=== PATIENT | male | born 1950 | race Caucasian/White ===

== ENCOUNTER 2016-04-08 22:24 | Inpatient (IN) | payer OTHER ==
[~2016-04-08] VITALS: Ht 180.3 cm; Wt 94.9 kg
[2016-04-08] MEDS ORDERED: THIAMINE HCL 100 MG/ML 2 ML VIAL IM STA (23:08)
[2016-04-08] MEDS ORDERED: MULTCHW PO (23:08)
[2016-04-08] MEDS ORDERED: ASPI-391 PO (23:09)
[2016-04-08] MEDS ORDERED: MULTI-VITAMIN INFUSION INJ 10 ML, THIAMINE HCL INJ 100 MG, FoLIC ACID INJ 1 MG in SODIU... IV ONE (23:15)
[2016-04-08 23:22] LABS: BASO % 0.3 %; BASO ABS # 0.03 K/uL (0-0.2); EOS % 2.1 %; HEMATOCRIT 24.1 % (42-52); IG% 0.4 %; LYMPH % 22.2 %; LYMPH ABS # 2.09 K/uL (1.2-3.4); MEAN CELL VOLUME 96.8 fL (80-100); MEAN CORPUSCULAR HEMOGLOBIN 32.9 pg (25-34); MEAN PLATELET VOLUME 9.1 fL (7.4-10.4); MONO % 12.4 %; NEUT % 62.6 %; PLATELET COUNT 198 K/uL (130-400); RED BLOOD COUNT 2.49 M/uL (4.7-6.1); WHITE BLOOD COUNT 9.41 K/uL (4.8-10.8)
[2016-04-08 23:30] LABS: ALT/SGPT 40 U/L (12-78); AST/SGOT 45 U/L (15-37); BLOOD UREA NITROGEN 26 mg/dl (7-18); BUN/CREATININE RATIO 23.7 (10-20); CALCIUM 8.1 mg/dl (8.5-10.1); CARBON DIOXIDE 23 mmol/L (21-32); CHLORIDE 91 mmol/L (98-107); GLUCOSE 138 mg/dl (70-99); MAGNESIUM 2.4 mg/dl (1.8-2.4); POTASSIUM 3.5 mmol/L (3.5-5.1); SODIUM 129 mmol/L (136-145)
[2016-04-08 23:33] LABS: ALKALINE PHOSPHATASE 190 U/L (45-117); CKMB/CK RATIO 2.2 (0-3.0); PHOSPHORUS 2.9 mg/dl (2.5-4.9)
[2016-04-08 23:38] LABS: COMPLETE YES; POLYCHROMASIA 1+
[2016-04-08 23:41] LABS: INR 1.6 (0.9-1.1); PARTIAL THROMBOPLASTIN RATIO 1.1; PROTHROMBIN TIME (PATIENT) 17.6 SECONDS (9.0-12.0)
[2016-04-09] VITALS (20 sets, daily range): BP systolic 81–104; BP diastolic 40–69; PULSE 96–105; TEMP 36.5–37.2; O2SAT 95–100; Ht 180.3 cm; Wt 94.9 kg
[2016-04-09 01:24] LABS: TOTAL IRON BINDING CAPACITY 183 mcg/dl (250-450)
[2016-04-09] MEDS ORDERED: LORAZEPAM 2 MG TAB PO PRN (01:30)
--- NOTE | 2016-04-09 01:52 | History and Physical ---
History & Physical Date & Time of Service: Apr 09, 2016 at 01:22 Chief Complaint: Weakness, Illness Primary Care Physician: No Doctor, Assigned History of Present Illness Source: patient 65 y/o M who denies any significant PMH presents for progressive weakness and difficulty ambulating. He states that he can walk a maximum of 25 feet unassisted before tiring out. He has noted an increase in abdominal girth and a yellow tinting of his sclera. The pt states that he is a recovering alcoholic and has not had a drink since late February. He denies severe withdrawal symptoms a history of DTs or previous seizures but does describe tremors, twitching and anxiety. The pt states that he admitted himself to a detox facility 10/19 and then relapsed when discharged. He then quit of his own accord this February. He denies a previous diagnosis of cirrhosis however clinical exam, labs and imaging suggest advanced cirrhosis with ascites. Past Medical/Surgical History Medical Problems: (1) Alcohol intoxication - Alcohol dependence Status: Resolved (2) Multiple abrasions Status: Resolved (3) Scalp laceration Status: Resolved Family History No pertinent family history Mother owing to ovarian CA at age 90 - father with heart disease Social History No smoking history - describes excessive drinking dating back to the 1970s - would often drink more than a bottle of bourbon daily. He lives alone and admits to a poor diet. He is a retired sports management intern having lived in [place] and covered [employer] for 17 years. 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 He has a brother in [place] who is a recovered alcoholic and runs a chapter of [employer]. Smoking Status: Never Smoker Alcohol Use: heavy (Quit approximately 6 weeks prior) Drug Use: none Marital Status: single Housing status: lives alone Occupational Status: retired Allergies Coded Allergies: No Known Allergies (Unverified , 04/08/16) Home Medications Scheduled Multiple Vitamins W/ Minerals (Centrum Silver), 1 DOSE PO DAILY Scheduled PRN Doytbre-Cbiplybctxltx-Cuipojjt (Excedrin Extra Strength), 1 TAB PO DIRECTED PRN for Pain or Fever Review of Systems Constitutional: No chills, No fever, No sweats Eyes: + problem reported (Icterus), No worsening of vision ENT: No hearing loss, No nasal symptoms, No unusual epistaxis Respiratory: No cough, No sputum, No wheezing Cardiovascular: No PND, No chest pain, No orthopnea Abdomen: + problem reported (Distention) Musculoskeletal: No joint pain Genitourinary - Male: No dysuria, No hematuria, No urinary frequency Neurologic: + balance problems, + weakness, No memory loss, No paralysis Psychiatric: + depression symptoms Endocrine: + fatigue Hematologic / Lymphatic: No abnormal bleeding/bruising Integumentary: + color change (JAundice present) Physical Exam Vital Signs Date Time Temp Pulse Resp B/P Pulse Ox O2 Delivery O2 Flow Rate FiO2 04/09/16 00:10 98 18 100/67 100 Room Air 04/08/16 23:29 100 Room Air 04/08/16 23:27 101 18 100/67 99 Room Air 04/08/16 22:28 105 04/08/16 22:26 36.8 105 20 111/67 100 Room Air General Appearance: + pertinent finding (Plesant and disheveled middle aged male - jaundiced with a distended abdomen) Head: normocephalic, atraumatic Eyes: + pertinent finding (Icteric) ENT: pharynx normal Neck: supple, no JVD Respiratory/Chest: chest non-tender, lungs clear, normal breath sounds Cardiovascular: regular rate, rhythm, no edema, no gallop, no JVD, no murmur Abdomen/GI: normal bowel sounds, non tender, soft, + distended Back: normal inspection Extremities/Musculoskelatal: no pedal edema, + pertinent finding (Mild LE muscle wasting and generalized B/L weakness) Neurologic/Psych: pharmaceutical representative II-XII nml as tested, no motor/sensory deficits, alert, normal mood/affect, oriented x 3, + pertinent finding (Tremors and occasional ivoluntary twitching/asterixis) Skin: + jaundice Diagnostics Laboratory Results Results Past 24 Hours Test 04/08/16 22:30 04/08/16 22:39 04/08/16 23:20 04/09/16 00:47 Range/Units White Blood Count 9.41 4.8-10.8 K/uL Red Blood Count 2.49 4.7-6.1 M/uL Hemoglobin 8.2 14.0-18.0 g/dL Hematocrit 24.1 42-52 % Mean Corpuscular Volume 96.8 80-100 fL Mean Corpuscular Hemoglobin 32.9 25-34 pg Mean Corpuscular Hemoglobin Concent 34.0 32-36 g/dl Platelet Count 198 130-400 K/uL Mean Platelet Volume 9.1 7.4-10.4 fL Neutrophils (%) (Auto) 62.6 % Lymphocytes (%) (Auto) 22.2 % Monocytes (%) (Auto) 12.4 % Eosinophils (%) (Auto) 2.1 % Basophils (%) (Auto) 0.3 % Neutrophils # (Auto) 5.88 1.4-6.5 K/uL Lymphocytes # (Auto) 2.09 1.2-3.4 K/uL Monocytes # (Auto) 1.17 0.11-0.59 K/uL Eosinophils # (Auto) 0.20 0-0.5 K/uL Basophils # (Auto) 0.03 0-0.2 K/uL RDW Standard Deviation 56.4 36.4-46.3 fL RDW Coefficient of Variation 15.9 11.5-14.5 % Immature Granulocyte % (Auto) 0.4 % Immature Granulocyte # (Auto) 0.04 0.00-0.02 K/uL Polychromasia 1+ Prothrombin Time 17.6 9.0-12.0 SECONDS Prothromb Time International Ratio 1.6 0.9-1.1 Activated Partial Thromboplast Time 28.4 21.0-31.0 SECONDS Partial Thromboplastin Ratio 1.1 Sodium Level 129 136-145 mmol/L Potassium Level 3.5 3.5-5.1 mmol/L Chloride Level 91 98-107 mmol/L Carbon Dioxide Level 23 21-32 mmol/L Anion Gap 15.0 3-11 mmol/L Blood Urea Nitrogen 26 7-18 mg/dl Creatinine 1.10 0.60-1.40 mg/dl Est Creatinine Clear Calc Drug Dose 73.2 ml/min Estimated GFR () 82.4 Estimated GFR (Non- 71.1 BUN/Creatinine Ratio 23.7 10-20 Random Glucose 138 70-99 mg/dl Calcium Level 8.1 8.5-10.1 mg/dl Phosphorus Level 2.9 2.5-4.9 mg/dl Magnesium Level 2.4 1.8-2.4 mg/dl Total Bilirubin 4.2 0.2-1 mg/dl Direct Bilirubin 2.1 0-0.2 mg/dl Aspartate Amino Transf (AST/SGOT) 45 15-37 U/L Alanine Aminotransferase (ALT/SGPT) 40 12-78 U/L Alkaline Phosphatase 190 45-117 U/L Total Creatine Kinase 46 39-308 U/L Creatine Kinase MB 1.0 0.5-3.6 ng/ml Creatine Kinase MB Ratio 2.2 0-3.0 Troponin I < 0.015 0-0.045 ng/ml Total Protein 6.7 6.4-8.2 gm/dl Albumin 2.3 3.4-5.0 gm/dl Lipase 396 73-393 U/L Ammonia 13.0 11-32 umol/L Test 04/09/16 01:05 Range/Units Diagnostic Radiology CT abdomen pending Impression Assessment and Plan 65 y/o male who denies any significant PMH presents for progressive weakness and difficulty ambulating. He states that he can walk a maximum of 25 feet unassisted before tiring out. He has noted an increase in abdominal girth and a yellow tinting of his sclera. The pt states that he is a recovering alcoholic and has not had a drink since late February. He denies severe withdrawal symptoms a history of DTs or previous seizures but does describe tremors, twitching and anxiety. The pt states that he admitted himself to a detox facility 10/19 and then relapsed when discharged. He then quit of his own accord this February. He denies a previous diagnosis of cirrhosis however clinical exam, labs and imaging suggest advanced cirrhosis with ascites. 1) Hepatic failure - Likely alcoholic however we will check a hep panel and obtain ascitic fluid for analysis - CT abd and GI consult are pending. Lipase is slightly elevated but symptoms are not consistent with pancreatitis. We will trend, lipase and LFTs. Provided with thiamine, folate and PRN Ativan. 2) Weakness - difficulty ambulating - may be multifactorial owing to cirrhosis, ETOH neuropathy - B12 deficiency will also need to be ruled out 3) Anemia - Normocytic and likely related to cirrhosis - Iron studies pending - no evidence of bleeding 4) Hyponatremia - may be indicative of advanced cirrhosis although pt is not hypotensive - doubt potomania as pt seems forthcoming regarding his history. Will check urine lytes and trend BMP - we may want to avoid IVF as this is likely to worsen his cirrhosis - Lasix may be a better option. Discussed above likely diagnosis with pt Full code, SCDs for prophylaxis considering elevated INR Total time for this admit including Review of records, imaging, meds - discussion with pt and ER attending - 38 min Level of Care Med/Surg Resuscitation Status FULL RESUSCITATION VTE Prophylaxis VTE Risk Assessment Done? Y/N: Yes Risk Level: Low Given or contraindicated: SCD's
[2016-04-09 02:20] LABS: HEPATITIS B AB NEG
[2016-04-09] MEDS ORDERED: INFLUENZA ADMINISTRATION CHARGE ONE (06:15)
[2016-04-09] MEDS ORDERED: INFLUENZA VIRUS QUAD VACCINE 0.5 ML SYR IM. ONE (06:15)
--- NOTE | 2016-04-09 06:21 | EMERGENCY ROOM VISIT NOTE ---
History Report prepared by Mylene: Devin Nelson Under the Supervision of: Dr. Jeffrey Patterson M.D. First contact with patient: 22:58 Chief Complaint: WEAKNESS Stated Complaint: WEAKNESS, ILLNESS History of Present Illness The patient is a 65 year old male who presents to the Emergency Room via ambulance with complaints of gradually worsening generalized weakness for the past two weeks. The patient has had half a dozen falls secondary to the weakness. He was perfectly fine three weeks ago. He is still able to ambulate but can barely make it to the other side of his apartment. The patient does not have a history of weakness. He has also noticed increased abdominal distension without abdominal pain. He denies chest pain or shortness of breath. The patient has a history of alcoholism. He hasn't had a drink since February. The patient was never diagnosed with liver disease. He does not take daily medications. Source of History: patient Onset: two weeks Position: other (generalized) Quality: other (weakness) Timing: worsening Associated Symptoms: No SOB, No abdominal pain, No chest pain Review of Systems See HPI for pertinent positives & negatives. A total of 10 systems reviewed and were otherwise negative. Past Medical & Surgical Medical Problems: (1) Alcohol intoxication (2) Hepatic failure (3) Multiple abrasions (4) Scalp laceration (5) Weakness Family History No pertinent family history Social History Smoking Status: Never Smoker Alcohol Use: other (former heavy drinker) Housing Status: lives alone Current/Historical Medications Scheduled Multiple Vitamins W/ Minerals (Centrum Silver), 1 DOSE PO DAILY Scheduled PRN Gpnrfzs-Spachagrdjdql-Bkygvhpn (Excedrin Extra Strength), 1 TAB PO DIRECTED PRN for Pain or Fever Allergies Coded Allergies: No Known Allergies (Unverified , 04/08/16) Physical Exam Vital Signs Date Time Temp Pulse Resp B/P Pulse Ox O2 Delivery O2 Flow Rate FiO2 04/09/16 00:10 98 18 100/67 100 Room Air 04/08/16 23:29 100 Room Air 04/08/16 23:27 101 18 100/67 99 Room Air 04/08/16 22:28 105 04/08/16 22:26 36.8 105 20 111/67 100 Room Air Physical Exam GENERAL: Patient is unwell appearing and in minimal distress. HEENT: No acute trauma, normocephalic atraumatic, mucous membranes moist, no nasal congestion, scleral icterus. NECK: No stridor, no adenopathy, no meningismus, trachea is midline. LUNGS: No dyspnea. Clear to auscultation and equal bilaterally. No wheeze, no rhonchi. HEART: Mildly tachycardic. No murmurs, rubs, gallops appreciated. ABDOMEN: Soft, bowel sounds positive, no masses appreciated, no peritonitis. Distended, nontender abdomen with fluid wave. BACK: No midline tenderness, no CVA tenderness EXTREMITIES: Normal motion all extremities, no cyanosis, no edema. NEUROLOGIC: Asterixis, Alert and oriented, no acute motor or sensory deficits, no focal weakness, cranial nerves grossly intact. Fine tremor. SKIN: No diaphoresis. Telangiectasias, and jaundice noted. Medical Decision & Procedures ER Provider Diagnostic Interpretation: X ray results are stated below per my interpretation: Chest: 1 view: No infiltrate, no effusion, normal cardiac border. CT results and stated below per my review and radiologist interpretation: CT HEAD: No acute intracranial process. Involutional changes. Radiologist: Joy Tony MD. Laboratory Results 04/08/16 22:39 Red Blood Count 2.49, Mean Corpuscular Volume 96.8, Mean Corpuscular Hemoglobin 32.9, Mean Corpuscular Hemoglobin Concent 34.0, Mean Platelet Volume 9.1, Neutrophils (%) (Auto) 62.6, Lymphocytes (%) (Auto) 22.2, Monocytes (%) (Auto) 12.4, Eosinophils (%) (Auto) 2.1, Basophils (%) (Auto) 0.3, Neutrophils # (Auto ) 5.88, Lymphocytes # (Auto) 2.09, Monocytes # (Auto) 1.17, Eosinophils # (Auto ) 0.20, Basophils # (Auto) 0.03 04/08/16 22:39 Test 04/08/16 22:39 04/08/16 23:20 White Blood Count 9.41 K/uL (4.8-10.8) Red Blood Count 2.49 M/uL (4.7-6.1) Hemoglobin 8.2 g/dL (14.0-18.0) Hematocrit 24.1 % (42-52) Mean Corpuscular Volume 96.8 fL (80-100) Mean Corpuscular Hemoglobin 32.9 pg (25-34) Mean Corpuscular Hemoglobin Concent 34.0 g/dl (32-36) Platelet Count 198 K/uL (130-400) Mean Platelet Volume 9.1 fL (7.4-10.4) Neutrophils (%) (Auto) 62.6 % Lymphocytes (%) (Auto) 22.2 % Monocytes (%) (Auto) 12.4 % Eosinophils (%) (Auto) 2.1 % Basophils (%) (Auto) 0.3 % Neutrophils # (Auto) 5.88 K/uL (1.4-6.5) Lymphocytes # (Auto) 2.09 K/uL (1.2-3.4) Monocytes # (Auto) 1.17 K/uL (0.11-0.59) Eosinophils # (Auto) 0.20 K/uL (0-0.5) Basophils # (Auto) 0.03 K/uL (0-0.2) RDW Standard Deviation 56.4 fL (36.4-46.3) RDW Coefficient of Variation 15.9 % (11.5-14.5) Immature Granulocyte % (Auto) 0.4 % Immature Granulocyte # (Auto) 0.04 K/uL (0.00-0.02) Polychromasia 1+ Erythrocyte Sedimentation Rate 29 mm/hr (0-14) Prothrombin Time 17.6 SECONDS (9.0-12.0) Prothromb Time International Ratio 1.6 (0.9-1.1) Activated Partial Thromboplast Time 28.4 SECONDS (21.0-31.0) Partial Thromboplastin Ratio 1.1 Anion Gap 15.0 mmol/L (3-11) Est Creatinine Clear Calc Drug Dose 73.2 ml/min Estimated GFR () 82.4 Estimated GFR (Non- 71.1 BUN/Creatinine Ratio 23.7 (10-20) Calcium Level 8.1 mg/dl (8.5-10.1) Phosphorus Level 2.9 mg/dl (2.5-4.9) Magnesium Level 2.4 mg/dl (1.8-2.4) Iron Level 26 mcg/dl (35-175) Total Iron Binding Capacity 183 mcg/dl (250-450) Ferritin 727.0 ng/ml (8.0-388.0) Total Bilirubin 4.2 mg/dl (0.2-1) Direct Bilirubin 2.1 mg/dl (0-0.2) Aspartate Amino Transf (AST/SGOT) 45 U/L (15-37) Alanine Aminotransferase (ALT/SGPT) 40 U/L (12-78) Alkaline Phosphatase 190 U/L (45-117) Total Creatine Kinase 46 U/L (39-308) Creatine Kinase MB 1.0 ng/ml (0.5-3.6) Creatine Kinase MB Ratio 2.2 (0-3.0) Troponin I < 0.015 ng/ml (0-0.045) Total Protein 6.7 gm/dl (6.4-8.2) Albumin 2.3 gm/dl (3.4-5.0) Lipase 396 U/L (73-393) Ammonia 13.0 umol/L (11-32) Laboratory results as reviewed by me. Medications Administered Medications (Trade) Dose Ordered Sig/Alexandra Route Start Time Stop Time Status Last Admin Dose Admin Multivitamins/ Thiamine HCl/ Folic Acid/Sodium Chloride (Mvi Infusion Inj/Vitamin B-1 Inj/Folvite Inj/ Nss 1000ml) 1,011.2 ml @ 200 mls/ hr Q5H4M ONCE IV 04/08/16 23:15 04/09/16 04:18 DC 04/09/16 00:04 200 MLS/HR Thiamine HCl (Vitamin B-1 Inj) 300 mg NOW STAT IM 04/08/16 23:08 04/08/16 23:10 DC 04/08/16 23:30 300 MG ECG Indication: weakness Rate (beats per minute): 101 Rhythm: sinus tachycardia Findings: no acute ischemic change, no ectopy ED Course 2305: The patient was evaluated in room A9b. A complete history and physical exam was performed. 2308: Thiamine 300 mg IM. 2315: Multivitamins 10 ml / Thiamine 100 mg / Folic Acid 1 mg / NSS 1011.2 ml @ 200 mls/hr. 0015: The patient feels the same. He would like something to drink. 0018: [facility] The [facility] will be [facility]. Medical Decision Differential: Sepsis, Infectious (UTI/Pneumonia/Meningitis/etc), Metabolic/ Electrolyte Abnormality, Cardiac, Hepatic, Endocrine, Toxicologic, Neurologic, amongst other pathologies entertained. 65 yr old male arrives with complaint of feeling generally weak. By examination he clearly has hallmarks of chronic liver cirrhosis though he admits no PCP evaluations. States quite drinking a few months ago. Work up consistent with liver failure and given the amount of weakness he has and no outpatient follow up will need to come in. As alcoholic who admits poor oral intake given large dosing Thiamine along with banana bag. Has no evidence of sepsis by examination. Abdomen with ascites though no TTP and no peritonitis. Mild anemia consistent with chronic disease, no need for acute transfusion. INR , bili both elevated consistent with his liver failure. Stable without issues while in ED. Consults Time Called: 9 Consulting Physician: Dr. Mg, [facility]. Returned Call: 17 17: Spoke with Dr. Mg, [facility]. The patient will be evaluated. Impression Primary Impression: Liver failure Additional Impressions: Alcoholic cirrhosis, Ascites, Generalized weakness Scribe Attestation The scribe's documentation has been prepared under my direction and personally reviewed by me in its entirety. I confirm that the note above accurately reflects all work, treatment, procedures, and medical decision making performed by me. Departure Information Dispostion Being Evaluated By Hospitalist Referrals No Doctor, Assigned (PCP) Patient Instructions A Signature Page, My [facility]
--- NOTE | 2016-04-09 06:32 | DIAGNOSTIC IMAGING REPORT ---
CT HEAD WITHOUT CONTRAST (CT) CLINICAL HISTORY: Generalized Weakness COMPARISON STUDY: 12/26/2014 TECHNIQUE: Axial CT of the brain is performed from the vertex to the skull base. IV contrast was not administered for this examination. CT DOSE: 614.27 mGy.cm FINDINGS: No intra or extra-axial mass lesions are visualized. There is no CT evidence of acute cortical infarction. There is no evidence of midline shift. There is no acute hemorrhage. No calvarial fractures are visualized. There are minor white matter hypodensities likely on a small vessel basis. There is no evidence of pathologic ventricular dilatation. There is no evidence of acute sinusitis IMPRESSION: No acute intracranial findings Electronically signed by: Aleksandr Riddle M.D. 04/09/2016 6:31 AM
--- NOTE | 2016-04-09 06:56 | DIAGNOSTIC IMAGING REPORT ---
DUPLEX ULTRASOUND OF THE PORTAL AND HEPATIC VEINS CLINICAL HISTORY: Cirrhosis COMPARISON STUDY: No previous studies for comparison. FINDINGS: The examination was limited due to bowel gas shadowing. The splenic vein was not visualized. The portal veins were patent with normal directional flow. The hepatic veins were patent with biphasic flow. There is elevated velocity within the hepatic artery. This may indicate a stenosis. No flow could be detected distal to the stenosis. There is ascites. There is a distended gallbladder with gallbladder wall thickening. The liver has a cirrhotic morphology. IMPRESSION: 1. Hepatic cirrhosis. Distended gallbladder with gallbladder wall thickening which may be secondary to underlying liver disease 2. Suspected hepatic artery stenosis. 3. The portal veins were patent with normal directional flow 4. Hepatic veins were patent. There was biphasic flow within the right hepatic vein and IVC Electronically signed by: Aleksandr Riddle M.D. 04/09/2016 6:55 AM
--- NOTE | 2016-04-09 07:22 | DIAGNOSTIC IMAGING REPORT ---
CT OF THE ABDOMEN AND PELVIS WITHOUT CONTRAST CLINICAL HISTORY: Cirrhosis/ascites COMPARISON STUDY: Doppler ultrasound of the hepatic vessels April 09, 2016. TECHNIQUE: Axial images of the abdomen and pelvis were obtained without IV contrast. Images were reviewed in the axial, sagittal, and coronal planes. FINDINGS: Visualized portions of the lower chest demonstrate trace bilateral pleural effusions. Evaluation of the abdomen and pelvis is suboptimal given the lack of IV and oral contrast. There is no pneumatosis, free air or portal venous gas. The liver is cirrhotic. A 5 mm hypodense left hepatic lobe lesion is suboptimal characterized on this unenhanced exam. This may reflect a cyst. Sensitivity for detection of hepatic lesions is diminished on this unenhanced exam. There is no biliary ductal dilatation. The size of spleen is normal. Unenhanced images of the adrenal glands, kidneys and pancreas are normal. There is a large amount of abdominal and pelvic ascites. There is no evidence for a bowel obstruction. No lymphadenopathy is identified. The gallbladder is moderately distended. IMPRESSION: 1. Cirrhosis with large volume of abdominal and pelvic ascites. 2. Suboptimal evaluation of the liver and remainder of the abdomen and pelvis given the lack of IV contrast. 3. No bowel obstruction. 4. Moderate nonspecific gallbladder distention. 5. Trace bilateral pleural effusions. 6. Nonspecific subcutaneous gas of the right buttock. Electronically signed by: Randy Zuluaga M.D. 04/09/2016 7:20 AM
--- NOTE | 2016-04-09 07:30 | DIAGNOSTIC IMAGING REPORT ---
CHEST ONE VIEW PORTABLE CLINICAL HISTORY: Generalized weakness COMPARISON STUDY: No previous studies for comparison. FINDINGS: The cardiac and mediastinal contours are normal. There is no evidence of focal pulmonary consolidation. There is no evidence of failure. No pleural effusions are visualized.[ There is slight thickening of the basal interstitial markings, likely chronic. IMPRESSION: AP portable study. No active disease in the chest. Electronically signed by: Aleksandr Riddle M.D. 04/09/2016 7:29 AM
[2016-04-09] MEDS: THIAMINE HCL 100 MG TAB PO SCH (09:00)
--- NOTE | 2016-04-09 10:54 | Gastrointestinal Consultation ---
Gastrointestinal Consultation Date of Consultation: Apr 09, 2016 Attending Physician: Dr. Mg Consulting Physician: Dr. Miller/HARLAN Ceballos Reason for Consultation: Cirrhosis History of Present Illness Patient is a 65 year old male with a history of chronic alcohol abuse with reported consumption of 6-8 bourbon drinks per night for many years. He did attempt alcohol cessation at an inpatient alcohol rehabilitation facility within the past year but subsequently relapsed. He states that since February, however, he has been completely abstinent from alcohol and denies any prior seizures or withdrawal symptoms. The patient states that two weeks ago, however , he began to have symptoms of progressing weakness, tremor, difficulty sleeping (3 hours per night only), confusion, difficulty concentrating, and balance issues. He also reports dark urine which has improved, jaundice and abdominal distention which has been worsening. No abdominal pain. No pruritus or acholic stools. Denies any melena, hematochezia or hematemesis. Reports that he has been having difficulty with constipation and has gone days without a bowel movement. He presented to the hospital for further evaluation of symptoms. On arrival, he did have a hepatic liver ultrasound which demonstrated a cirrhotic appearing liver with gall bladder distention as well as abdominal CT which demonstrated a cirrhotic appearing liver with large volume of abdominal ascites. Laboratory testing was significant for decreased hemoglobin and hematocrit of 8.2 and 24.1 respectively, normal platelet count of 198 but elevated PT of 17.6 and INR 1.6. He did have hyponatremia and elevated AST of 45. ALP was also elevated at 190 with a hyperlipasemia of 396. Ammonia level was noted to be 13. Ascitic fluid analysis has been ordered but no order for paracentesis has been placed. He has been started on thiamine and folic acid. Past Medical/Surgical History Medical Problems: (1) Alcoholic cirrhosis Status: Acute (2) Ascites Status: Acute (3) Generalized weakness Status: Acute (4) Liver failure Status: Acute Past Medical History: 1. Alcoholism 2. Scalp laceration Past Surgical History: None reported Family History No pertinent family history Brother with alcoholism. No family history of cirrhosis. Social History Smoking Status: Never Smoker Alcohol Use: other (former heavy drinker) Drug Use: none Marital Status: single Housing Status: lives alone Occupation Status: retired Allergies Coded Allergies: No Known Allergies (Unverified , 04/08/16) Current Medications Home Meds and Scripts Medications Dose Route/Sig Max Daily Dose Days Date Category Excedrin Extra Strength (Npkpuun-Sjynjyyoplnbe-Wvzvhydv) 1 Tab Tab 1 Tab PO DIRECTED PRN 04/08/16 Reported Centrum Silver (Multiple Vitamins W/ Minerals) 1 Chw Chw 1 Dose PO DAILY 04/08/16 Reported Review of Systems See HPI for pertinent positives & negatives. A total of 10 systems reviewed and were otherwise negative. Physical Exam Date Time Temp Pulse Resp B/P Pulse Ox O2 Delivery O2 Flow Rate FiO2 04/09/16 08:31 36.8 100 20 82/47 98 Room Air 88/53 04/09/16 02:40 36.6 103 18 104/69 98 Room Air 04/09/16 02:40 36.6 103 18 104/69 98 Room Air 04/09/16 01:29 101 18 96/67 100 Room Air 04/09/16 00:10 98 18 100/67 100 Room Air 04/08/16 23:29 100 Room Air 04/08/16 23:27 101 18 100/67 99 Room Air 04/08/16 22:28 105 04/08/16 22:26 36.8 105 20 111/67 100 Room Air General Appearance: WD/WN, no apparent distress Eyes: EOMI, + pertinent finding (sclera icteric bilaterally) ENT: hearing grossly normal Neck: supple Respiratory/Chest: lungs clear, normal breath sounds, no respiratory distress Cardiovascular: regular rate, rhythm, no gallop, no murmur Abdomen: normal bowel sounds, non tender, + pertinent finding (firmly distended ) Extremities: + swelling (trace lower extremity edema), + pertinent finding (+ asterixis) Neurologic/Psych: alert, normal mood/affect, oriented x 3 Skin: + jaundice Laboratory Results Last 24 Hours Test 04/08/16 22:39 04/08/16 23:20 04/09/16 01:40 White Blood Count 9.41 K/uL Red Blood Count 2.49 M/uL Hemoglobin 8.2 g/dL Hematocrit 24.1 % Mean Corpuscular Volume 96.8 fL Mean Corpuscular Hemoglobin 32.9 pg Mean Corpuscular Hemoglobin Concent 34.0 g/dl Platelet Count 198 K/uL Mean Platelet Volume 9.1 fL Neutrophils (%) (Auto) 62.6 % Lymphocytes (%) (Auto) 22.2 % Monocytes (%) (Auto) 12.4 % Eosinophils (%) (Auto) 2.1 % Basophils (%) (Auto) 0.3 % Neutrophils # (Auto) 5.88 K/uL Lymphocytes # (Auto) 2.09 K/uL Monocytes # (Auto) 1.17 K/uL Eosinophils # (Auto) 0.20 K/uL Basophils # (Auto) 0.03 K/uL RDW Standard Deviation 56.4 fL RDW Coefficient of Variation 15.9 % Immature Granulocyte % (Auto) 0.4 % Immature Granulocyte # (Auto) 0.04 K/uL Polychromasia 1+ Erythrocyte Sedimentation Rate 29 mm/hr Prothrombin Time 17.6 SECONDS Prothromb Time International Ratio 1.6 Activated Partial Thromboplast Time 28.4 SECONDS Partial Thromboplastin Ratio 1.1 Sodium Level 129 mmol/L Potassium Level 3.5 mmol/L Chloride Level 91 mmol/L Carbon Dioxide Level 23 mmol/L Anion Gap 15.0 mmol/L Blood Urea Nitrogen 26 mg/dl Creatinine 1.10 mg/dl Est Creatinine Clear Calc Drug Dose 73.2 ml/min Estimated GFR () 82.4 Estimated GFR (Non- 71.1 BUN/Creatinine Ratio 23.7 Random Glucose 138 mg/dl Calcium Level 8.1 mg/dl Phosphorus Level 2.9 mg/dl Magnesium Level 2.4 mg/dl Iron Level 26 mcg/dl Total Iron Binding Capacity 183 mcg/dl Ferritin 727.0 ng/ml Total Bilirubin 4.2 mg/dl Direct Bilirubin 2.1 mg/dl Aspartate Amino Transf (AST/SGOT) 45 U/L Alanine Aminotransferase (ALT/SGPT) 40 U/L Alkaline Phosphatase 190 U/L Total Creatine Kinase 46 U/L Creatine Kinase MB 1.0 ng/ml Creatine Kinase MB Ratio 2.2 Troponin I < 0.015 ng/ml Total Protein 6.7 gm/dl Albumin 2.3 gm/dl Lipase 396 U/L Ammonia 13.0 umol/L Vitamin B12 Level > 2000 pg/mL Folate > 24.00 ng/mL Hepatitis B Surface Antigen NEG Hepatitis B Surface Antibody NEG Hepatitis C Antibody NEG Impression Patient is a 65 year old male with a history of constipation and chronic alcohol abuse admitted with weakness and newly diagnosed alcoholic cirrhosis with decompensation including minimal HE, jaundice and ascites as well as elevated INR of 1.6 which is consistent with acute liver failure. Incidental finding of 5 mm hepatic lesion on imaging. Discriminant function = 30 Plan 1. Alcoholic cirrhosis: Reinforced the importance of complete alcohol abstinence. Should reconsider outpatient alcohol treatment program options as he has only been abstinent from alcohol for approximately one month and he has previously relapsed after a previous inpatient rehab stay. Check a CBC, CMP, and PT/INR now. As his discriminate function is 30, would not recommend initiation of Prednisolone therapy. Recommend continued supplementation with folic acid and thiamine. 2. Hepatic lesion: Will require an outpatient triphasic liver CT as well as AFP for HCC screening with continued surveillance every 6 months. 3. History of constipation and HE by symptomatology: Serum ammonia levels are not a reliable indicator of the degree of hepatic encephalopathy. Although his ammonia level was normal, he does admit to sleeping difficulties, balance and weakness issues, memory difficulties, confusion and tremors. Recommend initiation of Lactulose 30 g BID (goal of 3 bms per day) and Xifaxan 550 mg PO BID. Would want to avoid progressing encephalopathy in this patient. 4. Suspected portal hypertension and abdominal ascites: Patient will require ultrasound guided a therapeutic and diagnostic paracentesis with fluid studies as ordered. Albumin 25% for 5 liters and 5% for each additional liter post paracentesis. Initiation of Spironolactone 100 mg daily and Lasix 40 mg daily. Agree with continued 2 g sodium restricted diet. Patient will need an outpatient EGD for variceal screening. Pending results, will determine need for beta alfonzo therapy but would not start at this point. This would be considered cautiously if ascites becomes refractory or if evidence of SBP as can increase morbidity and mortality. 5. Coagulopathy: INR was 1.6 on admission. Will continue to trend. If INR continues to elevate (~1.8), would recommend transfer to a tertiary transplant center. Would recommend consideration of transfer to the telemetry unit as patient could further decompensate. Addendum at 1433: Patient has been transferred to telemetry unit. INR has increased to 1.8 and PT is now 19.4. Discriminant function has increased to 34.4 and therefore would recommend initiation of Prednisolone 40 mg daily and consideration of tertiary transfer. Agree with HARLAN Ceballos as above Abd: Soft, NT, ND, +BS Paracentesis performed today with removal of 7.5 Liters Patient feeling much better Still without a BM today, lactulose ordered Await ascitic fluid studies Continue current therapy If INR would rise, recommend Transplant center for further treatment.
[2016-04-09] MEDS ORDERED: ALBUMIN HUMAN 25% 12.5 GM/50 ML VIAL IV SCH (11:00)
[2016-04-09 11:01] LABS: INR 1.8 (0.9-1.1); PROTHROMBIN TIME (PATIENT) 19.4 SECONDS (9.0-12.0)
[2016-04-09 11:23] LABS: HEMATOCRIT 19.6 % (42-52); MEAN CELL VOLUME 95.1 fL (80-100); MEAN CORPUSCULAR HGB CONC 34.7 g/dl (32-36); MEAN PLATELET VOLUME 8.4 fL (7.4-10.4); PLATELET COUNT 159 K/uL (130-400); RED BLOOD COUNT 2.06 M/uL (4.7-6.1); WHITE BLOOD COUNT 8.03 K/uL (4.8-10.8)
[2016-04-09 11:27] LABS: URINE APPEARANCE CLEAR (CLEAR); URINE COLOR DK YELLOW; URINE NITRITE POS (NEG); UROBILINOGEN POS (NEG); ZZUR CULT IF INDIC CLEAN CATCH NO
[2016-04-09 11:32] LABS: BUN/CREATININE RATIO 28.7 (10-20); CALCIUM 7.4 mg/dl (8.5-10.1); POTASSIUM 3.7 mmol/L (3.5-5.1)
[2016-04-09 11:34] LABS: ALB/GLOB RATIO 0.6 (0.9-2)
[2016-04-09 11:35] LABS: MANUAL MICROSCOPIC REQUIRED? NO; REVIEW REQ? NO; URINE BILIRUBIN NEG (NEG)
[2016-04-09 11:41] LABS: BASO % 0.2 %; BASO ABS # 0.02 K/uL (0-0.2); COMPLETE YES; EOS % 1.9 %; IG% 0.2 %; LYMPH % 16.7 %; LYMPH ABS # 1.34 K/uL (1.2-3.4); MONO % 9.7 %; NEUT % 71.3 %; POLYCHROMASIA 1+
[2016-04-09 12:18] LABS: CALCIUM 7.5 mg/dl (8.5-10.1); POTASSIUM 3.8 mmol/L (3.5-5.1)
--- NOTE | 2016-04-09 12:28 | Progress Note ---
Progress Note Patient admitted in the early am. I reviewed GI note and will transfer to tele. HGB is 6.8 so I ordered 2 units of PRBCs. I acquired consent for blood transfusion from the patient. He is planned for paracentesis per GI.
--- NOTE | 2016-04-09 14:35 | DIAGNOSTIC IMAGING REPORT ---
DIAGNOSTIC AND THERAPEUTIC PARACENTESIS UNDER ULTRASOUND GUIDANCE CLINICAL HISTORY: large volume ascites COMPARISON STUDY: CT scan dated 04/09/2016 FINDINGS: The risks, benefits, and alternatives to the procedure were discussed with the patient. Written informed consent was obtained. Following real-time ultrasound localization, the skin was prepped and draped. Following local anesthesia with Xylocaine, the sheath paracentesis needle was inserted and approximately 6.8 liters of straw-colored fluid was removed by vacuum suction. A right lower quadrant approach was utilized. The patient tolerated the procedure well and left the department in satisfactory condition. IMPRESSION: Successful ultrasound-guided paracentesis with removal of approximately 6.8 liters of ascitic fluid. Electronically signed by: Aleksandr Riddle M.D. 04/09/2016 2:32 PM
[2016-04-09] MEDS: ALBUMIN HUMAN 5% 12.5 GM/250 ML VIAL IV PRN ×2 (14:55→16:36)
[2016-04-09 15:26] LABS: PERIT FL WBC 67 /uL (0-300); PERITONEAL FLUID RBC < 3000 /uL
[2016-04-09] MEDS: prednisoLONE SYRUP 15 MG/5 ML PO SCH (16:26)
[2016-04-09 18:16] LABS: INR 1.9 (0.9-1.1); PROTHROMBIN TIME (PATIENT) 20.6 SECONDS (9.0-12.0)
[2016-04-09] MEDS: RIFAXIMIN TAB 550 MG TAB PO SCH (21:02)
[2016-04-09] MEDS: LACTULOSE SYRUP 30 GM/45 ML UDP PO SCH (21:02)
[2016-04-10] VITALS (13 sets, daily range): BP systolic 81–102; BP diastolic 42–68; PULSE 96–113; TEMP 36.6–37.1; O2SAT 94–98
[2016-04-10] MEDS ORDERED: ONDANSETRON INJ 2 MG/ML 2 ML VIAL IV STA (02:18)
[2016-04-10 06:17] LABS: BASO % 0.1 %; BASO ABS # 0.01 K/uL (0-0.2); EOS % 0.1 %; HEMATOCRIT 22.1 % (42-52); IG% 0.4 %; LYMPH % 12.9 %; LYMPH ABS # 1.01 K/uL (1.2-3.4); MEAN CELL VOLUME 90.6 fL (80-100); MEAN CORPUSCULAR HEMOGLOBIN 31.1 pg (25-34); MEAN CORPUSCULAR HGB CONC 34.4 g/dl (32-36); MEAN PLATELET VOLUME 8.6 fL (7.4-10.4); NEUT % 79.5 %; PLATELET COUNT 125 K/uL (130-400); RED BLOOD COUNT 2.44 M/uL (4.7-6.1); WHITE BLOOD COUNT 7.81 K/uL (4.8-10.8)
[2016-04-10 06:48] LABS: BUN/CREATININE RATIO 40.3 (10-20); CALCIUM 7.4 mg/dl (8.5-10.1); CREATININE 0.71 mg/dl (0.60-1.40)
[2016-04-10 06:49] LABS: INR 1.8 (0.9-1.1); PROTHROMBIN TIME (PATIENT) 19.7 SECONDS (9.0-12.0)
[2016-04-10 06:52] LABS: ALB/GLOB RATIO 0.7 (0.9-2)
[2016-04-10 07:01] LABS: COMPLETE YES; POLYCHROMASIA 1+
[2016-04-10] MEDS: RIFAXIMIN TAB 550 MG TAB PO SCH ×2 (09:05→20:48)
[2016-04-10] MEDS: SPIRONOLACTONE 100 MG TAB PO SCH (09:06)
[2016-04-10] MEDS: THIAMINE HCL 100 MG TAB PO SCH (09:06)
[2016-04-10] MEDS: LACTULOSE SYRUP 30 GM/45 ML UDP PO SCH ×2 (09:06→20:48)
[2016-04-10] MEDS: FUROSEMIDE 40 MG TAB PO SCH (09:06)
[2016-04-10] MEDS: prednisoLONE SYRUP 15 MG/5 ML PO SCH (09:07)
--- NOTE | 2016-04-10 14:11 | Gastroenterology Progress Note ---
Progress Note Date of Service: Apr 10, 2016 Subjective Pt evaluation today including: conversation w/ patient, physical exam, chart review, lab review, review of inpatient medication list Patient reports improved fatigue today post blood transfusion yesterday as well as diag/therapeutic paracentesis yesterday with 7.5 liters of ascitic fluid removed. He also reports a large bowel movement this morning which he states has improved his energy level. States "I ate a good breakfast". Denies any abdominal pain, decreased abdominal distention. Continues with jaundice but no pruritus, dark urine or acholic stool. Ascitic fluid with WBC of 67 which is not consistent with SBP. Ascitic albumin <0.6. Cytology and gram stain are pending. Total bilirubin remains 4.2 with minimal transaminitis with AST of 42 and ALP 147. INR had increased to 1.9 last night but did reduce back to 1.8 this morning. He denies any abnormal bleeding or bruising. Today with thrombocytopenia and continued anemia. He is to receive another blood transfusion today. Renal function remains adequate with a normal creatinine. Starting Lactulose and Xifaxan as well as Lasix and Spironolactone. Also currently taking Prednisolone 40 mg daily. Review of Systems Constitutional: + see HPI Eyes: + problem reported (icteris) Respiratory: No problem reported Cardiac: No problem reported Abdomen: + see HPI Psych: No problem reported Heme: + see HPI Skin: + jaundice Medications Current Inpatient Medications Medications (Trade) Dose Ordered Sig/Alexandra Route Start Time Stop Time Status Last Admin Dose Admin Thiamine HCl (Vitamin B-1 Tab) 100 mg QAM PO 04/09/16 09:00 05/09/16 08:59 04/10/16 09:06 100 MG Folic Acid (Folvite Tab) 1 mg QAM PO 04/09/16 09:00 05/09/16 08:59 04/10/16 09:06 1 MG Lorazepam (Ativan Tab) 2 mg Q6H PRN PO 04/09/16 01:30 05/09/16 01:29 Lactulose (Chronulac Syrup) 30 gm BID PO 04/09/16 21:00 05/09/16 20:59 04/10/16 09:06 30 GM Rifaximin (Xifaxan Tab) 550 mg BID PO 04/09/16 21:00 05/09/16 20:59 04/10/16 09:05 550 MG Furosemide (Lasix tab) 40 mg QAM PO 04/10/16 09:00 05/10/16 08:59 04/10/16 09:06 40 MG Spironolactone (Aldactone Tab) 100 mg QAM PO 04/10/16 09:00 05/10/16 08:59 04/10/16 09:06 100 MG Prednisolone (Prelone Syrup) 40 mg DAILY PO 04/09/16 15:30 05/09/16 15:29 04/10/16 09:07 40 MG Objective Vital Signs Date Time Temp Pulse Resp B/P Pulse Ox O2 Delivery O2 Flow Rate FiO2 04/10/16 12:30 108 15 100/63 96 04/10/16 12:17 36.7 113 17 86/53 97 04/10/16 12:00 Room Air 04/10/16 11:57 36.7 101 18 101/59 96 04/10/16 08:27 36.9 106 18 96/61 97 04/10/16 08:00 Room Air 04/10/16 04:05 37.1 96 16 92/62 97 Room Air 04/10/16 04:02 Room Air 04/10/16 00:00 Room Air 04/09/16 23:50 37.0 100 16 95/59 97 Room Air 04/09/16 20:02 Room Air 04/09/16 20:02 36.5 96 17 98/66 98 Room Air 04/09/16 18:30 96 98/66 99 04/09/16 18:00 36.5 99 19 89/50 99 04/09/16 18:00 36.5 99 89/50 99 04/09/16 17:30 36.5 105 17 92/57 99 04/09/16 17:15 36.6 103 17 92/54 99 04/09/16 17:01 36.6 105 18 86/55 97 04/09/16 16:09 37.2 100 16 101/60 100 Room Air 04/09/16 16:00 99 91/46 100 04/09/16 15:45 101 98/62 96 04/09/16 15:30 101 12 101/60 100 04/09/16 15:15 15 89/40 100 04/09/16 15:15 101/58 100 04/09/16 15:00 99 12 92/54 96 04/09/16 14:45 37.1 100 12 95/50 96 04/09/16 14:30 37.2 100 15 95/56 95 04/09/16 14:19 102 15 81/51 97 Room Air Physical Exam General Appearance: no apparent distress Eyes: + pertinent finding (sclera icteric bilaterally) ENT: hearing grossly normal Neck: supple Respiratory/Chest: lungs clear, normal breath sounds, no respiratory distress Cardiovascular: regular rate, rhythm, no gallop, no murmur Abdomen: soft, + abnormal bowel sounds (hyperactive), + distended Extremities: no pedal edema Neurologic/Psych: alert, normal mood/affect, oriented x 3 Skin: + jaundice Laboratory Results Last 24 Hours Test 04/09/16 17:51 04/10/16 05:28 Prothrombin Time 20.6 SECONDS 19.7 SECONDS Prothromb Time International Ratio 1.9 1.8 White Blood Count 7.81 K/uL Red Blood Count 2.44 M/uL Hemoglobin 7.6 g/dL Hematocrit 22.1 % Mean Corpuscular Volume 90.6 fL Mean Corpuscular Hemoglobin 31.1 pg Mean Corpuscular Hemoglobin Concent 34.4 g/dl Platelet Count 125 K/uL Mean Platelet Volume 8.6 fL Neutrophils (%) (Auto) 79.5 % Lymphocytes (%) (Auto) 12.9 % Monocytes (%) (Auto) 7.0 % Eosinophils (%) (Auto) 0.1 % Basophils (%) (Auto) 0.1 % Neutrophils # (Auto) 6.20 K/uL Lymphocytes # (Auto) 1.01 K/uL Monocytes # (Auto) 0.55 K/uL Eosinophils # (Auto) 0.01 K/uL Basophils # (Auto) 0.01 K/uL RDW Standard Deviation 54.6 fL RDW Coefficient of Variation 16.7 % Immature Granulocyte % (Auto) 0.4 % Immature Granulocyte # (Auto) 0.03 K/uL Polychromasia 1+ Sodium Level 128 mmol/L Potassium Level 4.0 mmol/L Chloride Level 96 mmol/L Carbon Dioxide Level 23 mmol/L Anion Gap 9.0 mmol/L Blood Urea Nitrogen 29 mg/dl Creatinine 0.71 mg/dl Est Creatinine Clear Calc Drug Dose 113.4 ml/min Estimated GFR () 115.7 Estimated GFR (Non- 99.9 BUN/Creatinine Ratio 40.3 Random Glucose 97 mg/dl Calcium Level 7.4 mg/dl Total Bilirubin 4.2 mg/dl Aspartate Amino Transf (AST/SGOT) 42 U/L Alanine Aminotransferase (ALT/SGPT) 31 U/L Alkaline Phosphatase 147 U/L Total Protein 5.3 gm/dl Albumin 2.1 gm/dl Globulin 3.2 gm/dl Albumin/Globulin Ratio 0.7 Lipase 317 U/L Assessment and Plan Patient is a 65 year old male with a history of constipation and chronic alcohol abuse admitted with weakness and newly diagnosed alcoholic cirrhosis with decompensation including minimal HE, jaundice and ascites as well as elevated INR >1.5 which is consistent with acute liver failure. Incidental finding of 5 mm hepatic lesion on imaging. Discriminant function = 38 SAAG > 1.1 1. Alcoholic cirrhosis: Reinforced the importance of complete alcohol abstinence. Should reconsider outpatient alcohol treatment program options as he has only been abstinent from alcohol for approximately one month and he has previously relapsed after a previous inpatient rehab stay. As his discriminate function is 38, recommend continuation of Prednisolone therapy at 40 mg daily. Recommend continued supplementation with folic acid and thiamine. 2. Hepatic lesion: Will require an outpatient triphasic liver CT as well as AFP for HCC screening with continued surveillance every 6 months. 3. History of constipation and HE by symptomatology: Continue Lactulose 30 g BID (goal of 3 bms per day) and Xifaxan 550 mg PO BID. Would want to avoid progressing encephalopathy in this patient. 4. Portal hypertension and abdominal ascites: Patient may require another ultrasound guided a therapeutic paracentesis in the near future. Await fluid studies as ordered. Continue Spironolactone 100 mg daily and Lasix 40 mg daily. Agree with continued 2 g sodium restricted diet. Patient will need an outpatient EGD for variceal screening. 5. Coagulopathy: INR was 1.6 on admission. Will continue to trend. If INR continues to elevate, would recommend transfer to a tertiary transplant center. Agree with HARLAN Ceballos as above Feeling much better today Abd: Soft, NT, ND, +BS Continue current therapy Will follow clinical course and make further recommendations as needed.
--- NOTE | 2016-04-10 15:16 | Hospitalist Progress Note ---
Hospitalist Progress Note Date of Service Apr 10, 2016. (Sonya Pierre ., PANoelleC) Subjective Pt evaluation today including: conversation w/ patient, physical exam, chart review, lab review, review of studies, review of inpatient medication list Patient states he is feeling "much, much better" today. He did have a bowel movement last night- he denies any evidence of blood in stools. His abdomen feels very well since the paracentesis. He is eating and drinking OK. Patient denies any fever, chills, sweats, lightheadedness, dizziness, vision changes, CP , palpitations, edema, SOB, wheezing, cough, abdominal pain, nausea, vomiting, diarrhea, melena, numbness/tingling, weakness, muscle/joint pain, anxiety/ depression, active bleeding, or new skin discoloration/changes. (Sonya Pierre ., RAMILA-C) Medications Current Inpatient Medications Medications (Trade) Dose Ordered Sig/Alexandra Route Start Time Stop Time Status Last Admin Dose Admin Thiamine HCl (Vitamin B-1 Tab) 100 mg QAM PO 04/09/16 09:00 05/09/16 08:59 04/10/16 09:06 100 MG Folic Acid (Folvite Tab) 1 mg QAM PO 04/09/16 09:00 05/09/16 08:59 04/10/16 09:06 1 MG Lorazepam (Ativan Tab) 2 mg Q6H PRN PO 04/09/16 01:30 05/09/16 01:29 Lactulose (Chronulac Syrup) 30 gm BID PO 04/09/16 21:00 05/09/16 20:59 04/10/16 09:06 30 GM Rifaximin (Xifaxan Tab) 550 mg BID PO 04/09/16 21:00 05/09/16 20:59 04/10/16 09:05 550 MG Furosemide (Lasix tab) 40 mg QAM PO 04/10/16 09:00 05/10/16 08:59 04/10/16 09:06 40 MG Spironolactone (Aldactone Tab) 100 mg QAM PO 04/10/16 09:00 05/10/16 08:59 04/10/16 09:06 100 MG Prednisolone (Prelone Syrup) 40 mg DAILY PO 04/09/16 15:30 05/09/16 15:29 04/10/16 09:07 40 MG (Sonya Pierre, ZELDAC) Objective Vital Signs Date Time Temp Pulse Resp B/P Pulse Ox O2 Delivery O2 Flow Rate FiO2 04/10/16 12:30 108 15 100/63 96 04/10/16 12:17 36.7 113 17 86/53 97 04/10/16 12:00 Room Air 04/10/16 11:57 36.7 101 18 101/59 96 04/10/16 08:27 36.9 106 18 96/61 97 04/10/16 08:00 Room Air 04/10/16 04:05 37.1 96 16 92/62 97 Room Air 04/10/16 04:02 Room Air 04/10/16 00:00 Room Air 04/09/16 23:50 37.0 100 16 95/59 97 Room Air 04/09/16 20:02 Room Air 04/09/16 20:02 36.5 96 17 98/66 98 Room Air 04/09/16 18:30 96 98/66 99 04/09/16 18:00 36.5 99 19 89/50 99 04/09/16 18:00 36.5 99 89/50 99 04/09/16 17:30 36.5 105 17 92/57 99 04/09/16 17:15 36.6 103 17 92/54 99 04/09/16 17:01 36.6 105 18 86/55 97 04/09/16 16:09 37.2 100 16 101/60 100 Room Air 04/09/16 16:00 99 91/46 100 04/09/16 15:45 101 98/62 96 04/09/16 15:30 101 12 101/60 100 04/09/16 15:15 15 89/40 100 04/09/16 15:15 101/58 100 04/09/16 15:00 99 12 92/54 96 04/09/16 14:45 37.1 100 12 95/50 96 (Sonya Pierre, RAMILA-C) Physical Exam General Appearance: no apparent distress Eyes: PERRL ENT: hearing grossly normal Neck: supple Respiratory/Chest: lungs clear, no respiratory distress, no accessory muscle use Cardiovascular: regular rate, rhythm, no murmur Abdomen: normal bowel sounds, non tender, + distended Extremities: no pedal edema, no calf tenderness Neurologic/Psychiatric: alert, normal mood/affect, oriented x 3 Skin: + jaundice (Sonya Pierre PA-C) Laboratory Results Last 24 Hours Test 04/09/16 17:51 04/10/16 05:28 Prothrombin Time 20.6 SECONDS 19.7 SECONDS Prothromb Time International Ratio 1.9 1.8 White Blood Count 7.81 K/uL Red Blood Count 2.44 M/uL Hemoglobin 7.6 g/dL Hematocrit 22.1 % Mean Corpuscular Volume 90.6 fL Mean Corpuscular Hemoglobin 31.1 pg Mean Corpuscular Hemoglobin Concent 34.4 g/dl Platelet Count 125 K/uL Mean Platelet Volume 8.6 fL Neutrophils (%) (Auto) 79.5 % Lymphocytes (%) (Auto) 12.9 % Monocytes (%) (Auto) 7.0 % Eosinophils (%) (Auto) 0.1 % Basophils (%) (Auto) 0.1 % Neutrophils # (Auto) 6.20 K/uL Lymphocytes # (Auto) 1.01 K/uL Monocytes # (Auto) 0.55 K/uL Eosinophils # (Auto) 0.01 K/uL Basophils # (Auto) 0.01 K/uL RDW Standard Deviation 54.6 fL RDW Coefficient of Variation 16.7 % Immature Granulocyte % (Auto) 0.4 % Immature Granulocyte # (Auto) 0.03 K/uL Polychromasia 1+ Sodium Level 128 mmol/L Potassium Level 4.0 mmol/L Chloride Level 96 mmol/L Carbon Dioxide Level 23 mmol/L Anion Gap 9.0 mmol/L Blood Urea Nitrogen 29 mg/dl Creatinine 0.71 mg/dl Est Creatinine Clear Calc Drug Dose 113.4 ml/min Estimated GFR () 115.7 Estimated GFR (Non- 99.9 BUN/Creatinine Ratio 40.3 Random Glucose 97 mg/dl Calcium Level 7.4 mg/dl Total Bilirubin 4.2 mg/dl Aspartate Amino Transf (AST/SGOT) 42 U/L Alanine Aminotransferase (ALT/SGPT) 31 U/L Alkaline Phosphatase 147 U/L Total Protein 5.3 gm/dl Albumin 2.1 gm/dl Globulin 3.2 gm/dl Albumin/Globulin Ratio 0.7 Lipase 317 U/L (Sonya Pierre PA-C) Assessment and Plan 65 y/o male who denies any significant PMH presents for progressive weakness and difficulty ambulating. He states that he can walk a maximum of 25 feet unassisted before tiring out. He has noted an increase in abdominal girth and a yellow tinting of his sclera. The pt states that he is a recovering alcoholic and has not had a drink since late February. He denies severe withdrawal symptoms a history of DTs or previous seizures but does describe tremors, twitching and anxiety. The pt states that he admitted himself to a detox facility 10/19 and then relapsed when discharged. He then quit of his own accord this February. He denies a previous diagnosis of cirrhosis however clinical exam, labs and imaging suggest advanced cirrhosis with ascites. Hepatic failure, likely alcoholic: -Check hepatic panel -Obtained ascitic fluid for analysis- gram stain/culture= no organisms, no growth -GI consulted, appreciate recommendations as below; --Prednisolone therapy at 40 mg daily. Recommend continued supplementation with folic acid and thiamine. --Require an outpatient triphasic liver CT as well as AFP for HCC screening with continued surveillance every 6 months and EGD for variceal screening. --Lactulose 30 g BID (goal of 3 bms per day) and Xifaxan 550 mg PO BID. --Paracentesis. Continue Spironolactone 100 mg daily and Lasix 40 mg daily. 2 g sodium restricted diet. -Trend lipase and LFTs- stable -Ativan IV PRN -Thiamine 100 mg PO QAM -Folic acid 1gm PO QAM Coagulopathy: -INR 1.8, stable -Continue to trend -GI recommends transfer to tertiary center if INR continues to worsen Weakness - difficulty ambulating: -Check b12 -Consult PT/OT Anemia: -Iron studies- low iron and TIBC, high ferritin -Transfuse PRBC x2 on 04/09, x1 on 04/10 -hgb stable, follow CBC Hyponatremia: -Check urine lytes and trend BMP Urinalysis: -U/A on admission dirty, no culture -Repeat U/A culture if indicated (04/10) DVT prophylaxis: -Chemical means contraindicated due to elevated INR -EDVIN and SCDs Code Status: -LEVEL I, FULL Dispo: -PT/OT evaluations -Discharge to ?home once medically stable (Sonya Pierre ., PA-C) Reviewed: Pt Seen/Exam by [facility] Notes, Labs, RAD (Marry Anand MD) History AGree with above PA's HPI/ROS. Had a long d/w pt tonight about condition, treatment, prognosis. Tachycardic this evening and repeat H/H shows hgb 8.4. He reports having some melena about 2 weeks ago as well as some hematemesis after vomiting 6 times about 2 weeks ago as well. Currently is comfortable and says his "spirits are high." (Marry Anand MD) Constitutional: denies: fever All Other Systems: Reviewed and Negative (Marry Anand MD) General Appearance: no apparent distress, other (chronically ill-appearing) Eye Exam: bilateral eye other (scleral icterus) Ears, Nose, Throat: hearing grossly normal, other (halitosis) Neck: trachea midline Respiratory: lungs clear, normal breath sounds, no respiratory distress, no accessory muscle use Cardiovascular: no edema, no murmur, tachycardia (and regular) Gastrointestinal: normal bowel sounds, non tender, distended Extremities: no calf tenderness Neurologic/Psychiatric: alert, normal mood/affect, oriented x 3 Skin Characteristics: jaundice (Marry Anand MD) Assessment/Plan AGree with above PA A/P with the following exceptions/additions: Cirrhosis with acute liver failure/ANemia Agree with the above, reviewed notes from GI consultation and appreciate input. With anemia, need to d/w GI about need for eval for varices or PUD as source of bleeding. WIll follow labs and functional status, transfer if worsens (Marry Anand MD)
[2016-04-10 20:17] LABS: HEMATOCRIT 23.7 % (42-52)
[2016-04-10 22:47] LABS: URINE APPEARANCE CLEAR (CLEAR); URINE COLOR DK YELLOW; URINE EPITHELIAL CELL AUTO 0-5 /lpf (0-5); URINE NITRITE NEG (NEG); URINE SPECIFIC GRAVITY 1.023 (1.000-1.030); UROBILINOGEN NEG (NEG); ZZUR CULT IF INDIC CLEAN CATCH NO
[2016-04-10 22:56] LABS: MANUAL MICROSCOPIC REQUIRED? NO; REVIEW REQ? NO; URINE BILIRUBIN NEG (NEG)
[2016-04-11] VITALS (61 sets, daily range): BP systolic 53–165; BP diastolic 24–94; PULSE 94–127; TEMP 36.4–36.7; O2SAT 96–100
[2016-04-11] MEDS ORDERED: METOCLOPRAMIDE HCL INJ 5 MG/ML 2 ML VIAL IV STA (03:40)
[2016-04-11] MEDS ORDERED: NURSING VERBAL MED ORDER ONE ×2 (03:45→14:45)
[2016-04-11 06:13] LABS: BASO % 0.1 %; BASO ABS # 0.01 K/uL (0-0.2); EOS % 0.3 %; HEMATOCRIT 23.6 % (42-52); LYMPH % 15.7 %; MEAN CELL VOLUME 90.8 fL (80-100); MEAN CORPUSCULAR HEMOGLOBIN 31.5 pg (25-34); MEAN CORPUSCULAR HGB CONC 34.7 g/dl (32-36); MEAN PLATELET VOLUME 8.9 fL (7.4-10.4); MONO % 11.5 %; NEUT % 71.4 %; PLATELET COUNT 140 K/uL (130-400); WHITE BLOOD COUNT 14.69 K/uL (4.8-10.8)
[2016-04-11 06:38] LABS: COMPLETE YES; ECHINOCYTES 1+; HYPERSEGMENTED POLYS 1+; HYPOCHROMIA PRESENT; POLYCHROMASIA 1+
[2016-04-11 06:43] LABS: INR 1.8 (0.9-1.1); PROTHROMBIN TIME (PATIENT) 20.1 SECONDS (9.0-12.0)
[2016-04-11 06:44] LABS: BUN/CREATININE RATIO 35.9 (10-20); CALCIUM 7.5 mg/dl (8.5-10.1); CREATININE 0.87 mg/dl (0.60-1.40); POTASSIUM 3.9 mmol/L (3.5-5.1)
[2016-04-11 06:47] LABS: ALB/GLOB RATIO 0.7 (0.9-2)
[2016-04-11] MEDS ORDERED: INFLUENZA VIRUS QUAD VACCINE 0.5 ML SYR IM. ONE (09:00)
[2016-04-11] MEDS ORDERED: INFLUENZA ADMINISTRATION CHARGE ONE (09:00)
[2016-04-11] MEDS ORDERED: PANTOprazole SOD 40 MG TAB PO SCH (09:00)
[2016-04-11] MEDS: THIAMINE HCL 100 MG TAB PO SCH (09:26)
[2016-04-11] MEDS: SPIRONOLACTONE 100 MG TAB PO SCH ×2 (09:26→10:45)
[2016-04-11] MEDS: FUROSEMIDE 40 MG TAB PO SCH ×2 (09:26→10:46)
[2016-04-11] MEDS: RIFAXIMIN TAB 550 MG TAB PO SCH (09:26)
[2016-04-11] MEDS: LACTULOSE SYRUP 30 GM/45 ML UDP PO SCH (09:26)
[2016-04-11] MEDS: prednisoLONE SYRUP 15 MG/5 ML PO SCH (09:27)
--- NOTE | 2016-04-11 10:24 | Gastroenterology Progress Note ---
Progress Note Date of Service: Apr 11, 2016 Subjective Pt evaluation today including: conversation w/ patient, physical exam, chart review, lab review, review of studies, review of inpatient medication list Patient reports feeling well today. He did, however, become hypotensive at PT today. He is now resting in bed with stable BP in the 90/50 range. Albumin infusion has been ordered by the primary team. Laboratory testing remains relatively stable. No worsening abdominal distention or abdominal pain. Negative gram stain. Review of Systems Constitutional: + fatigue (improved) Respiratory: No problem reported Cardiac: No problem reported Abdomen: + see HPI Neuro: No balance problems (no dizziness or syncope) Psych: No problem reported Medications Current Inpatient Medications Medications (Trade) Dose Ordered Sig/Alexandra Route Start Time Stop Time Status Last Admin Dose Admin Thiamine HCl (Vitamin B-1 Tab) 100 mg QAM PO 04/09/16 09:00 05/09/16 08:59 04/11/16 09:26 100 MG Folic Acid (Folvite Tab) 1 mg QAM PO 04/09/16 09:00 05/09/16 08:59 04/11/16 09:26 1 MG Lorazepam (Ativan Tab) 2 mg Q6H PRN PO 04/09/16 01:30 05/09/16 01:29 Lactulose (Chronulac Syrup) 30 gm BID PO 04/09/16 21:00 05/09/16 20:59 04/11/16 09:26 30 GM Rifaximin (Xifaxan Tab) 550 mg BID PO 04/09/16 21:00 05/09/16 20:59 04/11/16 09:26 550 MG Furosemide (Lasix tab) 40 mg QAM PO 04/10/16 09:00 05/10/16 08:59 04/11/16 09:26 40 MG Spironolactone (Aldactone Tab) 100 mg QAM PO 04/10/16 09:00 05/10/16 08:59 04/11/16 09:26 100 MG Prednisolone (Prelone Syrup) 40 mg DAILY PO 04/09/16 15:30 05/09/16 15:29 04/11/16 09:27 40 MG Pantoprazole Sodium (Protonix Tab) 40 mg QAM PO 04/11/16 09:00 05/11/16 08:59 Albumin Human (Albumin 5%) 12.5 gm Q8H IV 04/11/16 18:00 04/14/16 17:59 Albumin Human (Albumin 5%) 12.5 gm TODAY@1030 ONCE IV 04/11/16 10:30 04/11/16 10:31 04/11/16 10:04 12.5 GM Objective Vital Signs Date Time Temp Pulse Resp B/P Pulse Ox O2 Delivery O2 Flow Rate FiO2 04/11/16 08:20 36.6 97 18 97 Room Air 04/11/16 03:30 Room Air 04/11/16 03:24 36.6 95 20 109/60 98 Room Air 04/11/16 00:53 102 96/50 97 82/51 04/10/16 23:30 Room Air 04/10/16 23:01 36.6 107 18 81/42 97 Room Air 04/10/16 19:30 Room Air 04/10/16 19:11 36.8 107 20 100/63 97 Room Air 04/10/16 16:00 Room Air 04/10/16 14:57 37.0 106 18 96/60 94 Room Air 04/10/16 14:56 100 16 96/60 98 04/10/16 14:30 99 19 96/60 97 04/10/16 14:00 102 17 102/67 96 04/10/16 13:30 105 17 100/68 95 04/10/16 13:00 107 19 92/59 96 04/10/16 12:30 108 15 100/63 96 04/10/16 12:17 36.7 113 17 86/53 97 04/10/16 12:00 Room Air 04/10/16 11:57 36.7 101 18 101/59 96 Physical Exam General Appearance: no apparent distress Eyes: EOMI Respiratory/Chest: lungs clear, normal breath sounds, no respiratory distress Cardiovascular: regular rate, rhythm, no gallop, no murmur Abdomen: normal bowel sounds, non tender, soft, + distended Extremities: no pedal edema Neurologic/Psych: alert, normal mood/affect, oriented x 3 Skin: + jaundice Laboratory Results Last 24 Hours Test 04/10/16 20:08 04/10/16 22:25 04/11/16 05:16 Hemoglobin 8.4 g/dL 8.2 g/dL Hematocrit 23.7 % 23.6 % Urine Color DK YELLOW Urine Appearance CLEAR Urine pH 6.0 Urine Specific [place] 1.023 Urine Protein NEG Urine Glucose (UA) NEG Urine Ketones TRACE Urine Occult Blood NEG Urine Nitrite NEG Urine Bilirubin NEG Urine Urobilinogen NEG Urine Leukocyte Esterase TRACE Urine WBC (Auto) 1-5 /hpf Urine RBC (Auto) 0-4 /hpf Urine Hyaline Casts (Auto) 1-5 /lpf Urine Epithelial Cells (Auto) 0-5 /lpf Urine Bacteria (Auto) NEG White Blood Count 14.69 K/uL Red Blood Count 2.60 M/uL Mean Corpuscular Volume 90.8 fL Mean Corpuscular Hemoglobin 31.5 pg Mean Corpuscular Hemoglobin Concent 34.7 g/dl Platelet Count 140 K/uL Mean Platelet Volume 8.9 fL Neutrophils (%) (Auto) 71.4 % Lymphocytes (%) (Auto) 15.7 % Monocytes (%) (Auto) 11.5 % Eosinophils (%) (Auto) 0.3 % Basophils (%) (Auto) 0.1 % Neutrophils # (Auto) 10.50 K/uL Lymphocytes # (Auto) 2.30 K/uL Monocytes # (Auto) 1.69 K/uL Eosinophils # (Auto) 0.05 K/uL Basophils # (Auto) 0.01 K/uL RDW Standard Deviation 53.4 fL RDW Coefficient of Variation 16.3 % Immature Granulocyte % (Auto) 1.0 % Immature Granulocyte # (Auto) 0.14 K/uL Hypersegmented Polys 1+ Polychromasia 1+ Hypochromasia PRESENT Echinocytes 1+ Prothrombin Time 20.1 SECONDS Prothromb Time International Ratio 1.8 Sodium Level 127 mmol/L Potassium Level 3.9 mmol/L Chloride Level 95 mmol/L Carbon Dioxide Level 22 mmol/L Anion Gap 10.0 mmol/L Blood Urea Nitrogen 31 mg/dl Creatinine 0.87 mg/dl Est Creatinine Clear Calc Drug Dose 92.5 ml/min Estimated GFR () 106.5 Estimated GFR (Non- 91.9 BUN/Creatinine Ratio 35.9 Random Glucose 93 mg/dl Calcium Level 7.5 mg/dl Total Bilirubin 4.1 mg/dl Aspartate Amino Transf (AST/SGOT) 44 U/L Alanine Aminotransferase (ALT/SGPT) 36 U/L Alkaline Phosphatase 175 U/L Total Protein 5.3 gm/dl Albumin 2.1 gm/dl Globulin 3.2 gm/dl Albumin/Globulin Ratio 0.7 Assessment and Plan Patient is a 65 year old male with a history of constipation and chronic alcohol abuse admitted with weakness and newly diagnosed alcoholic cirrhosis with decompensation including minimal HE, jaundice and ascites as well as elevated INR >1.5 which is consistent with acute liver failure. Incidental finding of 5 mm hepatic lesion on imaging. Now with hypotension. Discriminant function = 38 SAAG > 1.1 1. Alcoholic cirrhosis: Reinforced the importance of complete alcohol abstinence. Should reconsider outpatient alcohol treatment program options as he has only been abstinent from alcohol for approximately one month and he has previously relapsed after a previous inpatient rehab stay. As his discriminate function is 38, recommend continuation of Prednisolone therapy at 40 mg daily. Recommend continued supplementation with folic acid and thiamine. 2. Hepatic lesion: Will require an outpatient triphasic liver CT as well as AFP for HCC screening with continued surveillance every 6 months. 3. History of constipation and HE by symptomatology: Continue Lactulose 30 g BID (goal of 3 bms per day) and Xifaxan 550 mg PO BID. Would want to avoid progressing encephalopathy in this patient. 4. Portal hypertension and abdominal ascites: Patient may require another ultrasound guided a therapeutic paracentesis in the near future. Await fluid studies as ordered. Continue Spironolactone 100 mg daily and Lasix 40 mg daily. Agree with continued 2 g sodium restricted diet. Patient will need an outpatient EGD for variceal screening. 5. Coagulopathy: INR was 1.6 on admission. Will continue to trend. If INR continues to elevate, would recommend transfer to a tertiary transplant center. 6. Hypotension: Agree with albumin infusion as ordered. Agree with HARLAN Ceballos as above Abd: Soft, NT, ND, +BS Continue current therapy Patient continues with slight hypotension per nursing team. Not uncommon for patient's with cirrhosis to have slight hypotension, however, if patient develops symptoms recommend workup by primary team
[2016-04-11] MEDS ORDERED: ALBUMIN HUMAN 5% 12.5 GM/250 ML VIAL IV ONE ×2 (10:30→17:21)
[2016-04-11 12:05] LABS: HEPATITIS C VIRAL RNA BY PCR <15 NOT DETECTED IU/ML (<15); HEPATITIS C VIRAL RNA(LOG) PCR <1.18 NOT DETECTED LOG IU/ML (<1.18)
[2016-04-11] MEDS ORDERED: METOCLOPRAMIDE HCL INJ 5 MG/ML 2 ML VIAL ONE (13:49)
[2016-04-11] MEDS ORDERED: METOCLOPRAMIDE HCL INJ 5 MG/ML 2 ML VIAL IV PRN (14:00)
--- NOTE | 2016-04-11 14:10 | Hospitalist Progress Note ---
Hospitalist Progress Note Date of Service Apr 11, 2016. (Sonya Pierre ., PA-C) Subjective Pt evaluation today including: conversation w/ patient, physical exam, chart review, lab review, review of inpatient medication list Voiding: no voiding problems, no incontinence Patient states he is feeling well today. He worked with PT; states he felt weak and fatigued easily, but feels he is improving. Patient became hypotensive while working with PT, he was asymptomatic. He is eating and drinking OK. He had 2 BMs yesterday (04/10). He admits to a dark bowel movement with a drop of blood last evening. He did have an episode of nausea and mild diffuse abdominal pain throughout the night- patient was given Reglan with improvement in symptoms. He attributes it to the Lactulose, stating "the laxatives don't sit the best with my body." Patient denies any fever, chills, sweats, lightheadedness, dizziness, vision changes, CP, palpitations, edema, SOB, wheezing, cough, vomiting, diarrhea, urinary symptoms, numbness/tingling, weakness, muscle/joint pain, anxiety/depression, active bleeding, or new skin discoloration/changes. (Sonya Pierre ., PA-C) Medications Current Inpatient Medications Medications (Trade) Dose Ordered Sig/Alexandra Route Start Time Stop Time Status Last Admin Dose Admin Thiamine HCl (Vitamin B-1 Tab) 100 mg QAM PO 04/09/16 09:00 05/09/16 08:59 04/11/16 09:26 100 MG Folic Acid (Folvite Tab) 1 mg QAM PO 04/09/16 09:00 05/09/16 08:59 04/11/16 09:26 1 MG Lorazepam (Ativan Tab) 2 mg Q6H PRN PO 04/09/16 01:30 05/09/16 01:29 Lactulose (Chronulac Syrup) 30 gm BID PO 04/09/16 21:00 05/09/16 20:59 04/11/16 09:26 30 GM Rifaximin (Xifaxan Tab) 550 mg BID PO 04/09/16 21:00 05/09/16 20:59 04/11/16 09:26 550 MG Furosemide (Lasix tab) 40 mg QAM PO 04/10/16 09:00 05/10/16 08:59 04/10/16 09:06 40 MG Spironolactone (Aldactone Tab) 100 mg QAM PO 04/10/16 09:00 05/10/16 08:59 04/10/16 09:06 100 MG Prednisolone (Prelone Syrup) 40 mg DAILY PO 04/09/16 15:30 05/09/16 15:29 04/11/16 09:27 40 MG Pantoprazole Sodium (Protonix Tab) 40 mg QAM PO 04/11/16 09:00 05/11/16 08:59 04/11/16 10:33 40 MG Albumin Human (Albumin 5%) 12.5 gm Q8H IV 04/11/16 18:00 04/14/16 17:59 (Sonya Pierre PA-C) Objective Vital Signs Date Time Temp Pulse Resp B/P Pulse Ox O2 Delivery O2 Flow Rate FiO2 04/11/16 08:20 36.6 97 18 97 Room Air 04/11/16 03:30 Room Air 04/11/16 03:24 36.6 95 20 109/60 98 Room Air 04/11/16 00:53 102 96/50 97 82/51 04/10/16 23:30 Room Air 04/10/16 23:01 36.6 107 18 81/42 97 Room Air 04/10/16 19:30 Room Air 04/10/16 19:11 36.8 107 20 100/63 97 Room Air 04/10/16 16:00 Room Air 04/10/16 14:57 37.0 106 18 96/60 94 Room Air 04/10/16 14:56 100 16 96/60 98 04/10/16 14:30 99 19 96/60 97 04/10/16 14:00 102 17 102/67 96 04/10/16 13:30 105 17 100/68 95 04/10/16 13:00 107 19 92/59 96 04/10/16 12:30 108 15 100/63 96 04/10/16 12:17 36.7 113 17 86/53 97 04/10/16 12:00 Room Air 04/10/16 11:57 36.7 101 18 101/59 96 (Sonya Pierre PA-C) Physical Exam General Appearance: no apparent distress Eyes: PERRL ENT: hearing grossly normal Neck: supple Respiratory/Chest: lungs clear, normal breath sounds, no respiratory distress, no accessory muscle use Cardiovascular: regular rate, rhythm, no edema Abdomen: normal bowel sounds, soft, + distended Extremities: no pedal edema, no calf tenderness Neurologic/Psychiatric: alert, normal mood/affect, oriented x 3 Skin: warm/dry, no rash, + jaundice (Sonya Pierre, FRANK) Laboratory Results Last 24 Hours Test 04/10/16 20:08 04/10/16 22:25 04/11/16 05:16 Hemoglobin 8.4 g/dL 8.2 g/dL Hematocrit 23.7 % 23.6 % Urine Color DK YELLOW Urine Appearance CLEAR Urine pH 6.0 Urine Specific [place] 1.023 Urine Protein NEG Urine Glucose (UA) NEG Urine Ketones TRACE Urine Occult Blood NEG Urine Nitrite NEG Urine Bilirubin NEG Urine Urobilinogen NEG Urine Leukocyte Esterase TRACE Urine WBC (Auto) 1-5 /hpf Urine RBC (Auto) 0-4 /hpf Urine Hyaline Casts (Auto) 1-5 /lpf Urine Epithelial Cells (Auto) 0-5 /lpf Urine Bacteria (Auto) NEG White Blood Count 14.69 K/uL Red Blood Count 2.60 M/uL Mean Corpuscular Volume 90.8 fL Mean Corpuscular Hemoglobin 31.5 pg Mean Corpuscular Hemoglobin Concent 34.7 g/dl Platelet Count 140 K/uL Mean Platelet Volume 8.9 fL Neutrophils (%) (Auto) 71.4 % Lymphocytes (%) (Auto) 15.7 % Monocytes (%) (Auto) 11.5 % Eosinophils (%) (Auto) 0.3 % Basophils (%) (Auto) 0.1 % Neutrophils # (Auto) 10.50 K/uL Lymphocytes # (Auto) 2.30 K/uL Monocytes # (Auto) 1.69 K/uL Eosinophils # (Auto) 0.05 K/uL Basophils # (Auto) 0.01 K/uL RDW Standard Deviation 53.4 fL RDW Coefficient of Variation 16.3 % Immature Granulocyte % (Auto) 1.0 % Immature Granulocyte # (Auto) 0.14 K/uL Hypersegmented Polys 1+ Polychromasia 1+ Hypochromasia PRESENT Echinocytes 1+ Prothrombin Time 20.1 SECONDS Prothromb Time International Ratio 1.8 Sodium Level 127 mmol/L Potassium Level 3.9 mmol/L Chloride Level 95 mmol/L Carbon Dioxide Level 22 mmol/L Anion Gap 10.0 mmol/L Blood Urea Nitrogen 31 mg/dl Creatinine 0.87 mg/dl Est Creatinine Clear Calc Drug Dose 92.5 ml/min Estimated GFR () 106.5 Estimated GFR (Non- 91.9 BUN/Creatinine Ratio 35.9 Random Glucose 93 mg/dl Calcium Level 7.5 mg/dl Total Bilirubin 4.1 mg/dl Aspartate Amino Transf (AST/SGOT) 44 U/L Alanine Aminotransferase (ALT/SGPT) 36 U/L Alkaline Phosphatase 175 U/L Total Protein 5.3 gm/dl Albumin 2.1 gm/dl Globulin 3.2 gm/dl Albumin/Globulin Ratio 0.7 (Sonya Pierre, FRANK) Assessment and Plan 65 y/o male who denies any significant PMH presents for progressive weakness and difficulty ambulating. He states that he can walk a maximum of 25 feet unassisted before tiring out. He has noted an increase in abdominal girth and a yellow tinting of his sclera. The pt states that he is a recovering alcoholic and has not had a drink since late February. He denies severe withdrawal symptoms a history of DTs or previous seizures but does describe tremors, twitching and anxiety. The pt states that he admitted himself to a detox facility 10/19 and then relapsed when discharged. He then quit of his own accord this February. He denies a previous diagnosis of cirrhosis however clinical exam, labs and imaging suggest advanced cirrhosis with ascites. Hepatic failure, likely alcoholic: -Check hepatic panel -Obtained ascitic fluid for analysis- gram stain/culture= no organisms, no growth -GI consulted, appreciate recommendations as below; --Prednisolone therapy at 40 mg daily. Recommend continued supplementation with folic acid and thiamine. --Require an outpatient triphasic liver CT as well as AFP for HCC screening with continued surveillance every 6 months and EGD for variceal screening. --Lactulose 30 g BID (goal of 3 bms per day) and Xifaxan 550 mg PO BID. --Paracentesis. Continue Spironolactone 100 mg daily and Lasix 40 mg daily. 2 g sodium restricted diet. -Trend lipase and LFTs- stable -Ativan IV PRN -Thiamine 100 mg PO QAM -Folic acid 1gm PO QAM -Protonix 40 mg PO QAM Hypotensive: -Patient worked with PT today and SBP reading ~60s- patient was asymptomatic. Lasix and Aldactone AM doses held per nurse. IV Albumin 12.5 gm x2. (04/11) -Albumin of 2.1 Coagulopathy: -INR 1.8, stable -Continue to trend -GI recommends transfer to tertiary center if INR continues to worsen Weakness - difficulty ambulating: -Check b12 -Consult PT/OT Anemia: -Iron studies- low iron and TIBC, high ferritin -Transfuse PRBC x2 on 04/09, x1 on 04/10 -hgb stable at 8.2 , follow CBC Hyponatremia: -Stable -Check urine lytes and trend BMP Urinalysis: -U/A on admission dirty, no culture -Repeat U/A culture if indicated (04/10) - negative DVT prophylaxis: -Chemical means contraindicated due to elevated INR -EDVIN and SCDs Code Status: -LEVEL I, FULL Dispo: -Discharge to ?home once medically stable (Sonya Pierre, PA-C) Reviewed: Pt Seen/Exam by Me, Labs (Marry Anand MD) History When I saw pt about 1 hr ago, he was feeling ok but was nauseated. He denies CP , SOB, ABd pain. He is afebrile. WBC count up a bit today but is now receiving steroids. He denies any worsening abd distension. Shortly after I left, RN called and said his BP was in the 50s systolic checked twice. I came to assess him after ordering albumin 25% 250 mL bolus and a STAT CBC and he had vomited a small amount of brown chocolate cake emesis, no blood. He has not had a BM today yet. His BP was 80/50 when I came back to see him and he said he felt "like crap." He still denies CP, SOB, QUESADA/Abd pain. As I am writing this note he started having hematemesis and melena simultaneously. BP slightly improved with albumin right now. Called Dr. Haider from ICU and Dr. Miller from GI. GI will scope him immediately and Dr. Haider coming up to place central line now. (Marry Anand MD) Constitutional: denies: fever Respiratory: negative: short of breath Cardiovascular: denies chest pain Gastrointestinal/Abdominal: positive: other (GI bleeding), vomiting, negative: abdominal pain Skin: negative: rash All Other Systems: Reviewed and Negative (Marry Anand MD) General Appearance: thin, other (chronically ill appearing) Eye Exam: bilateral eye other (scleral icterus) Ears, Nose, Throat: hearing grossly normal, other (halitosis) Neck: trachea midline Respiratory: lungs clear, normal breath sounds, no respiratory distress, no accessory muscle use Cardiovascular: normal peripheral pulses, no gallop, no murmur, tachycardia ( with reg rhythm), other (1+ pitting edema legs bilat) Gastrointestinal: normal bowel sounds, non tender, soft (but mildly distended) , other (black tarry stool in bed huynh, 100 mLs approx hematemesis in emesis basin) Extremities: non-tender, no calf tenderness Neurologic/Psychiatric: alert, normal mood/affect, oriented x 3 Skin Characteristics: jaundice (Marry Anand MD) Assessment/Plan Agree with above PA A/P with the following exceptions/additions: Cirrhosis, GI bleeding, hypotension: now with BPs 50s sys, bolused with 25% albumin with slight improvement but with GI bleeding. Spoke with GI and he is coming to scope pt immediately in the OR SPoke with [facility] who is here now placing a central line and will transfer to ICU WIll transfuse 2 units PRBCs now, STAT CBC Start octreotide bolus and gtt -Start Cipro 400mg IV q12h as per GI instructions COntinue all other care as above Discussed with pt and he definitely would like to remain a FULL CODE, does not have a living will but reports he would not prolonged life support if in that situation (Marry Anand MD)
[2016-04-11] MEDS ORDERED: ALBUMIN HUMAN 25% 12.5 GM/50 ML VIAL IV SCH (15:00)
[2016-04-11] MEDS ORDERED: OCTREOTIDE IV BOLUS & DRIP IV STA (15:16)
[2016-04-11] MEDS: OCTREOTIDE ACETATE INJ 500 MCG in NSS 100ML IV SCH (15:41)
[2016-04-11] MEDS ORDERED: CIPROFLOXACIN / D5W 400 MG in PREMIXED IN D5W 200 ML IV ONE (15:45)
[2016-04-11] MEDS ORDERED: OCTREOTIDE ACETATE INJ 100 MCG in SYRINGE 9 ML IV ONE (15:45)
--- NOTE | 2016-04-11 15:59 | Gastroenterology Progress Note ---
Progress Note Date of Service: Apr 11, 2016 Subjective Pt evaluation today including: conversation w/ patient, physical exam, chart review, lab review, review of studies I was contacted by Dr. Anand following witnessed hematemesis and melena per nursing staff. Patient remains hypotensive. He denies any abdominal pain, however does now complain of lightheadedness. No overt bleeding noted during hospitalization prior to this event. Dr. Haider was notified and placed a Central line. I informed Mr. Joshi that an emergent EGD would need to be performed. He understood and agrees with the plan. Medications Current Inpatient Medications Medications (Trade) Dose Ordered Sig/Alexandra Route Start Time Stop Time Status Last Admin Dose Admin Thiamine HCl (Vitamin B-1 Tab) 100 mg QAM PO 04/09/16 09:00 05/09/16 08:59 04/11/16 09:26 100 MG Folic Acid (Folvite Tab) 1 mg QAM PO 04/09/16 09:00 05/09/16 08:59 04/11/16 09:26 1 MG Lorazepam (Ativan Tab) 2 mg Q6H PRN PO 04/09/16 01:30 05/09/16 01:29 Lactulose (Chronulac Syrup) 30 gm BID PO 04/09/16 21:00 05/09/16 20:59 04/11/16 09:26 30 GM Rifaximin (Xifaxan Tab) 550 mg BID PO 04/09/16 21:00 05/09/16 20:59 04/11/16 09:26 550 MG Furosemide (Lasix tab) 40 mg QAM PO 04/10/16 09:00 05/10/16 08:59 04/10/16 09:06 40 MG Spironolactone (Aldactone Tab) 100 mg QAM PO 04/10/16 09:00 05/10/16 08:59 04/10/16 09:06 100 MG Prednisolone (Prelone Syrup) 40 mg DAILY PO 04/09/16 15:30 05/09/16 15:29 04/11/16 09:27 40 MG Pantoprazole Sodium (Protonix Tab) 40 mg QAM PO 04/11/16 09:00 05/11/16 08:59 04/11/16 10:33 40 MG Albumin Human (Albumin 5%) 12.5 gm Q8H IV 04/11/16 18:00 04/14/16 17:59 Metoclopramide HCl (Reglan Inj) 5 mg Q6H PRN IV 04/11/16 14:00 05/11/16 13:59 Albumin Human 12.5 gm 12.5 gm TODAY@1500 IV 04/11/16 15:00 04/11/16 23:59 04/11/16 15:18 12.5 GM Ciprofloxacin/ Dextrose 400 mg/ Prmx 200 ml @ 100 mls/hr Q12H IV 04/12/16 04:00 04/22/16 03:59 Ciprofloxacin/ Dextrose 400 mg/ Prmx 200 ml @ 100 mls/hr TODAY@1545 ONCE IV 04/11/16 15:45 04/11/16 17:44 Octreotide Acetate/Sodium Chloride (Sandostatin Inj/ Nss 100ml) 105 ml @ 10 mls/hr [id number] IV 04/11/16 16:00 05/11/16 15:59 04/11/16 15:41 10 MLS/HR Objective Vital Signs Date Time Temp Pulse Resp B/P Pulse Ox O2 Delivery O2 Flow Rate FiO2 04/11/16 11:52 36.6 98 18 100/56 96 Room Air 04/11/16 11:02 106 97 04/11/16 09:58 105 94/55 04/11/16 09:47 99 58/33 04/11/16 09:36 99 69/41 04/11/16 08:20 36.6 97 18 97 Room Air 04/11/16 08:00 Room Air 04/11/16 03:30 Room Air 04/11/16 03:24 36.6 95 20 109/60 98 Room Air 04/11/16 00:53 102 96/50 97 82/51 04/10/16 23:30 Room Air 04/10/16 23:01 36.6 107 18 81/42 97 Room Air 04/10/16 19:30 Room Air 04/10/16 19:11 36.8 107 20 100/63 97 Room Air 04/10/16 16:00 Room Air Physical Exam General Appearance: + mild distress Abdomen: non tender, soft Laboratory Results Last 24 Hours Test 04/10/16 20:08 04/10/16 22:25 04/11/16 05:16 04/11/16 15:40 Hemoglobin 8.4 g/dL 8.2 g/dL Hematocrit 23.7 % 23.6 % Urine Color DK YELLOW Urine Appearance CLEAR Urine pH 6.0 Urine Specific [place] 1.023 Urine Protein NEG Urine Glucose (UA) NEG Urine Ketones TRACE Urine Occult Blood NEG Urine Nitrite NEG Urine Bilirubin NEG Urine Urobilinogen NEG Urine Leukocyte Esterase TRACE Urine WBC (Auto) 1-5 /hpf Urine RBC (Auto) 0-4 /hpf Urine Hyaline Casts (Auto) 1-5 /lpf Urine Epithelial Cells (Auto) 0-5 /lpf Urine Bacteria (Auto) NEG White Blood Count 14.69 K/uL Red Blood Count 2.60 M/uL Mean Corpuscular Volume 90.8 fL Mean Corpuscular Hemoglobin 31.5 pg Mean Corpuscular Hemoglobin Concent 34.7 g/dl Platelet Count 140 K/uL Mean Platelet Volume 8.9 fL Neutrophils (%) (Auto) 71.4 % Lymphocytes (%) (Auto) 15.7 % Monocytes (%) (Auto) 11.5 % Eosinophils (%) (Auto) 0.3 % Basophils (%) (Auto) 0.1 % Neutrophils # (Auto) 10.50 K/uL Lymphocytes # (Auto) 2.30 K/uL Monocytes # (Auto) 1.69 K/uL Eosinophils # (Auto) 0.05 K/uL Basophils # (Auto) 0.01 K/uL RDW Standard Deviation 53.4 fL RDW Coefficient of Variation 16.3 % Immature Granulocyte % (Auto) 1.0 % Immature Granulocyte # (Auto) 0.14 K/uL Hypersegmented Polys 1+ Polychromasia 1+ Hypochromasia PRESENT Echinocytes 1+ Prothrombin Time 20.1 SECONDS Prothromb Time International Ratio 1.8 Sodium Level 127 mmol/L Potassium Level 3.9 mmol/L Chloride Level 95 mmol/L Carbon Dioxide Level 22 mmol/L Anion Gap 10.0 mmol/L Blood Urea Nitrogen 31 mg/dl Creatinine 0.87 mg/dl Est Creatinine Clear Calc Drug Dose 92.5 ml/min Estimated GFR () 106.5 Estimated GFR (Non- 91.9 BUN/Creatinine Ratio 35.9 Random Glucose 93 mg/dl Calcium Level 7.5 mg/dl Total Bilirubin 4.1 mg/dl Aspartate Amino Transf (AST/SGOT) 44 U/L Alanine Aminotransferase (ALT/SGPT) 36 U/L Alkaline Phosphatase 175 U/L Total Protein 5.3 gm/dl Albumin 2.1 gm/dl Globulin 3.2 gm/dl Albumin/Globulin Ratio 0.7 Assessment and Plan Patient is a 65 year old male with a history of constipation and chronic alcohol abuse admitted with weakness and newly diagnosed alcoholic cirrhosis with decompensation including minimal HE, jaundice and ascites as well as elevated INR >1.5 which is consistent with acute liver failure. Incidental finding of 5 mm hepatic lesion on imaging. Now with hypotension and probable Variceal bleeding. Plan: Octreotide 100 microgram IV x1 now followed by 50 micrograms per hour Cipro 400 mg IV BID for 5 days to prevent secondary infection. Emergent EGD now in OR with general anesthesia
[2016-04-11 16:13] LABS: MEAN CELL VOLUME 90.4 fL (80-100); MEAN CORPUSCULAR HEMOGLOBIN 31.6 pg (25-34); MEAN PLATELET VOLUME 8.8 fL (7.4-10.4); PLATELET COUNT 121 K/uL (130-400); RED BLOOD COUNT 1.77 M/uL (4.7-6.1); WHITE BLOOD COUNT 14.56 K/uL (4.8-10.8)
[2016-04-11] MEDS ORDERED: PROPOFOL IV EMULSION 10 MG/ML 20 ML VIAL IV ONE (16:42)
[2016-04-11] MEDS ORDERED: SUCCINYLCHOLINE CHLORIDE 20 MG/ML 10 ML VIAL IV ONE (16:42)
[2016-04-11] MEDS ORDERED: GLYCOPYRROLATE INJ 0.2 MG/ML VIAL ONE (16:42)
[2016-04-11] MEDS ORDERED: ROCURONIUM BROMIDE 10 MG/ML 5 ML VIAL ONE ×3 (16:42→18:59)
[2016-04-11] MEDS ORDERED: MIDAZOLAM HCL 1 MG/ML 2ML VIAL ONE ×2 (16:42→19:21)
[2016-04-11] MEDS ORDERED: FENTANYL CITRATE INJ 50 MCG/1 ML 2 ML VIAL ONE ×2 (16:42→19:10)
[2016-04-11] MEDS ORDERED: LIDOCAINE HCL 2% 2 ML VIAL (20MG/ML) ONE (16:42)
[2016-04-11] MEDS ORDERED: DEXAMETHASONE SOD INJ 4 MG/ML VIAL ONE (16:42)
[2016-04-11] MEDS ORDERED: ONDANSETRON INJ 2 MG/ML 2 ML VIAL ONE (16:42)
[2016-04-11] MEDS ORDERED: NEOSTIGMINE METHYLSULFATE 5 MG/5 ML SYR ONE (16:42)
[2016-04-11] MEDS ORDERED: ETOMIDATE 2 MG/ML 20 ML VIAL IV ONE (17:06)
[2016-04-11] MEDS ORDERED: PHENYLEPHRINE 100MCG/ML 5ML SYR ONE (17:09)
[2016-04-11] MEDS ORDERED: EpHEDrine SULFATE 50MG/5ML SYR ONE (17:09)
[2016-04-11 17:56] LABS: HEMATOCRIT 23.5 % (42-52)
[2016-04-11] MEDS ORDERED: ALBUMIN HUMAN 5% 12.5 GM/250 ML VIAL IV SCH (18:00)
[2016-04-11] MEDS ORDERED: SODIUM CHLORIDE 0.9% IV ONE (18:00)
[2016-04-11] MEDS ORDERED: DESMOPRESSIN ACETATE IV ONE (18:00)
[2016-04-11] MEDS ORDERED: VASOPRESSIN 20 UNIT/ML VIAL ONE (18:07)
--- NOTE | 2016-04-11 18:21 | GI REPORT ---
Procedure Date: 04/11/2016 4:44 PM Procedure: Upper GI endoscopy Indications: Acute post hemorrhagic anemia Medicines: General Anesthesia Complications: Significant bleeding - required epinephrine Estimated Blood Loss: Estimated blood loss: 500 mL requiring treatment with placement of hemostatic clip(s) and epinephrine. Procedure: Pre-Anesthesia Assessment: - Prior to the procedure, a History and Physical was performed, and patient medications and allergies were reviewed. The patient's tolerance of previous anesthesia was also reviewed. The risks and benefits of the procedure and the sedation options and risks were discussed with the patient. All questions were answered, and informed consent was obtained. Prior Anticoagulants: The patient has taken no previous anticoagulant or antiplatelet agents. ASA Grade Assessment: E - Emergency. After reviewing the risks and benefits, the patient was deemed in satisfactory condition to undergo the procedure. After obtaining informed consent, the endoscope was passed under direct vision. Throughout the procedure, the patient's blood pressure, pulse, and oxygen saturations were monitored continuously. The scope was introduced through the mouth, and advanced to the second part of duodenum. The upper GI endoscopy was extremely difficult due to excessive bleeding. Successful completion of the procedure was aided by performing the maneuvers documented (below) in this report. The patient tolerated the procedure. Findings: Grade II varices were found in the lower third of the esophagus. Diffuse mild inflammation characterized by congestion (edema) and erythema was found in the entire examined stomach. One non-obstructing spurting cratered duodenal ulcer with spurting hemorrhage (Iraj Class Ia) was found in the duodenal bulb. The lesion was 30 mm in largest dimension. Perforation of the bowel wall cannot be ruled out. To stop active bleeding, eight hemostatic clips were successfully placed (MR conditional). Bleeding continued, and Dr. Cornelius of Surgery evaluated the patient in the OR. Endoscope was withdrawn and the patient was prepped for surgical intervention. Area was unsuccessfully injected with 13 mL of a 1:10,000 solution of epinephrine for hemostasis. Impression: - Grade II esophageal varices. - Gastritis. - One non-obstructing spurting duodenal ulcer with spurting hemorrhage (Iraj Class Ia). Perforation of the bowel wall cannot be ruled out. Clips (MR conditional) were placed. Treatment not successful. - No specimens collected. Recommendation: - Surgical consultation for procedure to oversew the ulcer today. - Stop Octreotide drip now - Start Protonix drip now - Attempted to contact patient's brother Aram Joshi, but there was no answer. I left message for patient's brother to return call. Chun Valdes Case, DO 04/11/2016 6:20:04 PM This report has been signed electronically. Note Initiated On: 04/11/2016 4:44 PM
[2016-04-11] MEDS ORDERED: SODIUM CHLORIDE 0.9% INJ 10 ML VIAL ONE (18:28)
[2016-04-11] MEDS ORDERED: CALCIUM CHLORIDE 10% 10 ML SYR ONE (18:28)
[2016-04-11 18:40] LABS: ALB/GLOB RATIO 0.8 (0.9-2); BUN/CREATININE RATIO 43.4 (10-20); CALCIUM 8.1 mg/dl (8.5-10.1); CREATININE 0.92 mg/dl (0.60-1.40); POTASSIUM 4.7 mmol/L (3.5-5.1)
[2016-04-11 18:57] LABS: HEMATOCRIT 31.7 % (42-52)
[2016-04-11] MEDS ORDERED: TISSEEL FIBRIN SEALANT 4ML TOP ONE (19:15)
[2016-04-11] MEDS ORDERED: PANTOprazole INJ 80 MG in DEXTROSE 5% 100ML IV ONE (19:30)
--- NOTE | 2016-04-11 19:32 | [facility] Operative Report ---
Operative Report Operative Date Apr 11, 2016. Pre-Operative Diagnosis Gastric bleeding Post-Operative Diagnosis bleeding duodenal ulcer Procedure(s) Performed ex lap; duodenotomy oversew bleeding ulcer duodenal closure Surgeon Dr Cornelius / Dr Montgomery [employer] Surgeon(s) Lise Rai Estimated Blood Loss 1000ml Findings ascites with penetrating duodenal ulcer with intraluminal bleeding. Specimens none Anesthesia GET Disposition Surgical ICU I attest to the content of the Intraoperative Record and any orders documented therein. Any exceptions are noted below.
[2016-04-11] MEDS: PANTOprazole INJ 40 MG in DEXTROSE 5% 100ML IV SCH (20:14)
[2016-04-11] MEDS ORDERED: MIDAZOLAM 125MG/250ML D5W 250 ML IV PRN (20:17)
[2016-04-11 20:22] LABS: ISTAT CREATININE 0.7 mg/dl (0.6-1.3); ISTAT HEMOGLOBIN 10.9 g/dl (14.0-18.0); ISTAT IONIZED CALCIUM 1.13 mmol/l (1.12-1.32)
[2016-04-11] MEDS ORDERED: FENTANYL 1250MCG/250ML NSS 250 ML IV PRN (20:30)
--- NOTE | 2016-04-11 20:35 | DIAGNOSTIC IMAGING REPORT ---
CHEST ONE VIEW PORTABLE CLINICAL HISTORY: Central line placement COMPARISON STUDY: Chest radiograph April 08, 2016. FINDINGS: The tip of the endotracheal tube is 3 cm above the carissa. The tip of the nasogastric tube is within the proximal body of the stomach. Radiodensities projecting of the stomach may be from endoscopic procedure. There has been interval placement of a right internal jugular central line. The tip projects over the proximal SVC. There is no pneumothorax. There is no evidence of pulmonary edema. Cardiomediastinal silhouette is stable. IMPRESSION: 1. No pneumothorax following placement of a right internal jugular central line. Tip projects over the proximal SVC. 2. Satisfactory positioning of lines and tubes. Electronically signed by: Randy Zuluaga M.D. 04/11/2016 8:33 PM Dictated Date/Time: 04/11/2016 8:32 PM
[2016-04-11 21:31] LABS: ISTAT ARTERIAL BLOOD GAS HCO3 19 meq/L (19-24); ISTAT ARTERIAL BLOOD GAS PCO2 37 mmHg (35-46); ISTAT ARTERIAL BLOOD GAS PO2 245 mmHg (80-95); ISTAT ARTERIAL BLOOD GAS pH 7.32 (7.35-7.45); ISTAT CARBON DIOXIDE 20 mEq/l (24-31); ISTAT HEMATOCRIT 33 % (42-52); ISTAT HEMOGLOBIN 11.2 g/dl (14.0-18.0); ISTAT SODIUM 125 mEq/L (135-144)
--- NOTE | 2016-04-11 21:49 | OPERATIVE REPORT ---
DATE OF OPERATION: 04/11/2016 PREOPERATIVE DIAGNOSIS: Penetrating duodenal also with massive of intraluminal bleeding. POSTOPERATIVE DIAGNOSIS: Same with intra-abdominal ascites. PROCEDURES: Exploratory laparotomy, duodenotomy with oversewn bleeding duodenal ulcer, and closure with Chuck patch. SURGEON: Dr. Cornelius. GRADUATE NURSE SURGEON: Dr. Montgomery. ESTIMATED BLOOD LOSS: 1000 mL. COMPLICATIONS: No immediate. ANESTHESIA: General. GROSS FINDINGS: This is a 65-year-old alcoholic cirrhotic who presented with a GI bleeding. Please see Dr. Miller's dictation. I was called into the room during the endoscopy where he had massive amounts of intraluminal bleeding in the proximal duodenum. He had tried to inject as well as clip it unsuccessfully. The patient was bleeding heavily and uncontrolled. I did attempt to contact the next of kin, the patient's brother without success and we deemed the case an emergency. The patient was transferred to the operating bed in the same room and shaved and sterilely prepped and draped. DESCRIPTION OF PROCEDURE: The patient was urgently prepped and draped in the operating room. A Araujo catheter was in place. A midline incision was made from the xiphoid down around the umbilicus. This was carried down through the soft tissue using electrocautery. The anterior rectus fascia was opened using electrocautery. We opened the peritoneum with hemostats and scissors and drain several 1000 mL of acetic fluid. We extended the fascial incision to both poles. A Bookwalter retractor was used throughout the case to help our exposure. We began by decompressing some of them with nasogastric tube. I was unable to mobilize the stomach and do basically a Kaci maneuver to mobilize the duodenum. Dr. Montgomery happened to show up and offered to scrub and help out with the case, which I welcomed. He scrubbed into the case at this point and we opened the duodenum with electrocautery. Once we were in the lumen, we suctioned out a large amount of clot. We were able to see was likely a duodenum artery with penetrating ulcer on the posterior wall. I was able use 3-0 silk in interrupted [id number] fashion to control this bleeder. Once we did this and we were satisfied that the bleeding was stopped, we then irrigated and closed the duodenotomy in the opposite direction that we opened it to help prevent strictures. We opened it vertically and closed it horizontally. We used 3-0 Vicryl in interrupted fashion to get through and through serosal and mucosal layers. After this, we used 3-0 silks in Lembert fashion as a second layer. I then placed Tisseel glue over the entire duodenotomy. I then placed omentum over it and secured it in Chuck patch fashion with 3-0 silk. We did complete abdominal watch out. There was adequate hemostasis at the end of the case. We did place a #10 flat Oscar-Quiroz drain from the right upper quadrant down along the right pericolic gutter. Other than the ascites and cirrhotic liver, no other abnormalities were identified. We closed the fascia with #1 PDS starting either pole and securing them in the midline. Soft tissue was irrigated. Skin was closed loosely using skin deanne. A silver dressing was applied. The drain was sewed into place. The patient was subsequently transferred to the intensive care unit in critical condition. I attest to the content of the Intraoperative Record and any orders documented therein. Any exceptio ns are noted below.
[2016-04-11 22:56] LABS: ISTAT ARTERIAL BLOOD GAS HCO3 18 meq/L (19-24); ISTAT ARTERIAL BLOOD GAS PCO2 31 mmHg (35-46); ISTAT ARTERIAL BLOOD GAS PO2 156 mmHg (80-95); ISTAT ARTERIAL BLOOD GAS pH 7.36 (7.35-7.45); ISTAT CARBON DIOXIDE 19 mEq/l (24-31); ISTAT DELIVERY SYSTEM Ventilator; ISTAT FIO2 50 %; ISTAT PEEP 5; ISTAT RATE 12; ISTAT SITE Art Line; VE 8.1; Vt 500
[2016-04-11 23:04] LABS: HEMATOCRIT 32.2 % (42-52); MEAN CELL VOLUME 90.4 fL (80-100); RED BLOOD COUNT 3.56 M/uL (4.7-6.1)
--- NOTE | 2016-04-11 23:28 | Critical Care Consultation ---
Critical Care Consultation Date of Consultation: Apr 11, 2016. Attending Physician: Marry Anand MD Reason for Consultation: Massive GI bleeding History of Present Illness Patient is a 65-year-old male who was called to the bedside for emergent central venous access due to a large GI bleed and associated melanotic stool. Patient is being treated for high discriminant function alcoholic cirrhosis, recently quit drinking alcohol within the last 1-2 weeks and has reportedly not seen a physician in several years. After placement of the right internal jugular central venous access patient was taken emergently to the operating room for EGD. EGD revealed a massive duodenal ulcer with active hemorrhage that was not amenable to interventions. Patient was immediately prepped for emergent laparotomy and surgical evaluation and control of bleeding. I was again reconsult at 4 postoperative management as well as intraoperative advice regarding blood product administration. Family History No pertinent family history Social History Smoking Status: Never Smoker Alcohol Use: heavy (Quit approximately 6 weeks prior) Drug Use: none Marital Status: single Housing Status: lives alone Occupation Status: retired Allergies Coded Allergies: No Known Allergies (Unverified , 04/08/16) Home Medications Scheduled Multiple Vitamins W/ Minerals (Centrum Silver), 1 DOSE PO DAILY Scheduled PRN Udyiosa-Kqggzgysilyer-Sspnavwb (Excedrin Extra Strength), 1 TAB PO DIRECTED PRN for Pain or Fever Current Inpatient Medications Current Inpatient Medications Medications (Trade) Dose Ordered Sig/Alexandra Route Start Time Stop Time Status Last Admin Dose Admin Thiamine HCl (Vitamin B-1 Tab) 100 mg QAM PO 04/09/16 09:00 05/09/16 08:59 04/11/16 09:26 100 MG Rifaximin (Xifaxan Tab) 550 mg BID PO 04/09/16 21:00 05/09/16 20:59 04/11/16 09:26 550 MG Albumin Human (Albumin 5%) 12.5 gm Q8H IV 04/11/16 18:00 04/14/16 17:59 Albumin Human 12.5 gm 12.5 gm TODAY@1500 IV 04/11/16 15:00 04/11/16 23:59 04/11/16 15:18 12.5 GM Ciprofloxacin/ Dextrose 400 mg/ Prmx 200 ml @ 100 mls/hr Q12H IV 04/12/16 04:00 04/22/16 03:59 Octreotide Acetate 500 mcg/ Sodium Chloride 105 ml @ 10 mls/hr [id number] IV 04/11/16 16:00 05/11/16 15:59 04/11/16 15:41 10 MLS/HR Pantoprazole Sodium 40 mg/ Dextrose 100 ml @ 20 mls/hr Q5H IV 04/11/16 19:45 05/11/16 19:44 04/11/16 20:14 20 MLS/HR Midazolam HCl 250 ml @ 0 mls/hr Q0M PRN IV 04/11/16 20:17 05/11/16 20:16 04/11/16 20:53 1 MLS/HR Fentanyl Citrate (Fentanyl Drip 1250MCG/250 Nss) 250 ml @ 0 mls/hr Q0M PRN IV 04/11/16 20:30 04/25/16 20:29 04/11/16 20:54 5 MLS/HR Review of Systems Unable to obtain due to the acuity of situation Physical Exam Date Time Temp Pulse Resp B/P Pulse Ox O2 Delivery O2 Flow Rate FiO2 04/11/16 23:00 97 12 120/58 100 04/11/16 22:58 97 12 107/68 100 Mechanical Ventilator 30 04/11/16 22:45 30 04/11/16 22:30 97 13 129/57 100 04/11/16 22:28 98 12 112/66 100 Mechanical Ventilator 04/11/16 22:00 36.6 101 15 126/56 100 04/11/16 21:58 100 16 100/66 100 Mechanical Ventilator 04/11/16 21:30 111 20 136/62 100 04/11/16 21:28 110 15 120/73 100 Mechanical Ventilator 04/11/16 21:20 50 04/11/16 21:05 75 04/11/16 21:00 110 18 158/72 100 04/11/16 20:58 114 16 122/81 100 Mechanical Ventilator 04/11/16 20:53 117 22 134/84 100 04/11/16 20:48 127 34 137/88 100 Mechanical Ventilator 04/11/16 20:43 122 39 151/92 100 04/11/16 20:38 117 23 126/94 100 Mechanical Ventilator 04/11/16 20:33 123 22 143/89 100 04/11/16 20:30 118 25 165/80 100 Mechanical Ventilator 04/11/16 20:28 117 28 141/87 100 04/11/16 20:23 117 16 144/87 100 Mechanical Ventilator 04/11/16 20:18 122 20 137/87 100 04/11/16 20:13 120 13 143/87 100 Mechanical Ventilator 04/11/16 20:08 120 18 145/90 100 04/11/16 20:03 118 23 138/86 100 Mechanical Ventilator 04/11/16 20:00 36.4 115 22 100 04/11/16 19:58 115 16 139/84 100 Mechanical Ventilator 04/11/16 19:55 114 12 138/83 100 Mechanical Ventilator 100 04/11/16 19:53 114 16 138/83 100 04/11/16 19:48 114 12 139/84 100 Mechanical Ventilator 04/11/16 19:45 114 12 140/85 99 Mechanical Ventilator 100 04/11/16 19:43 114 12 140/85 100 04/11/16 19:35 100 04/11/16 19:33 109 12 149/90 99 Mechanical Ventilator 100 04/11/16 19:32 36.4 114 18 149/90 100 Mechanical Ventilator 04/11/16 16:40 36.7 102 22 86/45 99 04/11/16 16:25 36.5 105 18 75/44 98 04/11/16 14:39 94 13 62/27 04/11/16 14:34 95 14 59/29 04/11/16 14:30 94 21 54/28 04/11/16 14:29 96 19 56/26 04/11/16 14:26 96 18 61/24 04/11/16 14:21 94 17 61/27 04/11/16 13:29 99 12 53/39 04/11/16 13:14 105 15 92/53 04/11/16 12:58 108 24 87/55 04/11/16 12:43 107 19 96/49 04/11/16 12:30 102 19 102/56 04/11/16 12:00 Room Air 04/11/16 11:58 106 16 83/49 04/11/16 11:52 36.6 98 18 100/56 96 Room Air 04/11/16 11:43 109 16 94/52 04/11/16 11:30 106 15 04/11/16 11:29 107 17 85/50 04/11/16 11:13 100 15 88/47 04/11/16 11:02 106 97 04/11/16 11:00 102 15 04/11/16 10:58 100 9 100/56 04/11/16 10:43 99 13 79/34 04/11/16 10:30 99 14 04/11/16 10:28 99 15 93/48 04/11/16 10:13 95 17 85/43 04/11/16 10:11 95 17 85/46 04/11/16 09:58 105 94/55 04/11/16 09:47 99 58/33 04/11/16 09:36 99 69/41 04/11/16 08:20 36.6 97 18 97 Room Air 04/11/16 08:00 Room Air 04/11/16 03:30 Room Air 04/11/16 03:24 36.6 95 20 109/60 98 Room Air 04/11/16 00:53 102 96/50 97 82/51 04/10/16 23:30 Room Air General: Gentleman laying supine in the bed appears older than stated age, cachectic appearing. Cardiovascular: S1-S2 regular rhythm, tachycardia no murmurs rubs gallops Lungs: Clear to auscultation bilaterally Abdomen soft, moderate tenderness in the epigastric area. Neuro no focal deficit Extremities 2+ peripheral pulses Skin: No rash, + pallor Laboratory Results Last 24 Hours Test 04/11/16 05:16 04/11/16 15:40 04/11/16 17:00 04/11/16 17:30 White Blood Count 14.69 K/uL 14.56 K/uL Red Blood Count 2.60 M/uL 1.77 M/uL Hemoglobin 8.2 g/dL 5.6 g/dL 8.1 g/dL Hematocrit 23.6 % 16.0 % 23.5 % Mean Corpuscular Volume 90.8 fL 90.4 fL Mean Corpuscular Hemoglobin 31.5 pg 31.6 pg Mean Corpuscular Hemoglobin Concent 34.7 g/dl 35.0 g/dl Platelet Count 140 K/uL 121 K/uL Mean Platelet Volume 8.9 fL 8.8 fL Neutrophils (%) (Auto) 71.4 % Lymphocytes (%) (Auto) 15.7 % Monocytes (%) (Auto) 11.5 % Eosinophils (%) (Auto) 0.3 % Basophils (%) (Auto) 0.1 % Neutrophils # (Auto) 10.50 K/uL Lymphocytes # (Auto) 2.30 K/uL Monocytes # (Auto) 1.69 K/uL Eosinophils # (Auto) 0.05 K/uL Basophils # (Auto) 0.01 K/uL RDW Standard Deviation 53.4 fL 52.2 fL RDW Coefficient of Variation 16.3 % 16.3 % Immature Granulocyte % (Auto) 1.0 % Immature Granulocyte # (Auto) 0.14 K/uL Hypersegmented Polys 1+ Polychromasia 1+ Hypochromasia PRESENT Echinocytes 1+ Prothrombin Time 20.1 SECONDS Prothromb Time International Ratio 1.8 Sodium Level 127 mmol/L 128 mmol/L Potassium Level 3.9 mmol/L 4.7 mmol/L Chloride Level 95 mmol/L 100 mmol/L Carbon Dioxide Level 22 mmol/L 20 mmol/L Anion Gap 10.0 mmol/L 8.0 mmol/L Blood Urea Nitrogen 31 mg/dl 40 mg/dl Creatinine 0.87 mg/dl 0.92 mg/dl Est Creatinine Clear Calc Drug Dose 92.5 ml/min 87.5 ml/min Estimated GFR () 106.5 102.2 Estimated GFR (Non- 91.9 88.2 BUN/Creatinine Ratio 35.9 43.4 Random Glucose 93 mg/dl 191 mg/dl Calcium Level 7.5 mg/dl 8.1 mg/dl Total Bilirubin 4.1 mg/dl 2.5 mg/dl Aspartate Amino Transf (AST/SGOT) 44 U/L 36 U/L Alanine Aminotransferase (ALT/SGPT) 36 U/L 25 U/L Alkaline Phosphatase 175 U/L 102 U/L Total Protein 5.3 gm/dl 3.5 gm/dl Albumin 2.1 gm/dl 1.5 gm/dl Globulin 3.2 gm/dl 2.0 gm/dl Albumin/Globulin Ratio 0.7 0.8 Test 04/11/16 18:17 04/11/16 18:45 04/11/16 21:17 04/11/16 22:43 Bedside Hemoglobin 10.9 g/dl 11.2 g/dl Bedside Hematocrit 32 % 33 % Bedside Sodium 126 mEq/L 125 mEq/L Bedside Potassium 4.5 mEq/L 4.8 mEq/L Bedside Chloride 95 mEq/L Bedside Total CO2 20 mEq/l Anion Gap 17.0 mmol/L Bedside Blood Urea Nitrogen 38 mg/dl Bedside Creatinine 0.7 mg/dl Bedside Glucose (other) 206 mg/dl Bedside Ionized Calcium (Abelino) 1.13 mmol/l Hemoglobin 10.7 g/dL Hematocrit 31.7 % Bedside Blood Gas pH (LAB) 7.32 7.36 Bedside Blood Gas pCO2 (LAB) 37 mmHg 31 mmHg Bedside Blood Gas pO2 (LAB) 245 mmHg 156 mmHg Bedside Blood Gas HCO3 (LAB) 19 meq/L 18 meq/L Bedside Blood Gas Total CO2 20 mEq/l 19 mEq/l Bedside Blood Gas Base Excess (LAB) -7.0 meq/L -8.0 meq/L Bedside Blood Gas O2 Saturation 100.0 % 99.0 % Blood Gas Sample Site Art Line Fortunato Test NA Oxygen Delivery Device Ventilator Bedside Oxygen Rate (breaths/min) 12 Blood Gas Minute Ventilation 8.1 Bedside FiO2 50 % Blood Gas Tidal Volume 500 Blood Gas PEEP 5 Test 04/11/16 22:57 White Blood Count 18.40 K/uL Red Blood Count 3.56 M/uL Hemoglobin 11.4 g/dL Hematocrit 32.2 % Mean Corpuscular Volume 90.4 fL Mean Corpuscular Hemoglobin 32.0 pg RDW Standard Deviation 48.3 fL RDW Coefficient of Variation 14.6 % Assessment & Plan (1) Gastrointestinal hemorrhage associated with duodenitis Patient was been transfused 11 units packed red blood cells, 2 of FFP, 1 unit of platelets Continue to monitor H&H Continue PPI infusion (2) Acute blood loss anemia Secondary to acute duodenal ulcer Resolved with exploratory laparotomy (3) S/P exploratory laparotomy Continue to monitor serial H&H, monitor drain output Requiring volume to maintain blood pressure, patient has volume responsive (4) Elevated bilirubin Given bilirubin, BUN, and creatinine elevation will administer albumin with goal of 1.5 g/kg body weight today and will repeat with 1 g/kg body weight on in effort to prevent liver associated renal failure (5) Elevated BUN Aggressive volume resuscitation effort to prevent hepatic associated renal failure (6) Liver failure The patient's blood pressure remained stable, or hypertensive would have low threshold to add propranolol No evidence of active spontaneous bacterial peritonitis. (7) Alcoholic cirrhosis Continue abstinence from alcohol GI following (8) Ascites This will complicate the patient's drain output. Currently giving albumin infusion to prevent renal failure which should hopefully help decrease the patient's ascites formation. (9) Esophageal varices determined by endoscopy No active bleeding No indication for octreotide at this time I have personally spent 173 minutes of critical care time in the direct management of this patient. This is a life/limb threatening event. This includes time spent evaluating patient, direct bedside care, chart review, placing orders, interpretation of diagnostic studies, discussion with consultants, patient, and family members, as well as other required patient management activities. This time is exclusive of all separately billable procedures, and teaching time and separate from and in addition to any other critical care service time. This was a particular a extensive time consuming patient requiring discussions with multiple consultants including GI, Gen. surgery, anesthesiology and frequent reevaluation's throughout the day.
[2016-04-11 23:29] LABS: ALB/GLOB RATIO 1.4 (0.9-2); BUN/CREATININE RATIO 41.6 (10-20); CALCIUM 7.3 mg/dl (8.5-10.1); POTASSIUM 4.8 mmol/L (3.5-5.1)
--- NOTE | 2016-04-11 23:29 | Procedure Note ---
Procedure Note Procedure Date Apr 11, 2016. Central Line Procedure time out: side/site verified, patient ID confirmed Consent obtained: verbal, emergent consent implied Time of procedure: 15:00 Performed by: attending Indications: poor venous access, central drug admin., other (active gastrointestinal bleeding) Prep: chlorhexadine prep Anesthesia: topical, lidocaine 1% without epi Volume anesthetic (ml's): 2 Central line lumen: single Central line location: internal jugular (R) Additional details: ultrasound guidance, Selinger technique used, line sutured , good blood return CXR: appropriate position Complications: none Patient tolerated procedure: well Post-procedure vital signs: reviewed and stable (patient remained hypotensive throughout current procedure, however maintain normal mentation)
[2016-04-11 23:35] LABS: BASO % 0.1 %; BASO ABS # 0.02 K/uL (0-0.2); COMPLETE YES; ECHINOCYTES 1+; EOS % 0.2 %; IG% 1.1 %; LYMPH % 9.3 %; LYMPH ABS # 1.72 K/uL (1.2-3.4); MEAN CORPUSCULAR HGB CONC 35.4 g/dl (32-36); MEAN PLATELET VOLUME 8.6 fL (7.4-10.4); MONO % 4.9 %; NEUT % 84.4 %; PLATELET COUNT 85 K/uL (130-400); PLT ESTIMATE DECREASED; POLYCHROMASIA 1+
--- NOTE | 2016-04-11 23:56 | Anesthesiology Progress Note ---
Anesthesia Progress Note Date of Service Apr 11, 2016. Progress Notes I was the on-call anesthesiologist on the evening of 04/11/2016. I was informed by the OR charge nurse that Dr. Underwood had scheduled a patient for an EGD for a suspected GI bleed. Mr. Joshi was brought to the surgical holding area where I performed a complete anesthesia preoperative evaluation (see scanned document). Of note, patient had a systolic BP in the mid 80's on arrival with an octreotide ggt running and a newly placed right cordis central line from the ICU attending. Patient was conversant and able to answer questions and was consented for GETA. Given that he was hypotensive and also tachycardic, I called blood bank for the 2 units of pRBC's that he had available. In waiting for the blood to arrive, a CBC which had just been done showed a hemoglobin of 5. Dr. Underwood stated he felt this was likely a bleeding varice given his long history of alcohol abuse and cirrhosis (patient had known ascites). Myself and CHARCOAL BURNER BEEHIVE KILN took the patient to the OR (2 units of blood were being transfused) where he was intubated in a rapid sequence fashion using etomidate and succinylcholine after he was placed on standard ASA monitors. EGD was performed and showed what appeared to be a brisk arterial bleed from a large ulcer. At this point, general surgery was contacted for immediate surgical management. Two additional [employer]CO[employer] BEEH[employer] KILN's assisted with the case and the patient had an arterial line placed and blood bank was notified for pRBC's and FFP (and later platelets) . In total, the patient was given 8 units of pRBC's, 2 units FFP and 1 platelets. He also received albumin, crystalloid, IV calcium, DDAVP, and vasopressin. See OR record for full details. Dr. Cornelius was the on-call general surgeon and he was joined by Dr. Montgomery of general surgery as well. OG tube was placed per surgeon request and eventually hemostasis was obtained after opening the abdomen (see surgeon's dictation for details). Patient was kept on at least 0.5 MAC of sevoflurane and was given several mg of versed to ensure amnesia to the procedure. At the end of the case, patient's HR had decreased into 90's with a stable blood pressure of 120's systolic without vasoactive support. He was transferred to the ICU intubated and on monitor and full report was given to the nursing staff and ICU team. Patient remained in stable but guarded condition in the ICU. Melecio Ambrocio MD Staff Anesthesiologist
[2016-04-12] VITALS (29 sets, daily range): BP systolic 94–129; BP diastolic 46–82; PULSE 87–111; TEMP 36.4–37; O2SAT 95–100
[2016-04-12] MEDS ORDERED: ALBUMIN HUMAN 25% 12.5 GM/50 ML VIAL IV ONE (00:45)
[2016-04-12] MEDS ORDERED: SODIUM CHLORIDE 0.9% 500ML 500 ML IV ONE (00:45)
[2016-04-12] MEDS: PANTOprazole INJ 40 MG in DEXTROSE 5% 100ML IV SCH ×5 (00:52→20:45)
[2016-04-12] MEDS: OCTREOTIDE ACETATE INJ 500 MCG in NSS 100ML IV SCH ×3 (01:04→21:37)
[2016-04-12] MEDS: RIFAXIMIN TAB 550 MG TAB PO SCH (01:40)
[2016-04-12] MEDS: FENTANYL CITRATE INJ 50 MCG/1 ML 2 ML VIAL IV PRN ×2 (03:04→08:09)
[2016-04-12] MEDS: MIDAZOLAM HCL 5 MG/ML 1 ML VIAL IV PRN ×2 (03:04→08:09)
[2016-04-12] MEDS: CIPROFLOXACIN / D5W 400 MG in PREMIXED IN D5W 200 ML IV SCH ×2 (04:02→16:06)
--- NOTE | 2016-04-12 04:35 | Surgery Progress Note ---
Surgery Progress Note Date of Service Apr 12, 2016. Subjective Post OP Day: 1 stable on vent Objective Vital Signs: Date Time Temp Pulse Resp B/P Pulse Ox O2 Delivery O2 Flow Rate FiO2 04/12/16 04:00 100 Mechanical Ventilator 30 04/12/16 04:00 36.5 92 17 110/59 100 Mechanical Ventilator 30 04/12/16 04:00 30 04/12/16 03:58 92 8 103/69 100 04/12/16 03:31 94 9 105/56 100 Mechanical Ventilator 30 04/12/16 03:28 94 9 97/66 100 04/12/16 03:01 93 11 102/46 100 Mechanical Ventilator 30 04/12/16 02:58 95 12 107/70 100 04/12/16 02:31 104 12 128/56 100 Mechanical Ventilator 30 04/12/16 02:28 105 15 123/82 100 04/12/16 02:05 30 04/12/16 02:01 108 23 115/58 100 Mechanical Ventilator 30 04/12/16 01:58 106 19 121/77 100 04/12/16 01:30 99 20 121/61 100 Mechanical Ventilator 30 04/12/16 01:28 98 20 107/67 100 04/12/16 01:00 108 20 117/62 100 Mechanical Ventilator 30 04/12/16 00:58 111 20 116/68 100 04/12/16 00:30 109 20 124/62 100 Mechanical Ventilator 30 04/12/16 00:28 111 20 114/68 100 04/12/16 00:00 30 04/12/16 00:00 36.4 108 20 129/66 100 Mechanical Ventilator 30 04/12/16 00:00 100 Mechanical Ventilator 30 04/11/16 23:30 30 04/11/16 23:00 97 12 120/58 100 04/11/16 22:58 97 12 107/68 100 Mechanical Ventilator 30 04/11/16 22:45 30 04/11/16 22:30 97 13 129/57 100 04/11/16 22:28 98 12 112/66 100 Mechanical Ventilator 04/11/16 22:00 36.6 101 15 126/56 100 04/11/16 21:58 100 16 100/66 100 Mechanical Ventilator 04/11/16 21:30 111 20 136/62 100 04/11/16 21:28 110 15 120/73 100 Mechanical Ventilator 04/11/16 21:20 50 04/11/16 21:05 75 04/11/16 21:00 110 18 158/72 100 04/11/16 20:58 114 16 122/81 100 Mechanical Ventilator 04/11/16 20:53 117 22 134/84 100 04/11/16 20:48 127 34 137/88 100 Mechanical Ventilator 04/11/16 20:43 122 39 151/92 100 04/11/16 20:38 117 23 126/94 100 Mechanical Ventilator 04/11/16 20:33 123 22 143/89 100 04/11/16 20:30 118 25 165/80 100 Mechanical Ventilator 04/11/16 20:28 117 28 141/87 100 04/11/16 20:23 117 16 144/87 100 Mechanical Ventilator 04/11/16 20:18 122 20 137/87 100 04/11/16 20:13 120 13 143/87 100 Mechanical Ventilator 04/11/16 20:08 120 18 145/90 100 04/11/16 20:03 118 23 138/86 100 Mechanical Ventilator 04/11/16 20:00 36.4 115 22 100 04/11/16 19:58 115 16 139/84 100 Mechanical Ventilator 04/11/16 19:55 114 12 138/83 100 Mechanical Ventilator 100 04/11/16 19:53 114 16 138/83 100 04/11/16 19:48 114 12 139/84 100 Mechanical Ventilator 04/11/16 19:45 114 12 140/85 99 Mechanical Ventilator 100 04/11/16 19:43 114 12 140/85 100 04/11/16 19:35 100 04/11/16 19:33 109 12 149/90 99 Mechanical Ventilator 100 04/11/16 19:32 36.4 114 18 149/90 100 Mechanical Ventilator 04/11/16 16:40 36.7 102 22 86/45 99 04/11/16 16:25 36.5 105 18 75/44 98 04/11/16 14:39 94 13 62/27 04/11/16 14:34 95 14 59/29 04/11/16 14:30 94 21 54/28 04/11/16 14:29 96 19 56/26 04/11/16 14:26 96 18 61/24 04/11/16 14:21 94 17 61/27 04/11/16 13:29 99 12 53/39 04/11/16 13:14 105 15 92/53 04/11/16 12:58 108 24 87/55 04/11/16 12:43 107 19 96/49 04/11/16 12:30 102 19 102/56 04/11/16 12:00 Room Air 04/11/16 11:58 106 16 83/49 04/11/16 11:52 36.6 98 18 100/56 96 Room Air 04/11/16 11:43 109 16 94/52 04/11/16 11:30 106 15 04/11/16 11:29 107 17 85/50 04/11/16 11:13 100 15 88/47 04/11/16 11:02 106 97 04/11/16 11:00 102 15 04/11/16 10:58 100 9 100/56 04/11/16 10:43 99 13 79/34 04/11/16 10:30 99 14 04/11/16 10:28 99 15 93/48 04/11/16 10:13 95 17 85/43 04/11/16 10:11 95 17 85/46 04/11/16 09:58 105 94/55 04/11/16 09:47 99 58/33 04/11/16 09:36 99 69/41 04/11/16 08:20 36.6 97 18 97 Room Air 04/11/16 08:00 Room Air Physical Exam: MING drainage (high ascitic output ( expected)) Head: normocephalic Neck: supple Cardiovascular: no edema Abdomen: soft Incision(s): clean, intact, drainage (some drainage around MING site ( expected)) Extremities: no pedal edema Laboratory Results: Results Past 24 Hours Test 04/11/16 05:16 04/11/16 15:40 04/11/16 17:00 04/11/16 17:30 Range/Units White Blood Count 14.69 14.56 4.8-10.8 K/uL Red Blood Count 2.60 1.77 4.7-6.1 M/uL Hemoglobin 8.2 5.6 8.1 14.0-18.0 g/dL Hematocrit 23.6 16.0 23.5 42-52 % Mean Corpuscular Volume 90.8 90.4 80-100 fL Mean Corpuscular Hemoglobin 31.5 31.6 25-34 pg Mean Corpuscular Hemoglobin Concent 34.7 35.0 32-36 g/dl Platelet Count 140 121 130-400 K/uL Mean Platelet Volume 8.9 8.8 7.4-10.4 fL Neutrophils (%) (Auto) 71.4 % Lymphocytes (%) (Auto) 15.7 % Monocytes (%) (Auto) 11.5 % Eosinophils (%) (Auto) 0.3 % Basophils (%) (Auto) 0.1 % Neutrophils # (Auto) 10.50 1.4-6.5 K/uL Lymphocytes # (Auto) 2.30 1.2-3.4 K/uL Monocytes # (Auto) 1.69 0.11-0.59 K/uL Eosinophils # (Auto) 0.05 0-0.5 K/uL Basophils # (Auto) 0.01 0-0.2 K/uL RDW Standard Deviation 53.4 52.2 36.4-46.3 fL RDW Coefficient of Variation 16.3 16.3 11.5-14.5 % Immature Granulocyte % (Auto) 1.0 % Immature Granulocyte # (Auto) 0.14 0.00-0.02 K/uL Hypersegmented Polys 1+ Polychromasia 1+ Hypochromasia PRESENT Echinocytes 1+ Prothrombin Time 20.1 9.0-12.0 SECONDS Prothromb Time International Ratio 1.8 0.9-1.1 Sodium Level 127 128 136-145 mmol/L Potassium Level 3.9 4.7 3.5-5.1 mmol/L Chloride Level 95 100 98-107 mmol/L Carbon Dioxide Level 22 20 21-32 mmol/L Anion Gap 10.0 8.0 3-11 mmol/L Blood Urea Nitrogen 31 40 7-18 mg/dl Creatinine 0.87 0.92 0.60-1.40 mg/dl Est Creatinine Clear Calc Drug Dose 92.5 87.5 ml/min Estimated GFR () 106.5 102.2 Estimated GFR (Non- 91.9 88.2 BUN/Creatinine Ratio 35.9 43.4 10-20 Random Glucose 93 191 70-99 mg/dl Calcium Level 7.5 8.1 8.5-10.1 mg/dl Total Bilirubin 4.1 2.5 0.2-1 mg/dl Aspartate Amino Transf (AST/SGOT) 44 36 15-37 U/L Alanine Aminotransferase (ALT/SGPT) 36 25 12-78 U/L Alkaline Phosphatase 175 102 45-117 U/L Total Protein 5.3 3.5 6.4-8.2 gm/dl Albumin 2.1 1.5 3.4-5.0 gm/dl Globulin 3.2 2.0 2.5-4.0 gm/dl Albumin/Globulin Ratio 0.7 0.8 0.9-2 Test 04/11/16 18:17 04/11/16 18:45 04/11/16 21:17 04/11/16 22:43 Range/Units Bedside Hemoglobin 10.9 11.2 14.0-18.0 g/dl Bedside Hematocrit 32 33 42-52 % Bedside Sodium 126 125 135-144 mEq/L Bedside Potassium 4.5 4.8 3.3-5.0 mEq/L Bedside Chloride 95 101-112 mEq/L Bedside Total CO2 20 24-31 mEq/l Anion Gap 17.0 16-25 mmol/L Bedside Blood Urea Nitrogen 38 7-18 mg/dl Bedside Creatinine 0.7 0.6-1.3 mg/dl Bedside Glucose (other) 206 70-99 mg/dl Bedside Ionized Calcium (Abelino) 1.13 1.12-1.32 mmol/l Hemoglobin 10.7 14.0-18.0 g/dL Hematocrit 31.7 42-52 % Bedside Blood Gas pH (LAB) 7.32 7.36 7.35-7.45 Bedside Blood Gas pCO2 (LAB) 37 31 35-46 mmHg Bedside Blood Gas pO2 (LAB) 245 156 80-95 mmHg Bedside Blood Gas HCO3 (LAB) 19 18 19-24 meq/L Bedside Blood Gas Total CO2 20 19 24-31 mEq/l Bedside Blood Gas Base Excess (LAB) -7.0 -8.0 -9-1.8 meq/L Bedside Blood Gas O2 Saturation 100.0 99.0 90-95 % Blood Gas Sample Site Art Line Fortunato Test NA Oxygen Delivery Device Ventilator Bedside Oxygen Rate (breaths/min) 12 Blood Gas Minute Ventilation 8.1 Bedside FiO2 50 % Blood Gas Tidal Volume 500 Blood Gas PEEP 5 Test 04/11/16 22:57 Range/Units White Blood Count 18.40 4.8-10.8 K/uL Red Blood Count 3.56 4.7-6.1 M/uL Hemoglobin 11.4 14.0-18.0 g/dL Hematocrit 32.2 42-52 % Mean Corpuscular Volume 90.4 80-100 fL Mean Corpuscular Hemoglobin 32.0 25-34 pg Mean Corpuscular Hemoglobin Concent 35.4 32-36 g/dl Platelet Count 85 130-400 K/uL Mean Platelet Volume 8.6 7.4-10.4 fL Neutrophils (%) (Auto) 84.4 % Lymphocytes (%) (Auto) 9.3 % Monocytes (%) (Auto) 4.9 % Eosinophils (%) (Auto) 0.2 % Basophils (%) (Auto) 0.1 % Neutrophils # (Auto) 15.51 1.4-6.5 K/uL Lymphocytes # (Auto) 1.72 1.2-3.4 K/uL Monocytes # (Auto) 0.91 0.11-0.59 K/uL Eosinophils # (Auto) 0.03 0-0.5 K/uL Basophils # (Auto) 0.02 0-0.2 K/uL RDW Standard Deviation 48.3 36.4-46.3 fL RDW Coefficient of Variation 14.6 11.5-14.5 % Immature Granulocyte % (Auto) 1.1 % Immature Granulocyte # (Auto) 0.21 0.00-0.02 K/uL Platelet Estimate DECREASED Polychromasia 1+ Echinocytes 1+ Sodium Level 128 136-145 mmol/L Potassium Level 4.8 3.5-5.1 mmol/L Chloride Level 99 98-107 mmol/L Carbon Dioxide Level 19 21-32 mmol/L Anion Gap 10.0 3-11 mmol/L Blood Urea Nitrogen 42 7-18 mg/dl Creatinine 1.00 0.60-1.40 mg/dl Est Creatinine Clear Calc Drug Dose 80.5 ml/min Estimated GFR () 92.4 Estimated GFR (Non- 79.7 BUN/Creatinine Ratio 41.6 10-20 Random Glucose 219 70-99 mg/dl Lactic Acid Level 3.2 0.4-2.0 mmol/L Calcium Level 7.3 8.5-10.1 mg/dl Total Bilirubin 4.7 0.2-1 mg/dl Aspartate Amino Transf (AST/SGOT) 32 15-37 U/L Alanine Aminotransferase (ALT/SGPT) 31 12-78 U/L Alkaline Phosphatase 100 45-117 U/L Total Protein 4.5 6.4-8.2 gm/dl Albumin 2.6 3.4-5.0 gm/dl Globulin 1.9 2.5-4.0 gm/dl Albumin/Globulin Ratio 1.4 0.9-2 Assessment & Plan s/p exlap with oversew of bleeding ulcer clinically stable/doing as well as could be expected keep ngt protonix monitor H/H alcoholic cirrhosis will make MING management difficult no acute issues vent management per ICU team
[2016-04-12 05:34] LABS: HEMATOCRIT 26.6 % (42-52); MEAN CELL VOLUME 88.1 fL (80-100); MEAN CORPUSCULAR HEMOGLOBIN 32.5 pg (25-34); MEAN CORPUSCULAR HGB CONC 36.8 g/dl (32-36); RED BLOOD COUNT 3.02 M/uL (4.7-6.1); WHITE BLOOD COUNT 16.03 K/uL (4.8-10.8)
[2016-04-12 05:44] LABS: INR 2.1 (0.9-1.1)
[2016-04-12 05:54] LABS: BASO % 0.1 %; BASO ABS # 0.02 K/uL (0-0.2); COMPLETE YES; IG% 0.8 %; LYMPH % 5.3 %; LYMPH ABS # 0.85 K/uL (1.2-3.4); MONO % 8.8 %; PLATELET COUNT 65 K/uL (130-400)
[2016-04-12 06:07] LABS: ALB/GLOB RATIO 1.6 (0.9-2); BUN/CREATININE RATIO 43.2 (10-20); CALCIUM 7.4 mg/dl (8.5-10.1); CREATININE 0.99 mg/dl (0.60-1.40); POTASSIUM 4.6 mmol/L (3.5-5.1)
[2016-04-12] MEDS: THIAMINE HCL 100 MG TAB PO SCH (09:00)
[2016-04-12] MEDS ORDERED: PANTOprazole INJ 40 MG in SYRINGE 0 ML IV ONE (11:00)
[2016-04-12 12:21] LABS: HEMATOCRIT 27.3 % (42-52); MEAN CELL VOLUME 87.8 fL (80-100); MEAN CORPUSCULAR HEMOGLOBIN 31.5 pg (25-34); MEAN CORPUSCULAR HGB CONC 35.9 g/dl (32-36); RED BLOOD COUNT 3.11 M/uL (4.7-6.1); WHITE BLOOD COUNT 15.64 K/uL (4.8-10.8)
[2016-04-12 12:25] LABS: BASO % 0.1 %; BASO ABS # 0.01 K/uL (0-0.2); COMPLETE YES; IG% 0.9 %; LYMPH % 7.8 %; LYMPH ABS # 1.22 K/uL (1.2-3.4); MEAN PLATELET VOLUME 8.4 fL (7.4-10.4); MONO % 9.5 %; NEUT % 81.7 %; PLATELET COUNT 66 K/uL (130-400)
[2016-04-12] MEDS ORDERED: FENTANYL CITRATE INJ 50 MCG/1 ML 2 ML VIAL IV PRN (12:30)
[2016-04-12 12:32] LABS: INR 1.9 (0.9-1.1); PARTIAL THROMBOPLASTIN RATIO 1.7; PROTHROMBIN TIME (PATIENT) 21.3 SECONDS (9.0-12.0)
[2016-04-12 12:39] LABS: CREATININE 0.88 mg/dl (0.60-1.40)
[2016-04-12 12:40] LABS: BUN/CREATININE RATIO 46.7 (10-20); CALCIUM 7.7 mg/dl (8.5-10.1); POTASSIUM 4.8 mmol/L (3.5-5.1)
[2016-04-12] MEDS: ALBUMIN HUMAN 25% 12.5 GM/50 ML VIAL IV SCH ×8 (13:27→21:35)
--- NOTE | 2016-04-12 13:36 | Gastroenterology Progress Note ---
Progress Note Date of Service: Apr 12, 2016 Subjective Pt evaluation today including: conversation w/ patient, physical exam, chart review, lab review, review of studies, conversation w/ c consultant, review of inpatient medication list Day 1 s/p Ex-lap with oversew of duodenal ulcer. Patient off vent. No flatus or BM as of this time. Nursing reports large amount of MING drainage and ascitic drainage via incisional site. Review of Systems Abdomen: + pain Medications Current Inpatient Medications Medications (Trade) Dose Ordered Sig/Alexandra Route Start Time Stop Time Status Last Admin Dose Admin Thiamine HCl 100 mg 100 mg QAM PO 04/09/16 09:00 05/09/16 08:59 Future Hold 04/11/16 09:26 100 MG Ciprofloxacin/ Dextrose 400 mg/ Prmx 200 ml @ 100 mls/hr Q12H IV 04/12/16 04:00 04/19/16 23:59 04/12/16 04:02 100 MLS/HR Octreotide Acetate 500 mcg/ Sodium Chloride 105 ml @ 10 mls/hr [id number] IV 04/11/16 16:00 05/11/16 15:59 04/12/16 01:04 10 MLS/HR Pantoprazole Sodium/Dextrose (Protonix Inj/D5 100ml) 100 ml @ 20 mls/hr Q5H IV 04/11/16 19:45 05/11/16 19:44 04/12/16 10:05 20 MLS/HR Albumin Human (Albumin 25%) 12.5 gm Q2H IV 04/12/16 12:30 04/12/16 18:31 04/12/16 13:27 12.5 GM Albumin Human (Albumin 25%) 12.5 gm Q6H IV 04/15/16 06:00 04/16/16 00:01 Fentanyl Citrate (Fentanyl Inj) 25 mcg Q1H PRN IV 04/12/16 12:30 04/26/16 12:29 Albumin Human (Albumin 25%) 12.5 gm Q2H IV 04/12/16 12:45 04/12/16 18:46 04/12/16 13:29 12.5 GM Albumin Human 12.5 gm 12.5 gm Q6H IV 04/15/16 06:15 04/16/16 00:16 Thiamine HCl/ Syringe (Vitamin B-1 Inj/ Syringe) 10 ml @ 2 mls/min QAM IV 04/13/16 09:00 05/13/16 08:59 Objective Vital Signs Date Time Temp Pulse Resp B/P Pulse Ox O2 Delivery O2 Flow Rate FiO2 04/12/16 11:55 30 04/12/16 10:10 30 04/12/16 08:25 30 04/12/16 05:58 88 18 96/63 100 Mechanical Ventilator 30 04/12/16 05:28 90 15 95/63 100 04/12/16 05:05 30 04/12/16 04:58 92 19 102/66 100 Mechanical Ventilator 30 04/12/16 04:28 91 16 103/66 100 04/12/16 04:00 100 Mechanical Ventilator 30 04/12/16 04:00 36.5 92 17 110/59 100 Mechanical Ventilator 30 04/12/16 04:00 30 04/12/16 03:58 92 8 103/69 100 04/12/16 03:31 94 9 105/56 100 Mechanical Ventilator 30 04/12/16 03:28 94 9 97/66 100 04/12/16 03:01 93 11 102/46 100 Mechanical Ventilator 30 04/12/16 02:58 95 12 107/70 100 04/12/16 02:31 104 12 128/56 100 Mechanical Ventilator 30 04/12/16 02:28 105 15 123/82 100 04/12/16 02:05 30 04/12/16 02:01 108 23 115/58 100 Mechanical Ventilator 30 04/12/16 01:58 106 19 121/77 100 04/12/16 01:30 99 20 121/61 100 Mechanical Ventilator 30 04/12/16 01:28 98 20 107/67 100 04/12/16 01:00 108 20 117/62 100 Mechanical Ventilator 30 04/12/16 00:58 111 20 116/68 100 04/12/16 00:30 109 20 124/62 100 Mechanical Ventilator 30 04/12/16 00:28 111 20 114/68 100 04/12/16 00:00 30 04/12/16 00:00 36.4 108 20 129/66 100 Mechanical Ventilator 30 04/12/16 00:00 100 Mechanical Ventilator 30 04/11/16 23:30 30 04/11/16 23:00 97 12 120/58 100 04/11/16 22:58 97 12 107/68 100 Mechanical Ventilator 30 04/11/16 22:45 30 04/11/16 22:30 97 13 129/57 100 04/11/16 22:28 98 12 112/66 100 Mechanical Ventilator 04/11/16 22:00 36.6 101 15 126/56 100 04/11/16 21:58 100 16 100/66 100 Mechanical Ventilator 04/11/16 21:30 111 20 136/62 100 04/11/16 21:28 110 15 120/73 100 Mechanical Ventilator 04/11/16 21:20 50 04/11/16 21:05 75 04/11/16 21:00 110 18 158/72 100 04/11/16 20:58 114 16 122/81 100 Mechanical Ventilator 04/11/16 20:53 117 22 134/84 100 04/11/16 20:48 127 34 137/88 100 Mechanical Ventilator 04/11/16 20:43 122 39 151/92 100 04/11/16 20:38 117 23 126/94 100 Mechanical Ventilator 04/11/16 20:33 123 22 143/89 100 04/11/16 20:30 118 25 165/80 100 Mechanical Ventilator 04/11/16 20:28 117 28 141/87 100 04/11/16 20:23 117 16 144/87 100 Mechanical Ventilator 04/11/16 20:18 122 20 137/87 100 04/11/16 20:13 120 13 143/87 100 Mechanical Ventilator 04/11/16 20:08 120 18 145/90 100 04/11/16 20:03 118 23 138/86 100 Mechanical Ventilator 04/11/16 20:00 36.4 115 22 100 04/11/16 19:58 115 16 139/84 100 Mechanical Ventilator 04/11/16 19:55 114 12 138/83 100 Mechanical Ventilator 100 04/11/16 19:53 114 16 138/83 100 04/11/16 19:48 114 12 139/84 100 Mechanical Ventilator 04/11/16 19:45 114 12 140/85 99 Mechanical Ventilator 100 04/11/16 19:43 114 12 140/85 100 04/11/16 19:35 100 04/11/16 19:33 109 12 149/90 99 Mechanical Ventilator 100 04/11/16 19:32 36.4 114 18 149/90 100 Mechanical Ventilator 04/11/16 16:40 36.7 102 22 86/45 99 04/11/16 16:25 36.5 105 18 75/44 98 04/11/16 14:39 94 13 62/27 04/11/16 14:34 95 14 59/29 04/11/16 14:30 94 21 54/28 04/11/16 14:29 96 19 56/26 04/11/16 14:26 96 18 61/24 04/11/16 14:21 94 17 61 Physical Exam General Appearance: + mild distress (Chronic ill-appearing) Respiratory/Chest: + decreased breath sounds (bilateral bases) Cardiovascular: regular rate, rhythm Abdomen: soft (Abdominal dressing in place) Laboratory Results Last 24 Hours Test 04/11/16 15:40 04/11/16 17:00 04/11/16 17:30 04/11/16 18:17 White Blood Count 14.56 K/uL Red Blood Count 1.77 M/uL Hemoglobin 5.6 g/dL 8.1 g/dL Hematocrit 16.0 % 23.5 % Mean Corpuscular Volume 90.4 fL Mean Corpuscular Hemoglobin 31.6 pg Mean Corpuscular Hemoglobin Concent 35.0 g/dl RDW Standard Deviation 52.2 fL RDW Coefficient of Variation 16.3 % Platelet Count 121 K/uL Mean Platelet Volume 8.8 fL Sodium Level 128 mmol/L Potassium Level 4.7 mmol/L Chloride Level 100 mmol/L Carbon Dioxide Level 20 mmol/L Anion Gap 8.0 mmol/L 17.0 mmol/L Blood Urea Nitrogen 40 mg/dl Creatinine 0.92 mg/dl Est Creatinine Clear Calc Drug Dose 87.5 ml/min Estimated GFR () 102.2 Estimated GFR (Non- 88.2 BUN/Creatinine Ratio 43.4 Random Glucose 191 mg/dl Calcium Level 8.1 mg/dl Total Bilirubin 2.5 mg/dl Aspartate Amino Transf (AST/SGOT) 36 U/L Alanine Aminotransferase (ALT/SGPT) 25 U/L Alkaline Phosphatase 102 U/L Total Protein 3.5 gm/dl Albumin 1.5 gm/dl Globulin 2.0 gm/dl Albumin/Globulin Ratio 0.8 Bedside Hemoglobin 10.9 g/dl Bedside Hematocrit 32 % Bedside Sodium 126 mEq/L Bedside Potassium 4.5 mEq/L Bedside Chloride 95 mEq/L Bedside Total CO2 20 mEq/l Bedside Blood Urea Nitrogen 38 mg/dl Bedside Creatinine 0.7 mg/dl Bedside Glucose (other) 206 mg/dl Bedside Ionized Calcium (Abelino) 1.13 mmol/l Test 04/11/16 18:45 04/11/16 21:17 04/11/16 22:43 04/11/16 22:57 Hemoglobin 10.7 g/dL 11.4 g/dL Hematocrit 31.7 % 32.2 % Bedside Hemoglobin 11.2 g/dl Bedside Hematocrit 33 % Bedside Blood Gas pH (LAB) 7.32 7.36 Bedside Blood Gas pCO2 (LAB) 37 mmHg 31 mmHg Bedside Blood Gas pO2 (LAB) 245 mmHg 156 mmHg Bedside Blood Gas HCO3 (LAB) 19 meq/L 18 meq/L Bedside Blood Gas Total CO2 20 mEq/l 19 mEq/l Bedside Blood Gas Base Excess (LAB) -7.0 meq/L -8.0 meq/L Bedside Blood Gas O2 Saturation 100.0 % 99.0 % Bedside Sodium 125 mEq/L Bedside Potassium 4.8 mEq/L Blood Gas Sample Site Art Line Fortun[place] Test NA Oxygen Delivery Device Ventilator Bedside Oxygen Rate (breaths/min) 12 Blood Gas Minute Ventilation 8.1 Bedside FiO2 50 % Blood Gas Tidal Volume 500 Blood Gas PEEP 5 White Blood Count 18.40 K/uL Red Blood Count 3.56 M/uL Mean Corpuscular Volume 90.4 fL Mean Corpuscular Hemoglobin 32.0 pg Mean Corpuscular Hemoglobin Concent 35.4 g/dl Platelet Count 85 K/uL Mean Platelet Volume 8.6 fL Neutrophils (%) (Auto) 84.4 % Lymphocytes (%) (Auto) 9.3 % Monocytes (%) (Auto) 4.9 % Eosinophils (%) (Auto) 0.2 % Basophils (%) (Auto) 0.1 % Neutrophils # (Auto) 15.51 K/uL Lymphocytes # (Auto) 1.72 K/uL Monocytes # (Auto) 0.91 K/uL Eosinophils # (Auto) 0.03 K/uL Basophils # (Auto) 0.02 K/uL RDW Standard Deviation 48.3 fL RDW Coefficient of Variation 14.6 % Immature Granulocyte % (Auto) 1.1 % Immature Granulocyte # (Auto) 0.21 K/uL Platelet Estimate DECREASED Polychromasia 1+ Echinocytes 1+ Sodium Level 128 mmol/L Potassium Level 4.8 mmol/L Chloride Level 99 mmol/L Carbon Dioxide Level 19 mmol/L Anion Gap 10.0 mmol/L Blood Urea Nitrogen 42 mg/dl Creatinine 1.00 mg/dl Est Creatinine Clear Calc Drug Dose 80.5 ml/min Estimated GFR () 92.4 Estimated GFR (Non- 79.7 BUN/Creatinine Ratio 41.6 Random Glucose 219 mg/dl Lactic Acid Level 3.2 mmol/L Calcium Level 7.3 mg/dl Total Bilirubin 4.7 mg/dl Aspartate Amino Transf (AST/SGOT) 32 U/L Alanine Aminotransferase (ALT/SGPT) 31 U/L Alkaline Phosphatase 100 U/L Total Protein 4.5 gm/dl Albumin 2.6 gm/dl Globulin 1.9 gm/dl Albumin/Globulin Ratio 1.4 Test 04/12/16 05:18 04/12/16 12:15 White Blood Count 16.03 K/uL 15.64 K/uL Red Blood Count 3.02 M/uL 3.11 M/uL Hemoglobin 9.8 g/dL 9.8 g/dL Hematocrit 26.6 % 27.3 % Mean Corpuscular Volume 88.1 fL 87.8 fL Mean Corpuscular Hemoglobin 32.5 pg 31.5 pg Mean Corpuscular Hemoglobin Concent 36.8 g/dl 35.9 g/dl Platelet Count 65 K/uL 66 K/uL Mean Platelet Volume 9.0 fL 8.4 fL Neutrophils (%) (Auto) 85.0 % 81.7 % Lymphocytes (%) (Auto) 5.3 % 7.8 % Monocytes (%) (Auto) 8.8 % 9.5 % Eosinophils (%) (Auto) 0.0 % 0.0 % Basophils (%) (Auto) 0.1 % 0.1 % Neutrophils # (Auto) 13.62 K/uL 12.79 K/uL Lymphocytes # (Auto) 0.85 K/uL 1.22 K/uL Monocytes # (Auto) 1.41 K/uL 1.48 K/uL Eosinophils # (Auto) 0.00 K/uL 0.00 K/uL Basophils # (Auto) 0.02 K/uL 0.01 K/uL RDW Standard Deviation 46.3 fL 45.4 fL RDW Coefficient of Variation 14.5 % 14.5 % Immature Granulocyte % (Auto) 0.8 % 0.9 % Immature Granulocyte # (Auto) 0.13 K/uL 0.14 K/uL Prothrombin Time 23.0 SECONDS 21.3 SECONDS Prothromb Time International Ratio 2.1 1.9 Sodium Level 129 mmol/L 132 mmol/L Potassium Level 4.6 mmol/L 4.8 mmol/L Chloride Level 101 mmol/L 102 mmol/L Carbon Dioxide Level 21 mmol/L 20 mmol/L Anion Gap 7.0 mmol/L 10.0 mmol/L Blood Urea Nitrogen 43 mg/dl 41 mg/dl Creatinine 0.99 mg/dl 0.88 mg/dl Est Creatinine Clear Calc Drug Dose 81.3 ml/min 91.5 ml/min Estimated GFR () 93.6 106.0 Estimated GFR (Non- 80.7 91.4 BUN/Creatinine Ratio 43.2 46.7 Random Glucose 159 mg/dl 108 mg/dl Calcium Level 7.4 mg/dl 7.7 mg/dl Total Bilirubin 6.4 mg/dl Aspartate Amino Transf (AST/SGOT) 30 U/L Alanine Aminotransferase (ALT/SGPT) 29 U/L Alkaline Phosphatase 74 U/L Total Protein 4.4 gm/dl Albumin 2.7 gm/dl Globulin 1.7 gm/dl Albumin/Globulin Ratio 1.6 Activated Partial Thromboplast Time 43.0 SECONDS Partial Thromboplastin Ratio 1.7 Assessment and Plan Patient is a 65 year old male with a history of Alcoholic cirrhosis who developed acute blood loss anemia secondary to bleeding duodenal ulcer yesterday. Plan: Continue Protonix gtt at 8 mg/hour Stop Octreotide gtt at this time Continue Cipro 400mg IV BID for 5 days. Prognosis is guarded secondary to acute GI bleed and underlying cirrhosis with ascites. Will follow clinical course and make further recommendations as needed.
--- NOTE | 2016-04-12 15:33 | Hospitalist Progress Note ---
Hospitalist Progress Note Date of Service Apr 12, 2016. Subjective Pt evaluation today including: conversation w/ patient, physical exam, chart review, lab review, review of studies, review of inpatient medication list PO Intake: NPO Voiding: andrea catheter in place Pt went to OR last night for briskly bleeding large duodenal bulb ulceration eroded into the artery, Dr. Cornelius and Ulises thankfully were able to perform a sewover to stop the bleeding. he received 8 units of PRBCs, 2 units FFP, and a pack of plts. He was on the vent overnight in the ICU and was extubated today about 2.5 hrs ago. He received fentanyl and versed for pain and sedation and is still a bit sedated today but opens eyes and answers questions briefly before falling back asleep. Says he has no pain. On IV albumin infusions , hgb stable, BP stable on no pressors, just colloids. Constitutional: No fever Respiratory: No shortness of breath Cardiovascular: No chest pain Abdomen: No pain Skin: No rash Additional Comments: unobtainable otherwise due to sedation Objective Vital Signs Date Time Temp Pulse Resp B/P Pulse Ox O2 Delivery O2 Flow Rate FiO2 04/12/16 12:00 30 04/12/16 12:00 100 Mechanical Ventilator 30 04/12/16 11:55 30 04/12/16 10:10 30 04/12/16 08:25 30 04/12/16 08:00 100 Mechanical Ventilator 30 04/12/16 08:00 30 04/12/16 05:58 88 18 96/63 100 Mechanical Ventilator 30 04/12/16 05:28 90 15 95/63 100 04/12/16 05:05 30 04/12/16 04:58 92 19 102/66 100 Mechanical Ventilator 30 04/12/16 04:28 91 16 103/66 100 04/12/16 04:00 100 Mechanical Ventilator 30 04/12/16 04:00 36.5 92 17 110/59 100 Mechanical Ventilator 30 04/12/16 04:00 30 04/12/16 03:58 92 8 103/69 100 04/12/16 03:31 94 9 105/56 100 Mechanical Ventilator 30 04/12/16 03:28 94 9 97/66 100 04/12/16 03:01 93 11 102/46 100 Mechanical Ventilator 30 04/12/16 02:58 95 12 107/70 100 04/12/16 02:31 104 12 128/56 100 Mechanical Ventilator 30 04/12/16 02:28 105 15 123/82 100 04/12/16 02:05 30 04/12/16 02:01 108 23 115/58 100 Mechanical Ventilator 30 04/12/16 01:58 106 19 121/77 100 04/12/16 01:30 99 20 121/61 100 Mechanical Ventilator 30 04/12/16 01:28 98 20 107/67 100 04/12/16 01:00 108 20 117/62 100 Mechanical Ventilator 30 04/12/16 00:58 111 20 116/68 100 04/12/16 00:30 109 20 124/62 100 Mechanical Ventilator 30 04/12/16 00:28 111 20 114/68 100 04/12/16 00:00 30 04/12/16 00:00 36.4 108 20 129/66 100 Mechanical Ventilator 30 04/12/16 00:00 100 Mechanical Ventilator 30 04/11/16 23:30 30 04/11/16 23:00 97 12 120/58 100 04/11/16 22:58 97 12 107/68 100 Mechanical Ventilator 30 04/11/16 22:45 30 04/11/16 22:30 97 13 129/57 100 04/11/16 22:28 98 12 112/66 100 Mechanical Ventilator 04/11/16 22:00 36.6 101 15 126/56 100 04/11/16 21:58 100 16 100/66 100 Mechanical Ventilator 04/11/16 21:30 111 20 136/62 100 04/11/16 21:28 110 15 120/73 100 Mechanical Ventilator 04/11/16 21:20 50 04/11/16 21:05 75 04/11/16 21:00 110 18 158/72 100 04/11/16 20:58 114 16 122/81 100 Mechanical Ventilator 04/11/16 20:53 117 22 134/84 100 04/11/16 20:48 127 34 137/88 100 Mechanical Ventilator 04/11/16 20:43 122 39 151/92 100 04/11/16 20:38 117 23 126/94 100 Mechanical Ventilator 04/11/16 20:33 123 22 143/89 100 04/11/16 20:30 118 25 165/80 100 Mechanical Ventilator 04/11/16 20:28 117 28 141/87 100 04/11/16 20:23 117 16 144/87 100 Mechanical Ventilator 04/11/16 20:18 122 20 137/87 100 04/11/16 20:13 120 13 143/87 100 Mechanical Ventilator 04/11/16 20:08 120 18 145/90 100 04/11/16 20:03 118 23 138/86 100 Mechanical Ventilator 04/11/16 20:00 36.4 115 22 100 04/11/16 19:58 115 16 139/84 100 Mechanical Ventilator 04/11/16 19:55 114 12 138/83 100 Mechanical Ventilator 100 04/11/16 19:53 114 16 138/83 100 04/11/16 19:48 114 12 139/84 100 Mechanical Ventilator 04/11/16 19:45 114 12 140/85 99 Mechanical Ventilator 100 04/11/16 19:43 114 12 140/85 100 04/11/16 19:35 100 04/11/16 19:33 109 12 149/90 99 Mechanical Ventilator 100 04/11/16 19:32 36.4 114 18 149/90 100 Mechanical Ventilator 04/11/16 16:40 36.7 102 22 86/45 99 04/11/16 16:25 36.5 105 18 75/44 98 Physical Exam General Appearance: no apparent distress (drowsy) Eyes: + abnormal sclerae exam ENT: hearing grossly normal Neck: trachea midline Respiratory/Chest: lungs clear, normal breath sounds, no respiratory distress, no accessory muscle use Cardiovascular: + tachycardia (mild at 100, regular, no m/g/r) Abdomen: + pertinent finding (hypoactive BS, softly distended, draining serous fluid from MING drain (ascites), large dressing covering and some seepage of ascitic fluid around MING site, nontender, Andrea draining avelino yellow clear urine) Extremities: no pedal edema, no calf tenderness Neurologic/Psychiatric: + pertinent finding (drowsy but wakes up with verbal stimuli, answers yes/no questions) Skin: + jaundice Laboratory Results Last 24 Hours Test 04/11/16 15:40 04/11/16 17:00 04/11/16 17:30 04/11/16 18:17 White Blood Count 14.56 K/uL Red Blood Count 1.77 M/uL Hemoglobin 5.6 g/dL 8.1 g/dL Hematocrit 16.0 % 23.5 % Mean Corpuscular Volume 90.4 fL Mean Corpuscular Hemoglobin 31.6 pg Mean Corpuscular Hemoglobin Concent 35.0 g/dl RDW Standard Deviation 52.2 fL RDW Coefficient of Variation 16.3 % Platelet Count 121 K/uL Mean Platelet Volume 8.8 fL Sodium Level 128 mmol/L Potassium Level 4.7 mmol/L Chloride Level 100 mmol/L Carbon Dioxide Level 20 mmol/L Anion Gap 8.0 mmol/L 17.0 mmol/L Blood Urea Nitrogen 40 mg/dl Creatinine 0.92 mg/dl Est Creatinine Clear Calc Drug Dose 87.5 ml/min Estimated GFR () 102.2 Estimated GFR (Non- 88.2 BUN/Creatinine Ratio 43.4 Random Glucose 191 mg/dl Calcium Level 8.1 mg/dl Total Bilirubin 2.5 mg/dl Aspartate Amino Transf (AST/SGOT) 36 U/L Alanine Aminotransferase (ALT/SGPT) 25 U/L Alkaline Phosphatase 102 U/L Total Protein 3.5 gm/dl Albumin 1.5 gm/dl Globulin 2.0 gm/dl Albumin/Globulin Ratio 0.8 Bedside Hemoglobin 10.9 g/dl Bedside Hematocrit 32 % Bedside Sodium 126 mEq/L Bedside Potassium 4.5 mEq/L Bedside Chloride 95 mEq/L Bedside Total CO2 20 mEq/l Bedside Blood Urea Nitrogen 38 mg/dl Bedside Creatinine 0.7 mg/dl Bedside Glucose (other) 206 mg/dl Bedside Ionized Calcium (Abelino) 1.13 mmol/l Test 04/11/16 18:45 04/11/16 21:17 04/11/16 22:43 04/11/16 22:57 Hemoglobin 10.7 g/dL 11.4 g/dL Hematocrit 31.7 % 32.2 % Bedside Hemoglobin 11.2 g/dl Bedside Hematocrit 33 % Bedside Blood Gas pH (LAB) 7.32 7.36 Bedside Blood Gas pCO2 (LAB) 37 mmHg 31 mmHg Bedside Blood Gas pO2 (LAB) 245 mmHg 156 mmHg Bedside Blood Gas HCO3 (LAB) 19 meq/L 18 meq/L Bedside Blood Gas Total CO2 20 mEq/l 19 mEq/l Bedside Blood Gas Base Excess (LAB) -7.0 meq/L -8.0 meq/L Bedside Blood Gas O2 Saturation 100.0 % 99.0 % Bedside Sodium 125 mEq/L Bedside Potassium 4.8 mEq/L Blood Gas Sample Site Art Line [place] Test NA Oxygen Delivery Device Ventilator Bedside Oxygen Rate (breaths/min) 12 Blood Gas Minute Ventilation 8.1 Bedside FiO2 50 % Blood Gas Tidal Volume 500 Blood Gas PEEP 5 White Blood Count 18.40 K/uL Red Blood Count 3.56 M/uL Mean Corpuscular Volume 90.4 fL Mean Corpuscular Hemoglobin 32.0 pg Mean Corpuscular Hemoglobin Concent 35.4 g/dl Platelet Count 85 K/uL Mean Platelet Volume 8.6 fL Neutrophils (%) (Auto) 84.4 % Lymphocytes (%) (Auto) 9.3 % Monocytes (%) (Auto) 4.9 % Eosinophils (%) (Auto) 0.2 % Basophils (%) (Auto) 0.1 % Neutrophils # (Auto) 15.51 K/uL Lymphocytes # (Auto) 1.72 K/uL Monocytes # (Auto) 0.91 K/uL Eosinophils # (Auto) 0.03 K/uL Basophils # (Auto) 0.02 K/uL RDW Standard Deviation 48.3 fL RDW Coefficient of Variation 14.6 % Immature Granulocyte % (Auto) 1.1 % Immature Granulocyte # (Auto) 0.21 K/uL Platelet Estimate DECREASED Polychromasia 1+ Echinocytes 1+ Sodium Level 128 mmol/L Potassium Level 4.8 mmol/L Chloride Level 99 mmol/L Carbon Dioxide Level 19 mmol/L Anion Gap 10.0 mmol/L Blood Urea Nitrogen 42 mg/dl Creatinine 1.00 mg/dl Est Creatinine Clear Calc Drug Dose 80.5 ml/min Estimated GFR () 92.4 Estimated GFR (Non- 79.7 BUN/Creatinine Ratio 41.6 Random Glucose 219 mg/dl Lactic Acid Level 3.2 mmol/L Calcium Level 7.3 mg/dl Total Bilirubin 4.7 mg/dl Aspartate Amino Transf (AST/SGOT) 32 U/L Alanine Aminotransferase (ALT/SGPT) 31 U/L Alkaline Phosphatase 100 U/L Total Protein 4.5 gm/dl Albumin 2.6 gm/dl Globulin 1.9 gm/dl Albumin/Globulin Ratio 1.4 Test 04/12/16 05:18 04/12/16 12:15 White Blood Count 16.03 K/uL 15.64 K/uL Red Blood Count 3.02 M/uL 3.11 M/uL Hemoglobin 9.8 g/dL 9.8 g/dL Hematocrit 26.6 % 27.3 % Mean Corpuscular Volume 88.1 fL 87.8 fL Mean Corpuscular Hemoglobin 32.5 pg 31.5 pg Mean Corpuscular Hemoglobin Concent 36.8 g/dl 35.9 g/dl Platelet Count 65 K/uL 66 K/uL Mean Platelet Volume 9.0 fL 8.4 fL Neutrophils (%) (Auto) 85.0 % 81.7 % Lymphocytes (%) (Auto) 5.3 % 7.8 % Monocytes (%) (Auto) 8.8 % 9.5 % Eosinophils (%) (Auto) 0.0 % 0.0 % Basophils (%) (Auto) 0.1 % 0.1 % Neutrophils # (Auto) 13.62 K/uL 12.79 K/uL Lymphocytes # (Auto) 0.85 K/uL 1.22 K/uL Monocytes # (Auto) 1.41 K/uL 1.48 K/uL Eosinophils # (Auto) 0.00 K/uL 0.00 K/uL Basophils # (Auto) 0.02 K/uL 0.01 K/uL RDW Standard Deviation 46.3 fL 45.4 fL RDW Coefficient of Variation 14.5 % 14.5 % Immature Granulocyte % (Auto) 0.8 % 0.9 % Immature Granulocyte # (Auto) 0.13 K/uL 0.14 K/uL Prothrombin Time 23.0 SECONDS 21.3 SECONDS Prothromb Time International Ratio 2.1 1.9 Sodium Level 129 mmol/L 132 mmol/L Potassium Level 4.6 mmol/L 4.8 mmol/L Chloride Level 101 mmol/L 102 mmol/L Carbon Dioxide Level 21 mmol/L 20 mmol/L Anion Gap 7.0 mmol/L 10.0 mmol/L Blood Urea Nitrogen 43 mg/dl 41 mg/dl Creatinine 0.99 mg/dl 0.88 mg/dl Est Creatinine Clear Calc Drug Dose 81.3 ml/min 91.5 ml/min Estimated GFR () 93.6 106.0 Estimated GFR (Non- 80.7 91.4 BUN/Creatinine Ratio 43.2 46.7 Random Glucose 159 mg/dl 108 mg/dl Calcium Level 7.4 mg/dl 7.7 mg/dl Total Bilirubin 6.4 mg/dl Aspartate Amino Transf (AST/SGOT) 30 U/L Alanine Aminotransferase (ALT/SGPT) 29 U/L Alkaline Phosphatase 74 U/L Total Protein 4.4 gm/dl Albumin 2.7 gm/dl Globulin 1.7 gm/dl Albumin/Globulin Ratio 1.6 Activated Partial Thromboplast Time 43.0 SECONDS Partial Thromboplastin Ratio 1.7 Assessment and Plan 65 y/o male who denies any significant PMH presents for progressive weakness and difficulty ambulating. He states that he can walk a maximum of 25 feet unassisted before tiring out. He has noted an increase in abdominal girth and a yellow tinting of his sclera. The pt states that he is a recovering alcoholic and has not had a drink since late February. He denies severe withdrawal symptoms a history of DTs or previous seizures but does describe tremors, twitching and anxiety.He admitted himself to a detox facility 10/19 and then relapsed when discharged. He then quit of his own accord this February. He denies a previous diagnosis of cirrhosis however clinical exam, labs and imaging suggest advanced cirrhosis with ascites. Found to have significant ascites and acute hepatic failure on admission. Acute Hepatic failure, alcoholic, ascites, portal HTN, Esophageal varices grade II on EGD nonbleeding, Hepatic artery stenosis seen on US, Anemia of acute on chronic blood loss from GI bleeding, PUD: Drained 6.8 L ascites on paracentesis on 04/09--> ascitic fluid with - gram stain/ culture= no organisms, no growth Hgb 6.8 on admission -GI consulted, initial recommendations as below; --Prednisolone therapy at 40 mg daily. Recommend continued supplementation with folic acid and thiamine. --Require an outpatient triphasic liver CT as well as AFP for HCC screening with continued surveillance every 6 months and EGD for variceal screening. --Lactulose 30 g BID (goal of 3 bms per day) and Xifaxan 550 mg PO BID. - Continue Spironolactone 100 mg daily and Lasix 40 mg daily. 2 g sodium restricted diet. However on 04/11/16, he developed acute severe hypotension and melena, hematemesis , was taken for emergent EGD and found to have briskly bleeding very large 3 cm duodenal bulb ulcer--> emergent Surgery for sewover and then transferred to ICU for recovery. Now extubated. Hgb dropped to 5.6 and transfused 8 units pRBCs on 04/11 (had 1 unit 04/10 and 2 units 04/09), 2 units FFP, 1 pack plts. -Protonix gtt -IV albumin infusions 25grams IV q2 and then switch to q6h after 2 days -Greatly appreciate GI, Surgery, and [facility] consultations for management -Cipro 400mg IV q12h for 5 days (day 2) -serial CBCs -follow INR, LFTs -overall guarded prognosis -holding all diuretics for now -MING drain is draining the ascites -bowel rest, no po meds Coagulopathy: -INR up to 2.1 post-op, now down to 1.9, stable -Continue to trend -GI recommends transfer to tertiary center if INR continues to worsen Hyponatremia: secondary to liver failure -Stable -Check urine lytes and trend BMP Urinalysis: -U/A on admission dirty, no culture -Repeat U/A culture if indicated (04/10) - negative DVT prophylaxis: -Chemical means contraindicated due to elevated INR -EDVIN and SCDs Code Status: -LEVEL I, FULL Pt indicates he would not want prolonged life support if it came to that
[2016-04-12 20:59] LABS: HEMATOCRIT 22.5 % (42-52); MEAN CELL VOLUME 87.9 fL (80-100); MEAN CORPUSCULAR HGB CONC 36.4 g/dl (32-36); RED BLOOD COUNT 2.56 M/uL (4.7-6.1); WHITE BLOOD COUNT 11.32 K/uL (4.8-10.8)
[2016-04-12 21:22] LABS: BUN/CREATININE RATIO 42.8 (10-20); CREATININE 0.83 mg/dl (0.60-1.40); POTASSIUM 4.6 mmol/L (3.5-5.1)
[2016-04-12 21:23] LABS: ANISOCYTOSIS PRESENT; COMPLETE YES; IG% 0.7 %; LYMPH % 8.9 %; LYMPH ABS # 1.01 K/uL (1.2-3.4); MEAN PLATELET VOLUME 8.5 fL (7.4-10.4); MONO % 10.1 %; NEUT % 80.3 %; PLATELET COUNT 57 K/uL (130-400); POLYCHROMASIA 1+
[2016-04-12 21:35] LABS: INR 2.3 (0.9-1.1); PARTIAL THROMBOPLASTIN RATIO 2.4; PROTHROMBIN TIME (PATIENT) 25.6 SECONDS (9.0-12.0)
[2016-04-13] VITALS (9 sets, daily range): BP systolic 91–119; BP diastolic 48–67; PULSE 91–109; TEMP 36.6–37; O2SAT 94–98
[2016-04-13] MEDS: PANTOprazole INJ 40 MG in DEXTROSE 5% 100ML IV SCH ×5 (01:47→21:08)
[2016-04-13] MEDS: CIPROFLOXACIN / D5W 400 MG in PREMIXED IN D5W 200 ML IV SCH ×2 (03:54→16:41)
[2016-04-13 04:54] LABS: HEMATOCRIT 20.8 % (42-52); MEAN CORPUSCULAR HGB CONC 35.6 g/dl (32-36); MEAN PLATELET VOLUME 8.7 fL (7.4-10.4); PLATELET COUNT 50 K/uL (130-400); RED BLOOD COUNT 2.31 M/uL (4.7-6.1)
[2016-04-13 04:56] LABS: COMPLETE YES; IG% 0.4 %; LYMPH % 13.6 %; LYMPH ABS # 1.13 K/uL (1.2-3.4); MONO % 9.6 %; NEUT % 76.4 %; POLYCHROMASIA 1+
[2016-04-13 04:57] LABS: BUN/CREATININE RATIO 44.5 (10-20); CALCIUM 7.6 mg/dl (8.5-10.1); CREATININE 0.72 mg/dl (0.60-1.40); MAGNESIUM 2.1 mg/dl (1.8-2.4); PHOSPHORUS 2.1 mg/dl (2.5-4.9); POTASSIUM 4.4 mmol/L (3.5-5.1)
[2016-04-13 05:06] LABS: INR 2.5 (0.9-1.1); PARTIAL THROMBOPLASTIN RATIO 2.5; PROTHROMBIN TIME (PATIENT) 28.2 SECONDS (9.0-12.0)
[2016-04-13] MEDS ORDERED: NURSING VERBAL MED ORDER ONE (07:45)
[2016-04-13] MEDS ORDERED: THIAMINE HCL 100 MG/ML 2 ML VIAL IV SCH (09:00)
[2016-04-13] MEDS: THIAMINE HCL INJ 100 MG in SYRINGE 9 ML IV SCH (10:32)
[2016-04-13] MEDS: NORMOSOL R 1,000 ML IV SCH ×2 (10:57→23:57)
--- NOTE | 2016-04-13 11:33 | Gastroenterology Progress Note ---
Progress Note Date of Service: Apr 13, 2016 Subjective Pt evaluation today including: conversation w/ patient, physical exam, chart review, lab review, review of studies, review of inpatient medication list Patient POD #2 secondary to ex-lap with oversew of DU. Doing OK. States he passed some gas last night. No BM. Mild abdominal pain. Review of Systems Constitutional: No chills, No fever Respiratory: No shortness of breath Cardiac: No chest pain Abdomen: + pain Medications Current Inpatient Medications Medications (Trade) Dose Ordered Sig/Alexandra Route Start Time Stop Time Status Last Admin Dose Admin Ciprofloxacin/ Dextrose 400 mg/ Prmx 200 ml @ 100 mls/hr Q12H IV 04/12/16 04:00 04/19/16 23:59 04/13/16 03:54 100 MLS/HR Pantoprazole Sodium/Dextrose (Protonix Inj/D5 100ml) 100 ml @ 20 mls/hr Q5H IV 04/11/16 19:45 05/11/16 19:44 04/13/16 06:26 20 MLS/HR Albumin Human (Albumin 25%) 12.5 gm Q6H IV 04/15/16 06:00 04/16/16 00:01 Fentanyl Citrate (Fentanyl Inj) 25 mcg Q1H PRN IV 04/12/16 12:30 04/26/16 12:29 04/13/16 01:46 25 MCG Albumin Human 12.5 gm 12.5 gm Q6H IV 04/15/16 06:15 04/16/16 00:16 Thiamine HCl 100 mg/Syringe 10 ml @ 2 mls/min QAM IV 04/13/16 09:00 05/13/16 08:59 04/13/16 10:32 2 MLS/MIN Parenteral Electrolyte Solution (Normosol R) 1,000 ml @ 75 mls/hr [id number] IV 04/13/16 10:30 05/13/16 10:14 04/13/16 10:57 75 MLS/HR Ascorbic Acid (Ascorbic Acid Inj) 500 mg DAILY IV 04/14/16 09:00 05/14/16 08:59 UNV Objective Vital Signs Date Time Temp Pulse Resp B/P Pulse Ox O2 Delivery O2 Flow Rate FiO2 04/13/16 10:00 91 14 103/59 95 Room Air 119/66 04/13/16 08:00 97 Room Air 04/13/16 08:00 36.7 96 14 109/58 97 Room Air 107/67 04/13/16 06:00 93 14 106/58 96 Room Air 97/50 04/13/16 04:00 36.8 94 13 109/60 97 Room Air 107/51 04/13/16 04:00 95 Room Air 04/13/16 02:00 99 15 98/53 98 Nasal Cannula 2.0 92/48 04/13/16 00:00 95 Room Air 04/13/16 00:00 36.7 109 15 91/49 96 Room Air 105/55 04/12/16 22:00 104 14 108/61 95 Room Air 108/53 04/12/16 20:00 36.9 102 12 110/63 97 Nasal Cannula 2.0 101/47 04/12/16 20:00 97 Nasal Cannula 2.0 04/12/16 18:00 102 10 110/75 97 Nasal Cannula 4.0 114/51 04/12/16 16:00 97 Nasal Cannula 2.0 04/12/16 16:00 36.9 102 12 117/65 98 Nasal Cannula 2.0 121/56 04/12/16 14:00 99 12 105/74 99 Nasal Cannula 4.0 122/61 04/12/16 12:00 37.0 90 14 99/66 98 Mechanical Ventilator 30 123/74 04/12/16 12:00 30 04/12/16 12:00 100 Mechanical Ventilator 30 04/12/16 11:55 30 Physical Exam General Appearance: + mild distress Respiratory/Chest: + decreased breath sounds (at bilateral bases) Abdomen: soft, + distended, + pertinent finding (abdominal dressing) Laboratory Results Last 24 Hours Test 04/12/16 12:15 04/12/16 20:40 04/13/16 03:58 White Blood Count 15.64 K/uL 11.32 K/uL 8.30 K/uL Red Blood Count 3.11 M/uL 2.56 M/uL 2.31 M/uL Hemoglobin 9.8 g/dL 8.2 g/dL 7.4 g/dL Hematocrit 27.3 % 22.5 % 20.8 % Mean Corpuscular Volume 87.8 fL 87.9 fL 90.0 fL Mean Corpuscular Hemoglobin 31.5 pg 32.0 pg 32.0 pg Mean Corpuscular Hemoglobin Concent 35.9 g/dl 36.4 g/dl 35.6 g/dl Platelet Count 66 K/uL 57 K/uL 50 K/uL Mean Platelet Volume 8.4 fL 8.5 fL 8.7 fL Neutrophils (%) (Auto) 81.7 % 80.3 % 76.4 % Lymphocytes (%) (Auto) 7.8 % 8.9 % 13.6 % Monocytes (%) (Auto) 9.5 % 10.1 % 9.6 % Eosinophils (%) (Auto) 0.0 % 0.0 % 0.0 % Basophils (%) (Auto) 0.1 % 0.0 % 0.0 % Neutrophils # (Auto) 12.79 K/uL 9.09 K/uL 6.34 K/uL Lymphocytes # (Auto) 1.22 K/uL 1.01 K/uL 1.13 K/uL Monocytes # (Auto) 1.48 K/uL 1.14 K/uL 0.80 K/uL Eosinophils # (Auto) 0.00 K/uL 0.00 K/uL 0.00 K/uL Basophils # (Auto) 0.01 K/uL 0.00 K/uL 0.00 K/uL RDW Standard Deviation 45.4 fL 45.7 fL 48.4 fL RDW Coefficient of Variation 14.5 % 14.6 % 15.0 % Immature Granulocyte % (Auto) 0.9 % 0.7 % 0.4 % Immature Granulocyte # (Auto) 0.14 K/uL 0.08 K/uL 0.03 K/uL Prothrombin Time 21.3 SECONDS 25.6 SECONDS 28.2 SECONDS Prothromb Time International Ratio 1.9 2.3 2.5 Activated Partial Thromboplast Time 43.0 SECONDS 61.9 SECONDS 66.1 SECONDS Partial Thromboplastin Ratio 1.7 2.4 2.5 Sodium Level 132 mmol/L 132 mmol/L 132 mmol/L Potassium Level 4.8 mmol/L 4.6 mmol/L 4.4 mmol/L Chloride Level 102 mmol/L 101 mmol/L 102 mmol/L Carbon Dioxide Level 20 mmol/L 21 mmol/L 22 mmol/L Anion Gap 10.0 mmol/L 10.0 mmol/L 8.0 mmol/L Blood Urea Nitrogen 41 mg/dl 36 mg/dl 32 mg/dl Creatinine 0.88 mg/dl 0.83 mg/dl 0.72 mg/dl Est Creatinine Clear Calc Drug Dose 91.5 ml/min 97.0 ml/min 111.8 ml/min Estimated GFR () 106.0 108.5 115.1 Estimated GFR (Non- 91.4 93.6 99.3 BUN/Creatinine Ratio 46.7 42.8 44.5 Random Glucose 108 mg/dl 93 mg/dl 87 mg/dl Calcium Level 7.7 mg/dl 8.0 mg/dl 7.6 mg/dl Nucleated RBC Absolute Count (auto) 0.02 K/uL Nucleated Red Blood Cells % 0.2 % Polychromasia 1+ 1+ Anisocytosis PRESENT Phosphorus Level 2.1 mg/dl Magnesium Level 2.1 mg/dl Total Bilirubin 7.1 mg/dl Direct Bilirubin 1.6 mg/dl Aspartate Amino Transf (AST/SGOT) 28 U/L Alanine Aminotransferase (ALT/SGPT) 26 U/L Alkaline Phosphatase 44 U/L Total Protein 4.4 gm/dl Albumin 3.2 gm/dl Assessment and Plan Patient is a 65 year old male with a history of Alcoholic cirrhosis who developed acute blood loss anemia secondary to bleeding duodenal ulcer yesterday. Plan: Continue Protonix gtt at 8 mg/hour Continue Cipro 400mg IV BID for 5 days. Prognosis is guarded secondary to acute GI bleed and underlying cirrhosis with ascites. Will follow clinical course and make further recommendations as needed.
[2016-04-13] MEDS ORDERED: TPN/PPN CONSULT PHARMACY STA (11:51)
[2016-04-13 12:07] LABS: HEMATOCRIT 22.4 % (42-52); MEAN CELL VOLUME 89.2 fL (80-100); MEAN CORPUSCULAR HEMOGLOBIN 31.9 pg (25-34); MEAN CORPUSCULAR HGB CONC 35.7 g/dl (32-36); RED BLOOD COUNT 2.51 M/uL (4.7-6.1); WHITE BLOOD COUNT 8.74 K/uL (4.8-10.8)
[2016-04-13 12:09] LABS: MEAN PLATELET VOLUME 8.8 fL (7.4-10.4); PLATELET COUNT 58 K/uL (130-400)
--- NOTE | 2016-04-13 12:52 | Critical Care Progress Note ---
Critical Care Progress Note Date of Service Apr 13, 2016. Attending Dr. Haider Subjective No major complaints, abdominal pain minimal, typically only when being moved Objective General: Alert oriented CVS S1-S2 regular rate and rhythm Pulmonary lungs clear to auscultation bilaterally Abdomen: Dressing in place, serous shadowing on the dressing. Hypoactive bowel sounds Skin hyperemia under areas of the dressing. Extremities: 2+ pulses Neuro no focal deficit Assessment & Plan (1) Gastrointestinal hemorrhage associated with duodenitis Patient was been transfused 11 units packed red blood cells, 2 of FFP, 1 unit of platelets Continue to monitor H&H every 12 hours Continue PPI Nothing by mouth approximately for 7 days NG tube to low intermittent suction Plan to start TPN as patient will need nutrition and unable to take enteral nutrition due to recent surgical repair. Checking pre-albumin and triglycerides today, checking triglycerides every Thursday, prealbumin weekly PICC line in place Central line discontinued (2) Acute blood loss anemia Secondary to acute duodenal ulcer Resolved with exploratory laparotomy Holding 2 units packed red blood cells (3) S/P exploratory laparotomy Continue to monitor serial H&H, monitor drain output Requiring volume to maintain blood pressure, patient has volume responsive (4) Elevated bilirubin Given bilirubin, BUN, and creatinine elevation will administer albumin with goal of 1.5 g/kg body weight today and will repeat with 1 g/kg body weight on in effort to prevent liver associated renal failure (5) Elevated BUN Aggressive volume resuscitation effort to prevent hepatic associated renal failure (6) Liver failure The patient's blood pressure remained stable, or hypertensive would have low threshold to add propranolol No evidence of active spontaneous bacterial peritonitis. (7) Alcoholic cirrhosis Continue abstinence from alcohol GI following (8) Ascites This will complicate the patient's drain output. Currently giving albumin infusion to prevent renal failure which should hopefully help decrease the patient's ascites formation. (9) Esophageal varices determined by endoscopy No active bleeding No indication for octreotide at this time (10) Thrombocytopenia Multifactorial: Due to acute blood loss and likely chronic disease No indication for platelet transfusion at this time: Keeping 1 unit on hold I discussed the case with both Dr. Cornelius of Gen. surgery and Dr. Anand of the hospitalist service, patient has high complexity and total care coordination time was 45 minutes. Patient can be downgraded to telemetry status Data Medications: Current Inpatient Medications Medications (Trade) Dose Ordered Sig/Alexandra Route Start Time Stop Time Status Last Admin Dose Admin Ciprofloxacin/ Dextrose 400 mg/ Prmx 200 ml @ 100 mls/hr Q12H IV 04/12/16 04:00 04/19/16 23:59 04/13/16 03:54 100 MLS/HR Pantoprazole Sodium/Dextrose (Protonix Inj/D5 100ml) 100 ml @ 20 mls/hr Q5H IV 04/11/16 19:45 05/11/16 19:44 04/13/16 06:26 20 MLS/HR Albumin Human (Albumin 25%) 12.5 gm Q6H IV 04/15/16 06:00 04/16/16 00:01 Fentanyl Citrate (Fentanyl Inj) 25 mcg Q1H PRN IV 04/12/16 12:30 04/26/16 12:29 04/13/16 01:46 25 MCG Albumin Human 12.5 gm 12.5 gm Q6H IV 04/15/16 06:15 04/16/16 00:16 Thiamine HCl 100 mg/Syringe 10 ml @ 2 mls/min QAM IV 04/13/16 09:00 05/13/16 08:59 04/13/16 10:32 2 MLS/MIN Parenteral Electrolyte Solution (Normosol R) 1,000 ml @ 75 mls/hr [id number] IV 04/13/16 10:30 05/13/16 10:14 04/13/16 10:57 75 MLS/HR Ascorbic Acid (Ascorbic Acid Inj) 500 mg DAILY IV 04/14/16 09:00 05/14/16 08:59 UNV Miscellaneous Information (Pharmacy Tpn/ Ppn Consult Active) 1 ea NOW STAT N/A 04/13/16 11:51 04/13/16 11:52 UNV Miscellaneous Information (Nursing Heparin Flush Order) 1 ea PRN PRN N/A 04/13/16 12:15 05/13/16 12:14 UNV I & O: 24-Hour Column 04/13/16 08:00 Intake Total 753 ml Output Total 3175 ml Balance -2422 ml Vital Signs: Date Time Temp Pulse Resp B/P Pulse Ox O2 Delivery O2 Flow Rate FiO2 04/13/16 10:00 91 14 103/59 95 Room Air 119/66 04/13/16 08:00 97 Room Air 1/8/17 08:00 36.7 96 14 109/58 97 Room Air 107/67 04/13/16 06:00 93 14 106/58 96 Room Air 97/50 04/13/16 04:00 36.8 94 13 109/60 97 Room Air 107/51 04/13/16 04:00 95 Room Air 04/13/16 02:00 99 15 98/53 98 Nasal Cannula 2.0 92/48 04/13/16 00:00 95 Room Air 04/13/16 00:00 36.7 109 15 91/49 96 Room Air 105/55 04/12/16 22:00 104 14 108/61 95 Room Air 108/53 04/12/16 20:00 36.9 102 12 110/63 97 Nasal Cannula 2.0 101/47 04/12/16 20:00 97 Nasal Cannula 2.0 04/12/16 18:00 102 10 110/75 97 Nasal Cannula 4.0 114/51 04/12/16 16:00 97 Nasal Cannula 2.0 04/12/16 16:00 36.9 102 12 117/65 98 Nasal Cannula 2.0 121/56 04/12/16 14:00 99 12 105/74 99 Nasal Cannula 4.0 122/61 Laboratory Results: Last 24 Hours Test 04/12/16 20:40 04/13/16 03:58 04/13/16 11:58 04/13/16 12:05 White Blood Count 11.32 K/uL 8.30 K/uL 8.74 K/uL Red Blood Count 2.56 M/uL 2.31 M/uL 2.51 M/uL Hemoglobin 8.2 g/dL 7.4 g/dL 8.0 g/dL Hematocrit 22.5 % 20.8 % 22.4 % Mean Corpuscular Volume 87.9 fL 90.0 fL 89.2 fL Mean Corpuscular Hemoglobin 32.0 pg 32.0 pg 31.9 pg Mean Corpuscular Hemoglobin Concent 36.4 g/dl 35.6 g/dl 35.7 g/dl Platelet Count 57 K/uL 50 K/uL 58 K/uL Mean Platelet Volume 8.5 fL 8.7 fL 8.8 fL Neutrophils (%) (Auto) 80.3 % 76.4 % Lymphocytes (%) (Auto) 8.9 % 13.6 % Monocytes (%) (Auto) 10.1 % 9.6 % Eosinophils (%) (Auto) 0.0 % 0.0 % Basophils (%) (Auto) 0.0 % 0.0 % Neutrophils # (Auto) 9.09 K/uL 6.34 K/uL Lymphocytes # (Auto) 1.01 K/uL 1.13 K/uL Monocytes # (Auto) 1.14 K/uL 0.80 K/uL Eosinophils # (Auto) 0.00 K/uL 0.00 K/uL Basophils # (Auto) 0.00 K/uL 0.00 K/uL RDW Standard Deviation 45.7 fL 48.4 fL 46.7 fL RDW Coefficient of Variation 14.6 % 15.0 % 14.9 % Immature Granulocyte % (Auto) 0.7 % 0.4 % Immature Granulocyte # (Auto) 0.08 K/uL 0.03 K/uL Nucleated RBC Absolute Count (auto) 0.02 K/uL Nucleated Red Blood Cells % 0.2 % Polychromasia 1+ 1+ Anisocytosis PRESENT Prothrombin Time 25.6 SECONDS 28.2 SECONDS Prothromb Time International Ratio 2.3 2.5 Activated Partial Thromboplast Time 61.9 SECONDS 66.1 SECONDS Partial Thromboplastin Ratio 2.4 2.5 Sodium Level 132 mmol/L 132 mmol/L Potassium Level 4.6 mmol/L 4.4 mmol/L Chloride Level 101 mmol/L 102 mmol/L Carbon Dioxide Level 21 mmol/L 22 mmol/L Anion Gap 10.0 mmol/L 8.0 mmol/L Blood Urea Nitrogen 36 mg/dl 32 mg/dl Creatinine 0.83 mg/dl 0.72 mg/dl Est Creatinine Clear Calc Drug Dose 97.0 ml/min 111.8 ml/min Estimated GFR () 108.5 115.1 Estimated GFR (Non- 93.6 99.3 BUN/Creatinine Ratio 42.8 44.5 Random Glucose 93 mg/dl 87 mg/dl Calcium Level 8.0 mg/dl 7.6 mg/dl Phosphorus Level 2.1 mg/dl Magnesium Level 2.1 mg/dl Total Bilirubin 7.1 mg/dl Direct Bilirubin 1.6 mg/dl Aspartate Amino Transf (AST/SGOT) 28 U/L Alanine Aminotransferase (ALT/SGPT) 26 U/L Alkaline Phosphatase 44 U/L Total Protein 4.4 gm/dl Albumin 3.2 gm/dl
--- NOTE | 2016-04-13 12:55 | Hospitalist Progress Note ---
Hospitalist Progress Note Date of Service Apr 13, 2016. Subjective Pt evaluation today including: conversation w/ patient, physical exam, chart review, lab review, conversation w/ accounting consultant (CCM), review of inpatient medication list PO Intake: NPO Voiding: andrea catheter in place Pt more alert today but still drowsy. BPs low normal but stable, hgb 7.4 but repeat 8.0 today so no transfusions given but on hold. A-line removed and RN holding pressure for bleeding, INR elevated, RIJ removed and LUE PICC placed today, plans for TPN to start tomorrow. Constitutional: No fever Respiratory: No shortness of breath Cardiovascular: No chest pain Abdomen: No pain Skin: + new/changing skin lesions (RN reports blisters underneath tape on dressing) Medications Current Inpatient Medications Medications (Trade) Dose Ordered Sig/Alexandra Route Start Time Stop Time Status Last Admin Dose Admin Ciprofloxacin/ Dextrose 400 mg/ Prmx 200 ml @ 100 mls/hr Q12H IV 04/12/16 04:00 04/19/16 23:59 04/13/16 03:54 100 MLS/HR Pantoprazole Sodium/Dextrose (Protonix Inj/D5 100ml) 100 ml @ 20 mls/hr Q5H IV 04/11/16 19:45 05/11/16 19:44 04/13/16 06:26 20 MLS/HR Albumin Human (Albumin 25%) 12.5 gm Q6H IV 04/15/16 06:00 04/16/16 00:01 Fentanyl Citrate (Fentanyl Inj) 25 mcg Q1H PRN IV 04/12/16 12:30 04/26/16 12:29 04/13/16 01:46 25 MCG Albumin Human 12.5 gm 12.5 gm Q6H IV 04/15/16 06:15 04/16/16 00:16 Thiamine HCl 100 mg/Syringe 10 ml @ 2 mls/min QAM IV 04/13/16 09:00 05/13/16 08:59 04/13/16 10:32 2 MLS/MIN Parenteral Electrolyte Solution (Normosol R) 1,000 ml @ 75 mls/hr [id number] IV 04/13/16 10:30 05/13/16 10:14 04/13/16 10:57 75 MLS/HR Ascorbic Acid (Ascorbic Acid Inj) 500 mg DAILY IV 04/14/16 09:00 05/14/16 08:59 UNV Miscellaneous Information (Pharmacy Tpn/ Ppn Consult Active) 1 ea NOW STAT N/A 04/13/16 11:51 04/13/16 11:52 UNV Miscellaneous Information (Nursing Heparin Flush Order) 1 ea PRN PRN N/A 04/13/16 12:15 05/13/16 12:14 UNV Objective Vital Signs Date Time Temp Pulse Resp B/P Pulse Ox O2 Delivery O2 Flow Rate FiO2 04/13/16 10:00 91 14 103/59 95 Room Air 119/66 04/13/16 08:00 97 Room Air 04/13/16 08:00 36.7 96 14 109/58 97 Room Air 107/67 04/13/16 06:00 93 14 106/58 96 Room Air 97/50 04/13/16 04:00 36.8 94 13 109/60 97 Room Air 107/51 04/13/16 04:00 95 Room Air 04/13/16 02:00 99 15 98/53 98 Nasal Cannula 2.0 92/48 04/13/16 00:00 95 Room Air 04/13/16 00:00 36.7 109 15 91/49 96 Room Air 105/55 04/12/16 22:00 104 14 108/61 95 Room Air 108/53 04/12/16 20:00 36.9 102 12 110/63 97 Nasal Cannula 2.0 101/47 04/12/16 20:00 97 Nasal Cannula 2.0 04/12/16 18:00 102 10 110/75 97 Nasal Cannula 4.0 114/51 04/12/16 16:00 97 Nasal Cannula 2.0 04/12/16 16:00 36.9 102 12 117/65 98 Nasal Cannula 2.0 121/56 04/12/16 14:00 99 12 105/74 99 Nasal Cannula 4.0 122/61 Physical Exam General Appearance: no apparent distress, + pertinent finding (ill-appearing, lying in bed) Eyes: + abnormal sclerae exam (icterus) ENT: + pertinent finding (NGT in place draining bilious fluid) Neck: trachea midline Respiratory/Chest: no respiratory distress, no accessory muscle use, + decreased breath sounds (at bases) Cardiovascular: no edema, no gallop, no murmur, + tachycardia (mild, [id number]- 100, reg rhythm) Abdomen: + abnormal bowel sounds (hypoactive), + pertinent finding (large dressing in place, MING drain RLQ draining serosang fluid,copious amounts,+ tenderness, soft) Extremities: normal inspection, no pedal edema, no calf tenderness Neurologic/Psychiatric: + pertinent finding (follows commands, opens eyes, says short answers to questions, drowsy) Skin: no rash, + jaundice Laboratory Results Last 24 Hours Test 04/12/16 20:40 04/13/16 03:58 04/13/16 11:58 White Blood Count 11.32 K/uL 8.30 K/uL 8.74 K/uL Red Blood Count 2.56 M/uL 2.31 M/uL 2.51 M/uL Hemoglobin 8.2 g/dL 7.4 g/dL 8.0 g/dL Hematocrit 22.5 % 20.8 % 22.4 % Mean Corpuscular Volume 87.9 fL 90.0 fL 89.2 fL Mean Corpuscular Hemoglobin 32.0 pg 32.0 pg 31.9 pg Mean Corpuscular Hemoglobin Concent 36.4 g/dl 35.6 g/dl 35.7 g/dl Platelet Count 57 K/uL 50 K/uL 58 K/uL Mean Platelet Volume 8.5 fL 8.7 fL 8.8 fL Neutrophils (%) (Auto) 80.3 % 76.4 % Lymphocytes (%) (Auto) 8.9 % 13.6 % Monocytes (%) (Auto) 10.1 % 9.6 % Eosinophils (%) (Auto) 0.0 % 0.0 % Basophils (%) (Auto) 0.0 % 0.0 % Neutrophils # (Auto) 9.09 K/uL 6.34 K/uL Lymphocytes # (Auto) 1.01 K/uL 1.13 K/uL Monocytes # (Auto) 1.14 K/uL 0.80 K/uL Eosinophils # (Auto) 0.00 K/uL 0.00 K/uL Basophils # (Auto) 0.00 K/uL 0.00 K/uL RDW Standard Deviation 45.7 fL 48.4 fL 46.7 fL RDW Coefficient of Variation 14.6 % 15.0 % 14.9 % Immature Granulocyte % (Auto) 0.7 % 0.4 % Immature Granulocyte # (Auto) 0.08 K/uL 0.03 K/uL Nucleated RBC Absolute Count (auto) 0.02 K/uL Nucleated Red Blood Cells % 0.2 % Polychromasia 1+ 1+ Anisocytosis PRESENT Prothrombin Time 25.6 SECONDS 28.2 SECONDS Prothromb Time International Ratio 2.3 2.5 Activated Partial Thromboplast Time 61.9 SECONDS 66.1 SECONDS Partial Thromboplastin Ratio 2.4 2.5 Sodium Level 132 mmol/L 132 mmol/L Potassium Level 4.6 mmol/L 4.4 mmol/L Chloride Level 101 mmol/L 102 mmol/L Carbon Dioxide Level 21 mmol/L 22 mmol/L Anion Gap 10.0 mmol/L 8.0 mmol/L Blood Urea Nitrogen 36 mg/dl 32 mg/dl Creatinine 0.83 mg/dl 0.72 mg/dl Est Creatinine Clear Calc Drug Dose 97.0 ml/min 111.8 ml/min Estimated GFR () 108.5 115.1 Estimated GFR (Non- 93.6 99.3 BUN/Creatinine Ratio 42.8 44.5 Random Glucose 93 mg/dl 87 mg/dl Calcium Level 8.0 mg/dl 7.6 mg/dl Phosphorus Level 2.1 mg/dl Magnesium Level 2.1 mg/dl Total Bilirubin 7.1 mg/dl Direct Bilirubin 1.6 mg/dl Aspartate Amino Transf (AST/SGOT) 28 U/L Alanine Aminotransferase (ALT/SGPT) 26 U/L Alkaline Phosphatase 44 U/L Total Protein 4.4 gm/dl Albumin 3.2 gm/dl Assessment and Plan 65 y/o male who denies any significant PMH presents for progressive weakness and difficulty ambulating. He states that he can walk a maximum of 25 feet unassisted before tiring out. He has noted an increase in abdominal girth and a yellow tinting of his sclera. The pt states that he is a recovering alcoholic and has not had a drink since late February. He denies severe withdrawal symptoms a history of DTs or previous seizures but does describe tremors, twitching and anxiety.He admitted himself to a detox facility 10/19 and then relapsed when discharged. He then quit of his own accord this February. He denies a previous diagnosis of cirrhosis however clinical exam, labs and imaging suggest advanced cirrhosis with ascites. Found to have significant ascites and acute hepatic failure on admission. He did report epigastric abd pain from the past but had not had any more abd pain or heartburn since he quit drinking 6-8 weeks ago. Acute Hepatic failure, alcoholic cirrhosis, ascites, portal HTN, Esophageal varices grade II on EGD nonbleeding, Hepatic artery stenosis seen on US, Anemia of acute on chronic blood loss from GI bleeding, PUD with large 30mm duodenal bulb ulcer eroded into artery actively bleeding on 04/11, Thrombocytopenia: Drained 6.8 L ascites on paracentesis on 04/09--> ascitic fluid with - gram stain/ culture= no organisms, no growth Hgb 6.8 on admission -GI consulted, initial recommendations: --Prednisolone therapy at 40 mg daily. Recommend continued supplementation with folic acid and thiamine. --Require an outpatient triphasic liver CT as well as AFP for HCC screening with continued surveillance every 6 months and EGD for variceal screening. --Lactulose 30 g BID (goal of 3 bms per day) and Xifaxan 550 mg PO BID. - Continue Spironolactone 100 mg daily and Lasix 40 mg daily. 2 g sodium restricted diet. However on 04/11/16, he developed acute severe hypotension and melena, hematemesis , was taken for emergent EGD and found to have briskly bleeding very large 3 cm duodenal bulb ulcer--> emergent Surgery for sew over and then transferred to ICU for recovery. Now extubated. Hgb dropped to 5.6 and transfused 8 units pRBCs on 04/11 (had 1 unit 1 and 2 units 04/09), 2 units FFP, 1 pack plts. Now recovering in ICU. A-line and Right IJ Cordis removed, LUE PICC placed 04/13 -continue Protonix gtt -IV albumin infusions 25grams IV q2 on day 1 and then switch to q6h on day 3 as per protocol from Clinical Biochemist-already ordered -Surgery wants NPO x 7 days -continue NGT -start TPN 04/14 -on Normosol now for IVFs and lyte replacement -Greatly appreciate GI, Surgery, and [facility] consultations for management -Cipro 400mg IV q12h for 7 days (day 3) -serial CBCs q12h -follow INR, LFTs -overall guarded prognosis -holding all diuretics for now -MING drain is draining the ascites -PRBCs and Plts on hold in blood bank -pain control-was on Fentanyl, but transferring to PCU, will switch to Dilaudid Coagulopathy: -INR up to 2.5 today -Continue to trend -GI recommends transfer to tertiary center if INR continues to worsen/worsening liver failure Hyponatremia: secondary to liver failure, mild today at 132 -Stable -trend BMP Urinalysis: -U/A on admission dirty, no culture -Repeat U/A (04/10) - negative for infection DVT prophylaxis: -Chemical means contraindicated due to elevated INR -EDVIN and SCDs Code Status: -LEVEL I, FULL Pt indicates he would not want prolonged life support if it came to that
[2016-04-13] MEDS ORDERED: TPN/PPN CONSULT PHARMACY PRN (13:00)
[2016-04-13 13:31] LABS: PREALBUMIN 7.6 mg/dl (20-40)
[2016-04-13] MEDS ORDERED: DEXTROSE 10% 1,000 ML IV PRN (16:00)
[2016-04-13] MEDS ORDERED: CUSTOM CENTRAL PN 1 BAG IV SCH (16:00)
[2016-04-13] MEDS: HYDROmorphone INJ 0.5 MG/0.5 ML SYR IV PRN ×2 (18:51→23:56)
[2016-04-14] VITALS: BP 84/57; PULSE 91; TEMP 36.6; O2SAT 92; O2SAT 94
[2016-04-14 00:41] LABS: HEMATOCRIT 22.2 % (42-52); MEAN CELL VOLUME 91.7 fL (80-100); MEAN CORPUSCULAR HEMOGLOBIN 32.2 pg (25-34); MEAN CORPUSCULAR HGB CONC 35.1 g/dl (32-36); RED BLOOD COUNT 2.42 M/uL (4.7-6.1); WHITE BLOOD COUNT 8.57 K/uL (4.8-10.8)
[2016-04-14 00:42] LABS: MEAN PLATELET VOLUME 8.5 fL (7.4-10.4); PLATELET COUNT 51 K/uL (130-400)
[2016-04-14] MEDS: PANTOprazole INJ 40 MG in DEXTROSE 5% 100ML IV SCH ×5 (02:27→22:45)
[2016-04-14 04:00] VITALS: BP 98/63; PULSE 91; TEMP 36.7; O2SAT 96
[2016-04-14 06:26] LABS: INR 2.2 (0.9-1.1); PARTIAL THROMBOPLASTIN RATIO 2.3; PROTHROMBIN TIME (PATIENT) 24.8 SECONDS (9.0-12.0)
[2016-04-14 06:29] LABS: BUN/CREATININE RATIO 28.3 (10-20); CALCIUM 6.9 mg/dl (8.5-10.1); CREATININE 0.81 mg/dl (0.60-1.40); MAGNESIUM 2.1 mg/dl (1.8-2.4); PHOSPHORUS 2.2 mg/dl (2.5-4.9); POTASSIUM 3.8 mmol/L (3.5-5.1)
[2016-04-14 08:00] VITALS: BP 96/63; PULSE 86; TEMP 37; O2SAT 93
--- NOTE | 2016-04-14 08:03 | Anesthesiology Progress Note ---
Anesthesia Post Op Note Date & Time Apr 14, 2016 at 08:02 Vital Signs Vital Signs Past 12 Hours Date Time Temp Pulse Resp B/P Pulse Ox O2 Delivery O2 Flow Rate FiO2 04/14/16 04:00 36.7 91 14 98/63 96 Room Air 04/14/16 04:00 96 Room Air 04/14/16 00:00 36.6 91 14 84/57 94 Room Air 04/14/16 00:00 92 Room Air Notes Mental Status: alert / awake / arousable, participated in evaluation Pt Amnestic to Procedure: Yes Nausea / Vomiting: adequately controlled Pain: adequately controlled Airway Patency, RR, SpO2: stable & adequate BP & HR: stable & adequate Hydration State: stable & adequate Anesthetic Complications: no major complications apparent
[2016-04-14] MEDS: THIAMINE HCL INJ 100 MG in SYRINGE 9 ML IV SCH (08:35)
[2016-04-14] MEDS: HYDROmorphone INJ 0.5 MG/0.5 ML SYR IV PRN (08:37)
[2016-04-14] MEDS ORDERED: ASCORBIC ACID 500 MG/ML 50 ML VIAL IV SCH (09:00)
--- NOTE | 2016-04-14 09:32 | Gastroenterology Progress Note ---
Progress Note Date of Service: Apr 14, 2016 Subjective Pt evaluation today including: conversation w/ patient, physical exam, lab review, review of studies Patient is a 65 yo male hospitalized with decompensating alcoholic cirrhosis who is presently POD#3 ex-lap with oversew of duodenal ulcer. The patient reports he has not noticed bleeding since 04/11/16. He reports flatulence and a small bowel movement. He reports some RUQ abdominal discomfort with movement/ palpation. He denies other acute issues at present. His H/H is 7.8/22.2 at present. T bili 6.1. D Bili 1.7. AST/ALT wnl. INR 2.2. Review of Systems Constitutional: + fatigue Respiratory: No cough, No shortness of breath Cardiac: No chest pain Abdomen: + pain, No GI bleeding, No constipation, No diarrhea, No nausea, No vomiting Musculoskeletal: No joint pain Endo: No fatigue Skin: No problem reported Medications Current Inpatient Medications Medications (Trade) Dose Ordered Sig/Alexandra Route Start Time Stop Time Status Last Admin Dose Admin Ciprofloxacin/ Dextrose 400 mg/ Prmx 200 ml @ 100 mls/hr Q12H IV 04/12/16 04:00 04/19/16 23:59 04/13/16 16:41 100 MLS/HR Pantoprazole Sodium/Dextrose (Protonix Inj/D5 100ml) 100 ml @ 20 mls/hr Q5H IV 04/11/16 19:45 05/11/16 19:44 04/14/16 08:37 20 MLS/HR Albumin Human (Albumin 25%) 12.5 gm Q6H IV 04/15/16 06:00 04/16/16 00:01 Albumin Human 12.5 gm 12.5 gm Q6H IV 04/15/16 06:15 04/16/16 00:16 Thiamine HCl 100 mg/Syringe 10 ml @ 2 mls/min QAM IV 04/13/16 09:00 05/13/16 08:59 04/14/16 08:35 2 MLS/MIN Parenteral Electrolyte Solution (Normosol R) 1,000 ml @ 75 mls/hr [id number] IV 04/13/16 10:30 05/13/16 10:14 04/13/16 23:57 75 MLS/HR Miscellaneous Information 1 ea 1 ea UD PRN N/A 04/13/16 13:00 05/13/16 12:59 Dextrose (D10w) 1,000 ml @ 0 mls/hr Q0M PRN IV 04/13/16 16:00 05/13/16 15:59 Future Hold Hydromorphone HCl (Dilaudid Inj) 0.5 mg Q4 PRN IV 04/13/16 13:00 04/27/16 12:59 04/14/16 08:37 0.5 MG Heparin Sodium (Porcine) 5 ml 5 ml PRN PRN FLUSH 04/13/16 13:15 05/13/16 13:14 04/14/16 00:01 5 ML Folic Acid/Syringe (Folvite Inj/ Syringe) 10 ml @ 5 mls/min QAM IV 04/14/16 09:00 05/14/16 08:59 Objective Vital Signs Date Time Temp Pulse Resp B/P Pulse Ox O2 Delivery O2 Flow Rate FiO2 04/14/16 04:00 36.7 91 14 98/63 96 Room Air 04/14/16 04:00 96 Room Air 04/14/16 00:00 36.6 91 14 84/57 94 Room Air 04/14/16 00:00 92 Room Air 04/13/16 20:00 94 Room Air 04/13/16 20:00 36.6 93 13 91/57 94 Room Air 04/13/16 16:00 37.0 100 16 95/57 96 Room Air 04/13/16 16:00 96 Room Air 04/13/16 12:00 37.0 94 16 92/59 96 Room Air 104/56 04/13/16 12:00 96 Room Air 04/13/16 10:00 91 14 103/59 95 Room Air 119/66 Physical Exam General Appearance: WD/WN Eyes: normal inspection, PERRL ENT: hearing grossly normal Respiratory/Chest: lungs clear Cardiovascular: regular rate, rhythm Abdomen: normal bowel sounds, soft, + tenderness Extremities: non-tender Neurologic/Psych: alert Skin: normal color Laboratory Results Last 24 Hours Test 04/13/16 11:58 04/14/16 00:26 04/14/16 05:40 White Blood Count 8.74 K/uL 8.57 K/uL Red Blood Count 2.51 M/uL 2.42 M/uL Hemoglobin 8.0 g/dL 7.8 g/dL Hematocrit 22.4 % 22.2 % Mean Corpuscular Volume 89.2 fL 91.7 fL Mean Corpuscular Hemoglobin 31.9 pg 32.2 pg Mean Corpuscular Hemoglobin Concent 35.7 g/dl 35.1 g/dl RDW Standard Deviation 46.7 fL 49.4 fL RDW Coefficient of Variation 14.9 % 15.4 % Platelet Count 58 K/uL 51 K/uL Mean Platelet Volume 8.8 fL 8.5 fL Prothrombin Time 24.8 SECONDS Prothromb Time International Ratio 2.2 Activated Partial Thromboplast Time 59.1 SECONDS Partial Thromboplastin Ratio 2.3 Sodium Level 129 mmol/L Potassium Level 3.8 mmol/L Chloride Level 97 mmol/L Carbon Dioxide Level 22 mmol/L Anion Gap 10.0 mmol/L Blood Urea Nitrogen 23 mg/dl Creatinine 0.81 mg/dl Est Creatinine Clear Calc Drug Dose 99.4 ml/min Estimated GFR () 109.6 Estimated GFR (Non- 94.6 BUN/Creatinine Ratio 28.3 Random Glucose 246 mg/dl Calcium Level 6.9 mg/dl Phosphorus Level 2.2 mg/dl Magnesium Level 2.1 mg/dl Total Bilirubin 6.1 mg/dl Direct Bilirubin 1.7 mg/dl Aspartate Amino Transf (AST/SGOT) 34 U/L Alanine Aminotransferase (ALT/SGPT) 24 U/L Alkaline Phosphatase 48 U/L Total Protein 4.0 gm/dl Albumin 2.6 gm/dl Assessment and Plan Patient is a 65 yo male with alcoholic cirrhosis POD #3 ex lap with oversew of duodenal ulcer. H/H 7.8/22.2. 1) GI bleeding 2/2 duodenal ulcer: NGT in place per surgery recommendations. Continue Protonix infusion x 72 hours then anticipate transition to BID PPI therapy. Continue to monitor H/H & monitor for clinical signs of bleeding. 2) Alcoholic cirrhosis: Encourage outpatient rehab, continue folic acid & thiamine supplementation. Will need outpatient hepatology evaluation. 3) Hepatic Encephalopathy: Lactulose presently on hold given current status. Resume Xifaxan 550 mg BID when able to tolerate po. Goal is for 3 bowel movements daily once acute picture has improved. 4) Portal hypertension: Spironolactone & Lasix presently on hold due to large volume GI bleeding and hypotension. When advanced, patient will need to adhere to a 2 g Na diet. EGD indicated grade 2 esophageal varices. Presently ordered Albumin per primary team. Monitor clinically to determine need for further paracentesis. Will need outpatient hepatology evaluation once acute picture improves. 5) Hepatic lesion: Recommend continued follow-up with triphasic CT of the liver in 6 months, along with AFP for HCC surveillance. Prognosis guarded. Thank you for allowing us to participate in the care of this patient. If you should have any further questions or concerns, do not hesitate to contact us. Agree with LARON Prieto as above Abd: Soft, Distended, Abdominal dressing in place Continue current therapy Will follow clinical course, prognosis remains guarded.
[2016-04-14] MEDS: FoLIC ACID INJ 1 MG in SYRINGE 9.8 ML IV SCH (11:11)
[2016-04-14] MEDS ORDERED: PHARMACY GLYCEMIC MGMT CONSULT PRN (11:15)
[2016-04-14] MEDS ORDERED: SODIUM PHOSPHATE INJ 15 MMOL in SODIUM CHLORIDE 0.9% 250ML 250 ML IV SCH (11:30)
[2016-04-14] MEDS ORDERED: DEXTROSE 50% 50 ML SYR IV PRN (11:30)
[2016-04-14] MEDS ORDERED: GLUCOSE 10 TABS/TUBE PO PRN (11:30)
[2016-04-14] MEDS ORDERED: GLUCAGON FOR INJ 1 MG VIAL SQ PRN (11:30)
[2016-04-14] MEDS ORDERED: GLUCOSE 40% GEL 15 GM TUBE PO PRN (11:30)
[2016-04-14] MEDS: INSULIN ASPART 100 UNITS/ML 3 ML PEN SC SCH ×2 (11:45→18:00)
--- NOTE | 2016-04-14 11:46 | Progress Note ---
Subjective Date of Service: Apr 14, 2016. Subjective Pt evaluation today including: conversation w/ patient, physical exam, chart review, lab review, review of studies, review of inpatient medication list feeling surprisingly good. not much pain. no cp no sob. no blood in NGT. no abdominal pain. he notes he's surprised at how good he's feeling d/w pharmD, input appreciated no other new complaints updated on current plans, he expressed good understanding Problem List Medical Problems: (1) Alcoholic cirrhosis Status: Acute (2) Ascites Status: Acute (3) Generalized weakness Status: Acute (4) Liver failure Status: Acute Review of Systems Respiratory: No shortness of breath Cardiac: No chest pain Abdomen: No GI bleeding, No pain ros otherwise negative except for as above Objective Vital Signs Date Time Temp Pulse Resp B/P Pulse Ox O2 Delivery O2 Flow Rate FiO2 04/14/16 08:00 37.0 86 10 96/63 93 Room Air 04/14/16 08:00 93 Room Air 04/14/16 04:00 36.7 91 14 98/63 96 Room Air 04/14/16 04:00 96 Room Air 04/14/16 00:00 36.6 91 14 84/57 94 Room Air 04/14/16 00:00 92 Room Air 04/13/16 20:00 94 Room Air 04/13/16 20:00 36.6 93 13 91/57 94 Room Air 04/13/16 16:00 37.0 100 16 95/57 96 Room Air 04/13/16 16:00 96 Room Air 04/13/16 12:00 37.0 94 16 92/59 96 Room Air 104/56 04/13/16 12:00 96 Room Air Physical Exam General Appearance: no apparent distress Eyes: EOMI ENT: hearing grossly normal Neck: trachea midline Respiratory/Chest: lungs clear, normal breath sounds, no respiratory distress, no accessory muscle use Cardiovascular: regular rate, rhythm Abdomen: soft, + tenderness (R sided tenderness without rebound or rigidity. remainder of abdomen soft nd nt) Extremities: normal range of motion Neurologic/Psychiatric: counselor marriage and family II-XII nml as tested Skin: normal color Laboratory Results Last 24 Hours Test 04/13/16 11:58 04/14/16 00:26 04/14/16 05:40 White Blood Count 8.74 K/uL 8.57 K/uL Red Blood Count 2.51 M/uL 2.42 M/uL Hemoglobin 8.0 g/dL 7.8 g/dL Hematocrit 22.4 % 22.2 % Mean Corpuscular Volume 89.2 fL 91.7 fL Mean Corpuscular Hemoglobin 31.9 pg 32.2 pg Mean Corpuscular Hemoglobin Concent 35.7 g/dl 35.1 g/dl RDW Standard Deviation 46.7 fL 49.4 fL RDW Coefficient of Variation 14.9 % 15.4 % Platelet Count 58 K/uL 51 K/uL Mean Platelet Volume 8.8 fL 8.5 fL Prothrombin Time 24.8 SECONDS Prothromb Time International Ratio 2.2 Activated Partial Thromboplast Time 59.1 SECONDS Partial Thromboplastin Ratio 2.3 Sodium Level 129 mmol/L Potassium Level 3.8 mmol/L Chloride Level 97 mmol/L Carbon Dioxide Level 22 mmol/L Anion Gap 10.0 mmol/L Blood Urea Nitrogen 23 mg/dl Creatinine 0.81 mg/dl Est Creatinine Clear Calc Drug Dose 99.4 ml/min Estimated GFR () 109.6 Estimated GFR (Non- 94.6 BUN/Creatinine Ratio 28.3 Random Glucose 246 mg/dl Calcium Level 6.9 mg/dl Phosphorus Level 2.2 mg/dl Magnesium Level 2.1 mg/dl Total Bilirubin 6.1 mg/dl Direct Bilirubin 1.7 mg/dl Aspartate Amino Transf (AST/SGOT) 34 U/L Alanine Aminotransferase (ALT/SGPT) 24 U/L Alkaline Phosphatase 48 U/L Total Protein 4.0 gm/dl Albumin 2.6 gm/dl Assessment and Plan Acute Hepatic failure, alcoholic cirrhosis, ascites, portal HTN, Esophageal varices grade II on EGD nonbleeding, Hepatic artery stenosis seen on US, Anemia of acute on chronic blood loss from GI bleeding, PUD with large 30mm duodenal bulb ulcer eroded into artery actively bleeding on 04/11, acute blood loss anemia requiring massive transfusions, Thrombocytopenia: Drained 6.8 L ascites on paracentesis on 04/09--> ascitic fluid with - gram stain/ culture= no organisms, no growth Hgb 6.8 on admission -GI consulted, initial recommendations: --Prednisolone therapy at 40 mg daily. Recommend continued supplementation with folic acid and thiamine. --Require an outpatient triphasic liver CT as well as AFP for HCC screening with continued surveillance every 6 months and EGD for variceal screening. --Lactulose 30 g BID (goal of 3 bms per day) and Xifaxan 550 mg PO BID. - Continue Spironolactone 100 mg daily and Lasix 40 mg daily. 2 g sodium restricted diet. However on 04/11/16, he developed acute severe hypotension and melena, hematemesis , was taken for emergent EGD and found to have briskly bleeding very large 3 cm duodenal bulb ulcer--> emergent Surgery for sew over and then transferred to ICU for recovery. Now extubated. Hgb dropped to 5.6 and transfused 8 units pRBCs on 04/11 (had 1 unit 04/10 and 2 units 04/09), 2 units FFP, 1 pack plts. Now recovering in ICU. A-line and Right IJ Cordis removed, LUE PICC placed 04/13 -continue Protonix gtt - likely able to change to IV BID by tomorrow -IV albumin infusions 25grams IV q2 on day 1 and then switch to q6h on day 3 as per protocol from Customer Complaint Service Supervisor-already ordered -Surgery wants NPO x 7 days -continue NGT -started TPN -, d/w pharmacist -Greatly appreciate GI, Surgery, and [facility] consultations for management -Cipro 400mg IV q12h for 7 days (day 4) -serial CBCs q12h -follow INR, LFTs -overall guarded prognosis but at the bedside looking surprisingly good -holding all diuretics for now -MING drain is draining the ascites -PRBCs and Plts on hold in blood bank -pain control is overall good Coagulopathy/severe liver disease: -Continue to trend -GI recommends transfer to tertiary center if INR continues to worsen/worsening liver failure -today INR and bili, while both elevated, did show improvement Hyponatremia: secondary to liver failure -continue to follow, modifying lyte replacement in TPN accordingly Urinalysis: -U/A on admission dirty, no culture -Repeat U/A (04/10) - negative for infection DVT prophylaxis: -Chemical means contraindicated due to elevated INR and bleeding -EDVIN and SCDs Code Status: -LEVEL I, FULL Pt indicated to prior hospitalist he would not want prolonged life support if it came to that
[2016-04-14 12:00] VITALS: BP 87/51; PULSE 90; TEMP 36.7; O2SAT 93; O2SAT 97
[2016-04-14 12:01] LABS: HEMATOCRIT 23.8 % (42-52); MEAN CELL VOLUME 92.2 fL (80-100); MEAN CORPUSCULAR HEMOGLOBIN 32.6 pg (25-34); MEAN CORPUSCULAR HGB CONC 35.3 g/dl (32-36); RED BLOOD COUNT 2.58 M/uL (4.7-6.1)
[2016-04-14 12:08] LABS: MEAN PLATELET VOLUME 8.3 fL (7.4-10.4); PLATELET COUNT 54 K/uL (130-400)
--- NOTE | 2016-04-14 14:33 | Pharmacy Progress Note ---
Parenteral Nutrition Consult Date of Service Apr 14, 2016. Scope Pharmacy has been consulted to manage parenteral nutrition orders and order appropriate labs. As part of the Nutrition Support Team guidelines, pharmacy will work in conjunction with dietary when determining the patients caloric needs. Subjective The patient is a 65 year old male admitted on Apr 09, 2016 at 01:03 for Hepatic Failure, Weakness. Patient is to receive parenteral nutrition for NPO x 7 days per surgery, post exploratory laparotomy. Objective Height (Feet): 5 Height (Inches): 11.00 Weight (Kilograms): 87.400 Diet: NPO Vascular Access: PICC Intake & Output (Last 72 Hr): 04/12/16 04/13/16 04/14/16 08:00 08:00 08:00 Intake Total 1666 ml 753 ml 1804 ml Output Total 3550 ml 3175 ml 2925 ml Balance -1884 ml -2422 ml -1121 ml Additional Fluid Losses/Gains: Item Value Date Time Albumin Human 12.5 gm 04/15/16 0600 (Albumin 25%) Q6H/IV Albumin Human 12.5 gm 04/15/16 0615 (Albumin 25%) Q6H/IV Ciprofloxacin/ 200 ml @ 100 mls/hr 04/12/16 0400 Dextrose 400 mg/ Q12H/IV 04/13/16 1641 Prmx CONTINUES Octreotide 105 ml @ 10 mls/hr 04/11/16 1600 Acetate 500 mcg/ .[id number] 04/12/16 2137 Sodium Chloride DISCONTINUED Pantoprazole 100 ml @ 20 mls/hr 04/11/16 1945 Sodium 40 mg/ Q5H/IV 04/14/16 1146 Dextrose Normosol R 1000 ml @ 75mls/hr DISCONTINUE PRIOR TO TPN START Sodium Phosphate 255 ml @ 102 mls/hr 04/14/16 1130 15 mmol/Sodium TODAY@1130/IV 04/14/16 1143 Chloride PRIOR TO TPN START Laboratory Data (Last 24 Hr): Test 04/14/16 05:40 Alanine Aminotransferase (ALT/SGPT) 24 U/L (12-78) Albumin 2.6 gm/dl (3.4-5.0) Alkaline Phosphatase 48 U/L (45-117) Aspartate Amino Transf (AST/SGOT) 34 U/L (15-37) Blood Urea Nitrogen 23 mg/dl (7-18) Calcium Level 6.9 mg/dl (8.5-10.1) Carbon Dioxide Level 22 mmol/L (21-32) Chloride Level 97 mmol/L (98-107) Creatinine 0.81 mg/dl (0.60-1.40) Magnesium Level 2.1 mg/dl (1.8-2.4) Phosphorus Level 2.2 mg/dl (2.5-4.9) Potassium Level 3.8 mmol/L (3.5-5.1) Random Glucose 246 mg/dl (70-99) Sodium Level 129 mmol/L (136-145) Total Bilirubin 6.1 mg/dl (0.2-1) Recent Pertinent Medications: Item Value Date Time Thiamine HCl 100 10 ml @ 2 mls/min 04/13/16 0900 mg/Syringe QAM/IV 04/14/16 0835 Folic Acid 1 mg/ 10 ml @ 5 mls/min 04/14/16 0900 Syringe QAM/IV 04/14/[address] received consult for TPN. Pt was extubated on 04/12 and has a NG tube in place to LIS. Estimated Energy Needs: 25 kcal/kg x 87.4 kg (Actual) = 2185 kcal 1.5 gm/kg x 87.4 kg (Actual) = 130 gm protein Fluid - per discretion of MD/Pharmacist TPN Recommendations: 130 gm amino acids, 345 gm dextrose and 50 gm of lipids 2x/week (,) due to hx of liver cirrhosis. Providing 2193 kcal on days with lipids and 1693 kcal on days without lipids. GUR = 2.72. Recommend initiating TPN at 150 gm dextrose and 75 gm amino acids and titrating to goal as tolerated based upon electrolyte and fluid status or to discretion of pharmacist. Pt is at risk of refeeding due to NPO status following surgery and history of alcohol abuse. Plus standard 10 ml MVI and 1 ml MTE-4. Pharmacy to manage electrolytes, vitamins, and trace minerals. Assessment * 65 y/o with expected prolonged NPO status secondary to ex lap on 04/11/16 * history of ETOH abuse, cirrhosis, ascites * receiving thiamine and folic acid as IVPs * GI bleed * receiving pantoprazole around the clock - source of dextrose * octreotide has since been discontinued * BSGs slightly elevated x1 * pharmacy consulted for review * q6 hour NovoLog added * likely octreotide stopping will help improve BSGs * hypophosphatemia * replete prior to starting parenteral nutrition with 15mMol of NaPhos * Normosol R @ 75mL/hr * providing electrolytes - will try to duplicate sodium content with TPN since hyponatremic. Plan For day 1 of PN administration, the following will be ordered: Macronutrients Amino acids 75 grams/day Dextrose 150 grams/day Lipids -- grams/day Micronutrients Sodium phosphate 21 mMol Sodium chloride 155 mEq Sodium acetate 40 mEq Potassium phosphate 0 mMol Potassium chloride 20 mEq Potassium acetate 0 mEq Magnesium sulfate 4.06 mEq Calcium gluconate 4.65 mEq Multivitamins 10 mL Trace Elements 1 mL Total volume 1800 mL to be infused over 24 hrs will provide 810 kcal/day Labs to be ordered per PN order protocol Pharmacy will follow and adjust parenteral nutrition orders on a daily basis. Thank you.
--- NOTE | 2016-04-14 15:31 | Pharmacy Progress Note ---
Glycemic Control Intl Consult Date of Service Apr 14, 2016. Scope Glycemic Pharmacist consulted by Dr Polanco on 04/14/16 for glycemic control and to write orders per [facility] inpatient glycemic control protocol Objective Weight (Kilograms): 87.400 Accuchecks BSG (last 24hrs): Test 04/14/16 05:40 04/14/16 11:45 Random Glucose 246 mg/dl (70-99) Bedside Glucose 85 mg/dl (70-99) Laboratory Data (last 24hrs) Test 04/14/16 00:26 04/14/16 05:40 04/14/16 11:49 White Blood Count 8.57 K/uL 8.60 K/uL Anion Gap 10.0 mmol/L BUN/Creatinine Ratio 28.3 Blood Urea Nitrogen 23 mg/dl Creatinine 0.81 mg/dl Potassium Level 3.8 mmol/L Sodium Level 129 mmol/L HbA1c Unable to obtain due to recent blood transfusions. Recent Pertinent Medications Outpatient Anti-diabetic Regimen: * N/A * A1c = unable to obtain due to recent blood transfusions The patient is currently receiving: * Basal insulin: none * Correctional Insulin: Novolog Correction per scale q6h Goal Range: Low 140 mg/dL - High 180 mg/dL Correction Factor: 25 mg/dL/unit * Prandial insulin: none * Oral Agents: none Risk Factors for Insulin Resistance: * Steroids: no * Infection: on Cipro * Pressors: no * IVF: Normosol R to be dc'd when TPN starts, Protonix drip mixed in D5W * Recent Surgery: POD#3 exp. lap. for bleeding duodenal ulcer * Diet: npo, starting TPN today with dextrose 150 Gm Assessment & Plan ASSESSMENT: * ADA & AACE recommend a goal blood sugar range 140-180 mg/dl for the majority of critically ill & non-critically ill patients. However, more stringent targets may be selected in individual cases. * 65 yo non-diabetic with hepatic failure, varying BSG's S/P exploratory laparotomy. Plan is to start TPN today. Will start weight-based Novolog correction, and reassess tomorrow whether to add basal or add insulin to next TPN. PLAN FOR INPATIENT GLYCEMIC CONTROL: * No basal insulin at this time * Correctional Insulin with NOVOLOG per scale ACHS or Q6hrs while NPO * Goal Range: Low 140 mg/dL - High 180 mg/dL * Correction Factor: 25 mg/dL/unit * No Nutritional / Prandial insulin at this time * Please note that the plan above was derived based on current level of insulin resistance and hospital stress. These recommendations are appropriate for inpatient admission only. Plan of care upon discharge will need to be reassessed to avoid potential outpatient hypo/hyperglycemia. Thank you.
[2016-04-14 16:00] VITALS: BP 97/60; PULSE 92; TEMP 36.7; O2SAT 97
[2016-04-14] MEDS ORDERED: CUSTOM CENTRAL PN 1 BAG IV SCH (16:00)
--- NOTE | 2016-04-14 16:34 | Surgery Progress Note ---
Surgery Progress Note Date of Service Apr 14, 2016. Subjective Post OP Day: 3 + feeling well overall feeling ok....no new complaints. pain controlled. Objective Vital Signs: Date Time Temp Pulse Resp B/P Pulse Ox O2 Delivery O2 Flow Rate FiO2 04/14/16 12:00 93 Room Air 04/14/16 12:00 36.7 90 12 87/51 97 Room Air 04/14/16 08:00 37.0 86 10 96/63 93 Room Air 04/14/16 08:00 93 Room Air 04/14/16 04:00 36.7 91 14 98/63 96 Room Air 04/14/16 04:00 96 Room Air 04/14/16 00:00 36.6 91 14 84/57 94 Room Air 04/14/16 00:00 92 Room Air 04/13/16 20:00 94 Room Air 04/13/16 20:00 36.6 93 13 91/57 94 Room Air Physical Exam: MING drainage (high output of acitic fluid) General Appearance: no apparent distress Head: normocephalic Neck: supple, no adenopathy Abdomen: non tender, non distended, soft Incision(s): clean, intact, drainage Laboratory Results: Results Past 24 Hours Test 04/14/16 00:26 04/14/16 05:40 04/14/16 11:45 04/14/16 11:49 Range/Units White Blood Count 8.57 8.60 4.8-10.8 K/uL Red Blood Count 2.42 2.58 4.7-6.1 M/uL Hemoglobin 7.8 8.4 14.0-18.0 g/dL Hematocrit 22.2 23.8 42-52 % Mean Corpuscular Volume 91.7 92.2 80-100 fL Mean Corpuscular Hemoglobin 32.2 32.6 25-34 pg Mean Corpuscular Hemoglobin Concent 35.1 35.3 32-36 g/dl RDW Standard Deviation 49.4 50.7 36.4-46.3 fL RDW Coefficient of Variation 15.4 15.8 11.5-14.5 % Platelet Count 51 54 130-400 K/uL Mean Platelet Volume 8.5 8.3 7.4-10.4 fL Prothrombin Time 24.8 9.0-12.0 SECONDS Prothromb Time International Ratio 2.2 0.9-1.1 Activated Partial Thromboplast Time 59.1 21.0-31.0 SECONDS Partial Thromboplastin Ratio 2.3 Sodium Level 129 136-145 mmol/L Potassium Level 3.8 3.5-5.1 mmol/L Chloride Level 97 98-107 mmol/L Carbon Dioxide Level 22 21-32 mmol/L Anion Gap 10.0 3-11 mmol/L Blood Urea Nitrogen 23 7-18 mg/dl Creatinine 0.81 0.60-1.40 mg/dl Est Creatinine Clear Calc Drug Dose 99.4 ml/min Estimated GFR () 109.6 Estimated GFR (Non- 94.6 BUN/Creatinine Ratio 28.3 10-20 Random Glucose 246 70-99 mg/dl Calcium Level 6.9 8.5-10.1 mg/dl Phosphorus Level 2.2 2.5-4.9 mg/dl Magnesium Level 2.1 1.8-2.4 mg/dl Total Bilirubin 6.1 0.2-1 mg/dl Direct Bilirubin 1.7 0-0.2 mg/dl Aspartate Amino Transf (AST/SGOT) 34 15-37 U/L Alanine Aminotransferase (ALT/SGPT) 24 12-78 U/L Alkaline Phosphatase 48 45-117 U/L Total Protein 4.0 6.4-8.2 gm/dl Albumin 2.6 3.4-5.0 gm/dl Bedside Glucose 85 70-99 mg/dl Assessment & Plan 04/14/16 clinically doing ok TPN starting today will UGI on thu, if duodenotomy looks ok, will pull NGT and start liquids difficult issue with MING/incision drainage. spoke with nursing, can try taking off MING grenade and placing ostomy bag. also can try more absorbant dressing such as calcium alginate dressing on midline. not much can be done to stop the drainage. if midline wound opens up can place VAC. s/p exlap with oversew of bleeding ulcer clinically stable/doing as well as could be expected keep ngt protonix monitor H/H alcoholic cirrhosis will make MING management difficult no acute issues vent management per ICU team
[2016-04-14] MEDS: NORMOSOL R 1,000 ML IV SCH (16:50)
[2016-04-14] MEDS: CIPROFLOXACIN / D5W 400 MG in PREMIXED IN D5W 200 ML IV SCH (16:50)
[2016-04-14 20:00] VITALS: BP 89/64; PULSE 100; O2SAT 96; O2SAT 98
[2016-04-15] VITALS (16 sets, daily range): BP systolic 86–111; BP diastolic 52–69; PULSE 90–110; TEMP 36.4–37; O2SAT 93–98
[2016-04-15 00:32] LABS: HEMATOCRIT 22.8 % (42-52); MEAN CELL VOLUME 92.3 fL (80-100); MEAN CORPUSCULAR HEMOGLOBIN 31.6 pg (25-34); MEAN CORPUSCULAR HGB CONC 34.2 g/dl (32-36); MEAN PLATELET VOLUME 8.7 fL (7.4-10.4); PLATELET COUNT 55 K/uL (130-400); RED BLOOD COUNT 2.47 M/uL (4.7-6.1); WHITE BLOOD COUNT 8.57 K/uL (4.8-10.8)
[2016-04-15] MEDS: HYDROmorphone INJ 0.5 MG/0.5 ML SYR IV PRN ×3 (01:23→21:16)
[2016-04-15] MEDS: PANTOprazole INJ 40 MG in DEXTROSE 5% 100ML IV SCH ×2 (03:46→08:56)
[2016-04-15] MEDS: CIPROFLOXACIN / D5W 400 MG in PREMIXED IN D5W 200 ML IV SCH ×2 (04:26→16:12)
[2016-04-15] MEDS: INSULIN ASPART 100 UNITS/ML 3 ML PEN SC SCH ×4 (06:00→18:44)
[2016-04-15] MEDS: ALBUMIN HUMAN 25% 12.5 GM/50 ML VIAL IV SCH ×6 (06:15→18:55)
[2016-04-15 06:29] LABS: BUN/CREATININE RATIO 35.9 (10-20); CALCIUM 6.9 mg/dl (8.5-10.1); CREATININE 0.58 mg/dl (0.60-1.40); MAGNESIUM 2.2 mg/dl (1.8-2.4); POTASSIUM 3.6 mmol/L (3.5-5.1)
[2016-04-15 06:35] LABS: PHOSPHORUS 2.8 mg/dl (2.5-4.9)
[2016-04-15] MEDS: THIAMINE HCL INJ 100 MG in SYRINGE 9 ML IV SCH (08:26)
[2016-04-15] MEDS: FoLIC ACID INJ 1 MG in SYRINGE 9.8 ML IV SCH (08:26)
--- NOTE | 2016-04-15 10:37 | Surgery Progress Note ---
Surgery Progress Note Date of Service Apr 15, 2016. Subjective Post OP Day: 4 + flatus, No bowel movement, No complaints Objective Vital Signs: Date Time Temp Pulse Resp B/P Pulse Ox O2 Delivery O2 Flow Rate FiO2 04/15/16 09:06 36.9 94 10 106/62 94 04/15/16 08:00 36.4 100 16 104/65 97 Room Air 04/15/16 08:00 Room Air 04/15/16 04:00 93 Room Air 04/15/16 04:00 36.8 91 13 86/52 95 Room Air 04/15/16 00:00 37.0 90 18 102/59 97 Room Air 04/15/16 00:00 98 Room Air 04/14/16 20:00 98 Room Air 04/14/16 20:00 100 20 89/64 96 Room Air 04/14/16 16:00 97 Room Air 04/14/16 16:00 36.7 92 12 97/60 97 Room Air 04/14/16 12:00 93 Room Air 04/14/16 12:00 36.7 90 12 87/51 97 Room Air Physical Exam: MIGN drainage ([id number]) Abdomen: non distended, soft Laboratory Results: Results Past 24 Hours Test 04/14/16 11:45 04/14/16 11:49 04/14/16 18:50 04/15/16 00:25 Range/Units Bedside Glucose 85 133 70-99 mg/dl White Blood Count 8.60 8.57 4.8-10.8 K/uL Red Blood Count 2.58 2.47 4.7-6.1 M/uL Hemoglobin 8.4 7.8 14.0-18.0 g/dL Hematocrit 23.8 22.8 42-52 % Mean Corpuscular Volume 92.2 92.3 80-100 fL Mean Corpuscular Hemoglobin 32.6 31.6 25-34 pg Mean Corpuscular Hemoglobin Concent 35.3 34.2 32-36 g/dl RDW Standard Deviation 50.7 51.6 36.4-46.3 fL RDW Coefficient of Variation 15.8 15.8 11.5-14.5 % Platelet Count 54 55 130-400 K/uL Mean Platelet Volume 8.3 8.7 7.4-10.4 fL Test 04/15/16 00:35 04/15/16 05:40 04/15/16 06:34 04/15/16 09:08 Range/Units Bedside Glucose 120 125 70-99 mg/dl Sodium Level 135 136-145 mmol/L Potassium Level 3.6 3.5-5.1 mmol/L Chloride Level 103 98-107 mmol/L Carbon Dioxide Level 24 21-32 mmol/L Anion Gap 8.0 3-11 mmol/L Blood Urea Nitrogen 21 7-18 mg/dl Creatinine 0.58 0.60-1.40 mg/dl Est Creatinine Clear Calc Drug Dose 138.8 ml/min Estimated GFR () 125.8 Estimated GFR (Non- 108.5 BUN/Creatinine Ratio 35.9 10-20 Random Glucose 128 70-99 mg/dl Calcium Level 6.9 8.5-10.1 mg/dl Phosphorus Level 2.8 2.5-4.9 mg/dl Magnesium Level 2.2 1.8-2.4 mg/dl Triglycerides Level 40 0-150 mg/dl 25-Hydroxy Vitamin D Total 19.5 30-100 ng/ml Assessment & Plan s/p duodenotomy, oversew bleeding ulcer bowel function returning continue NG, contrast eval tomorrow TPN, Protonix as above. pt had a change this am of ascites fluid to more bloody fluid in MING. per RN this has slowed the past 2 hours. ? etiology. will recheck/monitor H/H more closely. if persists/worsens will check bleeding scan. plan UGI tomorrow for possible initiation of clear liquid diet.
--- NOTE | 2016-04-15 10:50 | Pharmacy Progress Note ---
Glycemic Control: Progress Nt Date of Service Apr 15, 2016. Scope Glycemic Pharmacist consulted by Dr Polanco on 04/14/16 for glycemic control and to write orders per [facility] inpatient glycemic control protocol. Objective Accuchecks BSG (last 24hrs): Test 04/14/16 11:45 04/14/16 18:50 04/15/16 00:35 04/15/16 05:40 Bedside Glucose 85 mg/dl (70-99) 133 mg/dl (70-99) 120 mg/dl (70-99) Random Glucose 128 mg/dl (70-99) Test 04/15/16 06:34 Bedside Glucose 125 mg/dl (70-99) Laboratory Data (last 24hrs) Test 04/14/16 11:49 04/15/16 00:25 04/15/16 05:40 White Blood Count 8.60 K/uL 8.57 K/uL Anion Gap 8.0 mmol/L BUN/Creatinine Ratio 35.9 Blood Urea Nitrogen 21 mg/dl Creatinine 0.58 mg/dl Potassium Level 3.6 mmol/L Sodium Level 135 mmol/L HbA1c: unable to obtain Recent Pertinent Medications Outpatient Anti-diabetic Regimen: * N/A * A1c = unable to obtain due to recent blood transfusions The patient is currently receiving: * Correctional Insulin: Novolog Correction per scale q6h Goal Range: Low 140 mg/dL - High 180 mg/dL Correction Factor: 25 mg/dL/unit Risk Factors for Insulin Resistance: * Infection: Cipro IV * IVF: Protonix drip mixed in D5W * Recent Surgery: POD#4 exp. lap. for bleeding duodenal ulcer * Diet: TPN Assessment & Plan ASSESSMENT: * ADA & AACE recommend a goal blood sugar range 140-180 mg/dl for the majority of critically ill & non-critically ill patients. However, more stringent targets may be selected in individual cases. * 04/14/16: 65 yo non-diabetic with hepatic failure, varying BSG's S/P exploratory laparotomy. Plan is to start TPN today. Will start weight-based Novolog correction, and reassess tomorrow whether to add basal or add insulin to next TPN. * 04/15/16: 0 units of insulin given in the last 24 hours. BSGs have been within goal range. Dextrose in TPN to be increased to 225 g. No insulin to be included in TPN as BSGs stable. Re-evaluate tomorrow. PLAN FOR INPATIENT GLYCEMIC CONTROL: * Correctional Insulin with NOVOLOG per scale Q6hrs while NPO/on TPN * Goal Range: Low 140 mg/dL - High 180 mg/dL * Correction Factor: 25 mg/dL/unit * Please note that the plan above was derived based on current level of insulin resistance and hospital stress. These recommendations are appropriate for inpatient admission only. Plan of care upon discharge will need to be reassessed to avoid potential outpatient hypo/hyperglycemia. Thank you.
[2016-04-15 12:53] LABS: HEMATOCRIT 24.3 % (42-52); MEAN CELL VOLUME 91.7 fL (80-100); MEAN CORPUSCULAR HEMOGLOBIN 32.1 pg (25-34); RED BLOOD COUNT 2.65 M/uL (4.7-6.1); WHITE BLOOD COUNT 8.27 K/uL (4.8-10.8)
[2016-04-15 12:55] LABS: MEAN PLATELET VOLUME 8.6 fL (7.4-10.4); PLATELET COUNT 54 K/uL (130-400)
[2016-04-15 13:23] LABS: INR 2.1 (0.9-1.1); PROTHROMBIN TIME (PATIENT) 23.4 SECONDS (9.0-12.0)
[2016-04-15 13:27] LABS: PARTIAL THROMBOPLASTIN RATIO 2.2
[2016-04-15] MEDS ORDERED: PHYTONADIONE INJ 10 MG in SODIUM CHLORIDE 0.9% 50ML 50 ML IV ONE (14:30)
--- NOTE | 2016-04-15 14:32 | Progress Note ---
Subjective Date of Service: Apr 15, 2016. Subjective Pt evaluation today including: conversation w/ patient, physical exam, chart review, lab review, conversation w/ sr solutions consultant, review of inpatient medication list feeling good still. no significant pain. no nausea/no abdominal pain. (+) significant MING output. oozing from wound. no lightheaded. no chest pain no sob. surgery asks about measures to further correct INR w oozing Problem List Medical Problems: (1) Alcoholic cirrhosis Status: Acute (2) Ascites Status: Acute (3) Generalized weakness Status: Acute (4) Liver failure Status: Acute Review of Systems Respiratory: No shortness of breath Cardiac: No chest pain Abdomen: No nausea, No pain, No vomiting ros otherwise negative except for as above Objective Vital Signs Date Time Temp Pulse Resp B/P Pulse Ox O2 Delivery O2 Flow Rate FiO2 04/15/16 12:00 36.8 103 16 104/64 96 Room Air 04/15/16 12:00 Room Air 04/15/16 10:30 100 16 93/57 96 04/15/16 10:00 36.9 95 12 99/62 97 04/15/16 10:00 94 12 107/67 98 04/15/16 09:42 36.8 93 13 99/60 95 04/15/16 09:06 36.9 94 10 106/62 94 04/15/16 08:00 36.4 100 16 104/65 97 Room Air 04/15/16 08:00 Room Air 04/15/16 04:00 93 Room Air 04/15/16 04:00 36.8 91 13 86/52 95 Room Air 04/15/16 00:00 37.0 90 18 102/59 97 Room Air 04/15/16 00:00 98 Room Air 04/14/16 20:00 98 Room Air 04/14/16 20:00 100 20 89/64 96 Room Air 04/14/16 16:00 97 Room Air 04/14/16 16:00 36.7 92 12 97/60 97 Room Air Physical Exam General Appearance: no apparent distress Eyes: EOMI ENT: hearing grossly normal Neck: trachea midline Respiratory/Chest: lungs clear, normal breath sounds, no respiratory distress, no accessory muscle use Cardiovascular: regular rate, rhythm Abdomen: non tender (no significant tenderness no guarding no rebound), soft Extremities: normal range of motion Neurologic/Psychiatric: datastage developer II-XII nml as tested, alert, normal mood/affect Skin: normal color, warm/dry Laboratory Results Last 24 Hours Test 04/14/16 18:50 04/15/16 00:25 04/15/16 00:35 04/15/16 05:40 Bedside Glucose 133 mg/dl 120 mg/dl White Blood Count 8.57 K/uL Red Blood Count 2.47 M/uL Hemoglobin 7.8 g/dL Hematocrit 22.8 % Mean Corpuscular Volume 92.3 fL Mean Corpuscular Hemoglobin 31.6 pg Mean Corpuscular Hemoglobin Concent 34.2 g/dl RDW Standard Deviation 51.6 fL RDW Coefficient of Variation 15.8 % Platelet Count 55 K/uL Mean Platelet Volume 8.7 fL Sodium Level 135 mmol/L Potassium Level 3.6 mmol/L Chloride Level 103 mmol/L Carbon Dioxide Level 24 mmol/L Anion Gap 8.0 mmol/L Blood Urea Nitrogen 21 mg/dl Creatinine 0.58 mg/dl Est Creatinine Clear Calc Drug Dose 138.8 ml/min Estimated GFR () 125.8 Estimated GFR (Non- 108.5 BUN/Creatinine Ratio 35.9 Random Glucose 128 mg/dl Calcium Level 6.9 mg/dl Phosphorus Level 2.8 mg/dl Magnesium Level 2.2 mg/dl Triglycerides Level 40 mg/dl Test 04/15/16 06:34 04/15/16 09:08 04/15/16 12:17 04/15/16 12:48 Bedside Glucose 125 mg/dl 117 mg/dl 25-Hydroxy Vitamin D Total 19.5 ng/ml White Blood Count 8.27 K/uL Red Blood Count 2.65 M/uL Hemoglobin 8.5 g/dL Hematocrit 24.3 % Mean Corpuscular Volume 91.7 fL Mean Corpuscular Hemoglobin 32.1 pg Mean Corpuscular Hemoglobin Concent 35.0 g/dl RDW Standard Deviation 50.5 fL RDW Coefficient of Variation 15.9 % Platelet Count 54 K/uL Mean Platelet Volume 8.6 fL Prothrombin Time 23.4 SECONDS Prothromb Time International Ratio 2.1 Activated Partial Thromboplast Time 57.7 SECONDS Partial Thromboplastin Ratio 2.2 Assessment and Plan Acute Hepatic failure, alcoholic cirrhosis, ascites, portal HTN, Esophageal varices grade II on EGD nonbleeding, Hepatic artery stenosis seen on US, Anemia of acute on chronic blood loss from GI bleeding, PUD with large 30mm duodenal bulb ulcer eroded into artery actively bleeding on 04/11, acute blood loss anemia requiring massive transfusions, Thrombocytopenia: Drained 6.8 L ascites on paracentesis on 04/09--> ascitic fluid with - gram stain/ culture= no organisms, no growth Hgb 6.8 on admission -GI consulted, initial recommendations: --Prednisolone therapy at 40 mg daily. Recommend continued supplementation with folic acid and thiamine. --Require an outpatient triphasic liver CT as well as AFP for HCC screening with continued surveillance every 6 months and EGD for variceal screening. --Lactulose 30 g BID (goal of 3 bms per day) and Xifaxan 550 mg PO BID. - Continue Spironolactone 100 mg daily and Lasix 40 mg daily. 2 g sodium restricted diet. However on 04/11/16, he developed acute severe hypotension and melena, hematemesis , was taken for emergent EGD and found to have briskly bleeding very large 3 cm duodenal bulb ulcer--> emergent Surgery for sew over and then transferred to ICU for recovery. Now extubated. Hgb dropped to 5.6 and transfused 8 units pRBCs on 04/11 (had 1 unit 04/10 and 2 units 04/09), 2 units FFP, 1 pack plts. Now recovering in ICU. A-line and Right IJ Cordis removed, LUE PICC placed 04/13 -continue Protonix gtt - likely able to change to IV BID by tomorrow -IV albumin infusions 25grams IV q2 on day 1 and then switch to q6h on day 3 as per protocol from [employer]-already ordered -ongoing NPO -continue NGT - EGD tomorrow - if no bleeding then can cautiously start diet -started TPN -, d/w pharmacist -Greatly appreciate GI, Surgery, and CCM consultations for management -Cipro 400mg IV q12h for 7 days (day 5) -serial CBCs q12h -follow INR, LFTs --- since INR 2.1, ongoing oozing - will give vitamin K ( doubt will help but possibly) and FFP. if bleeding still continues after FFP may need to consider platelets, but with plt 54 and INR 2.1 - would look at coagulopathy as bigger problem (and probably defining problem) as compared to thrombocytopenia as far as ongoing oozing/bleeding -overall guarded prognosis but at the bedside looking surprisingly good -holding all diuretics for now -MING drain is draining the ascites as well -PRBCs and Plts on hold in blood bank - giving FFP as above -pain control is overall good -with ongoing bleeding /oozing - and Hgb down/borderline BP and fatigued - additional 1 unit PRBC and follow Coagulopathy/severe liver disease: -Continue to trend - INR down to 2.1 (FFP as above given oozing) -GI recommends transfer to tertiary center if INR continues to worsen/worsening liver failure -today INR and bili, while both elevated, did show improvement Hyponatremia: secondary to liver failure -continue to follow, modifying lyte replacement in TPN accordingly -improved. follow hypocalcemia -check vitamin D - anticipate need for PO replacement once possible. if shows sx, can give calcium IV but currently sx seemed related more to anemia and circumstances (just fatigue) Urinalysis: -U/A on admission dirty, no culture -Repeat U/A (04/10) - negative for infection DVT prophylaxis: -Chemical means contraindicated due to elevated INR and bleeding -EDVIN and SCDs Code Status: -LEVEL I, FULL Pt indicated to prior hospitalist he would not want prolonged life support if it came to that
[2016-04-15] MEDS ORDERED: CUSTOM CENTRAL PN 1 BAG IV SCH (16:00)
[2016-04-15] MEDS: PANTOprazole INJ 40 MG in SYRINGE 0 ML IV SCH (21:34)
[2016-04-16] VITALS (11 sets, daily range): BP systolic 87–109; BP diastolic 50–67; PULSE 103–113; TEMP 36.6–37.3; O2SAT 92–97
[2016-04-16] MEDS: ALBUMIN HUMAN 25% 12.5 GM/50 ML VIAL IV SCH ×2 (00:15→00:57)
[2016-04-16] MEDS: HYDROmorphone INJ 0.5 MG/0.5 ML SYR IV PRN ×4 (03:51→21:13)
[2016-04-16] MEDS: CIPROFLOXACIN / D5W 400 MG in PREMIXED IN D5W 200 ML IV SCH ×2 (03:52→16:43)
[2016-04-16] MEDS: INSULIN ASPART 100 UNITS/ML 3 ML PEN SC SCH ×4 (06:00→16:44)
[2016-04-16 06:03] LABS: HEMATOCRIT 23.4 % (42-52); MEAN CELL VOLUME 92.9 fL (80-100); MEAN CORPUSCULAR HEMOGLOBIN 31.7 pg (25-34); MEAN CORPUSCULAR HGB CONC 34.2 g/dl (32-36); RED BLOOD COUNT 2.52 M/uL (4.7-6.1); WHITE BLOOD COUNT 8.83 K/uL (4.8-10.8)
[2016-04-16 06:06] LABS: MEAN PLATELET VOLUME 8.9 fL (7.4-10.4); PLATELET COUNT 60 K/uL (130-400)
[2016-04-16 06:13] LABS: INR 1.7 (0.9-1.1); PROTHROMBIN TIME (PATIENT) 18.3 SECONDS (9.0-12.0)
[2016-04-16 06:25] LABS: ACANTHOCYTES 1+; BASO % 0.1 %; BASO ABS # 0.01 K/uL (0-0.2); COMPLETE YES; EOS % 2.2 %; IG% 0.2 %; LYMPH % 13.5 %; LYMPH ABS # 1.19 K/uL (1.2-3.4); MONO % 12.1 %; NEUT % 71.9 %; POLYCHROMASIA 1+
[2016-04-16 06:42] LABS: CREATININE 0.53 mg/dl (0.60-1.40)
[2016-04-16 06:43] LABS: BUN/CREATININE RATIO 34.8 (10-20); CALCIUM 7.5 mg/dl (8.5-10.1); MAGNESIUM 2.3 mg/dl (1.8-2.4); POTASSIUM 3.5 mmol/L (3.5-5.1)
--- NOTE | 2016-04-16 07:13 | Surgery Progress Note ---
Surgery Progress Note Date of Service Apr 16, 2016. Subjective Post OP Day: 5 + flatus, No bowel movement, No complaints Objective Vital Signs: Date Time Temp Pulse Resp B/P Pulse Ox O2 Delivery O2 Flow Rate FiO2 04/16/16 04:00 93 Room Air 04/16/16 04:00 36.6 107 13 87/50 93 Room Air 04/16/16 00:00 36.8 113 16 95/60 93 Room Air 04/16/16 00:00 93 Room Air 04/15/16 20:13 36.8 110 15 110/67 94 Room Air 04/15/16 20:00 93 Room Air 04/15/16 16:55 36.8 101 12 110/69 97 04/15/16 16:23 99 16 98/64 94 04/15/16 16:00 36.9 98 12 98/62 95 Room Air 04/15/16 16:00 Room Air 04/15/16 15:52 36.9 93 12 97/58 94 04/15/16 15:28 36.9 97 14 111/69 96 04/15/16 15:15 36.9 93 15 96 04/15/16 12:00 36.8 103 16 104/64 96 Room Air 04/15/16 12:00 Room Air 04/15/16 10:30 100 16 93/57 96 04/15/16 10:00 36.9 95 12 99/62 97 04/15/16 10:00 94 12 107/67 98 04/15/16 09:42 36.8 93 13 99/60 95 04/15/16 09:06 36.9 94 10 106/62 94 04/15/16 08:00 36.4 100 16 104/65 97 Room Air 04/15/16 08:00 Room Air Physical Exam: MING drainage (1050 bloody but darker), nasogastric drainage (150 cc past 24 hrs) Abdomen: non distended, soft Incision(s): clean, ecchymosis Laboratory Results: Results Past 24 Hours Test 04/15/16 09:08 04/15/16 12:17 04/15/16 12:48 04/15/16 18:13 Range/Units 25-Hydroxy Vitamin D Total 19.5 30-100 ng/ml Bedside Glucose 117 126 70-99 mg/dl White Blood Count 8.27 4.8-10.8 K/uL Red Blood Count 2.65 4.7-6.1 M/uL Hemoglobin 8.5 14.0-18.0 g/dL Hematocrit 24.3 42-52 % Mean Corpuscular Volume 91.7 80-100 fL Mean Corpuscular Hemoglobin 32.1 25-34 pg Mean Corpuscular Hemoglobin Concent 35.0 32-36 g/dl RDW Standard Deviation 50.5 36.4-46.3 fL RDW Coefficient of Variation 15.9 11.5-14.5 % Platelet Count 54 130-400 K/uL Mean Platelet Volume 8.6 7.4-10.4 fL Prothrombin Time 23.4 9.0-12.0 SECONDS Prothromb Time International Ratio 2.1 0.9-1.1 Activated Partial Thromboplast Time 57.7 21.0-31.0 SECONDS Partial Thromboplastin Ratio 2.2 Test 04/16/16 00:11 04/16/16 05:50 Range/Units Bedside Glucose 114 70-99 mg/dl White Blood Count 8.83 4.8-10.8 K/uL Red Blood Count 2.52 4.7-6.1 M/uL Hemoglobin 8.0 14.0-18.0 g/dL Hematocrit 23.4 42-52 % Mean Corpuscular Volume 92.9 80-100 fL Mean Corpuscular Hemoglobin 31.7 25-34 pg Mean Corpuscular Hemoglobin Concent 34.2 32-36 g/dl Platelet Count 60 130-400 K/uL Mean Platelet Volume 8.9 7.4-10.4 fL Neutrophils (%) (Auto) 71.9 % Lymphocytes (%) (Auto) 13.5 % Monocytes (%) (Auto) 12.1 % Eosinophils (%) (Auto) 2.2 % Basophils (%) (Auto) 0.1 % Neutrophils # (Auto) 6.35 1.4-6.5 K/uL Lymphocytes # (Auto) 1.19 1.2-3.4 K/uL Monocytes # (Auto) 1.07 0.11-0.59 K/uL Eosinophils # (Auto) 0.19 0-0.5 K/uL Basophils # (Auto) 0.01 0-0.2 K/uL RDW Standard Deviation 52.7 36.4-46.3 fL RDW Coefficient of Variation 16.3 11.5-14.5 % Immature Granulocyte % (Auto) 0.2 % Immature Granulocyte # (Auto) 0.02 0.00-0.02 K/uL Polychromasia 1+ Acanthocytes 1+ Prothrombin Time 18.3 9.0-12.0 SECONDS Prothromb Time International Ratio 1.7 0.9-1.1 Sodium Level 136 136-145 mmol/L Potassium Level 3.5 3.5-5.1 mmol/L Chloride Level 104 98-107 mmol/L Carbon Dioxide Level 25 21-32 mmol/L Anion Gap 7.0 3-11 mmol/L Blood Urea Nitrogen 18 7-18 mg/dl Creatinine 0.53 0.60-1.40 mg/dl Est Creatinine Clear Calc Drug Dose 151.9 ml/min Estimated GFR () 130.5 Estimated GFR (Non- 112.6 BUN/Creatinine Ratio 34.8 10-20 Random Glucose 130 70-99 mg/dl Calcium Level 7.5 8.5-10.1 mg/dl Phosphorus Level 2.0 2.5-4.9 mg/dl Magnesium Level 2.3 1.8-2.4 mg/dl Assessment & Plan s/p duodenotomy, oversew bleeding ulcer high MING output but with ascites difficult to accurately assess blood loss FFP and Vit K given yesterday, will continue to monitor and transfuse prn will remove NG if contrast eval this AM is ok TPN, Protonix resume therapy
[2016-04-16] MEDS: PANTOprazole INJ 40 MG in SYRINGE 0 ML IV SCH ×2 (07:51→21:13)
[2016-04-16] MEDS: THIAMINE HCL INJ 100 MG in SYRINGE 9 ML IV SCH (07:51)
[2016-04-16] MEDS: FoLIC ACID INJ 1 MG in SYRINGE 9.8 ML IV SCH (07:51)
[2016-04-16] MEDS ORDERED: PHYTONADIONE INJ 10 MG in SODIUM CHLORIDE 0.9% 50ML 50 ML IV ONE (09:00)
--- NOTE | 2016-04-16 14:03 | DIAGNOSTIC IMAGING REPORT ---
SINGLE CONTRAST UPPER GI SERIES CLINICAL HISTORY: Duodenotomy for bleeding ulcer COMPARISON STUDY: CT of the abdomen and pelvis April 09, 2016. FLUOROSCOPY TIME: 1 minute. TECHNIQUE: A single contrast upper GI series was performed utilizing Optiray. FINDINGS: 7 fluoroscopic images were obtained. The tip of the nasogastric tube is within the mid body of the stomach. There are skin denane. No contrast extravasation was noted. The caliber of the duodenum and jejunum was normal. Fine detail is diminished given single contrast technique. Clips within the stomach and duodenum were noted. A small amount of reflux into the common bile duct was shown on one image. A surgical drain was noted. IMPRESSION: No contrast extravasation to suggest leak. Electronically signed by: Randy Zuluaga M.D. 04/16/2016 2:01 PM Dictated Date/Time: 04/16/2016 1:52 PM
--- NOTE | 2016-04-16 14:10 | Progress Note ---
Subjective Date of Service: Apr 16, 2016. Subjective Pt evaluation today including: conversation w/ patient, physical exam, chart review, lab review, review of inpatient medication list feeling about the same - no significant pain no cp no sob. no lightheaded/dizzy /weak. no abdominal pain. working with therapy at the time of my arrival (in bed, leg ROM) nursing notes that oozing from wound and drainage into MING overall about the same in volume, subjectively clearing somewhat with less thick redness Problem List Medical Problems: (1) Alcoholic cirrhosis Status: Acute (2) Ascites Status: Acute (3) Generalized weakness Status: Acute (4) Liver failure Status: Acute Review of Systems Constitutional: No weakness Respiratory: No shortness of breath Cardiac: No chest pain Abdomen: No pain ros otherwise negative except for as above Objective Vital Signs Date Time Temp Pulse Resp B/P Pulse Ox O2 Delivery O2 Flow Rate FiO2 04/16/16 12:09 104 14 104/63 95 Room Air 04/16/16 12:00 Room Air 04/16/16 08:00 36.8 104 14 109/67 96 Room Air 04/16/16 08:00 93 Room Air 04/16/16 04:00 93 Room Air 04/16/16 04:00 36.6 107 13 87/50 93 Room Air 04/16/16 00:00 36.8 113 16 95/60 93 Room Air 04/16/16 00:00 93 Room Air 04/15/16 20:13 36.8 110 15 110/67 94 Room Air 04/15/16 20:00 93 Room Air 04/15/16 16:55 36.8 101 12 110/69 97 04/15/16 16:23 99 16 98/64 94 04/15/16 16:00 36.9 98 12 98/62 95 Room Air 04/15/16 16:00 Room Air 04/15/16 15:52 36.9 93 12 97/58 94 04/15/16 15:28 36.9 97 14 111/69 96 04/15/16 15:15 36.9 93 15 96 Physical Exam General Appearance: no apparent distress Eyes: EOMI ENT: hearing grossly normal Neck: trachea midline Respiratory/Chest: lungs clear, normal breath sounds, no respiratory distress, no accessory muscle use Cardiovascular: regular rate, rhythm Abdomen: non tender, soft, + pertinent finding (ongoing red watery drainage from MING) Extremities: normal range of motion, no pedal edema, no calf tenderness Neurologic/Psychiatric: hammer smith II-XII nml as tested, alert, normal mood/affect Skin: normal color, warm/dry Laboratory Results Last 24 Hours Test 04/15/16 18:13 04/16/16 00:11 04/16/16 05:50 04/16/16 11:46 Bedside Glucose 126 mg/dl 114 mg/dl 108 mg/dl White Blood Count 8.83 K/uL Red Blood Count 2.52 M/uL Hemoglobin 8.0 g/dL Hematocrit 23.4 % Mean Corpuscular Volume 92.9 fL Mean Corpuscular Hemoglobin 31.7 pg Mean Corpuscular Hemoglobin Concent 34.2 g/dl Platelet Count 60 K/uL Mean Platelet Volume 8.9 fL Neutrophils (%) (Auto) 71.9 % Lymphocytes (%) (Auto) 13.5 % Monocytes (%) (Auto) 12.1 % Eosinophils (%) (Auto) 2.2 % Basophils (%) (Auto) 0.1 % Neutrophils # (Auto) 6.35 K/uL Lymphocytes # (Auto) 1.19 K/uL Monocytes # (Auto) 1.07 K/uL Eosinophils # (Auto) 0.19 K/uL Basophils # (Auto) 0.01 K/uL RDW Standard Deviation 52.7 fL RDW Coefficient of Variation 16.3 % Immature Granulocyte % (Auto) 0.2 % Immature Granulocyte # (Auto) 0.02 K/uL Polychromasia 1+ Acanthocytes 1+ Prothrombin Time 18.3 SECONDS Prothromb Time International Ratio 1.7 Sodium Level 136 mmol/L Potassium Level 3.5 mmol/L Chloride Level 104 mmol/L Carbon Dioxide Level 25 mmol/L Anion Gap 7.0 mmol/L Blood Urea Nitrogen 18 mg/dl Creatinine 0.53 mg/dl Est Creatinine Clear Calc Drug Dose 151.9 ml/min Estimated GFR () 130.5 Estimated GFR (Non- 112.6 BUN/Creatinine Ratio 34.8 Random Glucose 130 mg/dl Calcium Level 7.5 mg/dl Phosphorus Level 2.0 mg/dl Magnesium Level 2.3 mg/dl Assessment and Plan Acute Hepatic failure, alcoholic cirrhosis, ascites, portal HTN, Esophageal varices grade II on EGD nonbleeding, Hepatic artery stenosis seen on US, Anemia of acute on chronic blood loss from GI bleeding, PUD with large 30mm duodenal bulb ulcer eroded into artery actively bleeding on 04/11, acute blood loss anemia requiring massive transfusions, Thrombocytopenia: Drained 6.8 L ascites on paracentesis on 04/09--> ascitic fluid with - gram stain/ culture= no organisms, no growth Hgb 6.8 on admission -GI consulted, initial recommendations: --Prednisolone therapy at 40 mg daily. Recommend continued supplementation with folic acid and thiamine. --Require an outpatient triphasic liver CT as well as AFP for HCC screening with continued surveillance every 6 months and EGD for variceal screening. --Lactulose 30 g BID (goal of 3 bms per day) and Xifaxan 550 mg PO BID. - Continue Spironolactone 100 mg daily and Lasix 40 mg daily. 2 g sodium restricted diet. However on 04/11/16, he developed acute severe hypotension and melena, hematemesis , was taken for emergent EGD and found to have briskly bleeding very large 3 cm duodenal bulb ulcer--> emergent Surgery for sew over and then transferred to ICU for recovery. Now extubated. Hgb dropped to 5.6 and transfused 8 units pRBCs on 04/11 (had 1 unit 04/10 and 2 units 04/09), 2 units FFP, 1 pack plts. Now recovering in ICU. A-line and Right IJ Cordis removed, LUE PICC placed 04/13 -continue Protonix IV BID -ongoing NPO pending UGI results -continue NGT - EGD tomorrow - if no bleeding then can cautiously start diet -started TPN -, d/w pharmacist -Greatly appreciate GI, Surgery, and [facility] consultations for management -Cipro 400mg IV q12h for 7 days (day 6) -serial CBCs q12h -follow INR, LFTs --- oozing has cleared some but persists, give more vitamin K , more FFP, will discuss w coag clinic re ?any benefits of platelets (doubt given "raw numbers" but with overall situation possibly) -overall guarded prognosis but at the bedside looking surprisingly good -holding all diuretics for now -MING drain is draining the ascites as well -PRBCs and Plts on hold in blood bank - giving FFP as above -pain control is overall good Coagulopathy/severe liver disease: -Continue to trend - INR down to 1.7 (FFP as above given oozing persisting) -GI recommends transfer to tertiary center if INR continues to worsen/worsening liver failure Hyponatremia: secondary to liver failure -continue to follow, modifying lyte replacement in TPN accordingly -improved. follow hypocalcemia -vitamin D noted, start after able to take PO Urinalysis: -U/A on admission dirty, no culture -Repeat U/A (04/10) - negative for infection DVT prophylaxis: -Chemical means contraindicated due to elevated INR and bleeding -EDVIN and SCDs Code Status: -LEVEL I, FULL Pt indicated to prior hospitalist he would not want prolonged life support if it came to that
[2016-04-16] MEDS ORDERED: CUSTOM CENTRAL PN 1 BAG IV SCH (16:00)
[2016-04-16] MEDS: BOOST BREEZE NUTRITION DRINK 1 BOX PO SCH (17:21)
[2016-04-16 21:10] LABS: HEMATOCRIT 22.4 % (42-52)
[2016-04-16 21:35] LABS: ALB/GLOB RATIO 1.7 (0.9-2); BUN/CREATININE RATIO 50.5 (10-20); CALCIUM 7.9 mg/dl (8.5-10.1); CREATININE 0.42 mg/dl (0.60-1.40); MAGNESIUM 2.2 mg/dl (1.8-2.4); POTASSIUM 3.5 mmol/L (3.5-5.1)
[2016-04-17] VITALS (9 sets, daily range): BP systolic 83–103; BP diastolic 49–61; PULSE 98–109; TEMP 36.8–37.6; O2SAT 92–99
[2016-04-17] MEDS: CIPROFLOXACIN / D5W 400 MG in PREMIXED IN D5W 200 ML IV SCH ×2 (04:28→15:38)
[2016-04-17] MEDS: INSULIN ASPART 100 UNITS/ML 3 ML PEN SC SCH ×5 (06:00→21:16)
[2016-04-17 07:34] LABS: HEMATOCRIT 23.4 % (42-52); MEAN CELL VOLUME 93.6 fL (80-100); MEAN CORPUSCULAR HEMOGLOBIN 31.6 pg (25-34); MEAN CORPUSCULAR HGB CONC 33.8 g/dl (32-36); WHITE BLOOD COUNT 8.44 K/uL (4.8-10.8)
[2016-04-17 07:42] LABS: INR 1.7 (0.9-1.1); PROTHROMBIN TIME (PATIENT) 18.1 SECONDS (9.0-12.0)
[2016-04-17] MEDS: PANTOprazole INJ 40 MG in SYRINGE 0 ML IV SCH ×2 (07:57→21:17)
[2016-04-17] MEDS: BOOST BREEZE NUTRITION DRINK 1 BOX PO SCH ×2 (07:57→15:38)
[2016-04-17] MEDS: FoLIC ACID INJ 1 MG in SYRINGE 9.8 ML IV SCH (07:57)
[2016-04-17] MEDS: THIAMINE HCL INJ 100 MG in SYRINGE 9 ML IV SCH (07:58)
[2016-04-17 08:04] LABS: BUN/CREATININE RATIO 45.7 (10-20); CREATININE 0.47 mg/dl (0.60-1.40); POTASSIUM 3.6 mmol/L (3.5-5.1)
[2016-04-17 08:14] LABS: ANISOCYTOSIS PRESENT; BASO % 0.4 %; BASO ABS # 0.03 K/uL (0-0.2); COMPLETE YES; EOS % 2.4 %; IG% 0.2 %; LYMPH % 17.9 %; LYMPH ABS # 1.51 K/uL (1.2-3.4); MEAN PLATELET VOLUME 8.5 fL (7.4-10.4); MONO % 7.2 %; NEUT % 71.9 %; PLATELET COUNT 65 K/uL (130-400); PLT ESTIMATE DECREASED
--- NOTE | 2016-04-17 08:15 | Pharmacy Progress Note ---
Glycemic: Assessment & Plan Date of Service Apr 17, 2016. Assessment & Plan Assessment * BSG's all <= 130 mg/dL with no insulin administered either in TPN or as sliding scale * Dextrose in TPN will not change significantly as it is already close to goal. Plan to advance to goal today. Plan * Continue current regimen x24 hours, until can assess effect of advancing dextrose on BSG's * Can likely d/c Novolog Q6H checks tomorrow if patient's BSG's remain stable Pharmacy will sign-off at this time. Please re-consult if desired. * Please note that the plan above was derived based on current level of insulin resistance and hospital stress. These recommendations are appropriate for inpatient admission only. Plan of care upon discharge will need to be reassessed to avoid potential outpatient hypo/hyperglycemia.
[2016-04-17] MEDS ORDERED: NURSING VERBAL MED ORDER ONE ×2 (10:15→16:45)
--- NOTE | 2016-04-17 10:17 | Surgery Progress Note ---
Surgery Progress Note Date of Service Apr 17, 2016. Subjective Post OP Day: 6 doing well. jaida now without blood. + BM overnight ( melenotic/expected) pain controlled frankie clear liquids Objective Vital Signs: Date Time Temp Pulse Resp B/P Pulse Ox O2 Delivery O2 Flow Rate FiO2 04/17/16 07:59 37.6 109 22 88/52 94 Room Air 04/17/16 04:32 37.4 105 16 97/61 92 Room Air 04/17/16 04:00 94 Room Air 04/17/16 00:00 37.1 100 14 93/56 92 Room Air 04/16/16 23:59 94 Room Air 04/16/16 23:59 37.2 107 17 94/62 94 Room Air 04/16/16 20:00 94 Room Air 04/16/16 19:53 36.9 105 14 95/62 94 Room Air 04/16/16 16:00 Room Air 04/16/16 15:39 36.8 105 18 96/61 97 04/16/16 15:12 37.3 103 16 87/54 94 04/16/16 14:11 36.9 106 20 88/53 92 Room Air 04/16/16 12:09 104 14 104/63 95 Room Air 04/16/16 12:00 Room Air Physical Exam: JAIDA drainage (now all serous) General Appearance: no apparent distress Head: normocephalic Abdomen: non tender, soft Incision(s): clean, intact, no erythema, findings (small amount of serous drainage from inferior pole) Laboratory Results: Results Past 24 Hours Test 04/16/16 11:46 04/16/16 16:33 04/16/16 20:16 04/16/16 20:30 Range/Units Bedside Glucose 108 127 114 70-99 mg/dl Hemoglobin 7.8 14.0-18.0 g/dL Hematocrit 22.4 42-52 % Sodium Level 141 136-145 mmol/L Potassium Level 3.5 3.5-5.1 mmol/L Chloride Level 107 98-107 mmol/L Carbon Dioxide Level 26 21-32 mmol/L Anion Gap 8.0 3-11 mmol/L Blood Urea Nitrogen 21 7-18 mg/dl Creatinine 0.42 0.60-1.40 mg/dl Est Creatinine Clear Calc Drug Dose 191.7 ml/min Estimated GFR () 143.6 Estimated GFR (Non- 123.9 BUN/Creatinine Ratio 50.5 10-20 Random Glucose 107 70-99 mg/dl Calcium Level 7.9 8.5-10.1 mg/dl Magnesium Level 2.2 1.8-2.4 mg/dl Total Bilirubin 3.9 0.2-1 mg/dl Direct Bilirubin 1.1 0-0.2 mg/dl Aspartate Amino Transf (AST/SGOT) 33 15-37 U/L Alanine Aminotransferase (ALT/SGPT) 26 12-78 U/L Alkaline Phosphatase 63 45-117 U/L Total Protein 4.8 6.4-8.2 gm/dl Albumin 3.0 3.4-5.0 gm/dl Globulin 1.8 2.5-4.0 gm/dl Albumin/Globulin Ratio 1.7 0.9-2 Test 04/17/16 00:15 04/17/16 06:03 04/17/16 07:21 Range/Units Bedside Glucose 122 130 70-99 mg/dl White Blood Count 8.44 4.8-10.8 K/uL Red Blood Count 2.50 4.7-6.1 M/uL Hemoglobin 7.9 14.0-18.0 g/dL Hematocrit 23.4 42-52 % Mean Corpuscular Volume 93.6 80-100 fL Mean Corpuscular Hemoglobin 31.6 25-34 pg Mean Corpuscular Hemoglobin Concent 33.8 32-36 g/dl Platelet Count 65 130-400 K/uL Mean Platelet Volume 8.5 7.4-10.4 fL Neutrophils (%) (Auto) 71.9 % Lymphocytes (%) (Auto) 17.9 % Monocytes (%) (Auto) 7.2 % Eosinophils (%) (Auto) 2.4 % Basophils (%) (Auto) 0.4 % Neutrophils # (Auto) 6.07 1.4-6.5 K/uL Lymphocytes # (Auto) 1.51 1.2-3.4 K/uL Monocytes # (Auto) 0.61 0.11-0.59 K/uL Eosinophils # (Auto) 0.20 0-0.5 K/uL Basophils # (Auto) 0.03 0-0.2 K/uL RDW Standard Deviation 56.7 36.4-46.3 fL RDW Coefficient of Variation 17.0 11.5-14.5 % Immature Granulocyte % (Auto) 0.2 % Immature Granulocyte # (Auto) 0.02 0.00-0.02 K/uL Platelet Estimate DECREASED Anisocytosis PRESENT Prothrombin Time 18.1 9.0-12.0 SECONDS Prothromb Time International Ratio 1.7 0.9-1.1 Sodium Level 141 136-145 mmol/L Potassium Level 3.6 3.5-5.1 mmol/L Chloride Level 106 98-107 mmol/L Carbon Dioxide Level 26 21-32 mmol/L Anion Gap 9.0 3-11 mmol/L Blood Urea Nitrogen 22 7-18 mg/dl Creatinine 0.47 0.60-1.40 mg/dl Est Creatinine Clear Calc Drug Dose 171.3 ml/min Estimated GFR () 137.1 Estimated GFR (Non- 118.3 BUN/Creatinine Ratio 45.7 10-20 Random Glucose 107 70-99 mg/dl Calcium Level 8.0 8.5-10.1 mg/dl Phosphorus Level 1.9 2.5-4.9 mg/dl Triglycerides Level 37 0-150 mg/dl Microbiology Results 04/16/16 C.difficile Toxin B Gene (PCR) - Final, Complete No C. difficile toxin B gene detected Assessment & Plan POD 6 doing well increase to full liquids PT/OT can prob wean off TPN in next day or so will remove JAIDA soon s/p duodenotomy, oversew bleeding ulcer bowel function returning continue NG, contrast eval tomorrow TPN, Protonix as above. pt had a change this am of ascites fluid to more bloody fluid in JAIDA. per RN this has slowed the past 2 hours. ? etiology. will recheck/monitor H/H more closely. if persists/worsens will check bleeding scan. plan UGI tomorrow for possible initiation of clear liquid diet.
[2016-04-17] MEDS ORDERED: MENTHOL-ZINC OXIDE 360 APPLN/120 GM TUBE EXT PRN (10:30)
[2016-04-17] MEDS ORDERED: POTASSIUM PHOSPHATE INJ 15 MMOL in SODIUM CHLORIDE 0.9% 250ML 250 ML IV ONE (12:00)
--- NOTE | 2016-04-17 15:17 | Progress Note ---
Subjective Date of Service: Apr 17, 2016. Subjective Pt evaluation today including: conversation w/ patient, physical exam, chart review, lab review, review of inpatient medication list feeling better no significant pain no chest pain no sob no f/c/s dw nursing - pt was initially reticent to get oob but now more willing; drainage persists in volume but is clearing and much less bloody Problem List Medical Problems: (1) Alcoholic cirrhosis Status: Acute (2) Ascites Status: Acute (3) Generalized weakness Status: Acute (4) Liver failure Status: Acute Review of Systems Constitutional: No chills, No fever, No sweats Respiratory: No shortness of breath Cardiac: No chest pain Abdomen: + problem reported (does have dark tarry stools), + see HPI ros otherwise negative except for as above Objective Vital Signs Date Time Temp Pulse Resp B/P Pulse Ox O2 Delivery O2 Flow Rate FiO2 04/17/16 12:00 Room Air 04/17/16 11:18 37.5 100 20 83/55 96 Room Air 04/17/16 08:00 Room Air 04/17/16 07:59 37.6 109 22 88/52 94 Room Air 04/17/16 04:32 37.4 105 16 97/61 92 Room Air 04/17/16 04:00 94 Room Air 04/17/16 00:00 37.1 100 14 93/56 92 Room Air 04/16/16 23:59 94 Room Air 04/16/16 23:59 37.2 107 17 94/62 94 Room Air 04/16/16 20:00 94 Room Air 04/16/16 19:53 36.9 105 14 95/62 94 Room Air 04/16/16 16:00 Room Air 04/16/16 15:39 36.8 105 18 96/61 97 Physical Exam General Appearance: no apparent distress Eyes: EOMI ENT: hearing grossly normal Neck: trachea midline Respiratory/Chest: lungs clear, normal breath sounds, no respiratory distress, no accessory muscle use Cardiovascular: regular rate, rhythm Abdomen: soft, + tenderness (mild diffuse tenderness, able to push a lot harder than prior exams, no guarding no rebound no mases; MING drainage now straw yellow w slight bloody tinge) 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, alert, normal mood/affect Skin: normal color, warm/dry Laboratory Results Last 24 Hours Test 04/16/16 16:33 04/16/16 20:16 04/16/16 20:30 04/17/16 00:15 Bedside Glucose 127 mg/dl 114 mg/dl 122 mg/dl Hemoglobin 7.8 g/dL Hematocrit 22.4 % Sodium Level 141 mmol/L Potassium Level 3.5 mmol/L Chloride Level 107 mmol/L Carbon Dioxide Level 26 mmol/L Anion Gap 8.0 mmol/L Blood Urea Nitrogen 21 mg/dl Creatinine 0.42 mg/dl Est Creatinine Clear Calc Drug Dose 191.7 ml/min Estimated GFR () 143.6 Estimated GFR (Non- 123.9 BUN/Creatinine Ratio 50.5 Random Glucose 107 mg/dl Calcium Level 7.9 mg/dl Magnesium Level 2.2 mg/dl Total Bilirubin 3.9 mg/dl Direct Bilirubin 1.1 mg/dl Aspartate Amino Transf (AST/SGOT) 33 U/L Alanine Aminotransferase (ALT/SGPT) 26 U/L Alkaline Phosphatase 63 U/L Total Protein 4.8 gm/dl Albumin 3.0 gm/dl Globulin 1.8 gm/dl Albumin/Globulin Ratio 1.7 Test 04/17/16 06:03 04/17/16 07:21 04/17/16 12:06 Bedside Glucose 130 mg/dl 189 mg/dl White Blood Count 8.44 K/uL Red Blood Count 2.50 M/uL Hemoglobin 7.9 g/dL Hematocrit 23.4 % Mean Corpuscular Volume 93.6 fL Mean Corpuscular Hemoglobin 31.6 pg Mean Corpuscular Hemoglobin Concent 33.8 g/dl Platelet Count 65 K/uL Mean Platelet Volume 8.5 fL Neutrophils (%) (Auto) 71.9 % Lymphocytes (%) (Auto) 17.9 % Monocytes (%) (Auto) 7.2 % Eosinophils (%) (Auto) 2.4 % Basophils (%) (Auto) 0.4 % Neutrophils # (Auto) 6.07 K/uL Lymphocytes # (Auto) 1.51 K/uL Monocytes # (Auto) 0.61 K/uL Eosinophils # (Auto) 0.20 K/uL Basophils # (Auto) 0.03 K/uL RDW Standard Deviation 56.7 fL RDW Coefficient of Variation 17.0 % Immature Granulocyte % (Auto) 0.2 % Immature Granulocyte # (Auto) 0.02 K/uL Platelet Estimate DECREASED Anisocytosis PRESENT Prothrombin Time 18.1 SECONDS Prothromb Time International Ratio 1.7 Sodium Level 141 mmol/L Potassium Level 3.6 mmol/L Chloride Level 106 mmol/L Carbon Dioxide Level 26 mmol/L Anion Gap 9.0 mmol/L Blood Urea Nitrogen 22 mg/dl Creatinine 0.47 mg/dl Est Creatinine Clear Calc Drug Dose 171.3 ml/min Estimated GFR () 137.1 Estimated GFR (Non- 118.3 BUN/Creatinine Ratio 45.7 Random Glucose 107 mg/dl Calcium Level 8.0 mg/dl Phosphorus Level 1.9 mg/dl Triglycerides Level 37 mg/dl Assessment and Plan Acute Hepatic failure, alcoholic cirrhosis, ascites, portal HTN, Esophageal varices grade II on EGD nonbleeding, Hepatic artery stenosis seen on US, Anemia of acute on chronic blood loss from GI bleeding, PUD with large 30mm duodenal bulb ulcer eroded into artery actively bleeding on 04/11, acute blood loss anemia requiring massive transfusions, Thrombocytopenia: Drained 6.8 L ascites on paracentesis on 04/09--> ascitic fluid with - gram stain/ culture= no organisms, no growth Hgb 6.8 on admission -GI consulted, initial recommendations: --Prednisolone therapy at 40 mg daily. Recommend continued supplementation with folic acid and thiamine. --Require an outpatient triphasic liver CT as well as AFP for HCC screening with continued surveillance every 6 months and EGD for variceal screening. --Lactulose 30 g BID (goal of 3 bms per day) and Xifaxan 550 mg PO BID. - Continue Spironolactone 100 mg daily and Lasix 40 mg daily. 2 g sodium restricted diet. However on 04/11/16, he developed acute severe hypotension and melena, hematemesis , was taken for emergent EGD and found to have briskly bleeding very large 3 cm duodenal bulb ulcer--> emergent Surgery for sew over and then transferred to ICU for recovery. Now extubated. Hgb dropped to 5.6 and transfused 8 units pRBCs on 04/11 (had 1 unit 04/10 and 2 units 04/09), 2 units FFP, 1 pack plts. Now recovering in ICU. A-line and Right IJ Cordis removed, LUE PICC placed 04/13 -continue Protonix IV BID -tolerating clear liquid diet -TPN -, d/w pharmacist, continue for now wean as PO intake improves -Greatly appreciate GI, Surgery, and [facility] consultations for management -Cipro 400mg IV q12h for 7 days (day 7) -serial CBCs q12h -follow INR, LFTs --- oozing has cleared - continue to follow -overall guarded prognosis but at the bedside looking surprisingly good -holding all diuretics for now -MING drain is draining the ascites as well -PRBCs and Plts on hold in blood bank -pain control is overall good Coagulopathy/severe liver disease: -Continue to trend - INR down to 1.7 -GI recommends transfer to tertiary center if INR continues to worsen/worsening liver failure -MING draining ascites - at some point we/surgery will likely need to pull MING once it's clear that it's just performing a "continuous paracentesis" as protein and fluid losses will likely impair healing and recovery once it's not draining post op perisurgical drainage. -once better hemodynamics, will have to start (cautiously) lasix and aldactone -taking PO well - probably can start xifaxin tomorrow Hyponatremia: secondary to liver failure -continue to follow, modifying lyte replacement in TPN accordingly -improved. follow hypocalcemia -vitamin D noted, start supplement probably tomorrow Urinalysis: -U/A on admission dirty, no culture -Repeat U/A (04/10) - negative for infection DVT prophylaxis: -Chemical means contraindicated due to elevated INR and bleeding -EDVIN and SCDs Code Status: -LEVEL I, FULL Pt indicated to prior hospitalist he would not want prolonged life support if it came to that
[2016-04-17] MEDS: HYDROmorphone INJ 0.5 MG/0.5 ML SYR IV PRN (15:39)
[2016-04-17] MEDS ORDERED: CUSTOM CENTRAL PN 1 BAG IV SCH (16:00)
[2016-04-17] MEDS: MENTHOL-ZINC OXIDE 360 APPLN/120 GM TUBE EXT SCH (21:30)
[2016-04-18] MEDS: CIPROFLOXACIN / D5W 400 MG in PREMIXED IN D5W 200 ML IV SCH ×2 (03:35→17:08)
[2016-04-18 04:00] VITALS: BP 95/47; PULSE 94; TEMP 37.5; O2SAT 98
[2016-04-18 05:20] LABS: BUN/CREATININE RATIO 44.8 (10-20); CALCIUM 7.4 mg/dl (8.5-10.1); CREATININE 0.53 mg/dl (0.60-1.40); MAGNESIUM 2.1 mg/dl (1.8-2.4); PHOSPHORUS 2.4 mg/dl (2.5-4.9); POTASSIUM 3.5 mmol/L (3.5-5.1)
[2016-04-18] MEDS: HYDROmorphone INJ 0.5 MG/0.5 ML SYR IV PRN ×2 (06:08→17:09)
[2016-04-18] MEDS: INSULIN ASPART 100 UNITS/ML 3 ML PEN SC SCH ×4 (07:00→20:04)
[2016-04-18 07:19] LABS: HEMATOCRIT 22.2 % (42-52); MEAN CELL VOLUME 93.7 fL (80-100); MEAN CORPUSCULAR HEMOGLOBIN 32.9 pg (25-34); RED BLOOD COUNT 2.37 M/uL (4.7-6.1); WHITE BLOOD COUNT 9.41 K/uL (4.8-10.8)
[2016-04-18 07:21] LABS: MEAN CORPUSCULAR HGB CONC 35.1 g/dl (32-36); PLATELET COUNT 83 K/uL (130-400)
[2016-04-18 08:16] VITALS: BP 114/60; PULSE 100; TEMP 37.1; O2SAT 94
[2016-04-18] MEDS: MENTHOL-ZINC OXIDE 360 APPLN/120 GM TUBE EXT SCH ×2 (09:00→20:33)
[2016-04-18] MEDS: FoLIC ACID INJ 1 MG in SYRINGE 9.8 ML IV SCH (09:00)
[2016-04-18] MEDS: PANTOprazole INJ 40 MG in SYRINGE 0 ML IV SCH ×2 (09:00→20:32)
[2016-04-18] MEDS: THIAMINE HCL INJ 100 MG in SYRINGE 9 ML IV SCH (09:00)
[2016-04-18] MEDS: BOOST BREEZE NUTRITION DRINK 1 BOX PO SCH ×2 (09:01→17:08)
[2016-04-18] MEDS ORDERED: LIDOCAINE HCL 1% 20 ML VIAL ONE (09:30)
--- NOTE | 2016-04-18 10:07 | Surgery Progress Note ---
Surgery Progress Note Date of Service Apr 18, 2016. Subjective Post OP Day: 7 + bowel movement, + diet (tolerating full liquids), No nausea Objective Vital Signs: Date Time Temp Pulse Resp B/P Pulse Ox O2 Delivery O2 Flow Rate FiO2 04/18/16 08:16 37.1 100 20 114/60 94 Room Air 04/18/16 04:00 37.5 94 18 95/47 98 Room Air 04/18/16 03:30 Room Air 04/17/16 23:35 36.8 98 24 99/56 99 04/17/16 23:30 Room Air 04/17/16 19:47 37.3 101 18 98/49 93 Room Air 04/17/16 19:30 Room Air 04/17/16 16:09 37.5 106 22 103/61 96 Room Air 04/17/16 16:00 Room Air 04/17/16 15:08 100 96 04/17/16 12:00 Room Air 04/17/16 11:18 37.5 100 20 83/55 96 Room Air Physical Exam: MING drainage (550 mostly ascitic) Abdomen: non distended, soft Incision(s): clean, ecchymosis Laboratory Results: Results Past 24 Hours Test 04/17/16 12:06 04/17/16 16:13 04/17/16 20:06 04/18/16 04:45 Range/Units Bedside Glucose 189 136 119 70-99 mg/dl Sodium Level 137 136-145 mmol/L Potassium Level 3.5 3.5-5.1 mmol/L Chloride Level 102 98-107 mmol/L Carbon Dioxide Level 28 21-32 mmol/L Anion Gap 7.0 3-11 mmol/L Blood Urea Nitrogen 24 7-18 mg/dl Creatinine 0.53 0.60-1.40 mg/dl Est Creatinine Clear Calc Drug Dose 151.9 ml/min Estimated GFR () 130.5 Estimated GFR (Non- 112.6 BUN/Creatinine Ratio 44.8 10-20 Random Glucose 114 70-99 mg/dl Calcium Level 7.4 8.5-10.1 mg/dl Phosphorus Level 2.4 2.5-4.9 mg/dl Magnesium Level 2.1 1.8-2.4 mg/dl Triglycerides Level 31 0-150 mg/dl Test 04/18/16 05:45 Range/Units White Blood Count 9.41 4.8-10.8 K/uL Red Blood Count 2.37 4.7-6.1 M/uL Hemoglobin 7.8 14.0-18.0 g/dL Hematocrit 22.2 42-52 % Mean Corpuscular Volume 93.7 80-100 fL Mean Corpuscular Hemoglobin 32.9 25-34 pg Mean Corpuscular Hemoglobin Concent 35.1 32-36 g/dl RDW Standard Deviation 56.6 36.4-46.3 fL RDW Coefficient of Variation 17.0 11.5-14.5 % Platelet Count 83 130-400 K/uL Mean Platelet Volume 9.0 7.4-10.4 fL Assessment & Plan s/p duodenotomy, oversew bleeding ulcer, cirrhosis MING removed H&H stable begin soft diet, wean TPN soon Protonix continue therapy
[2016-04-18 10:25] VITALS: BP 107/59; PULSE 100; TEMP 37.4; O2SAT 95
[2016-04-18 15:45] VITALS: BP 109/56; PULSE 97; TEMP 37.6; O2SAT 95
[2016-04-18] MEDS ORDERED: CUSTOM CENTRAL PN 1 BAG IV SCH (16:00)
--- NOTE | 2016-04-18 17:25 | Progress Note ---
Subjective Date of Service: Apr 18, 2016. Subjective Pt evaluation today including: conversation w/ patient, physical exam, chart review, lab review, review of inpatient medication list seen ~9am feeling better no significant pain tolerating clears well no vomiting, no pain after eating. when getting up was noted to be orthostatic by PT yesterday, but he adamantly denies lightheaded/orthostatic sx ros otherwise negative Problem List Medical Problems: (1) Alcoholic cirrhosis Status: Acute (2) Ascites Status: Acute (3) Generalized weakness Status: Acute (4) Liver failure Status: Acute Review of Systems Constitutional: No chills, No fever, No sweats Respiratory: No shortness of breath Abdomen: No GI bleeding, No nausea, No pain, No vomiting ros otherwise negative except for as above Objective Vital Signs Date Time Temp Pulse Resp B/P Pulse Ox O2 Delivery O2 Flow Rate FiO2 04/18/16 16:00 Room Air 04/18/16 15:45 37.6 97 22 109/56 95 Room Air 04/18/16 12:00 Room Air 04/18/16 10:25 37.4 100 20 107/59 95 Room Air 04/18/16 08:16 37.1 100 20 114/60 94 Room Air 04/18/16 08:00 Room Air 04/18/16 04:00 37.5 94 18 95/47 98 Room Air 04/18/16 03:30 Room Air 04/17/16 23:35 36.8 98 24 99/56 99 04/17/16 23:30 Room Air 04/17/16 19:47 37.3 101 18 98/49 93 Room Air 04/17/16 19:30 Room Air Physical Exam General Appearance: no apparent distress Eyes: EOMI ENT: hearing grossly normal Neck: trachea midline Respiratory/Chest: lungs clear, normal breath sounds, no respiratory distress, no accessory muscle use Cardiovascular: regular rate, rhythm Abdomen: soft, + pertinent finding (minimal tenderness. 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, alert, normal mood/affect Skin: normal color, warm/dry Laboratory Results Last 24 Hours Test 04/17/16 20:06 04/18/16 04:45 04/18/16 05:45 04/18/16 07:00 Bedside Glucose 119 mg/dl 118 mg/dl Sodium Level 137 mmol/L Potassium Level 3.5 mmol/L Chloride Level 102 mmol/L Carbon Dioxide Level 28 mmol/L Anion Gap 7.0 mmol/L Blood Urea Nitrogen 24 mg/dl Creatinine 0.53 mg/dl Est Creatinine Clear Calc Drug Dose 151.9 ml/min Estimated GFR () 130.5 Estimated GFR (Non- 112.6 BUN/Creatinine Ratio 44.8 Random Glucose 114 mg/dl Calcium Level 7.4 mg/dl Phosphorus Level 2.4 mg/dl Magnesium Level 2.1 mg/dl Triglycerides Level 31 mg/dl White Blood Count 9.41 K/uL Red Blood Count 2.37 M/uL Hemoglobin 7.8 g/dL Hematocrit 22.2 % Mean Corpuscular Volume 93.7 fL Mean Corpuscular Hemoglobin 32.9 pg Mean Corpuscular Hemoglobin Concent 35.1 g/dl RDW Standard Deviation 56.6 fL RDW Coefficient of Variation 17.0 % Platelet Count 83 K/uL Mean Platelet Volume 9.0 fL Test 04/18/16 11:34 04/18/16 15:59 Bedside Glucose 113 mg/dl 118 mg/dl Assessment and Plan Acute Hepatic failure, alcoholic cirrhosis, ascites, portal HTN, Esophageal varices grade II on EGD nonbleeding, Hepatic artery stenosis seen on US, Anemia of acute on chronic blood loss from GI bleeding, PUD with large 30mm duodenal bulb ulcer eroded into artery actively bleeding on 04/11, acute blood loss anemia requiring massive transfusions, Thrombocytopenia: Drained 6.8 L ascites on paracentesis on 04/09--> ascitic fluid with - gram stain/ culture= no organisms, no growth Hgb 6.8 on admission -GI consulted, initial recommendations: --Prednisolone therapy at 40 mg daily. Recommend continued supplementation with folic acid and thiamine. --Require an outpatient triphasic liver CT as well as AFP for HCC screening with continued surveillance every 6 months and EGD for variceal screening. --Lactulose 30 g BID (goal of 3 bms per day) and Xifaxan 550 mg PO BID. - Continue Spironolactone 100 mg daily and Lasix 40 mg daily. 2 g sodium restricted diet. However on 04/11/16, he developed acute severe hypotension and melena, hematemesis , was taken for emergent EGD and found to have briskly bleeding very large 3 cm duodenal bulb ulcer--> emergent Surgery for sew over and then transferred to ICU for recovery. Now extubated. Hgb dropped to 5.6 and transfused 8 units pRBCs on 04/11 (had 1 unit 04/10 and 2 units 04/09), 2 units FFP, 1 pack plts. Now recovering in ICU. A-line and Right IJ Cordis removed, LUE PICC placed 04/13 -continue Protonix IV BID -tolerating clear liquid diet (late addendum is that surgery has advanced further) -TPN -, d/w pharmacist, continue for now wean as PO intake improves -Greatly appreciate GI, Surgery, and [facility] consultations for management -Cipro 400mg IV q12h for 7 days now complete -serial CBCs -follow INR, LFTs -overall guarded prognosis but at the bedside looking surprisingly good -holding all diuretics for now -MING drain is draining the ascites as well -- late addendum is after i saw pt surgery pulled drain -PRBCs and Plts on hold in blood bank -pain control is overall good Coagulopathy/severe liver disease: -Continue to trend - INR down to 1.7 (f/u in AM) -GI recommends transfer to tertiary center if INR continues to worsen/worsening liver failure (have been improving/stable - repeat CMP and PT/INR tomorrow) -MING draining ascites - surgery pulled drain today - will follow -- likely will need periodic paracentesis, but agree w drain out at this point to prevent ongoing fluid/protein losses that will impede progress -once better hemodynamics, will have to start (cautiously) lasix and aldactone -taking PO well - start xifaxan Hyponatremia: secondary to liver failure -continue to follow, modifying lyte replacement in TPN accordingly -improved. follow hypocalcemia -vitamin D noted, start supplementation (2000 IU D3 daily, 07714 IU D2 weekly) Urinalysis: -U/A on admission dirty, no culture -Repeat U/A (04/10) - negative for infection DVT prophylaxis: -Chemical means contraindicated due to elevated INR and bleeding -EDVIN and SCDs Code Status: -LEVEL I, FULL Pt indicated to prior hospitalist he would not want prolonged life support if it came to that PT/OT eval and treat
[2016-04-18 19:30] VITALS: BP 97/49; PULSE 98; TEMP 37.2; O2SAT 93
[2016-04-18] MEDS: RIFAXIMIN TAB 550 MG TAB PO SCH (20:33)
[2016-04-18 23:52] VITALS: BP 108/52; PULSE 94; TEMP 36.7; O2SAT 95
[2016-04-19] VITALS (15 sets, daily range): BP systolic 71–127; BP diastolic 34–74; PULSE 88–100; TEMP 36.4–37.6; O2SAT 90–96
[2016-04-19] MEDS: CIPROFLOXACIN / D5W 400 MG in PREMIXED IN D5W 200 ML IV SCH (04:17)
[2016-04-19] MEDS: HYDROmorphone INJ 0.5 MG/0.5 ML SYR IV PRN ×2 (05:45→13:00)
[2016-04-19] MEDS: INSULIN ASPART 100 UNITS/ML 3 ML PEN SC SCH ×4 (07:00→20:25)
[2016-04-19 07:36] LABS: HEMATOCRIT 23.9 % (42-52); MEAN CELL VOLUME 95.2 fL (80-100); MEAN CORPUSCULAR HEMOGLOBIN 32.3 pg (25-34); MEAN CORPUSCULAR HGB CONC 33.9 g/dl (32-36); RED BLOOD COUNT 2.51 M/uL (4.7-6.1); WHITE BLOOD COUNT 10.83 K/uL (4.8-10.8)
[2016-04-19 07:37] LABS: MEAN PLATELET VOLUME 10.1 fL (7.4-10.4); PLATELET COUNT 96 K/uL (130-400)
[2016-04-19 07:46] LABS: INR 1.8 (0.9-1.1); PROTHROMBIN TIME (PATIENT) 19.2 SECONDS (9.0-12.0)
[2016-04-19 08:02] LABS: BUN/CREATININE RATIO 42.5 (10-20); CALCIUM 7.2 mg/dl (8.5-10.1); CREATININE 0.65 mg/dl (0.60-1.40); POTASSIUM 3.7 mmol/L (3.5-5.1)
[2016-04-19 08:05] LABS: ALB/GLOB RATIO 1.1 (0.9-2); PHOSPHORUS 2.6 mg/dl (2.5-4.9)
[2016-04-19 08:09] LABS: BASO % 0.6 %; BASO ABS # 0.06 K/uL (0-0.2); COMPLETE YES; ECHINOCYTES 1+; EOS % 4.4 %; IG% 0.3 %; LYMPH % 16.6 %; MONO % 13.5 %; NEUT % 64.6 %
[2016-04-19] MEDS: MENTHOL-ZINC OXIDE 360 APPLN/120 GM TUBE EXT SCH ×2 (08:55→19:41)
[2016-04-19] MEDS: FoLIC ACID INJ 1 MG in SYRINGE 9.8 ML IV SCH (08:56)
[2016-04-19] MEDS: CHOLECALCIFEROL 1000 INTER.UNIT TAB PO SCH (08:56)
[2016-04-19] MEDS: BOOST BREEZE NUTRITION DRINK 1 BOX PO SCH ×2 (08:56→17:24)
[2016-04-19] MEDS: PANTOprazole INJ 40 MG in SYRINGE 0 ML IV SCH (08:56)
[2016-04-19] MEDS: THIAMINE HCL INJ 100 MG in SYRINGE 9 ML IV SCH (08:56)
[2016-04-19] MEDS: RIFAXIMIN TAB 550 MG TAB PO SCH ×2 (08:56→19:41)
--- NOTE | 2016-04-19 11:53 | Progress Note ---
Subjective Date of Service: Apr 19, 2016. Subjective Pt evaluation today including: conversation w/ patient, physical exam, chart review, lab review, review of inpatient medication list generally is feeling well. has been getting up and to chair without much problem, stronger than expected. when sitting for a while he does start to show orthostatic type drop in BP (and then starts to feel weak/fatigued/ lightheaded) - but slow in onset and not dramatic. no syncope - simply asked for help routinely getting back in bed and sx resolve. no problems w PO intake. belly more swollen since MING removed but no pain/nausea/vomiting no other complaints he is pleased with his progress so far dw nursing extensively Problem List Medical Problems: (1) Alcoholic cirrhosis Status: Acute (2) Ascites Status: Acute (3) Generalized weakness Status: Acute (4) Liver failure Status: Acute Review of Systems Constitutional: + see HPI, + weakness Abdomen: No nausea, No pain, No vomiting ros otherwise negative except for as above Objective Vital Signs Date Time Temp Pulse Resp B/P Pulse Ox O2 Delivery O2 Flow Rate FiO2 04/19/16 11:00 37.2 95 16 94/54 94 0.0 04/19/16 08:04 92 85/46 04/19/16 08:00 Room Air 04/19/16 07:57 36.6 92 18 71/34 96 Room Air 04/19/16 04:12 36.4 93 18 104/51 95 04/19/16 04:00 Room Air 04/18/16 23:59 Room Air 04/18/16 23:52 36.7 94 20 108/52 95 Room Air 04/18/16 20:00 Room Air 04/18/16 19:30 37.2 98 18 97/49 93 Room Air 04/18/16 16:00 Room Air 04/18/16 15:45 37.6 97 22 109/56 95 Room Air 04/18/16 12:00 Room Air Physical Exam General Appearance: no apparent distress Eyes: EOMI ENT: hearing grossly normal Neck: trachea midline Respiratory/Chest: lungs clear, normal breath sounds, no respiratory distress, no accessory muscle use Cardiovascular: regular rate, rhythm Abdomen: soft, + distended (with fluid wave, minimally tender no guarding no rebound) Extremities: normal range of motion, no pedal edema, no calf tenderness Neurologic/Psychiatric: reinforcing steel placer II-XII nml as tested, alert, normal mood/affect Skin: normal color, warm/dry Laboratory Results Last 24 Hours Test 04/18/16 15:59 04/18/16 20:02 04/19/16 06:38 04/19/16 07:14 Bedside Glucose 118 mg/dl 141 mg/dl 123 mg/dl White Blood Count 10.83 K/uL Red Blood Count 2.51 M/uL Hemoglobin 8.1 g/dL Hematocrit 23.9 % Mean Corpuscular Volume 95.2 fL Mean Corpuscular Hemoglobin 32.3 pg Mean Corpuscular Hemoglobin Concent 33.9 g/dl Platelet Count 96 K/uL Mean Platelet Volume 10.1 fL Neutrophils (%) (Auto) 64.6 % Lymphocytes (%) (Auto) 16.6 % Monocytes (%) (Auto) 13.5 % Eosinophils (%) (Auto) 4.4 % Basophils (%) (Auto) 0.6 % Neutrophils # (Auto) 7.00 K/uL Lymphocytes # (Auto) 1.80 K/uL Monocytes # (Auto) 1.46 K/uL Eosinophils # (Auto) 0.48 K/uL Basophils # (Auto) 0.06 K/uL RDW Standard Deviation 58.5 fL RDW Coefficient of Variation 17.0 % Immature Granulocyte % (Auto) 0.3 % Immature Granulocyte # (Auto) 0.03 K/uL Echinocytes 1+ Prothrombin Time 19.2 SECONDS Prothromb Time International Ratio 1.8 Sodium Level 131 mmol/L Potassium Level 3.7 mmol/L Chloride Level 96 mmol/L Carbon Dioxide Level 27 mmol/L Anion Gap 8.0 mmol/L Blood Urea Nitrogen 28 mg/dl Creatinine 0.65 mg/dl Est Creatinine Clear Calc Drug Dose 123.9 ml/min Estimated GFR () 120.0 Estimated GFR (Non- 103.5 BUN/Creatinine Ratio 42.5 Random Glucose 117 mg/dl Calcium Level 7.2 mg/dl Phosphorus Level 2.6 mg/dl Magnesium Level 2.0 mg/dl Total Bilirubin 4.8 mg/dl Aspartate Amino Transf (AST/SGOT) 43 U/L Alanine Aminotransferase (ALT/SGPT) 29 U/L Alkaline Phosphatase 102 U/L Total Protein 4.9 gm/dl Albumin 2.6 gm/dl Globulin 2.3 gm/dl Albumin/Globulin Ratio 1.1 Triglycerides Level 52 mg/dl Test 04/19/16 11:14 Bedside Glucose 116 mg/dl Assessment and Plan Acute Hepatic failure, alcoholic cirrhosis, ascites, portal HTN, Esophageal varices grade II on EGD nonbleeding, Hepatic artery stenosis seen on US, Anemia of acute on chronic blood loss from GI bleeding, PUD with large 30mm duodenal bulb ulcer eroded into artery actively bleeding on 04/11, acute blood loss anemia requiring massive transfusions, Thrombocytopenia: Drained 6.8 L ascites on paracentesis on 04/09--> ascitic fluid with - gram stain/ culture= no organisms, no growth Hgb 6.8 on admission -GI consulted, initial recommendations: --Prednisolone therapy at 40 mg daily. Recommend continued supplementation with folic acid and thiamine. --Require an outpatient triphasic liver CT as well as AFP for HCC screening with continued surveillance every 6 months and EGD for variceal screening. --Lactulose 30 g BID (goal of 3 bms per day) and Xifaxan 550 mg PO BID. - Continue Spironolactone 100 mg daily and Lasix 40 mg daily. 2 g sodium restricted diet. However on 04/11/16, he developed acute severe hypotension and melena, hematemesis , was taken for emergent EGD and found to have briskly bleeding very large 3 cm duodenal bulb ulcer--> emergent Surgery for sew over and then transferred to ICU for recovery. Now extubated. Hgb dropped to 5.6 and transfused 8 units pRBCs on 04/11 (had 1 unit 04/10 and 2 units 04/09), 2 units FFP, 1 pack plts. Now recovering in ICU. A-line and Right IJ Cordis removed, LUE PICC placed 04/13 -continue Protonix -tolerating slowly advancing diet -TPN -, d/w pharmacist, continue for now wean as PO intake improves -Greatly appreciate GI, Surgery, and [facility] consultations for management -Cipro 400mg IV q12h for 7 days now complete -serial CBCs -follow INR, LFTs -overall guarded prognosis but at the bedside looking surprisingly good -holding all diuretics for now - will want to move towards lasix/aldactone -but need more hemodynamic stability before this would be safe -due to hemodynamics - having to give 1 additional unit PRBC today orthostasis/postural hypotension -suspect multifactorial between anemia, deconditioning, fluid losses based on ascites volume; however, MING now pulled so ascites related losses (while occuring and accumulating in abdomen) will likely plateau; and watchful waiting , while not showing any deterioration, has also not yielded improvement -since Hgb still borderline given the situation- and he does show sx w BP drop - will give 1 additional unit PRBC; after blood given if still showing orthostatic tendencies - will give isotonic fluid bolus; lastly if persisting will give trial of midodrine (but hopefully will respond to blood alone) Coagulopathy/severe liver disease: -Continue to trend - INR down to high 1 range - appearing stable here -GI recommends transfer to tertiary center if INR continues to worsen/worsening liver failure -ascitic fluid losses definitely part of the hemodynamic issue - but now that ascites likely to accumulate and plateau, hopefully this will help stabilize situation -once better hemodynamics, will have to start (cautiously) lasix and aldactone -xifaxin started 04/18, will start lactulose daily 04/20 and titrate up protein malnutrition -in part from acute illness, in part from poor synthetic function -improving PO intake = weaning TPN Hyponatremia: secondary to liver failure -continue to follow, modifying lyte replacement in TPN accordingly -improved. follow hypocalcemia -vitamin D noted, supplementation: (2000 IU D3 daily, 45700 IU D2 weekly) Urinalysis: -U/A on admission dirty, no culture -Repeat U/A (04/10) - negative for infection DVT prophylaxis: -Chemical means contraindicated due to elevated INR and bleeding -EDVIN and SCDs Code Status: -LEVEL I, FULL Pt indicated to prior hospitalist he would not want prolonged life support if it came to that PT/OT eval and treat
--- NOTE | 2016-04-19 12:41 | Surgery Progress Note ---
Surgery Progress Note Date of Service Apr 19, 2016. Subjective Post OP Day: + feeling well s/p duodenotomy, oversew bleeding ulcer, cirrhosis pt is doing better, he sit a chair for one hour, pt denies fever, no abdominal pain, Objective Vital Signs: Date Time Temp Pulse Resp B/P Pulse Ox O2 Delivery O2 Flow Rate FiO2 04/19/16 12:00 Room Air 04/19/16 11:49 37.3 96 20 94/54 94 Room Air 04/19/16 11:00 37.2 95 16 94/54 94 0.0 04/19/16 08:04 92 85/46 04/19/16 08:00 Room Air 04/19/16 07:57 36.6 92 18 71/34 96 Room Air 04/19/16 04:12 36.4 93 18 104/51 95 04/19/16 04:00 Room Air 04/18/16 23:59 Room Air 04/18/16 23:52 36.7 94 20 108/52 95 Room Air 04/18/16 20:00 Room Air 04/18/16 19:30 37.2 98 18 97/49 93 Room Air 04/18/16 16:00 Room Air 04/18/16 15:45 37.6 97 22 109/56 95 Room Air General Appearance: WD/WN Head: normocephalic Neck: supple Respiratory/Chest: chest non-tender, lungs clear Cardiovascular: regular rate, rhythm, no edema Abdomen: normal bowel sounds, non tender, + distended Incision(s): clean, dry, intact Extremities: normal range of motion, non-tender, normal inspection Laboratory Results: Results Past 24 Hours Test 04/18/16 15:59 04/18/16 20:02 04/19/16 06:38 04/19/16 07:14 Range/Units Bedside Glucose 118 141 123 70-99 mg/dl White Blood Count 10.83 4.8-10.8 K/uL Red Blood Count 2.51 4.7-6.1 M/uL Hemoglobin 8.1 14.0-18.0 g/dL Hematocrit 23.9 42-52 % Mean Corpuscular Volume 95.2 80-100 fL Mean Corpuscular Hemoglobin 32.3 25-34 pg Mean Corpuscular Hemoglobin Concent 33.9 32-36 g/dl Platelet Count 96 130-400 K/uL Mean Platelet Volume 10.1 7.4-10.4 fL Neutrophils (%) (Auto) 64.6 % Lymphocytes (%) (Auto) 16.6 % Monocytes (%) (Auto) 13.5 % Eosinophils (%) (Auto) 4.4 % Basophils (%) (Auto) 0.6 % Neutrophils # (Auto) 7.00 1.4-6.5 K/uL Lymphocytes # (Auto) 1.80 1.2-3.4 K/uL Monocytes # (Auto) 1.46 0.11-0.59 K/uL Eosinophils # (Auto) 0.48 0-0.5 K/uL Basophils # (Auto) 0.06 0-0.2 K/uL RDW Standard Deviation 58.5 36.4-46.3 fL RDW Coefficient of Variation 17.0 11.5-14.5 % Immature Granulocyte % (Auto) 0.3 % Immature Granulocyte # (Auto) 0.03 0.00-0.02 K/uL Echinocytes 1+ Prothrombin Time 19.2 9.0-12.0 SECONDS Prothromb Time International Ratio 1.8 0.9-1.1 Sodium Level 131 136-145 mmol/L Potassium Level 3.7 3.5-5.1 mmol/L Chloride Level 96 98-107 mmol/L Carbon Dioxide Level 27 21-32 mmol/L Anion Gap 8.0 3-11 mmol/L Blood Urea Nitrogen 28 7-18 mg/dl Creatinine 0.65 0.60-1.40 mg/dl Est Creatinine Clear Calc Drug Dose 123.9 ml/min Estimated GFR () 120.0 Estimated GFR (Non- 103.5 BUN/Creatinine Ratio 42.5 10-20 Random Glucose 117 70-99 mg/dl Calcium Level 7.2 8.5-10.1 mg/dl Phosphorus Level 2.6 2.5-4.9 mg/dl Magnesium Level 2.0 1.8-2.4 mg/dl Total Bilirubin 4.8 0.2-1 mg/dl Aspartate Amino Transf (AST/SGOT) 43 15-37 U/L Alanine Aminotransferase (ALT/SGPT) 29 12-78 U/L Alkaline Phosphatase 102 45-117 U/L Total Protein 4.9 6.4-8.2 gm/dl Albumin 2.6 3.4-5.0 gm/dl Globulin 2.3 2.5-4.0 gm/dl Albumin/Globulin Ratio 1.1 0.9-2 Triglycerides Level 52 0-150 mg/dl Test 04/19/16 11:14 Range/Units Bedside Glucose 116 70-99 mg/dl Assessment & Plan IMP s/p duodenotomy, oversew bleeding ulcer, cirrhosis pt received blood transfusion. august D/C andrea today OOB willm F/U
[2016-04-19] MEDS ORDERED: CUSTOM CENTRAL PN 1 BAG IV SCH (16:00)
[2016-04-19] MEDS ORDERED: SODIUM CHLORIDE 0.9% 1000ML 1,000 ML IV ONE (16:15)
[2016-04-19] MEDS: OXYCODONE HCL IR 5 MG TAB (IMMEDIATE RELEASE) PO PRN (16:40)
[2016-04-19] MEDS: PANTOprazole SOD 40 MG TAB PO SCH (19:41)
[2016-04-20] MEDS: OXYCODONE HCL IR 5 MG TAB (IMMEDIATE RELEASE) PO PRN ×4 (00:54→20:42)
[2016-04-20 03:19] VITALS: BP 93/53; PULSE 83; TEMP 37.1; O2SAT 91
[2016-04-20 06:10] LABS: MEAN CELL VOLUME 90.9 fL (80-100); MEAN CORPUSCULAR HEMOGLOBIN 31.1 pg (25-34); MEAN CORPUSCULAR HGB CONC 34.2 g/dl (32-36); PLATELET COUNT 104 K/uL (130-400); RED BLOOD COUNT 2.64 M/uL (4.7-6.1); WHITE BLOOD COUNT 12.42 K/uL (4.8-10.8)
[2016-04-20 06:42] LABS: BASO % 0.6 %; BASO ABS # 0.08 K/uL (0-0.2); BUN/CREATININE RATIO 52.6 (10-20); COMPLETE YES; CREATININE 0.67 mg/dl (0.60-1.40); ECHINOCYTES 1+; EOS % 4.6 %; IG% 0.5 %; LYMPH % 14.8 %; LYMPH ABS # 1.84 K/uL (1.2-3.4); MONO % 14.7 %; NEUT % 64.8 %; PHOSPHORUS 3.4 mg/dl (2.5-4.9); POLYCHROMASIA 1+; POTASSIUM 4.1 mmol/L (3.5-5.1)
[2016-04-20] MEDS: INSULIN ASPART 100 UNITS/ML 3 ML PEN SC SCH ×4 (07:00→20:06)
[2016-04-20 07:41] VITALS: BP 99/53; PULSE 88; TEMP 36.8; O2SAT 94
[2016-04-20 07:42] VITALS: BP_SYST 95; BP_SYST 97; BP_DIAS 62; BP_DIAS 64; PULSE 91; PULSE 94
[2016-04-20] MEDS: PANTOprazole SOD 40 MG TAB PO SCH ×2 (07:58→20:43)
[2016-04-20] MEDS: RIFAXIMIN TAB 550 MG TAB PO SCH ×2 (07:58→20:43)
[2016-04-20] MEDS: CHOLECALCIFEROL 1000 INTER.UNIT TAB PO SCH (07:58)
[2016-04-20] MEDS: MENTHOL-ZINC OXIDE 360 APPLN/120 GM TUBE EXT SCH ×2 (07:59→20:42)
[2016-04-20] MEDS: FoLIC ACID INJ 1 MG in SYRINGE 9.8 ML IV SCH (07:59)
[2016-04-20] MEDS ORDERED: ERGOCALCIFEROL 50,000 INTER.UNIT CAP PO SCH (09:00)
[2016-04-20] MEDS: LACTULOSE SYRUP 30 GM/45 ML UDP PO SCH (09:00)
--- NOTE | 2016-04-20 09:27 | Surgery Progress Note ---
Surgery Progress Note Date of Service Apr 20, 2016. Subjective + feeling well pt feels better, no abdominal pain, no N/v, no fever. Objective Vital Signs: Date Time Temp Pulse Resp B/P Pulse Ox O2 Delivery O2 Flow Rate FiO2 04/20/16 08:00 Room Air 04/20/16 07:42 94 95/62 04/20/16 07:42 91 97/64 04/20/16 07:41 36.8 88 16 99/53 94 Room Air 04/20/16 04:00 Room Air 04/20/16 03:19 37.1 83 16 93/53 91 Room Air 04/19/16 23:59 Room Air 04/19/16 23:28 37.3 88 18 92/52 93 Room Air 04/19/16 20:00 Room Air 04/19/16 19:39 37.1 96 18 96/58 96 Room Air 04/19/16 16:05 37.3 97 20 98/53 90 Room Air 04/19/16 16:00 Room Air 04/19/16 14:00 37.5 94 20 119/55 94 0.0 04/19/16 13:30 37.6 95 18 109/56 95 0.0 04/19/16 13:00 37.5 100 20 127/74 94 04/19/16 12:30 37.4 99 18 115/53 94 0.0 04/19/16 12:00 37.3 96 16 96/47 94 0.0 04/19/16 12:00 Room Air 04/19/16 11:49 37.3 96 20 94/54 94 Room Air 04/19/16 11:30 37.4 98 18 107/53 95 0.0 04/19/16 11:15 37.4 93 18 97/54 94 0.0 04/19/16 11:00 37.2 95 16 94/54 94 0.0 General Appearance: WD/WN Head: normocephalic Neck: supple Respiratory/Chest: chest non-tender, lungs clear Cardiovascular: regular rate, rhythm, no edema, no JVD Abdomen: normal bowel sounds, non tender, non distended Incision(s): clean, dry, intact Extremities: normal range of motion, non-tender, normal inspection Laboratory Results: Results Past 24 Hours Test 04/19/16 11:14 04/19/16 16:12 04/19/16 20:05 04/20/16 05:39 Range/Units Bedside Glucose 116 121 166 70-99 mg/dl White Blood Count 12.42 4.8-10.8 K/uL Red Blood Count 2.64 4.7-6.1 M/uL Hemoglobin 8.2 14.0-18.0 g/dL Hematocrit 24.0 42-52 % Mean Corpuscular Volume 90.9 80-100 fL Mean Corpuscular Hemoglobin 31.1 25-34 pg Mean Corpuscular Hemoglobin Concent 34.2 32-36 g/dl Platelet Count 104 130-400 K/uL Mean Platelet Volume 10.0 7.4-10.4 fL Neutrophils (%) (Auto) 64.8 % Lymphocytes (%) (Auto) 14.8 % Monocytes (%) (Auto) 14.7 % Eosinophils (%) (Auto) 4.6 % Basophils (%) (Auto) 0.6 % Neutrophils # (Auto) 8.04 1.4-6.5 K/uL Lymphocytes # (Auto) 1.84 1.2-3.4 K/uL Monocytes # (Auto) 1.83 0.11-0.59 K/uL Eosinophils # (Auto) 0.57 0-0.5 K/uL Basophils # (Auto) 0.08 0-0.2 K/uL RDW Standard Deviation 58.7 36.4-46.3 fL RDW Coefficient of Variation 18.1 11.5-14.5 % Immature Granulocyte % (Auto) 0.5 % Immature Granulocyte # (Auto) 0.06 0.00-0.02 K/uL Polychromasia 1+ Echinocytes 1+ Sodium Level 132 136-145 mmol/L Potassium Level 4.1 3.5-5.1 mmol/L Chloride Level 97 98-107 mmol/L Carbon Dioxide Level 27 21-32 mmol/L Anion Gap 8.0 3-11 mmol/L Blood Urea Nitrogen 35 7-18 mg/dl Creatinine 0.67 0.60-1.40 mg/dl Est Creatinine Clear Calc Drug Dose 120.2 ml/min Estimated GFR () 118.5 Estimated GFR (Non- 102.3 BUN/Creatinine Ratio 52.6 10-20 Random Glucose 101 70-99 mg/dl Calcium Level 7.0 8.5-10.1 mg/dl Phosphorus Level 3.4 2.5-4.9 mg/dl Magnesium Level 2.0 1.8-2.4 mg/dl Test 04/20/16 06:19 Range/Units Bedside Glucose 106 70-99 mg/dl Assessment & Plan IMP s/p duodenotomy, oversew bleeding ulcer, cirrhosis pt is doing better, OOB willm F/U IMP s/p duodenotomy, oversew bleeding ulcer, cirrhosis pt received blood transfusion. august D/C emre today OOB willjs F/U
[2016-04-20] MEDS: THIAMINE HCL INJ 100 MG in SYRINGE 9 ML IV SCH (10:11)
[2016-04-20] MEDS: BOOST BREEZE NUTRITION DRINK 1 BOX PO SCH ×2 (10:11→20:42)
--- NOTE | 2016-04-20 10:30 | Progress Note ---
Subjective Date of Service: Apr 20, 2016. Subjective Pt evaluation today including: conversation w/ patient, physical exam, chart review, lab review, conversation w/ senior talent management consultant (surgery), review of inpatient medication list generally feeling much better ate 75% in chair, no lightheaded andrea out voiding fairly well anxious about moving forward and being able to get to rehab notes ted hasn't really filled up more from yesterday in any way he can appreciate Problem List Medical Problems: (1) Alcoholic cirrhosis Status: Acute (2) Ascites Status: Acute (3) Generalized weakness Status: Acute (4) Liver failure Status: Acute Review of Systems Constitutional: No weakness Abdomen: No pain ros otherwise negative except for as above Objective Vital Signs Date Time Temp Pulse Resp B/P Pulse Ox O2 Delivery O2 Flow Rate FiO2 04/20/16 08:00 Room Air 04/20/16 07:42 94 95/62 04/20/16 07:42 91 97/64 04/20/16 07:41 36.8 88 16 99/53 94 Room Air 04/20/16 04:00 Room Air 04/20/16 03:19 37.1 83 16 93/53 91 Room Air 04/19/16 23:59 Room Air 04/19/16 23:28 37.3 88 18 92/52 93 Room Air 04/19/16 20:00 Room Air 04/19/16 19:39 37.1 96 18 96/58 96 Room Air 04/19/16 16:05 37.3 97 20 98/53 90 Room Air 04/19/16 16:00 Room Air 04/19/16 14:00 37.5 94 20 119/55 94 0.0 04/19/16 13:30 37.6 95 18 109/56 95 0.0 04/19/16 13:00 37.5 100 20 127/74 94 04/19/16 12:30 37.4 99 18 115/53 94 0.0 04/19/16 12:00 37.3 96 16 96/47 94 0.0 04/19/16 12:00 Room Air 04/19/16 11:49 37.3 96 20 94/54 94 Room Air 04/19/16 11:30 37.4 98 18 107/53 95 0.0 04/19/16 11:15 37.4 93 18 97/54 94 0.0 04/19/16 11:00 37.2 95 16 94/54 94 0.0 Physical Exam General Appearance: no apparent distress Eyes: EOMI ENT: hearing grossly normal Neck: trachea midline Respiratory/Chest: lungs clear, normal breath sounds, no respiratory distress, no accessory muscle use Cardiovascular: regular rate, rhythm Abdomen: soft, + distended (moderately with fluid wave - about the same as yesterday maybe very slightly more full) Neurologic/Psychiatric: counter installer II-XII nml as tested, alert, normal mood/affect Skin: normal color, warm/dry Laboratory Results Last 24 Hours Test 04/19/16 11:14 04/19/16 16:12 04/19/16 20:05 04/20/16 05:39 Bedside Glucose 116 mg/dl 121 mg/dl 166 mg/dl White Blood Count 12.42 K/uL Red Blood Count 2.64 M/uL Hemoglobin 8.2 g/dL Hematocrit 24.0 % Mean Corpuscular Volume 90.9 fL Mean Corpuscular Hemoglobin 31.1 pg Mean Corpuscular Hemoglobin Concent 34.2 g/dl Platelet Count 104 K/uL Mean Platelet Volume 10.0 fL Neutrophils (%) (Auto) 64.8 % Lymphocytes (%) (Auto) 14.8 % Monocytes (%) (Auto) 14.7 % Eosinophils (%) (Auto) 4.6 % Basophils (%) (Auto) 0.6 % Neutrophils # (Auto) 8.04 K/uL Lymphocytes # (Auto) 1.84 K/uL Monocytes # (Auto) 1.83 K/uL Eosinophils # (Auto) 0.57 K/uL Basophils # (Auto) 0.08 K/uL RDW Standard Deviation 58.7 fL RDW Coefficient of Variation 18.1 % Immature Granulocyte % (Auto) 0.5 % Immature Granulocyte # (Auto) 0.06 K/uL Polychromasia 1+ Echinocytes 1+ Sodium Level 132 mmol/L Potassium Level 4.1 mmol/L Chloride Level 97 mmol/L Carbon Dioxide Level 27 mmol/L Anion Gap 8.0 mmol/L Blood Urea Nitrogen 35 mg/dl Creatinine 0.67 mg/dl Est Creatinine Clear Calc Drug Dose 120.2 ml/min Estimated GFR () 118.5 Estimated GFR (Non- 102.3 BUN/Creatinine Ratio 52.6 Random Glucose 101 mg/dl Calcium Level 7.0 mg/dl Phosphorus Level 3.4 mg/dl Magnesium Level 2.0 mg/dl Test 04/20/16 06:19 Bedside Glucose 106 mg/dl Assessment and Plan Acute Hepatic failure, alcoholic cirrhosis, ascites, portal HTN, Esophageal varices grade II on EGD nonbleeding, Hepatic artery stenosis seen on US, Anemia of acute on chronic blood loss from GI bleeding, PUD with large 30mm duodenal bulb ulcer eroded into artery actively bleeding on 04/11, acute blood loss anemia requiring massive transfusions, Thrombocytopenia: Drained 6.8 L ascites on paracentesis on 04/09--> ascitic fluid with - gram stain/ culture= no organisms, no growth Hgb 6.8 on admission -GI consulted, initial recommendations: --Prednisolone therapy at 40 mg daily. Recommend continued supplementation with folic acid and thiamine. --Require an outpatient triphasic liver CT as well as AFP for HCC screening with continued surveillance every 6 months and EGD for variceal screening. --Lactulose 30 g BID (goal of 3 bms per day) and Xifaxan 550 mg PO BID. - Continue Spironolactone 100 mg daily and Lasix 40 mg daily. 2 g sodium restricted diet. However on 04/11/16, he developed acute severe hypotension and melena, hematemesis , was taken for emergent EGD and found to have briskly bleeding very large 3 cm duodenal bulb ulcer--> emergent Surgery for sew over and then transferred to ICU for recovery. Now extubated. Hgb dropped to 5.6 and transfused 8 units pRBCs on 04/11 (had 1 unit 04/10 and 2 units 04/09), 2 units FFP, 1 pack plts. Now recovering in ICU. A-line and Right IJ Cordis removed, LUE PICC placed 04/13 -continue Protonix -tolerating advancing diet -continue to wean TPN - as intake improves, may be able to dc entirely in next 24-48hrs -Greatly appreciate GI, Surgery, and [facility] consultations for management -Cipro 400mg IV q12h for 7 days now complete -serial CBCs (now showing stability overall - Hgb did not rise much w yesterday' s transfusion, but also did give 1L saline later; with no signs of blood loss likely was dilutional effect) -follow INR, LFTs -overall guarded prognosis but at the bedside looking surprisingly good in acute context -holding all diuretics for now - will want to move towards lasix/aldactone -but need more hemodynamic stability before this would be safe orthostasis/postural hypotension -suspect multifactorial between anemia, deconditioning, fluid losses based on ascites volume; however, MING now pulled so ascites related losses (while occuring and accumulating in abdomen)appear to be plateauing. -has improved w blood and isotonic fluids; may need midodrine, but right now will hold off Coagulopathy/severe liver disease: -Continue to trend - INR down to high 1 range - appearing stable in that range -GI recommends transfer to tertiary center if INR continues to worsen/worsening liver failure -ascitic fluid losses definitely part of the hemodynamic issue - but now that ascites likely to accumulate and plateau, hopefully this will help stabilize situation -once better hemodynamics, will have to start (cautiously) lasix and aldactone -xifaxin started 04/18, lactulose started 04/20 - slowly titrate up protein malnutrition -in part from acute illness, in part from poor synthetic function -improving PO intake = weaning TPN Hyponatremia: secondary to liver failure -continue to follow, modifying lyte replacement in TPN accordingly -improved. follow hypocalcemia -vitamin D noted, supplementation: (2000 IU D3 daily, 27663 IU D2 weekly) Urinalysis: -U/A on admission dirty, no culture -Repeat U/A (04/10) - negative for infection DVT prophylaxis: -Chemical means contraindicated due to elevated INR and bleeding -EDVIN and SCDs Code Status: -LEVEL I, FULL Pt indicated to prior hospitalist he would not want prolonged life support if it came to that PT/OT eval and treat improving hopefully off 2E by 04/21 if showing ongoing progress; hopefully to rehab by mid- week
[2016-04-20 11:31] VITALS: BP 107/50; PULSE 91; TEMP 37; O2SAT 93
[2016-04-20 15:41] VITALS: BP 94/51; PULSE 99; TEMP 37.4; O2SAT 95
[2016-04-20] MEDS ORDERED: CUSTOM CENTRAL PN 1 BAG IV SCH (16:00)
[2016-04-20 19:44] VITALS: BP 106/52; PULSE 94; TEMP 37; O2SAT 94
[2016-04-21] VITALS (7 sets, daily range): BP systolic 76–107; BP diastolic 40–59; PULSE 85–99; TEMP 36.8–37.3; O2SAT 92–97
[2016-04-21] MEDS: OXYCODONE HCL IR 5 MG TAB (IMMEDIATE RELEASE) PO PRN ×3 (02:09→19:48)
[2016-04-21] MEDS: HYDROmorphone INJ 0.5 MG/0.5 ML SYR IV PRN (06:26)
[2016-04-21] MEDS: INSULIN ASPART 100 UNITS/ML 3 ML PEN SC SCH ×4 (07:00→21:00)
[2016-04-21] MEDS: BOOST BREEZE NUTRITION DRINK 1 BOX PO SCH ×2 (08:06→18:28)
[2016-04-21] MEDS: RIFAXIMIN TAB 550 MG TAB PO SCH ×2 (08:09→19:49)
[2016-04-21] MEDS: CHOLECALCIFEROL 1000 INTER.UNIT TAB PO SCH (08:09)
[2016-04-21] MEDS: PANTOprazole SOD 40 MG TAB PO SCH ×2 (08:09→19:49)
[2016-04-21] MEDS: THIAMINE HCL INJ 100 MG in SYRINGE 9 ML IV SCH (08:10)
[2016-04-21] MEDS: LACTULOSE SYRUP 30 GM/45 ML UDP PO SCH (08:10)
[2016-04-21] MEDS: FoLIC ACID INJ 1 MG in SYRINGE 9.8 ML IV SCH (08:10)
[2016-04-21 08:30] LABS: HEMATOCRIT 26.3 % (42-52); MEAN CORPUSCULAR HEMOGLOBIN 31.5 pg (25-34); MEAN CORPUSCULAR HGB CONC 34.2 g/dl (32-36); PLATELET COUNT 124 K/uL (130-400); RED BLOOD COUNT 2.86 M/uL (4.7-6.1); WHITE BLOOD COUNT 14.81 K/uL (4.8-10.8)
[2016-04-21 08:59] LABS: BUN/CREATININE RATIO 51.9 (10-20); CALCIUM 7.5 mg/dl (8.5-10.1); CREATININE 0.8 mg/dl (0.60-1.40); POTASSIUM 4.6 mmol/L (3.5-5.1)
--- NOTE | 2016-04-21 10:21 | Surgery Progress Note ---
Surgery Progress Note Date of Service Apr 21, 2016. Subjective Post OP Day: 10 + ambulating (PT), + bowel movement (1 formed daily), + complaints (abdomen more sensitive this AM ), + diet (soft), + feeling well, + pain controlled, No nausea Objective Vital Signs: Date Time Temp Pulse Resp B/P Pulse Ox O2 Delivery O2 Flow Rate FiO2 04/21/16 04:00 Room Air 04/21/16 03:55 36.9 90 17 92/45 96 Room Air 04/21/16 00:00 37.3 87 17 97/57 93 Room Air 04/20/16 23:59 Room Air 04/20/16 20:00 Room Air 04/20/16 19:44 37.0 94 22 106/52 94 Room Air 04/20/16 16:00 Room Air 04/20/16 15:41 37.4 99 18 94/51 95 Room Air 04/20/16 12:00 Room Air 04/20/16 11:31 37.0 91 16 107/50 93 Room Air Abdomen: non distended, soft Incision(s): hematoma, ecchymosis Laboratory Results: Results Past 24 Hours Test 04/20/16 11:06 04/20/16 12:13 04/20/16 15:57 04/20/16 20:06 Range/Units Bedside Glucose 126 119 121 70-99 mg/dl Prealbumin 3.7 20-40 mg/dl Test 04/21/16 07:01 04/21/16 08:18 Range/Units Bedside Glucose 104 70-99 mg/dl White Blood Count 14.81 4.8-10.8 K/uL Red Blood Count 2.86 4.7-6.1 M/uL Hemoglobin 9.0 14.0-18.0 g/dL Hematocrit 26.3 42-52 % Mean Corpuscular Volume 92.0 80-100 fL Mean Corpuscular Hemoglobin 31.5 25-34 pg Mean Corpuscular Hemoglobin Concent 34.2 32-36 g/dl RDW Standard Deviation 61.0 36.4-46.3 fL RDW Coefficient of Variation 18.4 11.5-14.5 % Platelet Count 124 130-400 K/uL Mean Platelet Volume 10.0 7.4-10.4 fL Sodium Level 128 136-145 mmol/L Potassium Level 4.6 3.5-5.1 mmol/L Chloride Level 95 98-107 mmol/L Carbon Dioxide Level 23 21-32 mmol/L Anion Gap 10.0 3-11 mmol/L Blood Urea Nitrogen 42 7-18 mg/dl Creatinine 0.80 0.60-1.40 mg/dl Est Creatinine Clear Calc Drug Dose 109.6 ml/min Estimated GFR () 110.2 Estimated GFR (Non- 95.1 BUN/Creatinine Ratio 51.9 10-20 Random Glucose 130 70-99 mg/dl Calcium Level 7.5 8.5-10.1 mg/dl Assessment & Plan s/p duodenotomy, oversew bleeding ulcer, cirrhosis WBC creeping up (14,000 today), afebrile few cm of wound was opened, old blood drained, no cory pus or ascites but probably explains WBCs may open further tomorrow if hematoma not adequately draining H&H stable regular diet, TPN weaning Protonix continue therapy, planning for rehab ok with us to transfer to floor
[2016-04-21] MEDS: MENTHOL-ZINC OXIDE 360 APPLN/120 GM TUBE EXT SCH ×2 (11:56→19:53)
[2016-04-21] MEDS ORDERED: CUSTOM CENTRAL PN 1 BAG IV SCH (16:00)
--- NOTE | 2016-04-21 19:00 | Progress Note ---
Subjective Date of Service: Apr 21, 2016. Subjective Pt evaluation today including: conversation w/ patient, physical exam, chart review, lab review, review of inpatient medication list Pain: mild abdominal discomfort (near incision) PO Intake: poor per staff Voiding: no voiding problems tele stable overnight (sinus tach only) denies cough or sob or staton just c/o weakness no chest pain no nausea or emesis stools continue to be "dark" in color but no cory bleeding Problem List Medical Problems: (1) Alcoholic cirrhosis Status: Acute (2) Ascites Status: Acute (3) Generalized weakness Status: Acute (4) Liver failure Status: Acute Review of Systems Constitutional: No chills, No fever Respiratory: No cough, No shortness of breath Cardiac: No chest pain, No orthopnea Abdomen: No vomiting Objective Vital Signs Date Time Temp Pulse Resp B/P Pulse Ox O2 Delivery O2 Flow Rate FiO2 04/21/16 16:00 Room Air 04/21/16 16:00 37.0 90 18 107/59 96 04/21/16 12:00 Room Air 04/21/16 11:48 37.1 99 20 91/50 97 Room Air 04/21/16 08:00 Room Air 04/21/16 04:00 Room Air 04/21/16 03:55 36.9 90 17 92/45 96 Room Air 04/21/16 00:00 37.3 87 17 97/57 93 Room Air 04/20/16 23:59 Room Air 04/20/16 20:00 Room Air 04/20/16 19:44 37.0 94 22 106/52 94 Room Air Physical Exam General Appearance: no apparent distress ENT: pharynx normal Neck: no JVD Respiratory/Chest: no respiratory distress, no accessory muscle use, + decreased breath sounds (bases only) Cardiovascular: no gallop, no murmur, + tachycardia Abdomen: normal bowel sounds, no organomegaly, + distended, + tenderness (mild , incisional only), + pertinent finding (large dressing in place over the incision in the midline of abdomen ) Extremities: no pedal edema Neurologic/Psychiatric: alert, oriented x 3 Skin: no rash, + pertinent finding (PICC line, left arm, with ecchymoses about the skin of arm but insertion site is clean ) Laboratory Results Last 24 Hours Test 04/20/16 20:06 04/21/16 07:01 04/21/16 08:18 04/21/16 11:46 Bedside Glucose 121 mg/dl 104 mg/dl 129 mg/dl White Blood Count 14.81 K/uL Red Blood Count 2.86 M/uL Hemoglobin 9.0 g/dL Hematocrit 26.3 % Mean Corpuscular Volume 92.0 fL Mean Corpuscular Hemoglobin 31.5 pg Mean Corpuscular Hemoglobin Concent 34.2 g/dl RDW Standard Deviation 61.0 fL RDW Coefficient of Variation 18.4 % Platelet Count 124 K/uL Mean Platelet Volume 10.0 fL Sodium Level 128 mmol/L Potassium Level 4.6 mmol/L Chloride Level 95 mmol/L Carbon Dioxide Level 23 mmol/L Anion Gap 10.0 mmol/L Blood Urea Nitrogen 42 mg/dl Creatinine 0.80 mg/dl Est Creatinine Clear Calc Drug Dose 109.6 ml/min Estimated GFR () 110.2 Estimated GFR (Non- 95.1 BUN/Creatinine Ratio 51.9 Random Glucose 130 mg/dl Calcium Level 7.5 mg/dl Test 04/21/16 16:10 Bedside Glucose 121 mg/dl Assessment and Plan 65yo male with: 1. previous hemorrhagic shock 2nd to upper GI bleeding from large duodenal ulcer, s/p emergent EGD, followed by laparotomy with duodenotomy and oversewn of the ulcer - POD # 10. Tolerating regular diet although continues with poor intake. Remains on TPN. Remains on PPI. Surgery following - see their note from today regarding incision findings during their visit. 2. acute hepatic failure - improved. Most recent LFTs were stable. 3. cirrhosis 2nd to alcohol - appears relatively compensated today. Resume diuretics when able. 4. portal HTN - resume low-dose beta alfonzo when able. 5. acute blood loss anemia - H/H stable today. Should be on iron therapy as tolerated. 6. esophageal varicies - noted. Needs low-dose beta alfonzo if he can tolerate such. 7. hepatic artery stenosis - noted. 8. hyponatremia - with rising BUN (but stable H/H) I suspect the low Na may be prerenal etiology from poor oral intake. Repeat BMP in am. If it worsens consider small amount of additional fluid. 9. alcoholism - no signs of withdrawal. Cont thiamine, folic acid supplementation. 10. coagulopathy - 2nd to cirrhosis - repeat INR am. 11. thrombocytopenia - 2nd to etoh, cirrhosis, hypersplenism, etc. Stable; CBC in am. 12. hepatic encephalopathy prophylaxis - continue rifaximin and lactulose. 13. FEN - cont on TPN; trying to wean off, but oral intake is poor. Reassess in AM. 14. protein calorie malnutrition - on TPN - see discussion above 15. DVT prophylaxis: -Chemical means contraindicated due to elevated INR -EDVIN and SCDs cont PT, OT needs inpatient rehab following this protracted hospital stay Continued [facility] stay due to: inadequate po fluid intake, ambulation difficulties Discharge planning: rehab hospital
[2016-04-22] VITALS (27 sets, daily range): BP systolic 64–106; BP diastolic 37–65; PULSE 78–99; TEMP 36.7–37.1; O2SAT 92–98
[2016-04-22 02:03] LABS: HEMATOCRIT 22.5 % (42-52)
[2016-04-22] MEDS: SODIUM CHLOR 0.45% + 20MEQ KCL 1,000 ML IV SCH ×3 (02:08→22:01)
[2016-04-22] MEDS ORDERED: ACETAMINOPHEN 500 MG TAB PO STA (02:39)
[2016-04-22] MEDS ORDERED: SODIUM CHLORIDE 0.9% 1000ML 1,000 ML IV SCH ×2 (05:45)
[2016-04-22 06:13] LABS: HEMATOCRIT 22.1 % (42-52); MEAN CELL VOLUME 89.8 fL (80-100); MEAN CORPUSCULAR HEMOGLOBIN 31.3 pg (25-34); MEAN CORPUSCULAR HGB CONC 34.8 g/dl (32-36); MEAN PLATELET VOLUME 9.9 fL (7.4-10.4); PLATELET COUNT 112 K/uL (130-400); RED BLOOD COUNT 2.46 M/uL (4.7-6.1); WHITE BLOOD COUNT 10.22 K/uL (4.8-10.8)
[2016-04-22 06:19] LABS: INR 1.8 (0.9-1.1); PROTHROMBIN TIME (PATIENT) 19.9 SECONDS (9.0-12.0)
[2016-04-22 06:45] LABS: BUN/CREATININE RATIO 47.4 (10-20); CALCIUM 6.9 mg/dl (8.5-10.1); CREATININE 0.8 mg/dl (0.60-1.40); MAGNESIUM 2.2 mg/dl (1.8-2.4); POTASSIUM 4.4 mmol/L (3.5-5.1)
[2016-04-22 06:46] LABS: PHOSPHORUS 3.3 mg/dl (2.5-4.9)
--- NOTE | 2016-04-22 07:04 | Progress Note ---
Progress Note RESIDENT NIGHT COVERAGE NOTE Overnight, pt remained relatively hypotensive, though he otherwise clinically remained stable - denied any new pain (had mild pain that was usual to prior), but did not eat or drink well throughout the day. Checked an H&H overnight which was stable (8.1). In total, received 3L saline bolus and remained in the 70-80 SBP range. On exam, looked well. Slightly pale but comfortable. Chest and cardiac exams unremarkable. Abdomen was soft and nontender, with some superficial bruising. Discussed w/Dr Mg Will check a cortisol and lactate level with AM labs - may benefit from steroids. Will defer further blood transfusion / ?scan of abdomen (pt was asking about this) to daytime team
[2016-04-22] MEDS ORDERED: CALCIUM GLUCONATE 10% 1,000 MG in SODIUM CHLORIDE 0.9% 50ML 50 ML IV ONE (08:00)
[2016-04-22] MEDS: MENTHOL-ZINC OXIDE 360 APPLN/120 GM TUBE EXT SCH (08:29)
[2016-04-22] MEDS: INSULIN ASPART 100 UNITS/ML 3 ML PEN SC SCH ×4 (08:29→22:00)
[2016-04-22] MEDS: BOOST BREEZE NUTRITION DRINK 1 BOX PO SCH ×2 (08:30→17:29)
[2016-04-22] MEDS: PANTOprazole SOD 40 MG TAB PO SCH (08:31)
[2016-04-22] MEDS: CHOLECALCIFEROL 1000 INTER.UNIT TAB PO SCH (08:31)
[2016-04-22] MEDS: RIFAXIMIN TAB 550 MG TAB PO SCH ×2 (08:31→22:01)
[2016-04-22] MEDS: LACTULOSE SYRUP 30 GM/45 ML UDP PO SCH (08:31)
[2016-04-22] MEDS ORDERED: OCTREOTIDE IV BOLUS & DRIP IV STA (08:55)
[2016-04-22] MEDS ORDERED: THIAMINE HCL 100 MG TAB PO SCH (09:00)
[2016-04-22] MEDS ORDERED: SODIUM CHLORIDE 0.9% 500ML 500 ML IV SCH (09:15)
[2016-04-22] MEDS ORDERED: PANTOprazole INJ 80 MG in DEXTROSE 5% 100ML IV SCH (09:15)
[2016-04-22] MEDS ORDERED: OCTREOTIDE ACETATE INJ 100 MCG in SYRINGE 9 ML IV SCH (09:30)
[2016-04-22] MEDS: OCTREOTIDE ACETATE INJ 500 MCG in NSS 100ML IV SCH ×2 (09:36→19:50)
[2016-04-22] MEDS: PANTOprazole INJ 40 MG in DEXTROSE 5% 100ML IV SCH ×3 (09:37→19:49)
--- NOTE | 2016-04-22 09:51 | Surgery Progress Note ---
Surgery Progress Note Date of Service Apr 22, 2016. Subjective Post OP Day: 11 hypotensive last night, given saline bolus, 2 units PRBCs ordered this AM, no BM today, no nausea, had breakfast Objective Vital Signs: Date Time Temp Pulse Resp B/P Pulse Ox O2 Delivery O2 Flow Rate FiO2 04/22/16 07:33 36.7 79 20 72/45 95 Room Air 04/22/16 05:42 79 70/40 04/22/16 04:15 37.0 78 18 74/42 94 Room Air 04/22/16 04:00 Room Air 04/22/16 02:35 84 18 85/50 04/22/16 01:15 83/40 04/21/16 23:59 Room Air 04/21/16 23:40 80/40 04/21/16 23:29 36.8 85 14 76/47 92 Room Air 80/44 04/21/16 20:00 36.9 90 18 94/48 94 Room Air 04/21/16 20:00 Room Air 04/21/16 16:00 Room Air 04/21/16 16:00 37.0 90 18 107/59 96 04/21/16 12:00 Room Air 04/21/16 11:48 37.1 99 20 91/50 97 Room Air Abdomen: non distended, soft Incision(s): hematoma (draining, old blood), ecchymosis Laboratory Results: Results Past 24 Hours Test 04/21/16 11:46 04/21/16 16:10 04/21/16 20:25 04/22/16 01:49 Range/Units Bedside Glucose 129 121 118 70-99 mg/dl Hemoglobin 8.1 14.0-18.0 g/dL Hematocrit 22.5 42-52 % Test 04/22/16 05:50 04/22/16 06:42 04/22/16 07:00 04/22/16 07:25 Range/Units White Blood Count 10.22 4.8-10.8 K/uL Red Blood Count 2.46 4.7-6.1 M/uL Hemoglobin 7.7 14.0-18.0 g/dL Hematocrit 22.1 42-52 % Mean Corpuscular Volume 89.8 80-100 fL Mean Corpuscular Hemoglobin 31.3 25-34 pg Mean Corpuscular Hemoglobin Concent 34.8 32-36 g/dl RDW Standard Deviation 60.3 36.4-46.3 fL RDW Coefficient of Variation 18.4 11.5-14.5 % Platelet Count 112 130-400 K/uL Mean Platelet Volume 9.9 7.4-10.4 fL Prothrombin Time 19.9 9.0-12.0 SECONDS Prothromb Time International Ratio 1.8 0.9-1.1 Sodium Level 129 136-145 mmol/L Potassium Level 4.4 3.5-5.1 mmol/L Chloride Level 98 98-107 mmol/L Carbon Dioxide Level 22 21-32 mmol/L Anion Gap 9.0 3-11 mmol/L Blood Urea Nitrogen 38 7-18 mg/dl Creatinine 0.80 0.60-1.40 mg/dl Est Creatinine Clear Calc Drug Dose 111.1 ml/min Estimated GFR () 110.2 Estimated GFR (Non- 95.1 BUN/Creatinine Ratio 47.4 10-20 Random Glucose 111 70-99 mg/dl Calcium Level 6.9 8.5-10.1 mg/dl Phosphorus Level 3.3 2.5-4.9 mg/dl Magnesium Level 2.2 1.8-2.4 mg/dl Bedside Glucose 121 70-99 mg/dl Lactic Acid Level 0.7 0.4-2.0 mmol/L Random Cortisol 8.20 mcg/dl Assessment & Plan s/p duodenotomy, oversew bleeding ulcer, cirrhosis hypotensive, asymptomatic H&H drifting, transfuse 2 units today, GI reconsulted WBC down to 10,000 wound packed with corner of 4x4, continue daily/prn dressing changes advanced to regular diet, TPN weaning, NPO for now until seen by GI
--- NOTE | 2016-04-22 10:00 | Gastroenterology Progress Note ---
Progress Note Date of Service: Apr 22, 2016 Subjective Pt evaluation today including: conversation w/ patient, physical exam, lab review, review of inpatient medication list Patient reports passing some dark stools. Abdomen distended. No reports of abdominal pain, nausea, vomiting or hematemesis. Overnight, he did have a drop in H&H from 9.0 to 7.7. Surgery is following. Patient was ordered NPO status but was given breakfast this morning. Protonix and Octreotide drips have been ordered and are in process of being initiated. Review of Systems Constitutional: + fatigue Respiratory: No problem reported Cardiac: No problem reported Abdomen: + see HPI Neuro: No problem reported Psych: No problem reported Skin: + jaundice Medications Current Inpatient Medications Medications (Trade) Dose Ordered Sig/Alexandra Route Start Time Stop Time Status Last Admin Dose Admin Miscellaneous Information 1 ea 1 ea UD PRN N/A 04/13/16 13:00 05/13/16 12:59 Dextrose (D10w) 1,000 ml @ 0 mls/hr Q0M PRN IV 04/13/16 16:00 05/13/16 15:59 Future Hold Hydromorphone HCl (Dilaudid Inj) 0.5 mg Q4 PRN IV 04/13/16 13:00 04/27/16 12:59 04/21/16 06:26 0.5 MG Heparin Sodium (Porcine) (Heparin 10 Unit/ ml 5 ml Flush) 5 ml PRN PRN FLUSH 04/13/16 13:15 05/13/16 13:14 04/16/16 01:20 5 ML Glucose (Glucose 40% Gel) 15-30 GRAMS 15 GRAMS... UD PRN PO 04/14/16 11:30 05/14/16 11:29 Glucose (Glucose Chew Tab) 4-8 Tablets 4 Tabl... UD PRN PO 04/14/16 11:30 05/14/16 11:29 Dextrose (Dextrose 50% 50ML Syringe) 25-50ML OF 50% DW IV FOR... UD PRN IV 04/14/16 11:30 05/14/16 11:29 Glucagon (Glucagon Inj) 1 mg UD PRN SQ 04/14/16 11:30 05/14/16 11:29 Enteral Nutritional Formula (Boost Breeze Nutritional Drink) 1 box BIDPC PO 04/16/16 18:00 05/16/16 17:59 04/21/16 18:28 1 BOX Menthol/Zinc Oxide (Calmoseptine Oint) 1 appln BID EXT 04/17/16 21:00 05/17/16 20:59 04/22/16 08:29 1 APPLN Menthol/Zinc Oxide (Calmoseptine Oint) 1 appln UD PRN EXT 04/17/16 10:30 05/17/16 10:29 Insulin Aspart (novoLOG ASPART) SLIDING SCALE ACHS SC 04/17/16 21:00 05/17/16 20:59 Rifaximin (Xifaxan Tab) 550 mg BID PO 04/18/16 21:00 05/18/16 20:59 04/22/16 08:31 550 MG Ergocalciferol (Vitamin D Cap) 50,000 interunit Gonzalez@0900 PO 04/20/16 09:00 05/20/16 08:59 04/20/16 07:58 50,000 INTERUNIT Cholecalciferol (Vitamin D Tab) 2,000 inter.unit QAM PO 04/19/16 09:00 05/19/16 08:59 04/22/16 08:31 2,000 INTER.UNIT Pantoprazole Sodium (Protonix Tab) 40 mg BID PO 04/19/16 21:00 05/19/16 20:59 Future Hold 04/22/16 08:31 40 MG Lactulose (Chronulac Syrup) 30 gm DAILY PO 04/20/16 09:00 05/20/16 08:59 04/22/16 08:31 30 GM Oxycodone HCl 5 mg 5 mg Q4 PRN PO 04/19/16 16:15 05/03/16 16:14 04/21/16 19:48 5 MG Nutrition (Parenteral) (Custom Central Pn) 0 ml @ 0 mls/hr TODAY@1600 IV 04/21/16 16:00 04/22/16 15:59 04/21/16 16:20 0 MLS/HR Thiamine HCl (Vitamin B-1 Tab) 200 mg QAM PO 04/22/16 09:00 05/22/16 08:59 04/22/16 08:31 200 MG Folic Acid 1 mg 1 mg QAM PO 04/22/16 09:00 05/22/16 08:59 04/22/16 08:31 1 MG Potassium Chloride/Sodium Chloride 1,000 ml @ 125 mls/hr Q8H IV 04/22/16 02:00 05/22/16 01:59 04/22/16 02:08 125 MLS/HR Nutrition (Parenteral) 0 ml @ 0 mls/hr TODAY@1600 IV 04/22/16 16:00 04/23/16 15:59 Octreotide Acetate 100 mcg/ Syringe 10 ml @ 3 mls/min TODAY@0930 IV 04/22/16 09:30 04/22/16 11:00 04/22/16 09:36 3 MLS/MIN Octreotide Acetate 500 mcg/ Sodium Chloride 105 ml @ 10 mls/hr [id number] IV 04/22/16 09:30 05/22/16 09:29 04/22/16 09:36 10 MLS/HR Pantoprazole Sodium 80 mg/ Dextrose 120 ml @ 480 mls/hr 0915 IV 04/22/16 09:15 04/22/16 11:00 04/22/16 09:36 480 MLS/HR Pantoprazole Sodium/Dextrose (Protonix Inj/D5 100ml) 100 ml @ 20 mls/hr Q5H IV 04/22/16 09:30 05/22/16 09:29 04/22/16 09:37 20 MLS/HR Objective Vital Signs Date Time Temp Pulse Resp B/P Pulse Ox O2 Delivery O2 Flow Rate FiO2 04/22/16 07:33 36.7 79 20 72/45 95 Room Air 04/22/16 05:42 79 70/40 04/22/16 04:15 37.0 78 18 74/42 94 Room Air 04/22/16 04:00 Room Air 04/22/16 02:35 84 18 85/50 04/22/16 01:15 83/40 04/21/16 23:59 Room Air 04/21/16 23:40 80/40 04/21/16 23:29 36.8 85 14 76/47 92 Room Air 80/44 04/21/16 20:00 36.9 90 18 94/48 94 Room Air 04/21/16 20:00 Room Air 04/21/16 16:00 Room Air 04/21/16 16:00 37.0 90 18 107/59 96 04/21/16 12:00 Room Air 04/21/16 11:48 37.1 99 20 91/50 97 Room Air Physical Exam General Appearance: no apparent distress Eyes: EOMI ENT: hearing grossly normal Neck: supple Respiratory/Chest: lungs clear, normal breath sounds, no respiratory distress Cardiovascular: regular rate, rhythm, no gallop, no murmur Abdomen: non tender, + distended Neurologic/Psych: alert, normal mood/affect, oriented x 3 Skin: + jaundice Laboratory Results Last 24 Hours Test 04/21/16 11:46 04/21/16 16:10 04/21/16 20:25 04/22/16 01:49 Bedside Glucose 129 mg/dl 121 mg/dl 118 mg/dl Hemoglobin 8.1 g/dL Hematocrit 22.5 % Test 04/22/16 05:50 04/22/16 06:42 04/22/16 07:00 04/22/16 07:25 White Blood Count 10.22 K/uL Red Blood Count 2.46 M/uL Hemoglobin 7.7 g/dL Hematocrit 22.1 % Mean Corpuscular Volume 89.8 fL Mean Corpuscular Hemoglobin 31.3 pg Mean Corpuscular Hemoglobin Concent 34.8 g/dl RDW Standard Deviation 60.3 fL RDW Coefficient of Variation 18.4 % Platelet Count 112 K/uL Mean Platelet Volume 9.9 fL Prothrombin Time 19.9 SECONDS Prothromb Time International Ratio 1.8 Sodium Level 129 mmol/L Potassium Level 4.4 mmol/L Chloride Level 98 mmol/L Carbon Dioxide Level 22 mmol/L Anion Gap 9.0 mmol/L Blood Urea Nitrogen 38 mg/dl Creatinine 0.80 mg/dl Est Creatinine Clear Calc Drug Dose 111.1 ml/min Estimated GFR () 110.2 Estimated GFR (Non- 95.1 BUN/Creatinine Ratio 47.4 Random Glucose 111 mg/dl Calcium Level 6.9 mg/dl Phosphorus Level 3.3 mg/dl Magnesium Level 2.2 mg/dl Bedside Glucose 121 mg/dl Lactic Acid Level 0.7 mmol/L Random Cortisol 8.20 mcg/dl Assessment and Plan Patient is a 65 yo male with alcoholic cirrhosis s/p ex lap with oversew of duodenal ulcer. H/H 7.7/22.1. 1. Alcoholic cirrhosis: Reinforced the importance of complete alcohol abstinence. Recommend continued supplementation with folic acid and thiamine. 2. Hepatic lesion: Will require an outpatient triphasic liver CT as well as AFP for HCC screening with continued surveillance every 6 months. 3. History of constipation and HE by symptomatology: Continue Lactulose 30 g BID (goal of 3 bms per day) and Xifaxan 550 mg PO BID. Would want to avoid progressing encephalopathy in this patient. 4. Portal hypertension and abdominal ascites: diuretics on hold at present. 6. H&H drop: Keep NPO for now. Recommend discussion with general surgery. As patient did consume a solid meal breakfast, unable to perform EGD today. Re- evaluation of need for endoscopic evaluation can be determined pending surgery eval. Agree with PPI and Octreotide ggt as ordered. Agree with HARLAN Ceballos as above Abd: Soft, NT, Distended, Abdominal dressing in place Discussed case with Dr. Herbert and Aram Chin, PAC of Surgery today. Surgery and myself are in agreement that the best plan for this patient at present is to transfer to a facility with Interventional Radiology capabilities. Dr. Herbert has attempted at present to transfer patient to [facility], [facility] and [facility], however, [facility] does not accept [facility] insurance, and the other facilities are on overflow. I suggested [facility] and [facility] as other options, and Dr. Herbert will contact them in attempt to transfer the patient. Currently he is hemodynamically stable and denies any abdominal pain. He did state that he had a bloody BM this AM, but not anything since that time.
--- NOTE | 2016-04-22 10:02 | Progress Note ---
Subjective Date of Service: Apr 22, 2016. Subjective Pt evaluation today including: conversation w/ patient, physical exam, chart review, lab review, review of studies, conversation w/ senior internet sales consultant (GI and gen surg by phone), review of inpatient medication list Pain: mild incisional pain only; ate breakfast, did not have pain w/ eating PO Intake: poor Voiding: no voiding problems tele stable overnight he had a small bowel movement yesterday afternoon and it was dark in appearance denies nausea or emesis denies sob had low BP much of the night received several NS boluses with minimal improvement no bright red blood per rectum Problem List Medical Problems: (1) Alcoholic cirrhosis Status: Acute (2) Ascites Status: Acute (3) Generalized weakness Status: Acute (4) Liver failure Status: Acute Review of Systems Constitutional: No chills, No fever Respiratory: No cough, No shortness of breath Cardiac: No chest pain Abdomen: + pain, + see HPI Objective Vital Signs Date Time Temp Pulse Resp B/P Pulse Ox O2 Delivery O2 Flow Rate FiO2 04/22/16 07:33 36.7 79 20 72/45 95 Room Air 04/22/16 05:42 79 70/40 04/22/16 04:15 37.0 78 18 74/42 94 Room Air 04/22/16 04:00 Room Air 04/22/16 02:35 84 18 85/50 04/22/16 01:15 83/40 04/21/16 23:59 Room Air 04/21/16 23:40 80/40 04/21/16 23:29 36.8 85 14 76/47 92 Room Air 80/44 04/21/16 20:00 36.9 90 18 94/48 94 Room Air 04/21/16 20:00 Room Air 04/21/16 16:00 Room Air 04/21/16 16:00 37.0 90 18 107/59 96 04/21/16 12:00 Room Air 04/21/16 11:48 37.1 99 20 91/50 97 Room Air Physical Exam General Appearance: no apparent distress ENT: pharynx normal (MM more moist today) Neck: no JVD Respiratory/Chest: lungs clear, no respiratory distress, no accessory muscle use Cardiovascular: regular rate, rhythm, no gallop, no murmur Abdomen: normal bowel sounds, + distended, + tenderness (incision), + pertinent finding (large dressing in place, tympanic to percussion) Extremities: no pedal edema Neurologic/Psychiatric: alert, oriented x 3 Comments: superior edge of incision is exposed; deanne intact in that region; ecchymoses present on abdominal wall Laboratory Results Last 24 Hours Test 04/21/16 11:46 04/21/16 16:10 04/21/16 20:25 04/22/16 01:49 Bedside Glucose 129 mg/dl 121 mg/dl 118 mg/dl Hemoglobin 8.1 g/dL Hematocrit 22.5 % Test 04/22/16 05:50 04/22/16 06:42 04/22/16 07:00 04/22/16 07:25 White Blood Count 10.22 K/uL Red Blood Count 2.46 M/uL Hemoglobin 7.7 g/dL Hematocrit 22.1 % Mean Corpuscular Volume 89.8 fL Mean Corpuscular Hemoglobin 31.3 pg Mean Corpuscular Hemoglobin Concent 34.8 g/dl RDW Standard Deviation 60.3 fL RDW Coefficient of Variation 18.4 % Platelet Count 112 K/uL Mean Platelet Volume 9.9 fL Prothrombin Time 19.9 SECONDS Prothromb Time International Ratio 1.8 Sodium Level 129 mmol/L Potassium Level 4.4 mmol/L Chloride Level 98 mmol/L Carbon Dioxide Level 22 mmol/L Anion Gap 9.0 mmol/L Blood Urea Nitrogen 38 mg/dl Creatinine 0.80 mg/dl Est Creatinine Clear Calc Drug Dose 111.1 ml/min Estimated GFR () 110.2 Estimated GFR (Non- 95.1 BUN/Creatinine Ratio 47.4 Random Glucose 111 mg/dl Calcium Level 6.9 mg/dl Phosphorus Level 3.3 mg/dl Magnesium Level 2.2 mg/dl Bedside Glucose 121 mg/dl Lactic Acid Level 0.7 mmol/L Random Cortisol 8.20 mcg/dl Assessment and Plan 65yo male with: 1. h/o hemorrhagic shock 2nd to bleeding duodenal ulcer, s/p EGD followed by duodenotomy, POD #11. he now has recurrent shock only partially responsive to fluids overnight H/H have dropped over last 24 hours Tx 2 units PRBCs STAT NPO place back on protonix drip start octreotide drip due to known varices diff - duodenal ulcer could be rebleeding vs variceal bleeding vs new ulcer vs gastritis vs other while awaiting PRBCs given additional fluid bolus 2. acute hepatic failure - improved. Most recent LFTs were stable. 3. cirrhosis 2nd to alcohol - no change in exam today. holding diuretics due to #1. 4. portal HTN - resume low-dose beta alfonzo in the future when able. 5. acute blood loss anemia - worse - see #1 above. 6. esophageal varices - noted - see #1 above. 7. hepatic artery stenosis - noted. 8. hyponatremia - could be prerenal from upper GI bleeding. relatively stable. could also be due to cirrhosis. 9. alcoholism - no signs of withdrawal. Cont thiamine, folic acid supplementation. 10. coagulopathy - 2nd to cirrhosis - repeat INR 1.8. If found to be actively bleeding will recommend FFP. 11. thrombocytopenia - 2nd to etoh, cirrhosis, hypersplenism, etc. Stable again. No need for platelets. 12. hepatic encephalopathy prophylaxis - continue rifaximin and lactulose. 13. FEN - cont on TPN; NPO due to #1. Lytes stable. 14. protein calorie malnutrition - on TPN. 15. DVT prophylaxis: -Chemical means contraindicated due to elevated INR -EDVIN and SCDs 16. hypocalcemia - even after correcting for hypoalbuminemia it is still low at 8. Calcium gluconate 1amp IV x 1. spoke directly with Dr. Miller from GI who will see also spoke directly with José Chin from general surgery re: events of the night/this AM remains guarded Continued [facility] stay due to: inadequate po fluid intake, ambulation difficulties , other (concern of bleeding; acute blood loss anemia ) Discharge planning: rehab hospital
[2016-04-22] MEDS: HYDROmorphone INJ 0.5 MG/0.5 ML SYR IV PRN (15:56)
[2016-04-22] MEDS ORDERED: CUSTOM CENTRAL PN 1 BAG IV SCH (16:00)
[2016-04-22 17:49] LABS: HEMATOCRIT 26.1 % (42-52)
--- NOTE | 2016-04-22 19:43 | Discharge Instructions ---
Discharge Instructions Admission Reason for Admission: Hepatic Failure, Weakness Discharge Discharge Diagnosis / Problem: Upper GI bleeding, hemorrhagic shock Discharge Goals Goal(s): Decrease discomfort, Improve function, Improve disease control, Improve nutritional status, Learn about illness, Diagnostic testing, Therapeutic intervention Activity Recommendations Activity Limitations: as noted below to be determined following admission at [facility] in [place] . Current Hospital Diet Patient's current hospital diet: Regular Diet Discharge Diet Recommended Diet: N/A (NPO) Procedures Procedures Performed: Exploratory Laparotomy, Duodenotomy, oversew of duodenal ulcer Pending Studies Studies pending at discharge: no Laboratory Results Lipid Panel Test 04/22/16 07:20 Range/Units Triglycerides Level 48 0-150 mg/dl Medical Emergencies . Who to Call and When: Medical Emergencies: If at any time you feel your situation is an emergency, please call 911 immediately. . Non-Emergent Contact Non-Emergency issues call your: Billing Coordinator, Surgeon Call Non-Emergent contact if: temperature is above 100.5, your pain is not controlled, your pain is worsening, your pain is unusual for you, your pain is concerning you, wound has increased drainage, wound has increased redness, wound has increased pain, you have any medication questions . . "Provider Documentation" section prepared by Moncho Herbert. VTE Core Measure Inpt VTE Proph given/why not?: SCD's
--- NOTE | 2016-04-22 19:59 | Progress Note ---
Progress Note 04/22/161944 Multiple visits to patient's room today as well as numerous calls to the GI team (Dr. Miller) and general surgery. The patient had persistent shock much of the AM today requiring several fluid boluses, 2 units PRBCs, and 2 units of FFP. He had a large melena stool this AM as well. Octreotide drip and protonix drip started for presumed upper GI bleeding. Patient made NPO due to ongoing clinical picture and ongoing bleeding. Dr. Cornelius from surgery and Dr. Miller from GI discussed the case in great detail. They both feel that patient should be transferred to a tertiary care hospital as he may need interventional radiology to intervene on his GI bleeding. He is a poor candidate for any other surgery, and a poor candidate for repeat EGD and intervention. Multiple calls placed to several tertiary care hospitals without success in securing a transfer due to lack of bed availability and/or they did not accept his health insurance. Finally, call was placed to [facility] in [place] and I spoke with a Dr. Hendrix. Dr. Hendrix tentatively accepted the patient in transfer, and I ultimately heard that the patient could be transferred to [facility] ICU. The accepting critical care attending is a Dr. Glenn Cote. The patient was made aware of his acceptance at [facility] and his need to transfer TONIGHT. I recommended that he fly by helicopter to [place] given his tenuous status and borderline blood pressure throughout the day. He immediately declined to fly, stating he could not afford to go by air. I again recommended that he fly by helicopter and again he stated NO. I counseled him on his guarded medical status and the fact he could worsen en route between [facility] and [place]. He consistently stated he would not fly. Thus, preparations will be made for him to transfer by ACLS ground. At 1944 his systolic BP was about 100, HR was in the 80s/low 90s, and O2 sats remained stable in room air. Most recent hemoglobin was 9.2, up from 7.7. His UOP has been poor throughout the day but he has refused andrea catheter insertion. 2nd unit of FFP is infusing at this time, and octreotide/TPN/protonix drips continue. exam at time of d/c - gen - NAD, a/o x 3 skin - mild jaundice on face, seborrhea on face/neck mouth - MM slightly dry neck - no JVD heart - tachy, s1, s2, 1/6 MANSOOR LLSB lungs - CTA b/l abd - distended, BS+, large incision midline with dressing intact, mild incisional tenderness ext - no edema, warm, pulses 2+ b/l total critical care time today, including ordering multiple blood products and fluids, starting drips, managing shock, speaking with all consultants, speaking with multiple hospitals, and arranging transfer - 150 minutes Moncho Herbert MD
--- NOTE | 2016-04-22 20:56 | Discharge Summary ---
Discharge Summary Admission Date: Apr 09, 2016 at 01:03 Discharge Date: Apr 22, 2016 Discharge Disposition: Acute care facility ([place], [place]) Principal Diagnosis: hemorrhagic shock 2nd to presumed upper GI bleeding Problems/Secondary Diagnoses: 1. alcoholic cirrhosis 2. duodenal ulcer with massive upper GI bleeding, s/p exploratory laparotomy, duodenotomy with oversewn of the bleeding duodenal ulcer, and closure with Chuck patch 3. gastritis 4. grade 2 esophageal varices 5. ascites s/p paracentesis 6. hyponatremia 7. thrombocytopenia 8. hypocalcemia 9. protein calorie malnutrition 10. seborrhea 11. acute blood loss anemia 2nd to hemorrhagic shock / GI bleeding 12. acute hypoxic respiratory failure 2nd to #2 above 13. hypophosphatemia 14. alcoholism 15. hepatic artery stenosis 16. coagulopathy 2nd to cirrhosis Procedures: 1. Exploratory laparotomy, duodenotomy with oversewn of the bleeding duodenal ulcer, and closure with Chuck patch - Basil Cornelius DO 2. EGD - Findings: Grade II varices were found in the lower third of the esophagus. Diffuse mild inflammation characterized by congestion (edema) and erythema was found in the entire examined stomach. One non-obstructing spurting cratered duodenal ulcer with spurting hemorrhage (Iraj Class Ia) was found in the duodenal bulb. The lesion was 30 mm in largest dimension. Perforation of the bowel wall cannot be ruled out. To stop active bleeding, eight hemostatic clips were successfully placed (MR conditional). Bleeding continued, and Dr. Cornelius of Surgery evaluated the patient in the OR. Endoscope was withdrawn and the patient was prepped for surgical intervention. Area was unsuccessfully injected with 13 mL of a 1:10,000 solution of epinephrine for hemostasis. Chun Case, DO 3. PRBCs x 16 units 4. FFP x 7 units 5. platelets x 1 unit 6. central line placement 7. LUE PICC line placement 8. paracentesis 9. upper GI series - IMPRESSION: No contrast extravasation to suggest leak. 10. CT abd/pelvis - IMPRESSION: 1. Cirrhosis with large volume of abdominal and pelvic ascites. 2. Suboptimal evaluation of the liver and remainder of the abdomen and pelvis given the lack of IV contrast. 3. No bowel obstruction. 4. Moderate nonspecific gallbladder distention. 5. Trace bilateral pleural effusions. 6. Nonspecific subcutaneous gas of the right buttock. 11. duplex u/s of hepatic & portal veins - IMPRESSION: 1. Hepatic cirrhosis. Distended gallbladder with gallbladder wall thickening which may be secondary to underlying liver disease 2. Suspected hepatic artery stenosis. 3. The portal veins were patent with normal directional flow 4. Hepatic veins were patent. There was biphasic flow within the right hepatic vein and IVC 12. CT head - normal Consultations: 1. gastroenterology - Chun Miller, DO 2. general surgery - Basil Cornelius, DO 3. critical care - Germain Haider, DO 4. PT, OT 5. pharmacy for TPN Discharge Exam Physical Exam: General Appearance: no apparent distress, + obese ENT: pharynx normal (mucous membranes slightly dry) Neck: no JVD Respiratory/Chest: lungs clear, no respiratory distress, no accessory muscle use Cardiovascular: no gallop, normal peripheral pulses, + tachycardia, + systolic murmur (1/6 LLSB) Abdomen / GI: + tenderness (especially along incision), + distended, + pertinent finding (large dressing over midline incision; deanne intact; large amount of ecchymoses over the abdominal wall) Extremities: no pedal edema Neurologic/Psychiatric: alert, oriented x 3, + pertinent finding (no asterixis or tremor) Skin: + rash (seborrhea on face/neck ) Hospital Course HISTORY OF PRESENT ILLNESS: 65yo male with history of alcoholism of long-standing duration who presented with progressive weakness and difficulty ambulating. He stated that he could walk only about 25 feet unassisted before tiring out and having to stop. He had noted an increase in abdominal girth and a yellow tinting of his sclera. The patient stated that he was a recovering alcoholic and had not had a drink since late February 2016. He denied severe withdrawal symptoms, any history of DTs, or previous withdrawal seizures but did describe tremors, twitching and anxiety during past episodes of abstaining from alcohol. The patient stated that he admitted himself to a detox facility in October 2015 and then relapsed after being discharged. He then quit on his own accord this February. He denied any previous diagnosis of cirrhosis however his admission exam, labs and imaging suggested advanced cirrhosis. HOSPITAL COURSE: 1. alcoholic cirrhosis - following admission the patient underwent a work-up for his cirrhosis including CT abd/pelvis, doppler of the hepatic/portal veins, and ultimately a paracentesis with removal of about 6 liters of ascites. Fluid studies did not suggest SBP. SAAG was >2 consistent with portal HTN. Viral hepatitis studies were all negative. He was seen in consultation by GI for additional recommendations for management of his newly diagnosed cirrhosis. He was briefly started on lasix/aldactone. These were later stopped in the midst of his hemorrhagic shock. 2. hemorrhagic shock 2nd to bleeding duodenal ulcer - On 04/11/16 the patient had acute hypotension with hematemesis. He was taken to the endoscopy suite emergently by Dr. Chun Miller who identified a very large bleeding duodenal ulcer. Despite attempts at stopping the bleeding endoscopically this was unsuccessful. Therefore, he was taken to the OR immediately by Dr. Basil Cornelius who performed exploratory laparotomy, duodenotomy, and oversew of the ulcer with patch. He was admitted to the ICU from the OR on the ventilator, and was successfully extubated on 04/12/16. In the midst of his GI bleeding he received copious amounts of fluids, PRBCs, FFP, and platelets. Following his ICU stay he was moved to the telemetry unit where he remained until time of transfer to [facility]. He was started on TPN for nutrition, drains and tubes were removed, and ultimately restarted on a diet. This was advanced without apparent difficulty and he remained relatively stable from a GI and general surgery standpoint. Unfortunately, early in the AM on 04/22/16, the patient developed recurrent hypotension requiring multiple fluid boluses. Despite such his BP continued to be low. Repeat CBC on the AM of 04/22/16 showed downward trend of his H/H, and the patient also concurrently reported melena stools. He was given 2 additional units of PRBCs on 04/22/16 along with 2 units of FFP for his ongoing coagulopathy. Protonix drip was restarted, he was made NPO, and in the event his bleeding was variceal in nature he was begun on octreotide drip. Hemoglobin late in the evening on 04/22/16 was 9.2. Multiple discussions were held with general surgery and GI. Both felt that the patient should be transferred to a tertiary care center where specialized services such as interventional radiology could be available for his GI bleeding. Prior to transfer the patient's blood pressure had improved with the above measures including the numerous blood products/fluids. At time of transfer the exact location of the GI blood loss is uncertain but possibilities include the aforementioned operative site, variceal bleeding, etc. Other possibility is that of bleeding into the abdominal cavity (e.g bloody ascitic fluid) but this is felt to be less likely. 3. alcoholism - during his stay he displayed no signs of withdrawal nor hepatic encephalopathy. He received thiamine, folic acid, and MVI supplementation. 4. coagulopathy 2nd to cirrhosis - INR on AM of 04/22/16 was 1.8. His INR remained at this level for most of his stay. He received 2 units of FFP on 04/22 due to his active GI bleeding. 5. hepatic encephalopathy prophylaxis - he received rifaximin and lactulose throughout much of his stay. Again he did not experience any encephalopathy while here. 6. FEN - he received TPN much of his stay due to prolonged periods of NPO status as well as protein calorie malnutrition. Prior to transfer to [facility] it was strongly recommended that he be flown by helicopter due to the critical nature of his illness. The patient refused several times to go by air. This conversation was witnessed by nursing staff. He was counseled on the dangers of going by ground transportation including recurrent bleeding, shock, and even . Despite such he refused transfer by air/helicopter. Current Inpatient Medications Medications (Trade) Dose Ordered Sig/Alexandra Route Start Time Stop Time Status Last Admin Dose Admin Miscellaneous Information 1 ea 1 ea UD PRN N/A 04/13/16 13:00 05/13/16 12:59 Dextrose (D10w) 1,000 ml @ 0 mls/hr Q0M PRN IV 04/13/16 16:00 05/13/16 15:59 Future Hold Hydromorphone HCl (Dilaudid Inj) 0.5 mg Q4 PRN IV 04/13/16 13:00 04/27/16 12:59 04/22/16 15:56 0.5 MG Heparin Sodium (Porcine) (Heparin 10 Unit/ ml 5 ml Flush) 5 ml PRN PRN FLUSH 04/13/16 13:15 05/13/16 13:14 04/16/16 01:20 5 ML Glucose (Glucose 40% Gel) 15-30 GRAMS 15 GRAMS... UD PRN PO 04/14/16 11:30 05/14/16 11:29 Glucose (Glucose Chew Tab) 4-8 Tablets 4 Tabl... UD PRN PO 04/14/16 11:30 05/14/16 11:29 Dextrose (Dextrose 50% 50ML Syringe) 25-50ML OF 50% DW IV FOR... UD PRN IV 04/14/16 11:30 05/14/16 11:29 Glucagon (Glucagon Inj) 1 mg UD PRN SQ 04/14/16 11:30 05/14/16 11:29 Enteral Nutritional Formula (Boost Breeze Nutritional Drink) 1 box BIDPC PO 04/16/16 18:00 05/16/16 17:59 04/21/16 18:28 1 BOX Menthol/Zinc Oxide (Calmoseptine Oint) 1 appln BID EXT 04/17/16 21:00 05/17/16 20:59 04/22/16 08:29 1 APPLN Menthol/Zinc Oxide (Calmoseptine Oint) 1 appln UD PRN EXT 04/17/16 10:30 05/17/16 10:29 Insulin Aspart (novoLOG ASPART) SLIDING SCALE ACHS SC 04/17/16 21:00 05/17/16 20:59 Rifaximin (Xifaxan Tab) 550 mg BID PO 04/18/16 21:00 05/18/16 20:59 04/22/16 08:31 550 MG Ergocalciferol (Vitamin D Cap) 50,000 interunit Gonzalez@0900 PO 04/20/16 09:00 05/20/16 08:59 04/20/16 07:58 50,000 INTERUNIT Cholecalciferol (Vitamin D Tab) 2,000 inter.unit QAM PO 04/19/16 09:00 05/19/16 08:59 04/22/16 08:31 2,000 INTER.UNIT Pantoprazole Sodium (Protonix Tab) 40 mg BID PO 04/19/16 21:00 05/19/16 20:59 Future Hold 04/22/16 08:31 40 MG Lactulose (Chronulac Syrup) 30 gm DAILY PO 04/20/16 09:00 05/20/16 08:59 04/22/16 08:31 30 GM Oxycodone HCl (Roxicodone Immediate Rel Tab) 5 mg Q4 PRN PO 04/19/16 16:15 05/03/16 16:14 04/21/16 19:48 5 MG Thiamine HCl (Vitamin B-1 Tab) 200 mg QAM PO 04/22/16 09:00 05/22/16 08:59 04/22/16 08:31 200 MG Folic Acid 1 mg 1 mg QAM PO 04/22/16 09:00 05/22/16 08:59 04/22/16 08:31 1 MG Potassium Chloride/Sodium Chloride 1,000 ml @ 125 mls/hr Q8H IV 04/22/16 02:00 05/22/16 01:59 04/22/16 02:08 125 MLS/HR Nutrition (Parenteral) 0 ml @ 0 mls/hr TODAY@1600 IV 04/22/16 16:00 04/23/16 15:59 04/22/16 15:40 0 MLS/HR Octreotide Acetate 500 mcg/ Sodium Chloride 105 ml @ 10 mls/hr [id number] IV 04/22/16 09:30 05/22/16 09:29 04/22/16 09:36 10 MLS/HR Pantoprazole Sodium/Dextrose (Protonix Inj/D5 100ml) 100 ml @ 20 mls/hr Q5H IV 04/22/16 09:30 05/22/16 09:29 04/22/16 14:31 20 MLS/HR 04/20/16 05:39 Red Blood Count 2.64, Mean Corpuscular Volume 90.9, Mean Corpuscular Hemoglobin 31.1, Mean Corpuscular Hemoglobin Concent 34.2, Mean Platelet Volume 10.0, Neutrophils (%) (Auto) 64.8, Lymphocytes (%) (Auto) 14.8, Monocytes (%) (Auto) 14.7, Eosinophils (%) (Auto) 4.6, Basophils (%) (Auto) 0.6, Neutrophils # (Auto ) 8.04, Lymphocytes # (Auto) 1.84, Monocytes # (Auto) 1.83, Eosinophils # (Auto ) 0.57, Basophils # (Auto) 0.08 04/21/16 08:18 04/22/16 01:49 04/22/16 05:50 04/22/16 17:30 04/20/16 05:39 04/21/16 08:18 04/22/16 05:50 Test 04/20/16 05:39 04/20/16 06:19 04/20/16 11:06 04/20/16 12:13 White Blood Count 12.42 K/uL (4.8-10.8) Red Blood Count 2.64 M/uL (4.7-6.1) Hemoglobin 8.2 g/dL (14.0-18.0) Hematocrit 24.0 % (42-52) Mean Corpuscular Volume 90.9 fL (80-100) Mean Corpuscular Hemoglobin 31.1 pg (25-34) Mean Corpuscular Hemoglobin Concent 34.2 g/dl (32-36) Platelet Count 104 K/uL (130-400) Mean Platelet Volume 10.0 fL (7.4-10.4) Neutrophils (%) (Auto) 64.8 % Lymphocytes (%) (Auto) 14.8 % Monocytes (%) (Auto) 14.7 % Eosinophils (%) (Auto) 4.6 % Basophils (%) (Auto) 0.6 % Neutrophils # (Auto) 8.04 K/uL (1.4-6.5) Lymphocytes # (Auto) 1.84 K/uL (1.2-3.4) Monocytes # (Auto) 1.83 K/uL (0.11-0.59) Eosinophils # (Auto) 0.57 K/uL (0-0.5) Basophils # (Auto) 0.08 K/uL (0-0.2) RDW Standard Deviation 58.7 fL (36.4-46.3) RDW Coefficient of Variation 18.1 % (11.5-14.5) Immature Granulocyte % (Auto) 0.5 % Immature Granulocyte # (Auto) 0.06 K/uL (0.00-0.02) Polychromasia 1+ Echinocytes 1+ Anion Gap 8.0 mmol/L (3-11) Est Creatinine Clear Calc Drug Dose 120.2 ml/min Estimated GFR () 118.5 Estimated GFR (Non- 102.3 BUN/Creatinine Ratio 52.6 (10-20) Calcium Level 7.0 mg/dl (8.5-10.1) Phosphorus Level 3.4 mg/dl (2.5-4.9) Magnesium Level 2.0 mg/dl (1.8-2.4) Bedside Glucose 106 mg/dl (70-99) 126 mg/dl (70-99) Prealbumin 3.7 mg/dl (20-40) Test 04/20/16 15:57 04/20/16 20:06 04/21/16 07:01 04/21/16 08:18 Bedside Glucose 119 mg/dl (70-99) 121 mg/dl (70-99) 104 mg/dl (70-99) Red Blood Count 2.86 M/uL (4.7-6.1) Mean Corpuscular Volume 92.0 fL (80-100) Mean Corpuscular Hemoglobin 31.5 pg (25-34) Mean Corpuscular Hemoglobin Concent 34.2 g/dl (32-36) RDW Standard Deviation 61.0 fL (36.4-46.3) RDW Coefficient of Variation 18.4 % (11.5-14.5) Mean Platelet Volume 10.0 fL (7.4-10.4) Anion Gap 10.0 mmol/L (3-11) Est Creatinine Clear Calc Drug Dose 109.6 ml/min Estimated GFR () 110.2 Estimated GFR (Non- 95.1 BUN/Creatinine Ratio 51.9 (10-20) Calcium Level 7.5 mg/dl (8.5-10.1) Test 04/21/16 11:46 04/21/16 16:10 04/21/16 20:25 04/22/16 05:50 Bedside Glucose 129 mg/dl (70-99) 121 mg/dl (70-99) 118 mg/dl (70-99) Red Blood Count 2.46 M/uL (4.7-6.1) Mean Corpuscular Volume 89.8 fL (80-100) Mean Corpuscular Hemoglobin 31.3 pg (25-34) Mean Corpuscular Hemoglobin Concent 34.8 g/dl (32-36) RDW Standard Deviation 60.3 fL (36.4-46.3) RDW Coefficient of Variation 18.4 % (11.5-14.5) Mean Platelet Volume 9.9 fL (7.4-10.4) Prothrombin Time 19.9 SECONDS (9.0-12.0) Prothromb Time International Ratio 1.8 (0.9-1.1) Anion Gap 9.0 mmol/L (3-11) Est Creatinine Clear Calc Drug Dose 111.1 ml/min Estimated GFR () 110.2 Estimated GFR (Non- 95.1 BUN/Creatinine Ratio 47.4 (10-20) Calcium Level 6.9 mg/dl (8.5-10.1) Phosphorus Level 3.3 mg/dl (2.5-4.9) Magnesium Level 2.2 mg/dl (1.8-2.4) Test 04/22/16 06:42 04/22/16 07:20 04/22/16 07:25 04/22/16 11:17 Bedside Glucose 121 mg/dl (70-99) 121 mg/dl (70-99) Triglycerides Level 48 mg/dl (0-150) Lactic Acid Level 0.7 mmol/L (0.4-2.0) Random Cortisol 8.20 mcg/dl Test 04/22/16 16:29 04/22/16 20:06 Bedside Glucose 120 mg/dl (70-99) 112 mg/dl (70-99) I would like to thank Dr. Glenn Cote and the critical care team at [facility] in [place] for accepting this patient for ongoing care. Total Time Spent: Greater than 30 minutes This includes examination of the patient, discharge planning, medication reconciliation, and communication with other providers. Discharge Instructions Please refer to the electronic Patient Visit Report (Discharge Instructions) for additional information. Follow-Up to be determined in future after hospitalization at [facility] Additional Copies To Chun Miller D.O.; Basil Cornelius D.O.; Chio Jalloh M.D.
[2016-04-22] MEDS: OXYCODONE HCL IR 5 MG TAB (IMMEDIATE RELEASE) PO PRN (22:00)
[2016-04-23 00:01] VITALS: BP 96/67; PULSE 98; TEMP 36.9; O2SAT 95
[2016-04-23] MEDS: PANTOprazole INJ 40 MG in DEXTROSE 5% 100ML IV SCH ×2 (00:13→05:03)
[2016-04-23 01:00] VITALS: BP 90/64; PULSE 91; O2SAT 92
[2016-04-23] MEDS: SODIUM CHLOR 0.45% + 20MEQ KCL 1,000 ML IV SCH (01:29)
[2016-04-23 04:08] VITALS: BP 93/61; PULSE 93; TEMP 36.7; O2SAT 93
[2016-04-23] MEDS: OCTREOTIDE ACETATE INJ 500 MCG in NSS 100ML IV SCH (05:45)
[2016-07-18] MEDS ORDERED: FRS/40 PO (12:52)
[2016-07-18] MEDS ORDERED: LACT10SO30 PO (12:52)
[2016-07-18] MEDS ORDERED: MAGN400T6 PO (12:52)
[2016-07-18] MEDS ORDERED: FERR325T5 PO (12:52)
[2016-07-18] MEDS ORDERED: POTA10TA PO (12:52)
[2016-07-18] MEDS ORDERED: NADO20TA PO (12:52)
[2016-07-18] MEDS ORDERED: TRAM-10 PO (12:52)
[2016-07-18] MEDS ORDERED: FOLIC ACID PO (12:52)
[2016-07-18] MEDS ORDERED: MULT-506 PO (12:52)
[2016-07-18] MEDS ORDERED: CYAN100T6 PO (12:52)
[2016-07-18] MEDS ORDERED: OMEP40CA41 PO (12:52)
[2016-07-18] MEDS ORDERED: DOCU100C31 PO (12:52)
[2016-07-18] MEDS ORDERED: SPIR100T PO (12:52)
== END 2016-04-23 06:54 | disposition short-term general hospital (02) | DRG 981 ==
LOC: CANRESERV → ENRESERVTM → ENRESERVDT → EDBD 22:24 → C.EDA 22:25 → C.MS2W 04-09 01:03 → C.2E 04-09 12:18 → C.MSICU 04-11 17:30 → C.2E 04-16 13:14
PROVIDERS: ADMIT Internal Medicine; ATTEND Internal Medicine
PROC: 0W9G3ZZ Drainage of Peritoneal Cavity, Percutaneous Approach (ICD-10-PCS; 2016-04-09)
PROC: 0W3P8ZZ Control Bleeding in Gastrointestinal Tract, Via Natural or Artificial Opening Endoscopic (ICD-10-PCS; principal; 2016-04-11 19:00)
PROC: 0DU90JZ Supplement Duodenum with Synthetic Substitute, Open Approach (ICD-10-PCS; 2016-04-11 19:00)
PROC: 02HV33Z Insertion of Infusion Device into Superior Vena Cava, Percutaneous Approach (ICD-10-PCS; 2016-04-13)
DX: K70.31 Alcoholic cirrhosis of liver with ascites (principal); K26.4 Chronic or unspecified duodenal ulcer with hemorrhage; E87.1 Hypo-osmolality and hyponatremia; K76.6 Portal hypertension; K92.0 Hematemesis; K92.1 Melena; D62 Acute posthemorrhagic anemia; I85.00 Esophageal varices without bleeding; E46 Unspecified protein-calorie malnutrition; D68.4 Acquired coagulation factor deficiency; R57.8 Other shock; K29.70 Gastritis, unspecified, without bleeding; K27.9 Peptic ulcer, site unspecified, unspecified as acute or chronic, without hemorrhage or perforation; K70.40 Alcoholic hepatic failure without coma; I70.1 Atherosclerosis of renal artery; I77.1 Stricture of artery; F10.21 Alcohol dependence, in remission; D69.6 Thrombocytopenia, unspecified; R00.0 Tachycardia, unspecified; E83.51 Hypocalcemia; R26.2 Difficulty in walking, not elsewhere classified; I95.1 Orthostatic hypotension; L21.9 Seborrheic dermatitis, unspecified; E83.39 Other disorders of phosphorus metabolism; Z82.49 Family history of ischemic heart disease and other diseases of the circulatory system; Z81.1 Family history of alcohol abuse and dependence

== ENCOUNTER → 2016-06-30 | Outpatient (CLI) | payer OTHER ==
[~2016-06-30] MED LIST: CYAN100T6 PO; DOCU100C31 PO; FERR325T5 PO; FOLI1TAB7 PO; FOLIC ACID PO; FRS/40 PO; LACT10SO30 PO; MAGN400T6 PO; MULT-506 PO; MULTCHW PO; NADO20TA PO; OMEP40CA41 PO; POTA10TA PO; SPIR100T PO; SULF800T23 PO; THIA1TAB11 PO; TRAM-10 PO
[2016-06-30 13:49] LABS: URINE APPEARANCE CLEAR (CLEAR); URINE BILIRUBIN NEG (NEG); URINE COLOR YELLOW; URINE NITRITE NEG (NEG); URINE SPECIFIC GRAVITY 1.008 (1.000-1.030); UROBILINOGEN NEG (NEG)
[2016-06-30 13:57] LABS: MANUAL MICROSCOPIC REQUIRED? NO; REVIEW REQ? NO
--- NOTE | 2016-07-04 09:16 | CODING QUERY NO DIAGNOSIS ---
TREATMENT RENDERED WITHOUT A DIAGNOSIS : 1950 To promote full compliance with coding requirements relating to patient care, physician participation is requested in all cases of motion picture projectionist apprentice uncertainty. Please assist us with providing a diagnosis/symptom for the test(s) below: A diagnosis/symptom was not documented on your Order. A valid diagnosis/symptom is required to bill all insurances. Please remember that we are unable to code a diagnosis of rule out, probable, possible, questionable, or suspected. Tests that require a diagnosis: DOS: 06/30/16 * UA CLEAN CATCH DIAGNOSIS: * URINE CULTURE CLEAN DIAGNOSIS: Provider Signature: Date: Thank you Brynn Martinez Health Information Management Once completed, please kindly fax back to [phone] For questions please call [phone]
== END | disposition home or self-care (01) ==
LOC: C.LABSPEC 12:43
PROVIDERS: ATTEND Family Medicine
DX: R39.9 Unspecified symptoms and signs involving the genitourinary system (principal)

== ENCOUNTER → 2016-07-24 | Day surgery (SDC) | payer OTHER ==
[2016-07-18 12:53] VITALS: BMI 22.0
[~2016-07-24] VITALS: Ht 182.9 cm; Wt 75.5 kg
[~2016-07-24] MED LIST changes: +LIDOCAINE HCL 2% 2 ML VIAL (20MG/ML) ONE; -MULTCHW PO; +SODIUM CHLORIDE 0.9% 500ML 500 ML IV ONE; +SUCCINYLCHOLINE CHLORIDE 20 MG/ML 10 ML VIAL IV ONE
[2016-07-24 09:04] VITALS: TEMP 36.9
[2016-07-24 09:09] VITALS: Ht 182.9 cm; Wt 75.5 kg
--- NOTE | 2016-07-24 09:27 | Endo History and Physical ---
History & Physical Date of Service: Jul 24, 2016. Chief Complaint: DOUDENAL UCER WITH HEMORRHAGE Referring Physician: DR ASHLEY History of Present Illness Hx of cirrhosis and perforated ulcer. Past Surgical History Hx Cardiac Surgery: No Hx Internal Defibrillator: No Hx Pacemaker: No Hx Abdominal Surgery: Yes (EXPLORATORY LAP AND DUODENOTOMY WITH CLOSURE YEIMI PATCH) Hx of Implantable Prosthesis: No Hx Post-Op Nausea and Vomiting: No Hx Cancer Surgery: No Hx Thoracic Surgery: No Hx Orthopedic: No Hx Urinary Tract Surgery: No Family History Esophogeal CA Social History Smoking Status: Never Smoker Hx Substance Use: No Hx Alcohol Use: Yes (HEAVY DRINKING, STOPPED FEBRUARY 2016) Allergies Coded Allergies: No Known Allergies (Verified , 07/24/16) Current Medications Reported Home Medications Medications Dose Route/Sig Max Daily Dose Days Date Category Vitamin B12 100 Mcg (Cyanocobalamin) 100 Mcg Tab 100 Mcg PO QAM 07/18/16 Reported Ultram (Tramadol HCl) 50 Mg Tab 50 Mg PO Q8H PRN 07/18/16 Reported Aldactone (Spironolactone) 100 Mg Tab 100 Mg PO QAM 07/18/16 Reported K-Tabs (Potassium Chloride) 10 Meq Tab 1 Tab PO QAM 07/18/16 Reported Prilosec (Omeprazole) 40 Mg Cap 40 Mg PO QAM 07/18/16 Reported Corgard (Nadolol) 20 Mg Tab 20 Mg PO QPM 07/18/16 Reported Lasix (Furosemide) 40 Mg Tab 40 Mg PO DAILY AT LUNCH 07/18/16 Reported Multivitamin (Multivitamins) Tab 1 Tab PO QAM 07/18/16 Reported Mag-Ox (Magnesium Oxide) 400 Mg Tab 400 Mg PO QAM 07/18/16 Reported Lactulose (Lactulose (Encephalopathy)) 10 Gm/15 Ml Zuleyma 30 Ml PO DAILY AFTERNOON 07/18/16 Reported [Folic Acid] 1 Tab PO DAILY AFTERNOON 07/18/16 Reported Ferrous Sulfate 325 Mg Tab 1 Tab PO QPM 07/18/16 Reported Docusate Sodium 100 Mg Cap 1 Cap PO QPM 7 07/18/16 Reported Vital Signs Weight (Kilograms): 75.45 Height (Feet): 5 Height (Inches): 12 Date Time Temp Pulse Resp B/P Pulse Ox O2 Delivery O2 Flow Rate FiO2 07/24/16 09:04 36.9 104 22 106/60 94 Room Air Physical Exam General Appearance: no apparent distress Respiratory/Chest: Auscultation: breath sounds normal Cardiovascular: Heart Auscultation: RRR Abdomen: Inspection & Palpation: soft Liver: non-tender Assessment and Plan stable for EGD
--- NOTE | 2016-07-24 09:50 | Discharge Instructions ---
Endoscopy Patient Instructions Date / Procedure(s) Performed Jul 24, 2016. EGD Allergy Information Coded Allergies: No Known Allergies (Verified , 07/24/16) Discharge Date / Findings Jul 24, 2016. Portal gastropathy and healed duodenal ulcer. Provider Instructions Activity Restrictions - No exercising or heavy lifting for 24 hours. - Do not drink alcohol the day of the procedure. - Do not drive a car or operate machinery until the day after the procedure. - Do not make any important decisions or sign important papers in 24 hours after the procedure. Following Day: - Return to full activity which may include returning to work/school. Diet Start your diet with liquids and light foods (jello, soup, juice, toast). Then eat your usual diet if not nauseated. Treatment For Common After Affects For mild abdominal pain, bloating, or excessive gas: - Rest - Eat lightly - Lie on right side Follow-Up Information Follow-up with DR ASHLEY as scheduled Anesthesia Information What You Should Know You have had a procedure that required some medicine to reduce anxiety and discomfort. This treatment is called moderate sedation. After receiving the treatment, you may be sleepy, but you will be able to breathe on your own. The effects of the treatment may last for several hours. Follow these instructions along with Activity/Diet recommendations noted above: * Do NOT do anything where dizziness or clumsiness would be dangerous. * Rest quietly at home today, then you can be up and about tomorrow. * Have a responsible person stay with you the rest of today. * You may have had an I.V. today. If so, you may take the dressing off later today. Recommendations Call your doctor if: * Trouble breathing * Continuous vomiting for more than 24 hours * Temperature above 101 degrees * Severe abdominal pain or bloating * Pain not relieved by pain medicine ordered * There is increased drainage or redness from any incision * A large amount of rectal bleeding greater than 2-3 tablespoons. (If you had a polyp/s removed or have hemorrhoids, a small amount of blood - from the rectum is to be expected.) * You have any unanswered questions or concerns. IN THE EVENT OF A SERIOUS EMERGENCY, GO TO THE NEAREST EMERGENCY ROOM Your discharge instructions were prepared by provider Jeffrey Valdes. Patient Instructions Signature Page Sudhir Joshi Patient (or Guardian) Signature/Date: I have read and understand the instructions given to me by my caregivers. Caregiver/RN/Doctor Signature/Date: The above-named patient and/or guardian has received patient instructions on this date. + Original Patient Signature Page (only) stays with chart. Please make copy for patient.
--- NOTE | 2016-07-24 09:50 | GI REPORT ---
Procedure Date: 07/24/2016 9:24 AM Procedure: Upper GI endoscopy Indications: Follow-up of acute duodenal ulcer with hemorrhage and perforation, Cirrhosis with suspected esophageal varices Medicines: See the Anesthesia note for documentation of the administered medications Complications: No immediate complications. Estimated Blood Loss: Estimated blood loss: none. Procedure: Pre-Anesthesia Assessment: - Prior to the procedure, a History and Physical was performed, and patient medications, allergies and sensitivities were reviewed. The patient's tolerance of previous anesthesia was reviewed. - The risks and benefits of the procedure and the sedation options and risks were discussed with the patient. All questions were answered and informed consent was obtained. - Patient identification and proposed procedure were verified prior to the procedure by the physician and the nurse. The procedure was verified in the pre-procedure area. - Pre-procedure physical examination revealed no contraindications to sedation. - After reviewing the risks and benefits, the patient was deemed in satisfactory condition to undergo the procedure. After obtaining informed consent, the endoscope was passed under direct vision. Throughout the procedure, the patient's blood pressure, pulse, and oxygen saturations were monitored continuously. The scope was introduced through the mouth, and advanced to the third part of duodenum. The upper GI endoscopy was accomplished without difficulty. The patient tolerated the procedure well. Findings: Grade I varices were found in the lower third of the esophagus. Moderate portal hypertensive gastropathy was found in the stomach. A medium scar was found in the first part of the duodenum. The cardia and gastric fundus were normal on retroflexion. Impression: - Grade I esophageal varices. - Portal hypertensive gastropathy. - Duodenal scar with suture material from prior oversew. - No specimens collected. Recommendation: - Continue present medications. - Discharge patient to home. Jeffrey Valdes M.D. Jeffrey Valdes MD 07/24/2016 9:49:06 AM This report has been signed electronically. Note Initiated On: 07/24/2016 9:24 AM I attest to the content of the Intraoperative Record and orders documented therein, exceptions below
[2016-07-24 10:09] VITALS: BP_DIAS 56
[2016-07-24 10:20] VITALS: BP_SYST 101; PULSE 98; O2SAT 100
--- NOTE | 2016-07-24 10:49 | Anesthesiology Progress Note ---
Anesthesia Post Op Note Date & Time Jul 24, 2016 at 10:49 Vital Signs Pain Intensity: 0 Vital Signs Past 12 Hours Date Time Temp Pulse Resp B/P Pulse Ox O2 Delivery O2 Flow Rate FiO2 07/24/16 10:20 98 22 101/ 100 Room Air 07/24/16 10:09 99 22 108/56 98 Room Air 07/24/16 10:01 97 22 111/48 96 Room Air 07/24/16 09:56 98 22 106/50 95 Room Air 07/24/16 09:04 36.9 104 22 106/60 94 Room Air Notes Mental Status: alert / awake / arousable, participated in evaluation Pt Amnestic to Procedure: Yes Nausea / Vomiting: adequately controlled Pain: adequately controlled Airway Patency, RR, SpO2: stable & adequate BP & HR: stable & adequate Hydration State: stable & adequate Anesthetic Complications: no major complications apparent
== END | disposition home or self-care (01) ==
LOC: C.GI 08:47
PROVIDERS: ATTEND Internal Medicine Gastroenterology
DX: K26.4 Chronic or unspecified duodenal ulcer with hemorrhage (principal); K74.60 Unspecified cirrhosis of liver; I85.00 Esophageal varices without bleeding; K31.89 Other diseases of stomach and duodenum; Z80.0 Family history of malignant neoplasm of digestive organs

== ENCOUNTER 2016-08-01 11:19 | Day surgery (SDC) | payer OTHER ==
[~2016-08-01] VITALS: Ht 182.1 cm; Wt 73.0 kg
[~2016-08-01 11:19] MED LIST changes: -FOLI1TAB7 PO; -LIDOCAINE HCL 2% 2 ML VIAL (20MG/ML) ONE; -SODIUM CHLORIDE 0.9% 500ML 500 ML IV ONE; -SUCCINYLCHOLINE CHLORIDE 20 MG/ML 10 ML VIAL IV ONE; -SULF800T23 PO; -THIA1TAB11 PO
[2016-08-01 12:50] VITALS: BP 99/60; PULSE 98; TEMP 36.7; O2SAT 98; Ht 182.1 cm; Wt 73.0 kg
--- NOTE | 2016-08-01 14:15 | Discharge Instructions ---
Discharge Instructions Procedure Procedure Date: Aug 01, 2016. Reason for visit: Ascites. Discharge Discharge Date: Aug 01, 2016. Discharge Diagnosis: Ascites Instructions Activity Recommendations: 1 Day-May resume regular activity, 48 Hours of decreased exertion, 1 Day with no exercise/sex/sports, 1 Day with no driving/ machine use Return to School/Work: limitations (light activity x 48 hours) Recommended Home Diet: Resume Previous Diet Provider Instructions: Ultrasound guided paracentesis is performed in the left lower quadrant with removal of approximately 5L of straw-colored ascitic fluid. The procedure was well tolerated and without immediate complication. Allergies Coded Allergies: No Known Allergies (Verified , 08/01/16) Kriss Miner Recommendations: Call your doctor if: * Temperature above 101 degrees * Pain not relieved by pain medicine ordered * There is increased drainage or redness from any incision * You have any unanswered questions or concerns. Your Doctors Instructions noted above were prepared by provider Segun Trimble. Patient Signature Section: Patient Instructions Signature Page Sudhir Joshi Patient (or Guardian) Signature/Date: I have read and understand the instructions given to me by my caregivers. Caregiver/RN/Doctor Signature/Date: The above-named patient and/or guardian has received patient instructions on this date. + Original Patient Signature Page (only) stays with chart. Please make copy for patient.
[2016-08-01 14:26] VITALS: BP 86/51; PULSE 110; TEMP 36.9; O2SAT 93
--- NOTE | 2016-08-01 14:39 | DIAGNOSTIC IMAGING REPORT ---
PARACENTESIS UNDER ULTRASOUND GUIDANCE CLINICAL HISTORY: Cirrhosis and ascites. COMPARISON STUDY: Abdominal CT dated 04/09/2016. PROCEDURE: The risks, benefits, and alternatives to the procedure were discussed with the patient who voiced understanding. Written informed consent was obtained. Following real-time ultrasound localization of a suitable pocket of fluid left lower quad, the abdomen was prepped and draped in the usual sterile fashion. The skin and soft tissues were anesthetized with 1% lidocaine. The sheathed paracentesis was inserted and approximately 5 liters of straw-colored ascitic fluid was removed by vacuum suction. The procedure was well tolerated and without immediate complication. The patient left the department in satisfactory condition. IMPRESSION: Successful ultrasound-guided paracentesis with removal of approximately 5 liters of ascitic fluid. Electronically signed by: Segun Trimble M.D. 08/01/2016 2:38 PM Dictated Date/Time: 08/01/2016 2:37 PM
[2016-08-01 14:40] VITALS: BP 92/51; PULSE 107; O2SAT 95
[2016-08-01 14:55] VITALS: BP 87/50; PULSE 112; O2SAT 97
[2016-08-01 15:25] VITALS: BP 95/54; PULSE 110; TEMP 36.9; O2SAT 96
== END 2016-08-01 15:37 | disposition home or self-care (01) ==
LOC: C.ACU 11:19
PROVIDERS: ATTEND Internal Medicine Gastroenterology
DX: K70.31 Alcoholic cirrhosis of liver with ascites (principal)

== ENCOUNTER 2016-08-18 04:27 | Inpatient (IN) | payer OTHER ==
[2016-08-18] VITALS (41 sets, daily range): BP systolic 69–119; BP diastolic 41–73; PULSE 118–139; TEMP 36.5–36.8; O2SAT 89–99; Ht 170.2 cm; Wt 88.6 kg
[~2016-08-18] VITALS: Ht 170.2 cm; Wt 88.6 kg
[2016-08-18] MEDS ORDERED: ONDANSETRON INJ 2 MG/ML 2 ML VIAL IV STA (04:34)
[2016-08-18] MEDS ORDERED: SODIUM CHLORIDE 0.9% 1000ML 1,000 ML IV STA ×4 (04:34→06:29)
[2016-08-18] MEDS ORDERED: FENTANYL CITRATE INJ 50 MCG/1 ML 2 ML VIAL IV STA ×2 (04:34→06:03)
[2016-08-18] MEDS ORDERED: VANCOMYCIN INJ 2,000 MG in SODIUM CHLORIDE 0.9% 500ML 500 ML IV STA (04:53)
[2016-08-18] MEDS ORDERED: PIPERACILLIN/TAZOBACTAM 4.5 GM/100ML D5W IV STA (04:53)
[2016-08-18] MEDS ORDERED: PANTOprazole INJ 80 MG in DEXTROSE 5% 100ML IV SCH (05:00)
[2016-08-18] MEDS ORDERED: PANTOprazole INJ 40 MG in DEXTROSE 5% 100ML IV SCH (05:15)
[2016-08-18 05:17] LABS: ISTAT CREATININE 2.1 mg/dl (0.6-1.3); ISTAT HEMOGLOBIN 10.2 g/dl (14.0-18.0); ISTAT IONIZED CALCIUM 0.97 mmol/l (1.12-1.32)
[2016-08-18 05:18] LABS: BASO % 0.1 %; BASO ABS # 0.02 K/uL (0-0.2); COMPLETE YES; EOS % 0.1 %; IG% 0.4 %; LYMPH ABS # 1.28 K/uL (1.2-3.4); MEAN CELL VOLUME 104.9 fL (80-100); MEAN CORPUSCULAR HEMOGLOBIN 36.3 pg (25-34); MEAN CORPUSCULAR HGB CONC 34.6 g/dl (32-36); MONO % 8.8 %; NEUT % 83.6 %; PLATELET COUNT 146 K/uL (130-400); RED BLOOD COUNT 2.67 M/uL (4.7-6.1); WHITE BLOOD COUNT 18.16 K/uL (4.8-10.8)
[2016-08-18 05:21] LABS: ISTAT CREATININE 1.9 mg/dl (0.6-1.3); ISTAT HEMOGLOBIN 8.8 g/dl (14.0-18.0); ISTAT IONIZED CALCIUM 0.98 mmol/l (1.12-1.32)
[2016-08-18 05:29] LABS: INR 2.3 (0.9-1.1); PARTIAL THROMBOPLASTIN RATIO 1.6; PROTHROMBIN TIME (PATIENT) 25.6 SECONDS (9.0-12.0)
[2016-08-18 05:45] LABS: MANUAL MICROSCOPIC REQUIRED? YES; URINE APPEARANCE SL CLOUDY (CLEAR); URINE COLOR AMBER; URINE NITRITE NEG (NEG); UROBILINOGEN NEG (NEG)
[2016-08-18 05:50] LABS: ALT/SGPT 19 U/L (12-78); AST/SGOT 56 U/L (15-37); BLOOD UREA NITROGEN 52 mg/dl (7-18); BUN/CREATININE RATIO 25.8 (10-20); CALCIUM 7.6 mg/dl (8.5-10.1); CARBON DIOXIDE 25 mmol/L (21-32); CHLORIDE 91 mmol/L (98-107); GLUCOSE 68 mg/dl (70-99); MAGNESIUM 2.3 mg/dl (1.8-2.4); POTASSIUM 4.2 mmol/L (3.5-5.1); SODIUM 127 mmol/L (136-145)
[2016-08-18 05:51] LABS: REVIEW REQ? NO; URINE BILIRUBIN 2+ (NEG)
[2016-08-18 05:57] LABS: URINE BACTERIA 2+ (NEG)
[2016-08-18 05:59] LABS: ALB/GLOB RATIO 0.3 (0.9-2); ALKALINE PHOSPHATASE 73 U/L (45-117); CKMB/CK RATIO 1.7 (0-3.0)
[2016-08-18] MEDS ORDERED: CALCIUM GLUCONATE 10% 10 ML VIAL IV STA (06:07)
[2016-08-18] MEDS ORDERED: FOLI1TAB7 PO (06:08)
[2016-08-18] MEDS ORDERED: THIA1TAB11 PO (06:08)
[2016-08-18] MEDS ORDERED: SULF800T23 PO (06:09)
--- NOTE | 2016-08-18 06:12 | EMERGENCY ROOM VISIT NOTE ---
ED Visit Note First contact with patient: 04:30 I saw this patient in conjunction with Cleo Stoll PA-C. I agree with her decision making and treatment plan.
[2016-08-18 06:15] LABS: ZZUR CULT IF INDIC CLEAN CATCH YES
[2016-08-18] MEDS ORDERED: NOREPINEPHRINE BIT INJ 8 MG in DEXTROSE 5% 500ML 500 ML IV STA (06:17)
--- NOTE | 2016-08-18 06:32 | DIAGNOSTIC IMAGING REPORT ---
CT HEAD WITHOUT CONTRAST (CT) CLINICAL HISTORY: dizzy MALAISE, RECENT SURGERY. COMPARISON STUDY: 04/08/2016 TECHNIQUE: Axial CT of the brain is performed from the vertex to the skull base. IV contrast was not administered for this examination. CT DOSE: 691.05 mGy.cm FINDINGS: No intra or extra-axial mass lesions are visualized. There is no CT evidence of acute cortical infarction. There is no evidence of midline shift. There is no acute hemorrhage. No calvarial fractures are visualized. There are minor white matter hypodensities likely on a small vessel basis. There is no evidence of pathologic ventricular dilatation. There is opacification of the left sphenoid sinus. IMPRESSION: Inflammatory changes in the left sphenoid sinus with complete opacification. The findings are consistent with a sphenoid sinusitis. Otherwise no acute intracranial findings. Electronically signed by: Aleksandr Riddle M.D. 08/18/2016 6:30 AM Dictated Date/Time: 08/18/2016 6:29 AM
--- NOTE | 2016-08-18 06:34 | DIAGNOSTIC IMAGING REPORT ---
ABDOMEN AND PELVIS CT WITHOUT CONTRAST CT DOSE: 1159.27 mGy.cm HISTORY: Pain abd pain, cirrhosis TECHNIQUE: Multiaxial CT images of the abdomen and pelvis were performed without contrast. COMPARISON STUDY: 04/09/2016 FINDINGS: Bilateral pleural effusions. A similar atelectatic change. Considerable abdominal and pelvic ascites. Hepatic cirrhosis. Gallstone in a contracted gallbladder. Calcification medial aspect right abdomen of uncertain significance, although was present on the prior exam and therefore considered nonacute. Bowel pattern is located centrally and is nonobstructive. Considerable pelvic ascites is present. Kidneys negative for hydronephrosis. IMPRESSION: 1. Considerable abdominal and pelvic ascites. 2. Nonobstructive bowel pattern. 3. Gallstone. 4. Bilateral pleural effusion. Electronically signed by: Riccardo Anton M.D. 08/18/2016 6:32 AM Dictated Date/Time: 08/18/2016 6:28 AM
--- NOTE | 2016-08-18 06:35 | DIAGNOSTIC IMAGING REPORT ---
CHEST ONE VIEW PORTABLE CLINICAL HISTORY: Sepsis dyspnea COMPARISON STUDY: 04/11/2016 FINDINGS: Small parenchymal infiltrate medial left base. Lungs otherwise appear clear. Diaphragms smooth. IMPRESSION: Small parenchymal infiltrate medial left base. Electronically signed by: Riccardo Anton M.D. 08/18/2016 6:34 AM Dictated Date/Time: 08/18/2016 6:33 AM
[2016-08-18] MEDS ORDERED: LEVOFLOXACIN CONSULT ACTIVE PRN (09:00)
[2016-08-18] MEDS ORDERED: ALBUMIN HUMAN 25% 12.5 GM/50 ML VIAL IV SCH ×2 (09:00→16:00)
[2016-08-18] MEDS ORDERED: PIPERACILL/TAZOBAC CONSULT ACTIVE PRN (09:00)
[2016-08-18] MEDS ORDERED: VANCOMYCIN CONSULT ACTIVE PRN (09:00)
[2016-08-18 09:39] LABS: BUN/CREATININE RATIO 27.2 (10-20); CALCIUM 7.4 mg/dl (8.5-10.1); CREATININE 1.9 mg/dl (0.60-1.40); POTASSIUM 3.8 mmol/L (3.5-5.1)
[2016-08-18] MEDS: SODIUM CHLORIDE 0.9% 1000ML 1,000 ML IV SCH ×2 (10:41→21:30)
[2016-08-18] MEDS ORDERED: ALBUMIN HUMAN 25% 12.5 GM/50 ML VIAL IV ONE (11:00)
[2016-08-18] MEDS: LEVOFLOXACIN / D5W 750 MG in PREMIXED IN D5W 150 ML IV SCH (11:49)
[2016-08-18] MEDS: PANTOprazole INJ 40 MG in DEXTROSE 5% 100ML IV SCH ×3 (11:55→22:23)
[2016-08-18] MEDS ORDERED: PHYTONADIONE 5 MG TAB PO ONE (12:00)
--- NOTE | 2016-08-18 12:02 | Gastrointestinal Consultation ---
Gastrointestinal Consultation Date of Consultation: August 18, 2016 Attending Physician: Jose Consulting Physician: Michela Reason for Consultation: ascites, ?SBP History of Present Illness Patient is a 66 year old male w/ PMH significant for ETOH abuse, ETOH cirrhosis (EV, ascites), anemia, ARF and others listed below who presents through the ED today with worsening abdominal pain. GI is consulted for ?SBP. In the ED, BP 69/ 41, rate 129 he was started on albumin and epi. Lactic acid 2.9. Stool, blood and urine cultures pending. Stool for c.diff already ordered. He has not been compliant with his outpatient medications because he does not feel that he needs them. He tried to follow a low NA diet but is not calculating the NA intake. He had a large volume paracentesis 08/01/16. About 5 days after this, fluid began to reaccumulate. There was associated generalized abdominal discomfort with twinges of severe pain. This was located in mid abdomen and radiated to bilateral lower quadrants. Pain is not aggravated by PO intake. Developed chills and generalized weakness last night. He has bouts of liquid stools for the past week. These were either yellow/clear or brown. No vomiting. Urine this AM looked bloody. Denies painful or difficulty urinating. Denies chest pain, SOB, black/bloody stools/emesis. Of note he was admitted in April with a duodenal ulcer with hemorrhage. Repeat EGD in July with evidence of healing. CT abd 08/18/16: Considerable abdominal and pelvic ascites. Nonobstructive bowel pattern. Gallstone. Bilateral pleural effusion. Paracentesis 08/01/16: Successful ultrasound-guided paracentesis with removal of approximately 5 liters of ascitic fluid. EGD 07/24/16: Grade I esophageal varices. Portal hypertensive gastropathy. Duodenal scar with suture material from prior Past Medical/Surgical History Medical Problems: (1) Alcoholic cirrhosis Status: Acute (2) Ascites Status: Acute (3) Generalized weakness Status: Acute (4) Liver failure Status: Acute Past Medical History: ETOH cirrhosis, esophageal varices, abdominal ascites, anemia, ARF Past Surgical History: EGD Family History No pertinent family history Social History Smoking Status: Unknown if Ever Smoked Alcohol Use: other Drug Use: none Marital Status: single Housing Status: lives alone Occupation Status: retired Allergies Coded Allergies: No Known Allergies (Verified , 08/01/16) Current Medications Home Meds and Scripts Medications Dose Route/Sig Max Daily Dose Days Date Category Vitamin B1 (Thiamine Mononitrate) 100 Mg Tab 100 Mg PO DAILY 08/18/16 Reported Folvite (Folic Acid) 1 Mg Tab 1 Mg PO DAILY 08/18/16 Reported Aldactone (Spironolactone) 100 Mg Tab 100 Mg PO QAM 07/18/16 Reported K-Tabs (Potassium Chloride) 10 Meq Tab 1 Tab PO QAM 07/18/16 Reported Prilosec (Omeprazole) 40 Mg Cap 40 Mg PO QAM 07/18/16 Reported Corgard (Nadolol) 20 Mg Tab 20 Mg PO QPM 07/18/16 Reported Lasix (Furosemide) 40 Mg Tab 40 Mg PO DAILY AT LUNCH 07/18/16 Reported Multivitamin (Multivitamins) Tab 1 Tab PO QAM 07/18/16 Reported Mag-Ox (Magnesium Oxide) 400 Mg Tab 400 Mg PO QAM 07/18/16 Reported Lactulose (Lactulose (Encephalopathy)) 10 Gm/15 Ml Zuleyma 30 Ml PO DAILY AFTERNOON 07/18/16 Reported Ferrous Sulfate 325 Mg Tab 1 Tab PO QPM 07/18/16 Reported Review of Systems Constitutional: + chills, No fever Respiratory: No cough, No shortness of breath Cardiac: No chest pain, No edema Abdomen: + pain, No constipation, No diarrhea (resolved? no episodes since admission), No nausea, No vomiting Physical Exam Date Time Temp Pulse Resp B/P Pulse Ox O2 Delivery O2 Flow Rate FiO2 08/18/16 11:00 135 18 97/63 96 08/18/16 10:46 136 24 117/73 92 08/18/16 10:45 134 21 93 08/18/16 10:30 128 23 08/18/16 10:23 129 20 69/41 08/18/16 10:20 95 Nasal Cannula 2.0 08/18/16 10:15 128 28 99 Nasal Cannula 2.0 08/18/16 10:11 36.7 125 22 74/58 08/18/16 09:40 120 22 109/65 96 08/18/16 09:15 121 22 94/62 96 Nasal Cannula 2.0 08/18/16 09:00 119 22 97/53 96 Nasal Cannula 2.0 08/18/16 08:45 125 24 94/55 93 Nasal Cannula 2.0 08/18/16 08:30 124 22 86/49 100 Nasal Cannula 2.0 08/18/16 08:15 122 22 109/63 95 Nasal Cannula 2.0 08/18/16 08:00 130 24 92/55 96 Nasal Cannula 2.0 08/18/16 07:59 36.5 131 24 92/54 95 Nasal Cannula 2.0 08/18/16 07:45 129 22 92/54 96 Nasal Cannula 2.0 08/18/16 07:30 126 22 106/65 92 Nasal Cannula 2.0 08/18/16 07:16 131 08/18/16 07:15 130 22 102/52 92 Nasal Cannula 2.0 08/18/16 07:00 126 20 109/60 91 Room Air 08/18/16 06:55 108/65 08/18/16 06:54 122 21 90 08/18/16 06:50 109/58 08/18/16 06:49 125 17 90 08/18/16 06:45 110/67 08/18/16 06:44 124 23 92 08/18/16 06:39 121 23 94 08/18/16 06:34 85/51 08/18/16 06:30 87/48 08/18/16 06:24 72/40 08/18/16 06:20 113 21 75/50 94 08/18/16 06:14 86/50 08/18/16 06:00 105/56 08/18/16 05:50 118 32 93 08/18/16 05:45 115 18 96 08/18/16 05:37 97/55 08/18/16 05:15 116 16 96 08/18/16 05:10 92/50 08/18/16 05:01 90/54 08/18/16 04:57 114 28 98 08/18/16 04:34 115 08/18/16 04:31 89/59 08/18/16 04:27 36.7 112 20 89/59 95 Room Air 08/18/16 04:27 95 Room Air General Appearance: + mild distress Eyes: PERRL ENT: hearing grossly normal Neck: supple Respiratory/Chest: no respiratory distress, no accessory muscle use Cardiovascular: + tachycardia, + pertinent finding (s1 s2 normal) Abdomen: normal bowel sounds, no pulsatile mass, + distended, + tenderness Neurologic/Psych: alert, normal mood/affect, oriented x 3, + pertinent finding (+ bilateral asterixis ) Skin: + jaundice Laboratory Results Last 24 Hours Test 08/18/16 04:58 08/18/16 05:03 08/18/16 05:05 08/18/16 05:08 Bedside Hemoglobin 8.8 g/dl 10.2 g/dl Bedside Hematocrit 26 % 30 % Bedside Sodium 126 mEq/L 124 mEq/L Bedside Potassium 5.8 mEq/L 6.7 mEq/L Bedside Chloride 90 mEq/L 89 mEq/L Bedside Total CO2 24 mEq/l 26 mEq/l Anion Gap 18.0 mmol/L 17.0 mmol/L 11.0 mmol/L Bedside Blood Urea Nitrogen 68 mg/dl 75 mg/dl Bedside Creatinine 1.9 mg/dl 2.1 mg/dl Bedside Glucose (other) 69 mg/dl 66 mg/dl Bedside Ionized Calcium (Abelino) 0.98 mmol/l 0.97 mmol/l White Blood Count 18.16 K/uL Red Blood Count 2.67 M/uL Hemoglobin 9.7 g/dL Hematocrit 28.0 % Mean Corpuscular Volume 104.9 fL Mean Corpuscular Hemoglobin 36.3 pg Mean Corpuscular Hemoglobin Concent 34.6 g/dl Platelet Count 146 K/uL Mean Platelet Volume 10.0 fL Neutrophils (%) (Auto) 83.6 % Lymphocytes (%) (Auto) 7.0 % Monocytes (%) (Auto) 8.8 % Eosinophils (%) (Auto) 0.1 % Basophils (%) (Auto) 0.1 % Neutrophils # (Auto) 15.18 K/uL Lymphocytes # (Auto) 1.28 K/uL Monocytes # (Auto) 1.59 K/uL Eosinophils # (Auto) 0.01 K/uL Basophils # (Auto) 0.02 K/uL RDW Standard Deviation 64.2 fL RDW Coefficient of Variation 17.7 % Immature Granulocyte % (Auto) 0.4 % Immature Granulocyte # (Auto) 0.08 K/uL Prothrombin Time 25.6 SECONDS Prothromb Time International Ratio 2.3 Activated Partial Thromboplast Time 41.3 SECONDS Partial Thromboplastin Ratio 1.6 Sodium Level 127 mmol/L Potassium Level 4.2 mmol/L Chloride Level 91 mmol/L Carbon Dioxide Level 25 mmol/L Blood Urea Nitrogen 52 mg/dl Creatinine 2.00 mg/dl Est Creatinine Clear Calc Drug Dose 38.6 ml/min Estimated GFR () 39.7 Estimated GFR (Non- 34.3 BUN/Creatinine Ratio 25.8 Random Glucose 68 mg/dl Calcium Level 7.6 mg/dl Magnesium Level 2.3 mg/dl Total Bilirubin 11.5 mg/dl Aspartate Amino Transf (AST/SGOT) 56 U/L Alanine Aminotransferase (ALT/SGPT) 19 U/L Alkaline Phosphatase 73 U/L Ammonia < 10.0 umol/L Total Creatine Kinase 40 U/L Creatine Kinase MB 0.7 ng/ml Creatine Kinase MB Ratio 1.7 Troponin I < 0.015 ng/ml Total Protein 7.2 gm/dl Albumin 1.7 gm/dl Globulin 5.5 gm/dl Albumin/Globulin Ratio 0.3 Lipase 286 U/L Thyroid Stimulating Hormone (TSH) 2.000 uIu/ml Bedside Troponin I 0.020 ng/ml Test 08/18/16 05:09 08/18/16 05:19 08/18/16 08:56 08/18/16 10:17 Bedside Lactic Acid Venous 3.40 mmol/L Urine Color MARK Urine Appearance SL CLOUDY Urine pH 5.0 Urine Specific Henefer 1.020 Urine Protein NEG Urine Glucose (UA) NEG Urine Ketones TRACE Urine Occult Blood 2+ Urine Nitrite NEG Urine Bilirubin 2+ Urine Urobilinogen NEG Urine Leukocyte Esterase NEG Urine RBC 5-10 /hpf Urine WBC 10-30 /hpf Urine Epithelial Cells >30 /lpf Urine Other Crystals LEUCINE Urine Bacteria 2+ Urine Hyaline Casts 10-30 /lpf Urine Granular Casts 10-20 /lpf Sodium Level 128 mmol/L Potassium Level 3.8 mmol/L Chloride Level 94 mmol/L Carbon Dioxide Level 25 mmol/L Anion Gap 9.0 mmol/L Blood Urea Nitrogen 52 mg/dl Creatinine 1.90 mg/dl Est Creatinine Clear Calc Drug Dose 40.6 ml/min Estimated GFR () 42.2 Estimated GFR (Non- 36.4 BUN/Creatinine Ratio 27.2 Random Glucose 117 mg/dl Lactic Acid Level 2.9 mmol/L Calcium Level 7.4 mg/dl Procalcitonin 2.18 ng/ml Impression Patient is a 66 year old male with ETOH cirrhosis who presents with ascites, abdominal pain, CANDELARIA and sepsis. He is noncompliant with his medications as an outpatient. Will need to rule out SBP with a diagnostic paracentesis Plan Stool culture Stool for c.diff Stool for Giardia Repeat lactic acid Hold all diuretics Urine NA IVF Diagnostic paracentesis Continue broad spectrum ABX coverage 2 g NA diet Follow up cultures Attg addendum: I interviewed and examined pt, reviewed chart and labs. Pt with cirrhosis, sepsis, hypotension. Dx paracentesis ordered by EMS INSTRUCTOR, awaiting results. Remains on pressors, broad spectrum abx. Agree with broad spectrum abx, pressor support. Would consider albumin, also xifaxan for HE therapy. Will follow with you.
[2016-08-18] MEDS: PIPERACILL/TAZOBAC IV 4.5 GM in DEXTROSE 5% 100ML 100 ML IV SCH ×2 (12:17→20:16)
--- NOTE | 2016-08-18 12:29 | History and Physical ---
History & Physical Date & Time of Service: August 18, 2016 at 09:25 Chief Complaint: Abdominal Pain Primary Care Physician: Sondra Odell DO History of Present Illness Source: patient, clinic records, hospital records 66 year old male with PMH of ascites due to alcoholic cirrhosis, esophageal varices, hyponatremia, thrombocytopenia, was admitted 3 months ago for a doudenal ulcer with hemorrhage presents to the Emergency Room with complaints of weakness, and abdominal pain associated with distention. Pt said that for about a week he has been having tenderness in his abdominal, but over the weekend the pain got worst. He said that he was constant and located across the upper area of the abdomen, grade 8/10. He said that he had a paracentesis done about 17 days ago where they removed about 5 L of ascites fluid. He said that he has been having chills. He had multiple episodes of watery diarrhea over the weekend that seems to resolved now. Pt said that he does not take his medications regularly. He has been sober from alcohol for 6 months. He was admitted 3 months for duodenal bleeding ulcer that was repaired. He was found to be hypotensive, tachycardia, with elevated lactate and given about 3L IVF and he was started on pressor. Currently pt said that he feels much better now. Denies any chest pain, palpitation, dizziness and SOB Past Medical/Surgical History Medical Problems: (1) Alcohol intoxication Status: Resolved (2) Multiple abrasions Status: Resolved (3) Scalp laceration Status: Resolved Family History No pertinent family history Social History Smoking Status: Former Smoker Alcohol Use: Last alcohol drink was on Feb 2016 Drug Use: none Marital Status: single Housing status: lives alone Occupational Status: retired Allergies Coded Allergies: No Known Allergies (Verified , 08/01/16) Home Medications Scheduled Ferrous Sulfate (Ferrous Sulfate), 1 TAB PO QPM Folic Acid (Folvite), 1 MG PO DAILY Furosemide (Lasix), 40 MG PO DAILY AT LUNCH Lactulose (Encephalopathy) (Lactulose), 30 ML PO DAILY AFTERNOON Magnesium Oxide (Mag-Ox), 400 MG PO QAM Multivitamin (Multivitamin), 1 TAB PO QAM Nadolol (Corgard), 20 MG PO QPM Omeprazole (Prilosec), 40 MG PO QAM Potassium Chloride (K-Tabs), 1 TAB PO QAM Spironolactone (Aldactone), 100 MG PO QAM Thiamine Mononitrate (Vitamin B1), 100 MG PO DAILY Review of Systems Constitutional: + chills, + fatigue, + weakness Eyes: No eye pain, No worsening of vision ENT: No hearing loss, No nasal symptoms, No sore throat Respiratory: No cough, No shortness of breath, No sputum Cardiovascular: No chest pain, No claudication, No orthopnea Abdomen: + diarrhea, + nausea, + pain Musculoskeletal: No calf pain, No swelling Genitourinary - Male: No dysuria, No hematuria Neurologic: No paralysis, No vertigo Psychiatric: No substance abuse Endocrine: + fatigue Hematologic / Lymphatic: No night sweats Integumentary: No itch, No rash Physical Exam Vital Signs Date Time Temp Pulse Resp B/P Pulse Ox O2 Delivery O2 Flow Rate FiO2 08/18/16 08:45 125 24 94/55 93 Nasal Cannula 2.0 08/18/16 08:30 124 22 86/49 100 Nasal Cannula 2.0 08/18/16 08:15 122 22 109/63 95 Nasal Cannula 2.0 08/18/16 08:00 130 24 92/55 96 Nasal Cannula 2.0 08/18/16 07:59 36.5 131 24 92/54 95 Nasal Cannula 2.0 08/18/16 07:45 129 22 92/54 96 Nasal Cannula 2.0 08/18/16 07:30 126 22 106/65 92 Nasal Cannula 2.0 08/18/16 07:16 131 08/18/16 07:15 130 22 102/52 92 Nasal Cannula 2.0 08/18/16 07:00 126 20 109/60 91 Room Air 08/18/16 06:55 108/65 08/18/16 06:54 122 21 90 08/18/16 06:50 109/58 08/18/16 06:49 125 17 90 08/18/16 06:45 110/67 08/18/16 06:44 124 23 92 08/18/16 06:39 121 23 94 08/18/16 06:34 85/51 08/18/16 06:30 87/48 08/18/16 06:24 72/40 08/18/16 06:20 113 21 75/50 94 08/18/16 06:14 86/50 08/18/16 06:00 105/56 08/18/16 05:50 118 32 93 08/18/16 05:45 115 18 96 08/18/16 05:37 97/55 08/18/16 05:15 116 16 96 08/18/16 05:10 92/50 08/18/16 05:01 90/54 08/18/16 04:57 114 28 98 08/18/16 04:34 115 08/18/16 04:31 89/59 08/18/16 04:27 36.7 112 20 89/59 95 Room Air 08/18/16 04:27 95 Room Air General Appearance: WD/WN, + mild distress Head: normocephalic, atraumatic Eyes: EOMI, + pertinent finding (sclerae icterus) ENT: hearing grossly normal, + pertinent finding (dry mucosa) Neck: supple, no JVD Respiratory/Chest: chest non-tender, normal breath sounds, no respiratory distress, no accessory muscle use Cardiovascular: no JVD, no murmur, + tachycardia Abdomen/GI: + tenderness, + distended, + pertinent finding (Mid epigastric abdominal surgical wound scabbedx3, sanguineous drained from one of the scab ( 1st upper)) Back: normal inspection, no CVA tenderness Extremities/Musculoskelatal: no calf tenderness Neurologic/Psych: no motor/sensory deficits, alert, oriented x 3 Skin: warm/dry, no rash, + jaundice Diagnostics Laboratory Results Results Past 24 Hours Test 08/18/16 04:58 08/18/16 05:03 08/18/16 05:05 08/18/16 05:08 Range/Units Bedside Hemoglobin 8.8 10.2 14.0-18.0 g/dl Bedside Hematocrit 26 30 42-52 % Bedside Sodium 126 124 135-144 mEq/L Bedside Potassium 5.8 6.7 3.3-5.0 mEq/L Bedside Chloride 90 89 101-112 mEq/L Bedside Total CO2 24 26 24-31 mEq/l Anion Gap 18.0 17.0 11.0 3-11 mmol/L Bedside Blood Urea Nitrogen 68 75 7-18 mg/dl Bedside Creatinine 1.9 2.1 0.6-1.3 mg/dl Bedside Glucose (other) 69 66 70-99 mg/dl Bedside Ionized Calcium (Abelino) 0.98 0.97 1.12-1.32 mmol/l White Blood Count 18.16 4.8-10.8 K/uL Red Blood Count 2.67 4.7-6.1 M/uL Hemoglobin 9.7 14.0-18.0 g/dL Hematocrit 28.0 42-52 % Mean Corpuscular Volume 104.9 80-100 fL Mean Corpuscular Hemoglobin 36.3 25-34 pg Mean Corpuscular Hemoglobin Concent 34.6 32-36 g/dl Platelet Count 146 130-400 K/uL Mean Platelet Volume 10.0 7.4-10.4 fL Neutrophils (%) (Auto) 83.6 % Lymphocytes (%) (Auto) 7.0 % Monocytes (%) (Auto) 8.8 % Eosinophils (%) (Auto) 0.1 % Basophils (%) (Auto) 0.1 % Neutrophils # (Auto) 15.18 1.4-6.5 K/uL Lymphocytes # (Auto) 1.28 1.2-3.4 K/uL Monocytes # (Auto) 1.59 0.11-0.59 K/uL Eosinophils # (Auto) 0.01 0-0.5 K/uL Basophils # (Auto) 0.02 0-0.2 K/uL RDW Standard Deviation 64.2 36.4-46.3 fL RDW Coefficient of Variation 17.7 11.5-14.5 % Immature Granulocyte % (Auto) 0.4 % Immature Granulocyte # (Auto) 0.08 0.00-0.02 K/uL Prothrombin Time 25.6 9.0-12.0 SECONDS Prothromb Time International Ratio 2.3 0.9-1.1 Activated Partial Thromboplast Time 41.3 21.0-31.0 SECONDS Partial Thromboplastin Ratio 1.6 Sodium Level 127 136-145 mmol/L Potassium Level 4.2 3.5-5.1 mmol/L Chloride Level 91 98-107 mmol/L Carbon Dioxide Level 25 21-32 mmol/L Blood Urea Nitrogen 52 7-18 mg/dl Creatinine 2.00 0.60-1.40 mg/dl Est Creatinine Clear Calc Drug Dose 38.6 ml/min Estimated GFR () 39.7 Estimated GFR (Non- 34.3 BUN/Creatinine Ratio 25.8 10-20 Random Glucose 68 70-99 mg/dl Calcium Level 7.6 8.5-10.1 mg/dl Magnesium Level 2.3 1.8-2.4 mg/dl Total Bilirubin 11.5 0.2-1 mg/dl Aspartate Amino Transf (AST/SGOT) 56 15-37 U/L Alanine Aminotransferase (ALT/SGPT) 19 12-78 U/L Alkaline Phosphatase 73 45-117 U/L Ammonia < 10.0 11-32 umol/L Total Creatine Kinase 40 39-308 U/L Creatine Kinase MB 0.7 0.5-3.6 ng/ml Creatine Kinase MB Ratio 1.7 0-3.0 Troponin I < 0.015 0-0.045 ng/ml Total Protein 7.2 6.4-8.2 gm/dl Albumin 1.7 3.4-5.0 gm/dl Globulin 5.5 2.5-4.0 gm/dl Albumin/Globulin Ratio 0.3 0.9-2 Lipase 286 73-393 U/L Thyroid Stimulating Hormone (TSH) 2.000 0.300-4.500 uIu/ml Bedside Troponin I 0.020 0-0.045 ng/ml Test 08/18/16 05:09 08/18/16 05:19 08/18/16 08:47 08/18/16 08:56 Range/Units Bedside Lactic Acid Venous 3.40 0.90-1.70 mmol/L Urine Color MARK Urine Appearance SL CLOUDY CLEAR Urine pH 5.0 4.5-7.5 Urine Specific [place] 1.020 1.000-1.030 Urine Protein NEG NEG Urine Glucose (UA) NEG NEG Urine Ketones TRACE NEG Urine Occult Blood 2+ NEG Urine Nitrite NEG NEG Urine Bilirubin 2+ NEG Urine Urobilinogen NEG NEG Urine Leukocyte Esterase NEG NEG Urine RBC 5-10 0-4 /hpf Urine WBC 10-30 0-5 /hpf Urine Epithelial Cells >30 0-5 /lpf Urine Other Crystals LEUCINE NONE PRSENT Urine Bacteria 2+ NEG Urine Hyaline Casts 10-30 0-5 /lpf Urine Granular Casts 10-20 0 /lpf Microbiology Results 08/18/16 Blood Culture, Received Pending 08/18/16 Blood Culture, Received Pending 08/18/16 C.difficile Toxin B Gene (PCR), Rashad Batch Pending 08/18/16 Shiga Toxin Test, Rashad Batch Pending 08/18/16 Stool Culture, Rashad Batch Pending 08/18/16 Urine Culture, Received Pending Diagnostic Radiology ABDOMEN AND PELVIS CT WITHOUT CONTRAST CT DOSE: 1159.27 mGy.cm HISTORY: Pain abd pain, cirrhosis TECHNIQUE: Multiaxial CT images of the abdomen and pelvis were performed without contrast. COMPARISON STUDY: 04/09/2016 FINDINGS: Bilateral pleural effusions. A similar atelectatic change. Considerable abdominal and pelvic ascites. Hepatic cirrhosis. Gallstone in a contracted gallbladder. Calcification medial aspect right abdomen of uncertain significance, although was present on the prior exam and therefore considered nonacute. Bowel pattern is located centrally and is nonobstructive. Considerable pelvic ascites is present. Kidneys negative for hydronephrosis. IMPRESSION: 1. Considerable abdominal and pelvic ascites. 2. Nonobstructive bowel pattern. 3. Gallstone. 4. Bilateral pleural effusion. Electronically signed by: Riccardo Anton M.D. 08/18/2016 6:32 AM Dictated Date/Time: 08/18/2016 6:[address] HEAD WITHOUT CONTRAST (CT) CLINICAL HISTORY: dizzy MALAISE, RECENT SURGERY. COMPARISON STUDY: 04/08/2016 TECHNIQUE: Axial CT of the brain is performed from the vertex to the skull base. IV contrast was not administered for this examination. CT DOSE: 691.05 mGy.cm FINDINGS: No intra or extra-axial mass lesions are visualized. There is no CT evidence of acute cortical infarction. There is no evidence of midline shift. There is no acute hemorrhage. No calvarial fractures are visualized. There are minor white matter hypodensities likely on a small vessel basis. There is no evidence of pathologic ventricular dilatation. There is opacification of the left sphenoid sinus. IMPRESSION: Inflammatory changes in the left sphenoid sinus with complete opacification. The findings are consistent with a sphenoid sinusitis. Otherwise no acute intracranial findings. Electronically signed by: Aleksandr Riddle M.D. 08/18/2016 6:30 AM Dictated Date/Time: 08/18/2016 6:29 AM CHEST ONE VIEW PORTABLE CLINICAL HISTORY: Sepsis dyspnea COMPARISON STUDY: 04/11/2016 FINDINGS: Small parenchymal infiltrate medial left base. Lungs otherwise appear clear. Diaphragms smooth. IMPRESSION: Small parenchymal infiltrate medial left base. Electronically signed by: Riccardo Anton M.D. 08/18/2016 6:34 AM Impression Assessment and Plan SEPSIS 66 yo M with PMH of alcohol cirrhosis with ascites present with hypotensive, tachycardia, elevated lactate and WBC Need to R/O SBP since present with abdominal pain, chills and ascites Received about 3L of IVF WBC 18, POC lactate 3.4 started on pressor in the ER, will continue levophed Keep Map above 65 Received broad coverage with Vanco,Zosyn and levaquin Continue IV fluid CXR showed small parenchymal infiltrate medial left base Will repeat lactic acid check procalcitonin level Blood cx and urine cx collected before IV abx were given Will be admitted to ICU Has 2 IV lines and sepsis protocol was initiated in the ER Case discussed with the critical care team Ascites with abdominal pain due to alcohol Cirrhosis Last paracentesis was on 08/01 where 5L ascites fluid removed Need to R/O SBP since being admitted for sepsis CT Abdomen/pelvis showed abdominal and pelvic ascites lasix on hold On broad coverage abx will give Albumin before and after paracentesis On protonix drip, will change to IV since pt does not have any active GI bleed Will do diagnostic paracentesis only since pt is volume depleted on pressor ascites fluid will be sent for testing- see order will do morphine prn for the pain GI consulted Acute kidney injury Creatine 2 on admission Possibe related to sepsis, dehydration doubt about hepatorenal syndrome Fluid challenge, Continue IVF Avoid nephrotoxic agents Monitor BMP Left Lung Infiltrate CXR showed small parenchymal infiltrate medial left base No respiratory symptoms Already on broad coverage abx repeat cxr in am Hyponatremia Chronic continue NS IVF monotor BMP 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 Y/N: Yes Risk Level: Moderate Given or contraindicated: SCD's
[2016-08-18] MEDS ORDERED: MoRPHine SULFATE 2 MG/ML CARP IV PRN (13:00)
[2016-08-18 13:18] LABS: HEMATOCRIT 22.1 % (42-52)
--- NOTE | 2016-08-18 13:48 | Pharmacy Progress Note ---
Pharmacy Antibiotic Consult Date of Service: August 18, 2016. Pharmacy Dosing Scope Pharmacy is consulted to initiate Vancomycin IV dosing therapy, order appropriate labs and adjust drug dose/frequency. Subjective The patient is a 66 year old male admitted on August 18, 2016 at 08:42 with weakness and abdominal pain/distention. PMH significant for ascites d/t alcoholic cirrhosis, esophageal varices, and recent duodenal ulcer w/ hemorrhage. Objective Height (Feet): 5 Height (Inches): 7.00 Weight (Kilograms): 87.000 Lab Results (24hrs): Test 08/18/16 04:58 08/18/16 05:03 08/18/16 05:05 08/18/16 05:08 Bedside Hemoglobin 8.8 g/dl (14.0-18.0) 10.2 g/dl (14.0-18.0) Bedside Hematocrit 26 % (42-52) 30 % (42-52) Bedside Sodium 126 mEq/L (135-144) 124 mEq/L (135-144) Bedside Potassium 5.8 mEq/L (3.3-5.0) 6.7 mEq/L (3.3-5.0) Bedside Chloride 90 mEq/L (101-112) 89 mEq/L (101-112) Bedside Total CO2 24 mEq/l (24-31) 26 mEq/l (24-31) Bedside Blood Urea Nitrogen 68 mg/dl (7-18) 75 mg/dl (7-18) Bedside Creatinine 1.9 mg/dl (0.6-1.3) 2.1 mg/dl (0.6-1.3) Bedside Glucose (other) 69 mg/dl (70-99) 66 mg/dl (70-99) Bedside Ionized Calcium (Abelino) 0.98 mmol/l (1.12-1.32) 0.97 mmol/l (1.12-1.32) White Blood Count 18.16 K/uL (4.8-10.8) Red Blood Count 2.67 M/uL (4.7-6.1) Hemoglobin 9.7 g/dL (14.0-18.0) Hematocrit 28.0 % (42-52) Mean Corpuscular Volume 104.9 fL (80-100) Mean Corpuscular Hemoglobin 36.3 pg (25-34) Mean Corpuscular Hemoglobin Concent 34.6 g/dl (32-36) Platelet Count 146 K/uL (130-400) Mean Platelet Volume 10.0 fL (7.4-10.4) Neutrophils (%) (Auto) 83.6 % Lymphocytes (%) (Auto) 7.0 % Monocytes (%) (Auto) 8.8 % Eosinophils (%) (Auto) 0.1 % Basophils (%) (Auto) 0.1 % Neutrophils # (Auto) 15.18 K/uL (1.4-6.5) Lymphocytes # (Auto) 1.28 K/uL (1.2-3.4) Monocytes # (Auto) 1.59 K/uL (0.11-0.59) Eosinophils # (Auto) 0.01 K/uL (0-0.5) Basophils # (Auto) 0.02 K/uL (0-0.2) RDW Standard Deviation 64.2 fL (36.4-46.3) RDW Coefficient of Variation 17.7 % (11.5-14.5) Immature Granulocyte % (Auto) 0.4 % Immature Granulocyte # (Auto) 0.08 K/uL (0.00-0.02) Prothrombin Time 25.6 SECONDS (9.0-12.0) Prothromb Time International Ratio 2.3 (0.9-1.1) Activated Partial Thromboplast Time 41.3 SECONDS (21.0-31.0) Partial Thromboplastin Ratio 1.6 Sodium Level 127 mmol/L (136-145) Potassium Level 4.2 mmol/L (3.5-5.1) Chloride Level 91 mmol/L (98-107) Carbon Dioxide Level 25 mmol/L (21-32) Anion Gap 11.0 mmol/L (3-11) Blood Urea Nitrogen 52 mg/dl (7-18) Creatinine 2.00 mg/dl (0.60-1.40) Est Creatinine Clear Calc Drug Dose 38.6 ml/min Estimated GFR () 39.7 Estimated GFR (Non- 34.3 BUN/Creatinine Ratio 25.8 (10-20) Random Glucose 68 mg/dl (70-99) Calcium Level 7.6 mg/dl (8.5-10.1) Magnesium Level 2.3 mg/dl (1.8-2.4) Total Bilirubin 11.5 mg/dl (0.2-1) Aspartate Amino Transf (AST/SGOT) 56 U/L (15-37) Alanine Aminotransferase (ALT/SGPT) 19 U/L (12-78) Alkaline Phosphatase 73 U/L (45-117) Ammonia < 10.0 umol/L (11-32) Total Creatine Kinase 40 U/L (39-308) Creatine Kinase MB 0.7 ng/ml (0.5-3.6) Creatine Kinase MB Ratio 1.7 (0-3.0) Troponin I < 0.015 ng/ml (0-0.045) Total Protein 7.2 gm/dl (6.4-8.2) Albumin 1.7 gm/dl (3.4-5.0) Globulin 5.5 gm/dl (2.5-4.0) Albumin/Globulin Ratio 0.3 (0.9-2) Lipase 286 U/L (73-393) Thyroid Stimulating Hormone (TSH) 2.000 uIu/ml (0.300-4.500) Bedside Troponin I 0.020 ng/ml (0-0.045) Test 08/18/16 05:09 08/18/16 05:19 08/18/16 08:56 08/18/16 10:17 Bedside Lactic Acid Venous 3.40 mmol/L (0.90-1.70) Urine Color MARK Urine Appearance SL CLOUDY (CLEAR) Urine pH 5.0 (4.5-7.5) Urine Specific [place] 1.020 (1.000-1.030) Urine Protein NEG (NEG) Urine Glucose (UA) NEG (NEG) Urine Ketones TRACE (NEG) Urine Occult Blood 2+ (NEG) Urine Nitrite NEG (NEG) Urine Bilirubin 2+ (NEG) Urine Urobilinogen NEG (NEG) Urine Leukocyte Esterase NEG (NEG) Urine RBC 5-10 /hpf (0-4) Urine WBC 10-30 /hpf (0-5) Urine Epithelial Cells >30 /lpf (0-5) Urine Other Crystals LEUCINE (NONE PRSENT) Urine Bacteria 2+ (NEG) Urine Hyaline Casts 10-30 /lpf (0-5) Urine Granular Casts 10-20 /lpf (0) Sodium Level 128 mmol/L (136-145) Potassium Level 3.8 mmol/L (3.5-5.1) Chloride Level 94 mmol/L (98-107) Carbon Dioxide Level 25 mmol/L (21-32) Anion Gap 9.0 mmol/L (3-11) Blood Urea Nitrogen 52 mg/dl (7-18) Creatinine 1.90 mg/dl (0.60-1.40) Est Creatinine Clear Calc Drug Dose 40.6 ml/min Estimated GFR () 42.2 Estimated GFR (Non- 36.4 BUN/Creatinine Ratio 27.2 (10-20) Random Glucose 117 mg/dl (70-99) Lactic Acid Level 2.9 mmol/L (0.4-2.0) Calcium Level 7.4 mg/dl (8.5-10.1) Procalcitonin 2.18 ng/ml (0-0.5) Test 08/18/16 13:09 Hemoglobin 8.2 g/dL (14.0-18.0) Hematocrit 22.1 % (42-52) Micro Results: Item Value Date Time MRSA DNA Surveillance Screen Received 08/18/16 1020 Nasal Pending Urine Culture Received 08/18/16 0519 Urine , Clean Catch Pending Blood Culture Received 08/18/16 0505 Blood Pending Blood Culture Received 08/18/16 0500 Blood Pending Assessment & Plan ASSESSMENT: * Patient admitted with abdominal pain/distention, ascites. Patient had 5L of fluid removed via paracentesis on 08/01/16. * On admission: * BP 89/59 (requiring Levophed), HR 112, afebrile, WBC 18.16, lactic acid 3.4 mmol/L, PCT 2.18 ng/mL * Broad-spectrum abx initiated until SBP ruled out. * CANDELARIA on admission; suspected dehydration (SCr 1.9, baseline 0.8mg/dL) * Antibiotics have been ordered for empiric therapy w/ an automatic D/C after 48 hours. Will extend stop-date if appropriate. PLAN: VANCOMYCIN: * Loading dose: Vancomycin 2000 mg IV x1 dose in ED, then: * Vancomycin 1250 mg IV every 12 hours. * Dosing regimen selected based on baseline renal function, in anticipation of improvement w/ fluid replacement. Will adjust regimen tomorrow morning if renal function remains impaired. * Goal trough level estimate: between 15 - 20 mcg/mL for sepsis. * Will re-evaluate dose appropriateness tomorrow morning when labs are available. Will order a steady-state vancomycin trough level once regimen is determined. ZOSYN: * Zosyn 4.5gm IV x1 dose in ED, then * Zosyn 4.5gm IV q8h, extended 4-hr infusion * Consider this more aggressive regimen if: critically ill, obese with BMI 35 or above, cystic fibrosis, WAYNE > 16 g/mL LEVAQUIN: * Levaquin 750mg IV q24h * If renal function is not improved with morning labs tomorrow, will adjust dosing interval to q48h Pharmacy will continue to follow and will adjust dose/frequency as necessary. Thank you
--- NOTE | 2016-08-18 14:07 | Critical Care Consultation ---
Critical Care Consultation Date of Consultation: August 18, 2016. Attending Physician: Remedios Garcia M.D. Reason for Consultation: Hypotension History of Present Illness 66-year-old male with past history of alcohol cirrhosis, esophageal varices, thrombocytopenia presented to the ER with worsening abdominal distension, pain which started over the weekend. He was The pain is described as sharp ,across his abdomen, 4/10 , intermittent, resolving on laying still. Over the weekend he had several bouts of diarrhea which was mostly clear with some solid feces. he denied any bright red bleeding per rectum, melena, nausea and vomiting . he stated that he had decreased oral intake. He also complained of low-grade temperature and chills. He had an endoscopy performed about a month ago by his commercial representative which was normal. He was recently admitted for a bleeding duodenal ulcer which was also considered to be normal appearing on the last endoscopy. He denied any sick contacts, coughing, dysuria, increased frequency but noted that his urine was darker than usual . he recently had paracentesis done about 2 weeks ago when about 5 L were tapped from his abdomen. denied any chest pain, breath, palpitations. Was admitted to ICU due to concerns of sepsis likely sec to SBP and considering elevated white count , elevated lactate, tachycardia, hypotension, CANDELARIA. Past Medical/Surgical History alcoholic cirrhosis esophageal varices hepatic failure s/p exploratory laparotomy Family History No pertinent family history Social History Smoking Status: Former Smoker Alcohol Use: Last alcohol drink was on Feb 2016 Drug Use: none Marital Status: single Housing Status: lives alone Occupation Status: retired Allergies Coded Allergies: No Known Allergies (Verified , 08/01/16) Home Medications Scheduled Ferrous Sulfate (Ferrous Sulfate), 1 TAB PO QPM Folic Acid (Folvite), 1 MG PO DAILY Furosemide (Lasix), 40 MG PO DAILY AT LUNCH Lactulose (Encephalopathy) (Lactulose), 30 ML PO DAILY AFTERNOON Magnesium Oxide (Mag-Ox), 400 MG PO QAM Multivitamin (Multivitamin), 1 TAB PO QAM Nadolol (Corgard), 20 MG PO QPM Omeprazole (Prilosec), 40 MG PO QAM Potassium Chloride (K-Tabs), 1 TAB PO QAM Spironolactone (Aldactone), 100 MG PO QAM Thiamine Mononitrate (Vitamin B1), 100 MG PO DAILY Current Inpatient Medications Current Inpatient Medications Medications (Trade) Dose Ordered Sig/Alexandra Route Start Time Stop Time Status Last Admin Dose Admin Vancomycin HCl 1 ea 1 ea UD PRN N/A 08/18/16 09:00 09/17/16 08:59 Norepinephrine Bitartrate 8 mg/ Dextrose 508 ml @ 0 mls/hr Q0M PRN IV 08/18/16 08:28 09/17/16 08:27 Piperacillin Sod/ Tazobactam Sod 4.5 gm/Dextrose 120 ml @ 30 mls/hr Q8H IV 08/18/16 12:00 08/20/16 11:59 08/18/16 12:17 30 MLS/HR Vancomycin HCl 1250 mg/Sodium Chloride 275 ml @ 125 mls/hr Q12H IV 08/18/16 18:00 08/20/16 17:59 Levofloxacin/Prmx (Levaquin / D5W/ Premixed D5W) 150 ml @ 100 mls/hr Q24H IV 08/18/16 11:00 08/20/16 10:59 08/18/16 11:49 100 MLS/HR Piperacillin Sod/ Tazobactam Sod (Consult) 1 ea UD PRN N/A 08/18/16 09:00 09/17/16 08:59 Levofloxacin 1 ea 1 ea UD PRN N/A 08/18/16 09:00 09/17/16 08:59 Sodium Chloride (Nss 1000ml) 1,000 ml @ 100 mls/hr Q10H IV 08/18/16 09:00 09/17/16 08:59 08/18/16 10:41 100 MLS/HR Ferrous Sulfate (Feosol Tab) 325 mg QPM PO 08/18/16 21:00 09/17/16 20:59 Folic Acid (Folvite Tab) 1 mg DAILY PO 08/19/16 09:00 09/18/16 08:59 Thiamine HCl 100 mg 100 mg DAILY PO 08/19/16 09:00 09/18/16 08:59 Pantoprazole Sodium/Dextrose (Protonix Inj/D5 100ml) 100 ml @ 20 mls/hr Q5H IV 08/18/16 11:45 09/17/16 11:44 08/18/16 11:55 20 MLS/HR Morphine Sulfate (MoRPHine SULFATE INJ) 2 mg Q4 PRN IV 08/18/16 13:00 09/01/16 12:59 Review of Systems Constitutional: + chills, + fever Eyes: No worsening of vision ENT: No hearing loss Respiratory: No cough, No shortness of breath, No sputum Cardiovascular: No chest pain, No edema, No orthopnea Abdomen: + diarrhea (now resolved), + pain, No nausea, No vomiting Musculoskeletal: No joint pain Genitourinary - Male: No dysuria, No hematuria, No urinary frequency Neurologic: No memory loss, No paralysis Psychiatric: No depression symptoms Endocrine: + fatigue Hematologic / Lymphatic: No abnormal bleeding/bruising, No clotting problems Integumentary: No rash Physical Exam Date Time Temp Pulse Resp B/P Pulse Ox O2 Delivery O2 Flow Rate FiO2 08/18/16 11:00 135 18 97/63 96 08/18/16 10:46 136 24 117/73 92 08/18/16 10:45 134 21 93 08/18/16 10:30 128 23 08/18/16 10:23 129 20 69/41 08/18/16 10:20 95 Nasal Cannula 2.0 08/18/16 10:15 128 28 99 Nasal Cannula 2.0 08/18/16 10:11 36.7 125 22 74/58 08/18/16 09:40 120 22 109/65 96 08/18/16 09:15 121 22 94/62 96 Nasal Cannula 2.0 08/18/16 09:00 119 22 97/53 96 Nasal Cannula 2.0 08/18/16 08:45 125 24 94/55 93 Nasal Cannula 2.0 08/18/16 08:30 124 22 86/49 100 Nasal Cannula 2.0 08/18/16 08:15 122 22 109/63 95 Nasal Cannula 2.0 08/18/16 08:00 130 24 92/55 96 Nasal Cannula 2.0 08/18/16 07:59 36.5 131 24 92/54 95 Nasal Cannula 2.0 08/18/16 07:45 129 22 92/54 96 Nasal Cannula 2.0 08/18/16 07:30 126 22 106/65 92 Nasal Cannula 2.0 08/18/16 07:16 131 08/18/16 07:15 130 22 102/52 92 Nasal Cannula 2.0 08/18/16 07:00 126 20 109/60 91 Room Air 08/18/16 06:55 108/65 08/18/16 06:54 122 21 90 08/18/16 06:50 109/58 08/18/16 06:49 125 17 90 08/18/16 06:45 110/67 08/18/16 06:44 124 23 92 08/18/16 06:39 121 23 94 08/18/16 06:34 85/51 08/18/16 06:30 87/48 08/18/16 06:24 72/40 08/18/16 06:20 113 21 75/50 94 08/18/16 06:14 86/50 08/18/16 06:00 105/56 08/18/16 05:50 118 32 93 08/18/16 05:45 115 18 96 08/18/16 05:37 97/55 08/18/16 05:15 116 16 96 08/18/16 05:10 92/50 08/18/16 05:01 90/54 08/18/16 04:57 114 28 98 08/18/16 04:34 115 08/18/16 04:31 89/59 08/18/16 04:27 36.7 112 20 89/59 95 Room Air 08/18/16 04:27 95 Room Air General Appearance: well-appearing, no apparent distress, other (yellowish discoloration of skin) Head: normocephalic Eyes: EOMI, scleral icterus ENT: other (bleeding from lips) Neck: normal range of motion, supple Respiratory: breath sounds normal, clear to auscultation Cardiovasular: other (tachycardia) Abdomen: normal bowel sounds, other (distension with diffuse tenderness, Healing wounds on upper abdomen ) Back: no CVA tenderness Lower Extremities: no edema, other (right lower extremity intact blister sec to burn) Neuro: alert, oriented x 3 Laboratory Results Last 24 Hours Test 08/18/16 04:58 08/18/16 05:03 08/18/16 05:05 08/18/16 05:08 Bedside Hemoglobin 8.8 g/dl 10.2 g/dl Bedside Hematocrit 26 % 30 % Bedside Sodium 126 mEq/L 124 mEq/L Bedside Potassium 5.8 mEq/L 6.7 mEq/L Bedside Chloride 90 mEq/L 89 mEq/L Bedside Total CO2 24 mEq/l 26 mEq/l Anion Gap 18.0 mmol/L 17.0 mmol/L 11.0 mmol/L Bedside Blood Urea Nitrogen 68 mg/dl 75 mg/dl Bedside Creatinine 1.9 mg/dl 2.1 mg/dl Bedside Glucose (other) 69 mg/dl 66 mg/dl Bedside Ionized Calcium (Abelino) 0.98 mmol/l 0.97 mmol/l White Blood Count 18.16 K/uL Red Blood Count 2.67 M/uL Hemoglobin 9.7 g/dL Hematocrit 28.0 % Mean Corpuscular Volume 104.9 fL Mean Corpuscular Hemoglobin 36.3 pg Mean Corpuscular Hemoglobin Concent 34.6 g/dl Platelet Count 146 K/uL Mean Platelet Volume 10.0 fL Neutrophils (%) (Auto) 83.6 % Lymphocytes (%) (Auto) 7.0 % Monocytes (%) (Auto) 8.8 % Eosinophils (%) (Auto) 0.1 % Basophils (%) (Auto) 0.1 % Neutrophils # (Auto) 15.18 K/uL Lymphocytes # (Auto) 1.28 K/uL Monocytes # (Auto) 1.59 K/uL Eosinophils # (Auto) 0.01 K/uL Basophils # (Auto) 0.02 K/uL RDW Standard Deviation 64.2 fL RDW Coefficient of Variation 17.7 % Immature Granulocyte % (Auto) 0.4 % Immature Granulocyte # (Auto) 0.08 K/uL Prothrombin Time 25.6 SECONDS Prothromb Time International Ratio 2.3 Activated Partial Thromboplast Time 41.3 SECONDS Partial Thromboplastin Ratio 1.6 Sodium Level 127 mmol/L Potassium Level 4.2 mmol/L Chloride Level 91 mmol/L Carbon Dioxide Level 25 mmol/L Blood Urea Nitrogen 52 mg/dl Creatinine 2.00 mg/dl Est Creatinine Clear Calc Drug Dose 38.6 ml/min Estimated GFR () 39.7 Estimated GFR (Non- 34.3 BUN/Creatinine Ratio 25.8 Random Glucose 68 mg/dl Calcium Level 7.6 mg/dl Magnesium Level 2.3 mg/dl Total Bilirubin 11.5 mg/dl Aspartate Amino Transf (AST/SGOT) 56 U/L Alanine Aminotransferase (ALT/SGPT) 19 U/L Alkaline Phosphatase 73 U/L Ammonia < 10.0 umol/L Total Creatine Kinase 40 U/L Creatine Kinase MB 0.7 ng/ml Creatine Kinase MB Ratio 1.7 Troponin I < 0.015 ng/ml Total Protein 7.2 gm/dl Albumin 1.7 gm/dl Globulin 5.5 gm/dl Albumin/Globulin Ratio 0.3 Lipase 286 U/L Thyroid Stimulating Hormone (TSH) 2.000 uIu/ml Bedside Troponin I 0.020 ng/ml Test 08/18/16 05:09 08/18/16 05:19 08/18/16 08:56 08/18/16 10:17 Bedside Lactic Acid Venous 3.40 mmol/L Urine Color MARK Urine Appearance SL CLOUDY Urine pH 5.0 Urine Specific [place] 1.020 Urine Protein NEG Urine Glucose (UA) NEG Urine Ketones TRACE Urine Occult Blood 2+ Urine Nitrite NEG Urine Bilirubin 2+ Urine Urobilinogen NEG Urine Leukocyte Esterase NEG Urine RBC 5-10 /hpf Urine WBC 10-30 /hpf Urine Epithelial Cells >30 /lpf Urine Other Crystals LEUCINE Urine Bacteria 2+ Urine Hyaline Casts 10-30 /lpf Urine Granular Casts 10-20 /lpf Sodium Level 128 mmol/L Potassium Level 3.8 mmol/L Chloride Level 94 mmol/L Carbon Dioxide Level 25 mmol/L Anion Gap 9.0 mmol/L Blood Urea Nitrogen 52 mg/dl Creatinine 1.90 mg/dl Est Creatinine Clear Calc Drug Dose 40.6 ml/min Estimated GFR () 42.2 Estimated GFR (Non- 36.4 BUN/Creatinine Ratio 27.2 Random Glucose 117 mg/dl Lactic Acid Level 2.9 mmol/L Calcium Level 7.4 mg/dl Procalcitonin 2.18 ng/ml Test 08/18/16 13:09 Hemoglobin 8.2 g/dL Hematocrit 22.1 % Diagnostic Results ABDOMEN AND PELVIS CT WITHOUT CONTRAST CT DOSE: 1159.27 mGy.cm HISTORY: Pain abd pain, cirrhosis TECHNIQUE: Multiaxial CT images of the abdomen and pelvis were performed without contrast. COMPARISON STUDY: 04/09/2016 FINDINGS: Bilateral pleural effusions. A similar atelectatic change. Considerable abdominal and pelvic ascites. Hepatic cirrhosis. Gallstone in a contracted gallbladder. Calcification medial aspect right abdomen of uncertain significance, although was present on the prior exam and therefore considered nonacute. Bowel pattern is located centrally and is nonobstructive. Considerable pelvic ascites is present. Kidneys negative for hydronephrosis. IMPRESSION: 1. Considerable abdominal and pelvic ascites. 2. Nonobstructive bowel pattern. 3. Gallstone. 4. Bilateral pleural effusion. Electronically signed by: Riccardo Anton M.D. 08/18/2016 6:32 AM CHEST ONE VIEW PORTABLE CLINICAL HISTORY: Sepsis dyspnea COMPARISON STUDY: 04/11/2016 FINDINGS: Small parenchymal infiltrate medial left base. Lungs otherwise appear clear. Diaphragms smooth. IMPRESSION: Small parenchymal infiltrate medial left base. [~ rep ct add3]] CT HEAD WITHOUT CONTRAST (CT) CLINICAL HISTORY: dizzy MALAISE, RECENT SURGERY. COMPARISON STUDY: 04/08/2016 TECHNIQUE: Axial CT of the brain is performed from the vertex to the skull base. IV contrast was not administered for this examination. CT DOSE: 691.05 mGy.cm FINDINGS: No intra or extra-axial mass lesions are visualized. There is no CT evidence of acute cortical infarction. There is no evidence of midline shift. There is no acute hemorrhage. No calvarial fractures are visualized. There are minor white matter hypodensities likely on a small vessel basis. There is no evidence of pathologic ventricular dilatation. There is opacification of the left sphenoid sinus. IMPRESSION: Inflammatory changes in the left sphenoid sinus with complete opacification. The findings are consistent with a sphenoid sinusitis. Otherwise no acute intracranial findings. Electronically signed by: Aleksandr Riddle M.D. 08/18/2016 6:30 AM Assessment & Plan Problem list: Abdominal pain: Differentials: SBP vs Viral gastroenteritis vs Colitis Diarrhea: Viral GE vs C. difficile diarrhea Hypotension: Sepsis , dehydration Neuro: - No sedation - Pain control with fentanyl CVS: Hypotension: ?sepsis - Received 3 L of IVF in ER - IV albumin , IVF - Levophed titration per protocol - Hold nadolol GI/FEN: Ascites with h/o alcoholic cirrhosis: - concern of SBP considering low grade temp, chills, abdominal pain , leucocytosis, elevated lactate - diagnostic abdominal paracentesis - ammonia level ordered - Gastroenterology consult Watery Diarrhea No recent abx use C.diff vs viral GE - C. diff ag ordered ID: ?SBP: meets sepsis criteria with tachycardia, elevated WBC, elevated lactate - lactate at 2.7 on admission, repeat at 2.2 - currently on vancomycin and zosyn, levaquin to empirically cover SBP Skin: wound on skin on abdomen and blister sec to burn on RLE - wound consult Renal: CANDELARIA: - Creatinine on admission at 2, repeat at 1.9 - Baseline creatinine 0.8 - Likely secondary to sepsis, dehydration - Continue IV hydration Hyponatremia: Chronic Sodium at 128 Heme: Elevated INR: - Likely secondary to liver disease - Vitamin K 10 mg by mouth for 3 days DVT prophylaxis: SCDs chemical anticoagulation avoided due to liver failure Full code Disposition: In ICU Resident Physician Supervision Note/[employer] Attending I interviewed and examined the patient. I have also reviewed old records, vitals , labs, imaging reports, meds and documentation from today. Discussed with Dr. Boudreaux and agree with findings and plan as documented in the note. Any exceptions or clarifications are listed here: The patient refused the diagnostic paracentesis and requested a PICC line rather than a triple lumen catheter. We are treating him empirically for SBP and I believe he also has significant volume depletion. He is on broad spectrum antibiotics and has had 50g of 25% albumin. Anemia may be secondary to dilution - serial blood counts ordered. Diarrhea seems to have resolved prior to admission and stool studies ordered. Lactic acid is improving. Hopefully we can begin to wean the levophed in the next 24 hours and can eventually do a large volume paracentesis. I would like to see his Cr and BP improve prior to it unless he has respiratory difficulty secondary to his distended abdomen. I discussed his care in detail and at length with him. Critical Care time 40min. Documented By: Alba Shi Resident Tracking Resident Involvement: Resident Care Provided Care Provided: Adult Hospital Medicine
[2016-08-18] MEDS: VANCOMYCIN INJ 1,250 MG in SODIUM CHLORIDE 0.9% 250ML 250 ML IV SCH (17:01)
[2016-08-18] MEDS: NOREPINEPHRINE BIT INJ 8 MG in DEXTROSE 5% 500ML 500 ML IV PRN (18:46)
[2016-08-18 18:54] LABS: HEMATOCRIT 21.9 % (42-52)
[2016-08-18] MEDS: FERROUS SULFATE 325 MG TAB PO SCH (20:17)
[2016-08-18] MEDS: FENTANYL CITRATE INJ 50 MCG/1 ML 2 ML VIAL IV PRN ×2 (20:26→23:25)
[2016-08-19] VITALS (30 sets, daily range): BP systolic 77–114; BP diastolic 47–68; PULSE 104–117; TEMP 36.6–36.9; O2SAT 92–96
[2016-08-19 01:05] LABS: HEMATOCRIT 22.6 % (42-52)
[2016-08-19] MEDS: FENTANYL CITRATE INJ 50 MCG/1 ML 2 ML VIAL IV PRN ×6 (02:32→23:34)
[2016-08-19] MEDS: PANTOprazole INJ 40 MG in DEXTROSE 5% 100ML IV SCH ×5 (03:01→22:26)
[2016-08-19] MEDS: PIPERACILL/TAZOBAC IV 4.5 GM in DEXTROSE 5% 100ML 100 ML IV SCH ×3 (03:48→20:07)
[2016-08-19] MEDS: VANCOMYCIN INJ 1,250 MG in SODIUM CHLORIDE 0.9% 250ML 250 ML IV SCH (05:42)
[2016-08-19 05:57] LABS: HEMATOCRIT 22.8 % (42-52); MEAN CELL VOLUME 105.6 fL (80-100); MEAN CORPUSCULAR HEMOGLOBIN 37.5 pg (25-34); MEAN CORPUSCULAR HGB CONC 35.5 g/dl (32-36); RED BLOOD COUNT 2.16 M/uL (4.7-6.1); WHITE BLOOD COUNT 10.83 K/uL (4.8-10.8)
[2016-08-19] MEDS: SODIUM CHLORIDE 0.9% 1000ML 1,000 ML IV SCH (05:58)
[2016-08-19 06:12] LABS: INR 2.2 (0.9-1.1); PARTIAL THROMBOPLASTIN RATIO 1.8; PROTHROMBIN TIME (PATIENT) 24.2 SECONDS (9.0-12.0)
[2016-08-19 06:42] LABS: BUN/CREATININE RATIO 29.6 (10-20); CALCIUM 7.7 mg/dl (8.5-10.1); CREATININE 1.7 mg/dl (0.60-1.40); POTASSIUM 3.5 mmol/L (3.5-5.1)
[2016-08-19 06:50] LABS: MEAN PLATELET VOLUME 8.8 fL (7.4-10.4); PLATELET COUNT 88 K/uL (130-400)
[2016-08-19 06:51] LABS: BASO % 0.1 %; BASO ABS # 0.01 K/uL (0-0.2); COMPLETE YES; EOS % 0.7 %; IG% 0.3 %; LYMPH % 11.6 %; LYMPH ABS # 1.26 K/uL (1.2-3.4); NEUT % 78.3 %; PLT ESTIMATE DECREASED; VACUOLIZATION OCCASIONAL
[2016-08-19 07:00] LABS: ALB/GLOB RATIO 0.5 (0.9-2)
--- NOTE | 2016-08-19 07:07 | DIAGNOSTIC IMAGING REPORT ---
CHEST ONE VIEW PORTABLE CLINICAL HISTORY: f/u dyspnea COMPARISON STUDY: 08/18/2016 FINDINGS: Poor inspiratory volumes. Crowding of the basilar lung markings. Left basilar atelectasis. Central catheter in right atrium. IMPRESSION: Central catheter in right atrium. No evidence pneumothorax. Left basilar atelectasis. Electronically signed by: Riccardo Anton M.D. 08/19/2016 7:06 AM Dictated Date/Time: 08/19/2016 7:05 AM
--- NOTE | 2016-08-19 08:41 | Gastroenterology Progress Note ---
Progress Note Date of Service: August 19, 2016 Subjective Pt evaluation today including: conversation w/ patient, physical exam, chart review, lab review Pt was seen and examined this AM. Reports his weakness and generalized fatigue are overall improved but he still has abdominal pain. Paracentesis did not occur yesterday as he was confused/unwilling. Abdominal pain is more frequent, not constant. Generalized fullness with pressure with twinges are sharp pain localized in the midabdomen with radiation to bilateral lower quadrants. Denies any N/V black/bloody stools. Chest XR 08/19/16: Central catheter in right atrium. No evidence pneumothorax. Leftbasilar atelectasis. CT abd 08/18/16: Considerable abdominal and pelvic ascites.Nonobstructive bowel pattern. Gallstone. Bilateral pleural effusion Review of Systems Constitutional: No chills, No fever Respiratory: + shortness of breath, No cough Cardiac: No chest pain, No edema Abdomen: + pain, No GI bleeding, No constipation, No diarrhea, No nausea, No vomiting Skin: + jaundice Medications Current Inpatient Medications Medications (Trade) Dose Ordered Sig/Alexandra Route Start Time Stop Time Status Last Admin Dose Admin Vancomycin HCl 1 ea 1 ea UD PRN N/A 08/18/16 09:00 09/17/16 08:59 Norepinephrine Bitartrate 8 mg/ Dextrose 508 ml @ 0 mls/hr Q0M PRN IV 08/18/16 08:28 09/17/16 08:27 08/18/16 18:46 47 MLS/HR Piperacillin Sod/ Tazobactam Sod 4.5 gm/Dextrose 120 ml @ 30 mls/hr Q8H IV 08/18/16 12:00 08/20/16 11:59 08/19/16 03:48 30 MLS/HR Vancomycin HCl 1250 mg/Sodium Chloride 275 ml @ 125 mls/hr Q12H IV 08/18/16 18:00 08/20/16 17:59 08/19/16 05:42 125 MLS/HR Levofloxacin/Prmx (Levaquin / D5W/ Premixed D5W) 150 ml @ 100 mls/hr Q24H IV 08/18/16 11:00 08/20/16 10:59 08/18/16 11:49 100 MLS/HR Piperacillin Sod/ Tazobactam Sod (Consult) 1 ea UD PRN N/A 08/18/16 09:00 09/17/16 08:59 Levofloxacin 1 ea 1 ea UD PRN N/A 08/18/16 09:00 09/17/16 08:59 Sodium Chloride (Nss 1000ml) 1,000 ml @ 100 mls/hr Q10H IV 08/18/16 09:00 09/17/16 08:59 08/19/16 05:58 100 MLS/HR Ferrous Sulfate (Feosol Tab) 325 mg QPM PO 08/18/16 21:00 09/17/16 20:59 08/18/16 20:17 325 MG Folic Acid (Folvite Tab) 1 mg DAILY PO 08/19/16 09:00 09/18/16 08:59 Thiamine HCl 100 mg 100 mg DAILY PO 08/19/16 09:00 09/18/16 08:59 Pantoprazole Sodium/Dextrose (Protonix Inj/D5 100ml) 100 ml @ 20 mls/hr Q5H IV 08/18/16 11:45 09/17/16 11:44 08/19/16 03:01 20 MLS/HR Fentanyl Citrate (Fentanyl Inj) 50 mcg Q3H PRN IV 08/18/16 15:30 09/01/16 15:29 08/19/16 05:59 50 MCG Heparin Sodium (Porcine) (Heparin 10 Unit/ ml 5 ml Flush) 5 ml PRN PRN FLUSH 08/19/16 01:45 09/18/16 01:44 Objective Vital Signs Date Time Temp Pulse Resp B/P Pulse Ox O2 Delivery O2 Flow Rate FiO2 08/19/16 06:00 111 17 114/68 93 Nasal Cannula 2.0 08/19/16 04:00 Nasal Cannula 2.0 08/19/16 04:00 36.7 114 20 101/61 95 Nasal Cannula 2.0 08/19/16 02:00 116 18 105/67 94 Nasal Cannula 2.0 08/19/16 00:01 36.6 117 17 106/67 94 Nasal Cannula 2.0 08/18/16 23:59 Nasal Cannula 2.0 08/18/16 22:00 118 18 99/63 94 Nasal Cannula 2.0 08/18/16 20:00 Nasal Cannula 2.0 08/18/16 20:00 36.8 123 22 102/63 94 Nasal Cannula 2.0 15/17 18:30 125 19 114/69 96 15/17 18:15 128 25 98 15/17 18:00 128 20 119/71 96 15/17 17:45 129 18 97 15/17 17:30 130 26 114/70 97 15/17 17:15 130 23 96 15/17 17:00 124 18 111/66 96 15/17 16:45 125 20 115/67 97 15/17 16:30 127 17 110/68 96 15/17 16:15 125 18 110/62 93 15/17 16:00 97 Nasal Cannula 2.0 17 16:00 124 18 106/65 94 15/17 15:45 36.8 122 18 103/64 93 Nasal Cannula 2.0 08/18/17 15:30 124 19 105/62 94 15/17 15:15 127 22 105/65 95 15/17 15:00 129 27 117/63 95 15/17 14:54 130 30 105/64 96 15/17 14:45 129 21 15/17 14:30 134 29 15/17 14:15 130 18 15/17 14:00 127 17 90/65 93 15/17 13:49 128 19 83/58 91 15/17 13:00 134 16 94 15/17 12:46 137 26 78/54 90 15/17 12:45 139 23 93 15/17 12:30 135 16 100/61 15/17 12:15 129 21 93/64 95 15/17 12:00 133 20 92/62 96 15/17 11:45 127 12 101/67 96 15/17 11:31 133 20 92/60 89 15/17 11:30 131 22 93 15/17 11:00 135 18 97/63 96 15/17 10:46 136 24 117/73 92 15/17 10:45 134 21 93 15/17 10:30 128 23 15/17 10:23 129 20 69/41 15/17 10:20 95 Nasal Cannula 2.0 5/15/17 10:15 128 28 99 Nasal Cannula 2.0 08/18/16 10:11 36.7 125 22 74/58 08/18/16 09:40 120 22 109/65 96 08/18/16 09:15 121 22 94/62 96 Nasal Cannula 2.0 08/18/16 09:00 119 22 97/53 96 Nasal Cannula 2.0 08/18/16 08:45 125 24 94/55 93 Nasal Cannula 2.0 Physical Exam General Appearance: no apparent distress Eyes: PERRL ENT: hearing grossly normal Neck: supple Respiratory/Chest: chest non-tender, no respiratory distress, + decreased breath sounds, + pertinent finding (wearing O2) Cardiovascular: regular rate, rhythm, no JVD Abdomen: normal bowel sounds, no pulsatile mass, + distended (tense ascites), + tenderness Neurologic/Psych: alert, normal mood/affect, oriented x 3 Skin: + jaundice Laboratory Results Last 24 Hours Test 08/18/16 08:56 08/18/16 10:17 08/18/16 13:09 08/18/16 18:42 Sodium Level 128 mmol/L Potassium Level 3.8 mmol/L Chloride Level 94 mmol/L Carbon Dioxide Level 25 mmol/L Anion Gap 9.0 mmol/L Blood Urea Nitrogen 52 mg/dl Creatinine 1.90 mg/dl Est Creatinine Clear Calc Drug Dose 40.6 ml/min Estimated GFR () 42.2 Estimated GFR (Non- 36.4 BUN/Creatinine Ratio 27.2 Random Glucose 117 mg/dl Lactic Acid Level 2.9 mmol/L 2.2 mmol/L 1.8 mmol/L Calcium Level 7.4 mg/dl Procalcitonin 2.18 ng/ml Hemoglobin 8.2 g/dL 8.0 g/dL Hematocrit 22.1 % 21.9 % Test 08/18/16 21:45 08/19/16 00:35 08/19/16 05:45 Bedside Glucose 100 mg/dl Hemoglobin 8.1 g/dL 8.1 g/dL Hematocrit 22.6 % 22.8 % White Blood Count 10.83 K/uL Red Blood Count 2.16 M/uL Mean Corpuscular Volume 105.6 fL Mean Corpuscular Hemoglobin 37.5 pg Mean Corpuscular Hemoglobin Concent 35.5 g/dl Platelet Count 88 K/uL Mean Platelet Volume 8.8 fL Neutrophils (%) (Auto) 78.3 % Lymphocytes (%) (Auto) 11.6 % Monocytes (%) (Auto) 9.0 % Eosinophils (%) (Auto) 0.7 % Basophils (%) (Auto) 0.1 % Neutrophils # (Auto) 8.47 K/uL Lymphocytes # (Auto) 1.26 K/uL Monocytes # (Auto) 0.98 K/uL Eosinophils # (Auto) 0.08 K/uL Basophils # (Auto) 0.01 K/uL RDW Standard Deviation 64.7 fL RDW Coefficient of Variation 16.9 % Immature Granulocyte % (Auto) 0.3 % Immature Granulocyte # (Auto) 0.03 K/uL Toxic Vacuolation OCCASIONAL Platelet Estimate DECREASED Prothrombin Time 24.2 SECONDS Prothromb Time International Ratio 2.2 Activated Partial Thromboplast Time 48.0 SECONDS Partial Thromboplastin Ratio 1.8 Sodium Level 128 mmol/L Potassium Level 3.5 mmol/L Chloride Level 95 mmol/L Carbon Dioxide Level 24 mmol/L Anion Gap 9.0 mmol/L Blood Urea Nitrogen 50 mg/dl Creatinine 1.70 mg/dl Est Creatinine Clear Calc Drug Dose 46.9 ml/min Estimated GFR () 48.3 Estimated GFR (Non- 41.7 BUN/Creatinine Ratio 29.6 Random Glucose 106 mg/dl Lactic Acid Level 1.6 mmol/L Calcium Level 7.7 mg/dl Total Bilirubin 12.7 mg/dl Aspartate Amino Transf (AST/SGOT) 36 U/L Alanine Aminotransferase (ALT/SGPT) 14 U/L Alkaline Phosphatase 55 U/L Total Protein 6.1 gm/dl Albumin 1.9 gm/dl Globulin 4.2 gm/dl Albumin/Globulin Ratio 0.5 Lipase 231 U/L Procalcitonin 1.88 ng/ml Assessment and Plan Patient is a 66 year old male with ETOH cirrhosis who presents with ascites, abdominal pain, CANDELARIA and sepsis. He is noncompliant with his medications as an outpatient. Will need to rule out SBP with a diagnostic paracentesis - this did not occur yesterday at the request of the pt. Blood culture without any growth. Urine culture with e.coli. Plan Stool culture Stool for c.diff Stool for Giardia Repeat lactic acid Hold all diuretics Urine NA IVF Diagnostic paracentesis - ICU please arrange when pt is agreeable cell count cytology culture protein albumin Continue broad spectrum ABX coverage 2 g NA diet Follow up cultures Albumin 25g TID MELD 33 ATTESTATION: I have performed a history and physical examination of this patient and reviewed the electronic record. Specifically, on physical examination he has tense ascites and there is no asterixis. I have discussed the case with HARLAN Bejarano. The above note reflects my findings, conclusions, and recommendations. Richar Trevino MD
[2016-08-19] MEDS: THIAMINE HCL 100 MG TAB PO SCH (09:41)
[2016-08-19] MEDS: LEVOFLOXACIN / D5W 750 MG in PREMIXED IN D5W 150 ML IV SCH (10:27)
[2016-08-19] MEDS: ALBUMIN HUMAN 25% 12.5 GM/50 ML VIAL IV SCH ×2 (10:30→17:57)
--- NOTE | 2016-08-19 11:16 | Critical Care Progress Note ---
Critical Care Progress Note Date of Service August 19, 2016. Attending Dr. Jose Guadalupe Brown 66-year-old male with past medical history of alcoholic cirrhosis, esophageal varices, thrombocytopenia, history of GI bleed presented to the ER with complaints of abdominal distention with pain, diarrhea , and low-grade temperatures with chills. His most recent paracentesis was about 2 weeks ago and about 5 L of fluid was tapped. He was admitted to ICU as he was tachycardic, hypotensive with a white count of 18 K , elevated lactic acid on presentation. declined diagnostic paracentesis yesterday. He thinks his abdominal pain is somewhat better but requests to increase pain medication . He is any denies any nausea, vomiting, or any more episodes of diarrhea and, fevers or chills overnight Objective GENERAL: Patient is in no acute distress. HEENT: scleral icterus NECK: No stridor, no adenopathy, no meningismus, trachea is midline. LUNGS: Clear to auscultation bilaterally, no wheeze, no rhonchi, breath sounds equal. HEART: Without murmurs gallops or rubs, regular rate and rhythm. ABDOMEN: distended, diffusely tender, BS heard, healing wounds on upper abdominal area EXTREMITIES: No cyanosis or edema, full range of motion of all the joints without pain or difficulty, intact blister on right LE sec to burn NEUROLOGIC: Oriented x 3, no acute motor or sensory deficits, no focal weakness. SKIN: yellowish discoloration of skin and sclerae Assessment & Plan 66-year-old male with past medical history of alcoholic cirrhosis, esophageal varices, thrombocytopenia, history of GI bleed presented to the ER with complaints of abdominal distention with pain, diarrhea , and low-grade temperatures with chills. His most recent paracentesis was about 2 weeks ago and about 5 L of fluid was tapped. He was admitted to ICU as he was tachycardic, hypotensive with a white count of 18 K , elevated lactic acid on presentation. declined diagnostic paracentesis yesterday. Plan for diagnostic and therapeutic paracentesis today . Neuro: RASS 0 - No sedation - Pain control with fentanyl as needed CVS: Hypotension: - continues to be on levophed - Receiving albumin TID and - Hold nadolol Tachycardia: likely compensatory to low BP vs infection GI/FEN: Ascites with h/o alcoholic cirrhosis: - concern of SBP considering low grade temp, chills, abdominal pain , leucocytosis, elevated lactate - diagnostic and therapeutic paracentesis for 3 L - cell count, cytology, culture, protein, albumin ordered - Gastroenterology consult Watery Diarrhea - now resolved No recent abx use C.diff vs viral GE - C. diff ag ordered - Stool culture, Giardia ordered ID: ?SBP: meets sepsis criteria with tachycardia, elevated WBC, elevated lactate - lactate at 2.7 on admission, repeat at 2.2-->1.6 - currently on vancomycin and zosyn, levaquin to empirically cover SBP - improved leucocyte count Skin: wound on skin on abdomen and blister sec to burn on RLE - wound consult Renal: CANDELARIA: - Creatinine on admission at 2, today at 1.7 - Baseline creatinine 0.8 - Likely secondary to sepsis, dehydration Hyponatremia: Chronic Sodium at 128 Heme: Elevated INR: - Likely secondary to liver disease - Vitamin K 10 mg by mouth for 3 days thrombocytopenia: platelets at 88, likely sec to dilution , definitely has an element of liver dysfunction but the rapid decline appears to be more dilutional DVT prophylaxis: SCDs chemical anticoagulation avoided due to liver failure PT/OT Full code Disposition: In ICU Resident Physician Supervision Note: I interviewed and examined the patient. Discussed with Dr. Boudreaux and agree with findings and plan as documented in the note. Any exceptions or clarifications are listed in my dictated addendum. Documented By: Alba Shi Consults & Procedures Consultants: gastroenterology Procedures: US guided paracentesis Data Medications: Current Inpatient Medications Medications (Trade) Dose Ordered Sig/Alexandra Route Start Time Stop Time Status Last Admin Dose Admin Vancomycin HCl 1 ea 1 ea UD PRN N/A 08/18/16 09:00 09/17/16 08:59 Norepinephrine Bitartrate 8 mg/ Dextrose 508 ml @ 0 mls/hr Q0M PRN IV 08/18/16 08:28 09/17/16 08:27 08/18/16 18:46 47 MLS/HR Piperacillin Sod/ Tazobactam Sod 4.5 gm/Dextrose 120 ml @ 30 mls/hr Q8H IV 08/18/16 12:00 08/20/16 11:59 08/19/16 03:48 30 MLS/HR Vancomycin HCl 1250 mg/Sodium Chloride 275 ml @ 125 mls/hr Q12H IV 08/18/16 18:00 08/20/16 17:59 08/19/16 05:42 125 MLS/HR Levofloxacin/Prmx (Levaquin / D5W/ Premixed D5W) 150 ml @ 100 mls/hr Q24H IV 08/18/16 11:00 08/20/16 10:59 08/19/16 10:27 100 MLS/HR Piperacillin Sod/ Tazobactam Sod (Consult) 1 ea UD PRN N/A 08/18/16 09:00 09/17/16 08:59 Levofloxacin (Consult) 1 ea UD PRN N/A 08/18/16 09:00 09/17/16 08:59 Ferrous Sulfate (Feosol Tab) 325 mg QPM PO 08/18/16 21:00 09/17/16 20:59 08/18/16 20:17 325 MG Folic Acid (Folvite Tab) 1 mg DAILY PO 08/19/16 09:00 09/18/16 08:59 08/19/16 09:41 1 MG Thiamine HCl 100 mg 100 mg DAILY PO 08/19/16 09:00 09/18/16 08:59 08/19/16 09:41 100 MG Pantoprazole Sodium/Dextrose (Protonix Inj/D5 100ml) 100 ml @ 20 mls/hr Q5H IV 08/18/16 11:45 09/17/16 11:44 08/19/16 09:42 20 MLS/HR Fentanyl Citrate (Fentanyl Inj) 50 mcg Q3H PRN IV 08/18/16 15:30 09/01/16 15:29 08/19/16 10:27 50 MCG Heparin Sodium (Porcine) (Heparin 10 Unit/ ml 5 ml Flush) 5 ml PRN PRN FLUSH 08/19/16 01:45 09/18/16 01:44 Albumin Human (Albumin 25%) 25 gm Q8H IV 08/19/16 10:00 08/22/16 09:59 08/19/16 10:30 25 GM I & O: 24-Hour Column 08/19/16 07:58 Intake Total 3878 ml Output Total 875 ml Balance 3003 ml Vital Signs: Date Time Temp Pulse Resp B/P Pulse Ox O2 Delivery O2 Flow Rate FiO2 08/19/16 06:00 111 17 114/68 93 Nasal Cannula 2.0 08/19/16 04:00 Nasal Cannula 2.0 08/19/16 04:00 36.7 114 20 101/61 95 Nasal Cannula 2.0 08/19/16 02:00 116 18 105/67 94 Nasal Cannula 2.0 08/19/16 00:01 36.6 117 17 106/67 94 Nasal Cannula 2.0 08/18/16 23:59 Nasal Cannula 2.0 08/18/16 22:00 118 18 99/63 94 Nasal Cannula 2.0 08/18/16 20:00 Nasal Cannula 2.0 08/18/16 20:00 36.8 123 22 102/63 94 Nasal Cannula 2.0 08/18/16 18:30 125 19 114/69 96 08/18/16 18:15 128 25 98 08/18/16 18:00 128 20 119/71 96 08/18/16 17:45 129 18 97 08/18/16 17:30 130 26 114/70 97 08/18/16 17:15 130 23 96 08/18/16 17:00 124 18 111/66 96 08/18/16 16:45 125 20 115/67 97 08/18/16 16:30 127 17 110/68 96 08/18/16 16:15 125 18 110/62 93 08/18/16 16:00 97 Nasal Cannula 2.0 08/18/16 16:00 124 18 106/65 94 08/18/16 15:45 36.8 122 18 103/64 93 Nasal Cannula 2.0 08/18/16 15:30 124 19 105/62 94 08/18/16 15:15 127 22 105/65 95 08/18/16 15:00 129 27 117/63 95 08/18/16 14:54 130 30 105/64 96 15 14:45 129 21 08/18/16 14:30 134 29 15 14:15 130 18 08/18/16 14:00 127 17 90/65 93 15 13:49 128 19 83/58 91 08/18/16 13:00 134 16 94 08/18/16 12:46 137 26 78/54 90 08/18/16 12:45 139 23 93 08/18/16 12:30 135 16 100/61 08/18/16 12:15 129 21 93/64 95 08/18/16 12:00 133 20 92/62 96 08/18/16 11:45 127 12 101/67 96 08/18/16 11:31 133 20 92/60 89 08/18/16 11:30 131 22 93 Laboratory Results: Last 24 Hours Test 08/18/16 13:09 08/18/16 18:42 08/18/16 21:45 08/19/16 00:35 Hemoglobin 8.2 g/dL 8.0 g/dL 8.1 g/dL Hematocrit 22.1 % 21.9 % 22.6 % Lactic Acid Level 2.2 mmol/L 1.8 mmol/L Bedside Glucose 100 mg/dl Test 08/19/16 05:45 White Blood Count 10.83 K/uL Red Blood Count 2.16 M/uL Hemoglobin 8.1 g/dL Hematocrit 22.8 % Mean Corpuscular Volume 105.6 fL Mean Corpuscular Hemoglobin 37.5 pg Mean Corpuscular Hemoglobin Concent 35.5 g/dl Platelet Count 88 K/uL Mean Platelet Volume 8.8 fL Neutrophils (%) (Auto) 78.3 % Lymphocytes (%) (Auto) 11.6 % Monocytes (%) (Auto) 9.0 % Eosinophils (%) (Auto) 0.7 % Basophils (%) (Auto) 0.1 % Neutrophils # (Auto) 8.47 K/uL Lymphocytes # (Auto) 1.26 K/uL Monocytes # (Auto) 0.98 K/uL Eosinophils # (Auto) 0.08 K/uL Basophils # (Auto) 0.01 K/uL RDW Standard Deviation 64.7 fL RDW Coefficient of Variation 16.9 % Immature Granulocyte % (Auto) 0.3 % Immature Granulocyte # (Auto) 0.03 K/uL Toxic Vacuolation OCCASIONAL Platelet Estimate DECREASED Prothrombin Time 24.2 SECONDS Prothromb Time International Ratio 2.2 Activated Partial Thromboplast Time 48.0 SECONDS Partial Thromboplastin Ratio 1.8 Sodium Level 128 mmol/L Potassium Level 3.5 mmol/L Chloride Level 95 mmol/L Carbon Dioxide Level 24 mmol/L Anion Gap 9.0 mmol/L Blood Urea Nitrogen 50 mg/dl Creatinine 1.70 mg/dl Est Creatinine Clear Calc Drug Dose 46.9 ml/min Estimated GFR () 48.3 Estimated GFR (Non- 41.7 BUN/Creatinine Ratio 29.6 Random Glucose 106 mg/dl Lactic Acid Level 1.6 mmol/L Calcium Level 7.7 mg/dl Total Bilirubin 12.7 mg/dl Aspartate Amino Transf (AST/SGOT) 36 U/L Alanine Aminotransferase (ALT/SGPT) 14 U/L Alkaline Phosphatase 55 U/L Total Protein 6.1 gm/dl Albumin 1.9 gm/dl Globulin 4.2 gm/dl Albumin/Globulin Ratio 0.5 Lipase 231 U/L Procalcitonin 1.88 ng/ml Resident Tracking Resident Involvement: Resident Care Provided Care Provided: Adult Hospital Medicine
--- NOTE | 2016-08-19 12:00 | Pharmacy Progress Note ---
Pharmacy Abx Dose Short Note Date of Service August 19, 2016. Assessment & Plan ASSESSMENT: * Patient admitted with abdominal pain/distention, ascites. Patient had 5L of fluid removed via paracentesis on 08/01/16. * On admission: * BP 89/59 (requiring Levophed), HR 112, afebrile, WBC 18.16, lactic acid 3.4 mmol/L, PCT 2.18 ng/mL * Broad-spectrum abx initiated until SBP ruled out. * CANDELARIA on admission; suspected dehydration (SCr 1.9, baseline 0.8mg/dL) * SCr has not yet improved to baseline, but does appear to be improving * MRSA nasal swab was positive. Patient is growing E.coli in his urine. Blood cx are negative to date. * Antibiotics have been ordered for empiric therapy w/ an automatic D/C after 48 hours. Will extend stop-date if appropriate. PLAN: VANCOMYCIN: * Loading dose: Vancomycin 2000 mg IV x1 dose in ED, then: * Vancomycin 1250 mg IV every 12 hours. * Goal trough level estimate: between 15 - 20 mcg/mL for sepsis. * The patient's renal function is improving, but not yet to baseline. Will evaluate a vanc trough level this evening prior to the dose due at 1800 (though this will not yet be a steady-state level). Patient may require an adjustment, as vanc was dosed in anticipation of more significant improvement in SCr. Kinetics are difficult to predict in this patient d/t changing renal function and degree of ascites/third-spacing. Evaluate vanc level at ~1730 today. * If vanc level is 12-15 mcg/mL: continue current regimen * If vanc level is >15 mcg/mL: will need to extend the dosing interval ZOSYN: * Zosyn 4.5gm IV x1 dose in ED, then * Zosyn 4.5gm IV q8h, extended 4-hr infusion * Consider this more aggressive regimen if: critically ill, obese with BMI 35 or above, cystic fibrosis, WAYNE > 16 g/mL LEVAQUIN: * Levaquin 750mg IV q24h * CrCl is nearly 50mL/min today, will adjust dosing interval to q48h tomorrow if necessary Pharmacy will continue to follow and will adjust dose/frequency as necessary. Thank you
[2016-08-19] MEDS: NOREPINEPHRINE BIT INJ 8 MG in DEXTROSE 5% 500ML 500 ML IV PRN (12:57)
--- NOTE | 2016-08-19 13:45 | Progress Note ---
Internal Med Progress Note Date of Service: August 19, 2016. Provider Documentation: SUBJECTIVE: The patient was seen and examined Complains of abdominal pain ans nausea Has had profuse Diarrhea before admission Denies any fever or chills OBJECTIVE: Vital Signs-as noted below Exam: General-Minimal distress at rest Eyes-jaundiced ENT-normal Neck-supple Lungs-Clear to auscultate bilaterally Heart-Regular,no murmur appreciated Abdomen-Distended,Tense,tender ,bowel sound present but diminished Extremities-Trace edema on Left Neuro-AAOx3 Has bilateral hand tremors but no confusion Lab data as noted below. ASSESSMENT & PLAN: SEPSIS Presented with hypotensive, tachycardia, elevated lactate and WBC S/P Paracentesis about 17 days before admission Suspected SBP and started on IV antibiotics with Vanco,Zosyn and levaquin Started on pressor in the ER, will continue levophed Blood cx-negative and urine cx E Coli Appreciate GI and Costume Cutter input Diagnostic Paracentesis today Tense Ascites with abdominal pain Secondary to alcohol Cirrhosis Last paracentesis was on 08/01 where 5L ascites fluid removed CT Abdomen/pelvis showed abdominal and pelvic ascites Will give Albumin before and after paracentesis On protonix drip, will change to IV since pt does not have any active GI bleed GI consulted-appreciate input Acute kidney injury Creatine 2 on admission Possible related to sepsis, dehydration Fluid challenge, Continue IVF Avoid nephrotoxic agents Monitor BMP-Renal function is improving Left Lung Infiltrate CXR showed small parenchymal infiltrate medial left base No respiratory symptoms Already on broad coverage abx Repeat CXR on 08/19/16-Left basilar atelectasis Hyponatremia Chronic continue NS IVF Sodium 128 on 08/19/16 Thrombocytopenia Platelet stable Decreased could on Admission is likely due to sepsis continue monitor CBC Hx Duodenal Ulcer with Hemorrhage Esophageal varices Hold nadolol due to hypotension Hemoglobin stable Will avoid anticoagulant agents DVT Px on SCDs CODE STATUS FULL CODE as per patient no prolong mech ventilation Vital Signs: Date Time Temp Pulse Resp B/P Pulse Ox O2 Delivery O2 Flow Rate FiO2 08/19/16 12:00 94 Nasal Cannula 2.0 08/19/16 10:00 113 16 94/60 94 Nasal Cannula 2.0 08/19/16 08:00 36.9 112 26 103/60 94 Nasal Cannula 2.0 08/19/16 08:00 94 Nasal Cannula 2.0 08/19/16 06:00 111 17 114/68 93 Nasal Cannula 2.0 08/19/16 04:00 Nasal Cannula 2.0 08/19/16 04:00 36.7 114 20 101/61 95 Nasal Cannula 2.0 08/19/16 02:00 116 18 105/67 94 Nasal Cannula 2.0 08/19/16 00:01 36.6 117 17 106/67 94 Nasal Cannula 2.0 08/18/16 23:59 Nasal Cannula 2.0 08/18/16 22:00 118 18 99/63 94 Nasal Cannula 2.0 08/18/16 20:00 Nasal Cannula 2.0 08/18/16 20:00 36.8 123 22 102/63 94 Nasal Cannula 2.0 08/18/16 18:30 125 19 114/69 96 08/18/16 18:15 128 25 98 08/18/16 18:00 128 20 119/71 96 08/18/16 17:45 129 18 97 08/18/16 17:30 130 26 114/70 97 08/18/16 17:15 130 23 96 08/18/16 17:00 124 18 111/66 96 08/18/16 16:45 125 20 115/67 97 08/18/16 16:30 127 17 110/68 96 08/18/16 16:15 125 18 110/62 93 08/18/16 16:00 97 Nasal Cannula 2.0 08/18/16 16:00 124 18 106/65 94 08/18/16 15:45 36.8 122 18 103/64 93 Nasal Cannula 2.0 08/18/16 15:30 124 19 105/62 94 08/18/16 15:15 127 22 105/65 95 08/18/16 15:00 129 27 117/63 95 08/18/16 14:54 130 30 105/64 96 08/18/16 14:45 129 21 08/18/16 14:30 134 29 08/18/16 14:15 130 18 08/18/16 14:00 127 17 90/65 93 08/18/16 13:49 128 19 83/58 91 Lab Results: Results Past 24 Hours Test 08/18/16 18:42 08/18/16 21:45 08/19/16 00:35 08/19/16 05:45 Range/Units Hemoglobin 8.0 8.1 8.1 14.0-18.0 g/dL Hematocrit 21.9 22.6 22.8 42-52 % Lactic Acid Level 1.8 1.6 0.4-2.0 mmol/L Bedside Glucose 100 70-99 mg/dl White Blood Count 10.83 4.8-10.8 K/uL Red Blood Count 2.16 4.7-6.1 M/uL Mean Corpuscular Volume 105.6 80-100 fL Mean Corpuscular Hemoglobin 37.5 25-34 pg Mean Corpuscular Hemoglobin Concent 35.5 32-36 g/dl Platelet Count 88 130-400 K/uL Mean Platelet Volume 8.8 7.4-10.4 fL Neutrophils (%) (Auto) 78.3 % Lymphocytes (%) (Auto) 11.6 % Monocytes (%) (Auto) 9.0 % Eosinophils (%) (Auto) 0.7 % Basophils (%) (Auto) 0.1 % Neutrophils # (Auto) 8.47 1.4-6.5 K/uL Lymphocytes # (Auto) 1.26 1.2-3.4 K/uL Monocytes # (Auto) 0.98 0.11-0.59 K/uL Eosinophils # (Auto) 0.08 0-0.5 K/uL Basophils # (Auto) 0.01 0-0.2 K/uL RDW Standard Deviation 64.7 36.4-46.3 fL RDW Coefficient of Variation 16.9 11.5-14.5 % Immature Granulocyte % (Auto) 0.3 % Immature Granulocyte # (Auto) 0.03 0.00-0.02 K/uL Toxic Vacuolation OCCASIONAL Platelet Estimate DECREASED Prothrombin Time 24.2 9.0-12.0 SECONDS Prothromb Time International Ratio 2.2 0.9-1.1 Activated Partial Thromboplast Time 48.0 21.0-31.0 SECONDS Partial Thromboplastin Ratio 1.8 Sodium Level 128 136-145 mmol/L Potassium Level 3.5 3.5-5.1 mmol/L Chloride Level 95 98-107 mmol/L Carbon Dioxide Level 24 21-32 mmol/L Anion Gap 9.0 3-11 mmol/L Blood Urea Nitrogen 50 7-18 mg/dl Creatinine 1.70 0.60-1.40 mg/dl Est Creatinine Clear Calc Drug Dose 46.9 ml/min Estimated GFR () 48.3 Estimated GFR (Non- 41.7 BUN/Creatinine Ratio 29.6 10-20 Random Glucose 106 70-99 mg/dl Calcium Level 7.7 8.5-10.1 mg/dl Total Bilirubin 12.7 0.2-1 mg/dl Aspartate Amino Transf (AST/SGOT) 36 15-37 U/L Alanine Aminotransferase (ALT/SGPT) 14 12-78 U/L Alkaline Phosphatase 55 45-117 U/L Total Protein 6.1 6.4-8.2 gm/dl Albumin 1.9 3.4-5.0 gm/dl Globulin 4.2 2.5-4.0 gm/dl Albumin/Globulin Ratio 0.5 0.9-2 Lipase 231 73-393 U/L Procalcitonin 1.88 0-0.5 ng/ml
--- NOTE | 2016-08-19 14:32 | CRITICAL CARE PROGRESS NOTE ---
DATE: 08/19/2016 DATE: 08/19/2016. GENERAL INFORMATION: This is hospital day 2 for Mr. Joshi who is 66 years old and has a history of alcoholic cirrhosis. He was admitted for abdominal pain, hypotension and anemia. His care was discussed in detail on multidisciplinary rounds today. Yesterday, he opted out of a diagnostic paracentesis because he did not see "the sense" of having a needle put inside of him if a large volume of his ascites was not going to be removed. I discussed the reason for the tap at length with him yesterday prior for the planned procedure. Today, he feels much better than yesterday and his abdominal pain is better, although he does not believe the fentanyl is lasting long enough for him. It is very difficult to determine what type of abdominal pain he is having or if it is different from the pain he had yesterday. He seems to complain more of pressure associated with the ascites than the pain he described yesterday. He has difficulty answering questions directly at times. He has not had a bowel movement and his Levophed is being weaned. He is tolerating liquids. PHYSICAL EXAMINATION: VITAL SIGNS: Maximum temperature 36.9, heart rate 113-123, respiratory rate 16-26, blood pressure 94-114/60s-70s, oxygen saturation 94% on 2 liters nasal cannula. 24-hour fluid balance positive 3.8 liters. GENERAL: He is awake, alert and talkative. NEUROLOGIC: He follows commands and has a grossly intact sensation. LUNGS: Clear to auscultation bilaterally. HEART: Tachycardic, regular, no murmurs. ABDOMEN: Very distended, firm, very mildly tender diffusely. No rebound or guarding. There is a dressing over the superior aspect of the abdomen which is clean, dry and intact. EXTREMITIES: Warm with 1+ pretibial edema. He has edema around the thighs and hips as well. LABORATORY DATA: Sodium 128, potassium 3.5, chloride 95, CO2 24, BUN 50, creatinine 1.7, blood sugar 106, calcium 7.7, total bilirubin 12.7, AST 36, ALT 14, total protein 6.1, albumin 1.9. Procalcitonin 1.88. Lipase 231. Lactic acid 1.6, PT 24.2, PTT 48. INR 2.2. White blood cell count 10.83, hemoglobin 8.1, hematocrit 22.8, platelets 88. MICROBIOLOGY DATA: Blood culture 08/18/2016 preliminary no growth to date. Urine culture 08/18/2016 E. coli, sensitivities pending. MEDICATIONS: Albumin, p.r.n. fentanyl, ferrous sulfate, folic acid, levofloxacin day 2, Levophed, Protonix, Zosyn day 2, thiamine, vancomycin day 2. IMAGING: Portable chest x-ray from this morning was reviewed and shows no evidence of pneumothorax. There is left basilar atelectasis. IMPRESSION: 1. Abdominal pain with ascites and hypotension concerning for septic shock secondary to spontaneous bacterial peritonitis. Unfortunately, the patient would not allow a diagnostic paracentesis yesterday. He had profuse diarrhea over the weekend, but that stopped without intervention. My suspicion for Clostridium difficile colitis is low. 2. Escherichia coli urinary tract infection. 3. Septic shock, improving. 4. Alcoholic cirrhosis with rising bilirubin and increased ascites. 5. Decreased platelets which may be secondary to sepsis in addition to his liver disease. 6. Acute kidney injury, improved. 7. Constipation. 8. Diarrhea and abdominal pain, improved. 9. Anemia, stable, no signs of acute blood loss. PLAN: NEUROLOGIC: Continue fentanyl 50 mcg IV q. 2 hours as needed. Hopefully, after a paracentesis today and removal of several liters of ascites his discomfort will improve. PULMONARY: Encouraged pulmonary toilet and wean oxygen. CARDIOVASCULAR: IV fluids were discontinued. I think if he needs any intravascular volume expansion he should be given albumin and that was ordered t.i.d. by the GI service today. Wean Levophed. GI: Paracentesis today, I suggest to no more than 3 liters of volume removal. Replacement with albumin. Advance diet as tolerated and follow liver function tests, PT/INR and platelets. Change Protonix to b.i.d. INFECTIOUS DISEASE: Consider discontinuing vancomycin. Continue Levaquin and Zosyn. HEMATOLOGY: Follow serial blood counts and watch for signs of bleeding. RENAL: Replete electrolytes and avoid nephrotoxins. MISCELLANEOUS: He is getting SCDs for DVT prophylaxis and is on a Protonix infusion. Thank you for asking me to see this patient. Please call me with any questions or concerns. Critical care time 40 minutes. [facility]
--- NOTE | 2016-08-19 14:33 | DIAGNOSTIC IMAGING REPORT ---
ULTRASOUND-GUIDED DIAGNOSTIC AND THERAPEUTIC PARACENTESIS: HISTORY: Ascites Procedure: The procedure and its risks, benefits and alternatives were discussed with the patient and written informed consent was obtained. Preliminary ultrasound of the abdomen was performed to determine a safe needle entry site. The right lower quadrant quadrant was prepped and draped in the usual sterile fashion. 1% Lidocaine was used for local anesthesia. A paracentesis needle-sheath was inserted into the peritoneal space using ultrasound guidance. The needle was removed and the sheath was connected to tubing and a vacuum suction device. A total of 3 liters of yellow ascites was aspirated. The sheath was removed and a sterile dressing applied. The patient tolerated the procedure well and there were no immediate complications. IMPRESSION: Ultrasound-guided therapeutic and diagnostic paracentesis with aspiration of 3 liters of ascites. Electronically signed by: Rony Philip M.D. 08/19/2016 2:32 PM Dictated Date/Time: 08/19/2016 2:31 PM
[2016-08-19 14:59] LABS: PERIT FL WBC 2050 /uL (0-300); PERITONEAL FLUID RBC < 3000 /uL
[2016-08-19] MEDS: FERROUS SULFATE 325 MG TAB PO SCH (20:08)
[2016-08-19 21:06] LABS: URINE COLLECTION TIME 24 HOURS; URINE SODIUM 24 HR 5 mmol/24 (40-220)
--- NOTE | 2016-08-19 22:36 | Pharmacy Progress Note ---
Pharmacy Abx Dose Short Note Date of Service August 19, 2016. Assessment & Plan Assessment 66 year old male receiving vancomycin 1250mg IV q 12h for treatment of pnx, nasal swab positive for MRSA. Day # 2/7 of antimicrobial therapy. Plan Vancomycin * Trough level of 28.1 mcg/mL is supratherapeutic. * Placed vancomycin on hold until random level can be evaluated in AM, new dosing interval calculated. * Goal trough level for pnx : 17 to 20 mcg/mL * Trough or random level ordered for: 08/20 w/ AM labs. Pharmacy will continue to follow and will adjust dose/frequency as necessary. Thank you.
[2016-08-20] VITALS (33 sets, daily range): BP systolic 82–107; BP diastolic 52–66; PULSE 102–110; TEMP 36.3–36.9; O2SAT 92–97
[2016-08-20] MEDS: FENTANYL CITRATE INJ 50 MCG/1 ML 2 ML VIAL IV PRN ×7 (03:04→23:28)
[2016-08-20] MEDS: ALBUMIN HUMAN 25% 12.5 GM/50 ML VIAL IV SCH ×3 (03:04→17:36)
[2016-08-20] MEDS: PANTOprazole INJ 40 MG in DEXTROSE 5% 100ML IV SCH (03:30)
[2016-08-20] MEDS: PIPERACILL/TAZOBAC IV 4.5 GM in DEXTROSE 5% 100ML 100 ML IV SCH ×3 (04:29→20:02)
[2016-08-20 05:49] LABS: HEMATOCRIT 21.7 % (42-52); MEAN CELL VOLUME 104.8 fL (80-100); MEAN CORPUSCULAR HEMOGLOBIN 37.7 pg (25-34); MEAN CORPUSCULAR HGB CONC 35.9 g/dl (32-36); MEAN PLATELET VOLUME 8.8 fL (7.4-10.4); PLATELET COUNT 78 K/uL (130-400); RED BLOOD COUNT 2.07 M/uL (4.7-6.1); WHITE BLOOD COUNT 9.36 K/uL (4.8-10.8)
[2016-08-20 05:58] LABS: ALB/GLOB RATIO 0.8 (0.9-2); CALCIUM 7.5 mg/dl (8.5-10.1); CREATININE 1.7 mg/dl (0.60-1.40); MAGNESIUM 2.1 mg/dl (1.8-2.4); PHOSPHORUS 3.3 mg/dl (2.5-4.9); POTASSIUM 3.2 mmol/L (3.5-5.1)
--- NOTE | 2016-08-20 07:28 | Gastroenterology Progress Note ---
Progress Note Date of Service: August 20, 2016 Subjective Pt was seen and evaluated this AM. Overall continues to feel less weak and improved. Abdominal pain is unimproved. Still reports a constant pressure sensation with intermittent twinges of sharp stabbing pain. These were occurring more frequently last night. Have returned back down to baseline this AM. Denies any fever, chills, chest pain, SOB, black/bloody stools, diarrhea. No BM since 08/18/16. He does tell me he had significant diarrhea prior to arrival and does not feel as if any significant amount of BM could be left. He does not have any lower abdominal pain. No sensation of constipation. Urine NA: 5 Paracentesis 08/19/16: Ultrasound-guided therapeutic and diagnostic paracentesis with aspiration of 3 liters of ascites. Peritoneal WBC 08/19/16: 2049 Polynuclear WBC 08/19/16: 91% PMN 08/19/16: 1864 Review of Systems Constitutional: No chills, No fever Respiratory: No cough, No shortness of breath Cardiac: No chest pain, No edema Abdomen: + pain, No GI bleeding, No constipation, No diarrhea, No nausea, No vomiting Medications Current Inpatient Medications Medications (Trade) Dose Ordered Sig/Alexandra Route Start Time Stop Time Status Last Admin Dose Admin Vancomycin HCl 1 ea 1 ea UD PRN N/A 08/18/16 09:00 09/17/16 08:59 Norepinephrine Bitartrate 8 mg/ Dextrose 508 ml @ 0 mls/hr Q0M PRN IV 08/18/16 08:28 09/17/16 08:27 08/19/16 12:57 15.7 MLS/HR Piperacillin Sod/ Tazobactam Sod 4.5 gm/Dextrose 120 ml @ 30 mls/hr Q8H IV 08/18/16 12:00 08/20/16 11:59 08/20/16 04:29 30 MLS/HR Vancomycin HCl 1250 mg/Sodium Chloride 275 ml @ 125 mls/hr Q12H IV 08/18/16 18:00 08/20/16 17:59 Future Hold 08/19/16 05:42 125 MLS/HR Levofloxacin/Prmx (Levaquin / D5W/ Premixed D5W) 150 ml @ 100 mls/hr Q24H IV 08/18/16 11:00 08/20/16 10:59 08/19/16 10:27 100 MLS/HR Piperacillin Sod/ Tazobactam Sod (Consult) 1 ea UD PRN N/A 08/18/16 09:00 09/17/16 08:59 Levofloxacin (Consult) 1 ea UD PRN N/A 08/18/16 09:00 09/17/16 08:59 Ferrous Sulfate (Feosol Tab) 325 mg QPM PO 08/18/16 21:00 09/17/16 20:59 08/19/16 20:08 325 MG Folic Acid (Folvite Tab) 1 mg DAILY PO 08/19/16 09:00 09/18/16 08:59 08/19/16 09:41 1 MG Thiamine HCl 100 mg 100 mg DAILY PO 08/19/16 09:00 09/18/16 08:59 08/19/16 09:41 100 MG Pantoprazole Sodium/Dextrose (Protonix Inj/D5 100ml) 100 ml @ 20 mls/hr Q5H IV 08/18/16 11:45 09/17/16 11:44 08/20/16 03:30 20 MLS/HR Fentanyl Citrate (Fentanyl Inj) 50 mcg Q3H PRN IV 08/18/16 15:30 09/01/16 15:29 08/20/16 06:24 50 MCG Heparin Sodium (Porcine) (Heparin 10 Unit/ ml 5 ml Flush) 5 ml PRN PRN FLUSH 08/19/16 01:45 09/18/16 01:44 Albumin Human (Albumin 25%) 25 gm Q8H IV 08/19/16 10:00 08/22/16 09:59 08/20/16 03:04 25 GM Objective Vital Signs Date Time Temp Pulse Resp B/P Pulse Ox O2 Delivery O2 Flow Rate FiO2 08/20/16 06:00 36.3 106 13 90/55 95 Nasal Cannula 2.0 08/20/16 04:00 94 Nasal Cannula 2.0 08/20/16 04:00 36.3 106 13 90/55 95 Nasal Cannula 2.0 08/20/16 02:00 106 16 87/54 95 Nasal Cannula 2.0 08/20/16 00:00 36.4 107 15 92/59 95 Nasal Cannula 2.0 08/19/16 23:59 92 Nasal Cannula 2.0 08/19/16 22:10 105 18 95 08/19/16 22:00 106 17 82/51 95 08/19/16 21:40 106 18 95 08/19/16 21:30 106 16 88/55 95 08/19/16 21:10 104 14 96 08/19/16 21:00 106 13 86/54 95 08/19/16 20:39 107 14 93/55 94 08/19/16 20:30 104 13 93/55 94 08/19/16 20:00 109 16 96/59 95 08/19/16 20:00 36.6 110 19 95/59 95 Nasal Cannula 2.0 08/19/16 19:30 36.8 108 20 95/59 95 Nasal Cannula 2.0 08/19/16 19:30 106 17 90/54 94 08/19/16 19:30 Nasal Cannula 2.0 08/19/16 19:00 106 16 92/52 94 08/19/16 18:30 110 20 88/53 94 08/19/16 18:20 109 23 82/51 94 08/19/16 18:00 107 17 78/47 94 08/19/16 17:30 36.6 108 17 93/52 95 Nasal Cannula 2.0 08/19/16 17:30 109 19 94/57 94 08/19/16 17:00 109 22 86/49 95 08/19/16 16:30 109 16 94 08/19/16 16:00 110 26 93/54 95 08/19/16 15:30 36.6 108 17 95/54 95 Nasal Cannula 2.0 08/19/16 15:30 Nasal Cannula 2.0 08/19/16 14:00 108 17 86/50 08/19/16 12:30 111 19 95/58 95 08/19/16 12:01 109 20 77/52 93 08/19/16 12:00 94 Nasal Cannula 2.0 08/19/16 10:00 113 16 94/60 94 Nasal Cannula 2.0 08/19/16 08:00 36.9 112 26 103/60 94 Nasal Cannula 2.0 08/19/16 08:00 94 Nasal Cannula 2.0 Physical Exam General Appearance: no apparent distress Eyes: PERRL ENT: hearing grossly normal Neck: supple, trachea midline Respiratory/Chest: no respiratory distress, + decreased breath sounds Cardiovascular: regular rate, rhythm, no gallop, no JVD Abdomen: normal bowel sounds, no organomegaly, no pulsatile mass, + distended, + tenderness Neurologic/Psych: alert, normal mood/affect, oriented x 3 Skin: + jaundice Laboratory Results Last 24 Hours Test 08/19/16 16:27 08/19/16 17:39 08/19/16 19:41 08/19/16 20:30 Bedside Glucose 119 mg/dl 119 mg/dl Vancomycin Level Trough 28.1 mcg/ml Urine Collection Time 24 HOURS Urine Total Volume 900 mL Urine Sodium mEQ/L < 5 meq/L Urine Sodium 24 Hour 5 mmol/24 Test 08/20/16 03:18 08/20/16 05:14 08/20/16 06:16 Bedside Glucose 121 mg/dl 119 mg/dl White Blood Count 9.36 K/uL Red Blood Count 2.07 M/uL Hemoglobin 7.8 g/dL Hematocrit 21.7 % Mean Corpuscular Volume 104.8 fL Mean Corpuscular Hemoglobin 37.7 pg Mean Corpuscular Hemoglobin Concent 35.9 g/dl RDW Standard Deviation 62.7 fL RDW Coefficient of Variation 16.3 % Platelet Count 78 K/uL Mean Platelet Volume 8.8 fL Sodium Level 127 mmol/L Potassium Level 3.2 mmol/L Chloride Level 94 mmol/L Carbon Dioxide Level 25 mmol/L Anion Gap 8.0 mmol/L Blood Urea Nitrogen 46 mg/dl Creatinine 1.70 mg/dl Est Creatinine Clear Calc Drug Dose 46.9 ml/min Estimated GFR () 48.3 Estimated GFR (Non- 41.7 BUN/Creatinine Ratio 27.0 Random Glucose 110 mg/dl Lactic Acid Level 1.7 mmol/L Calcium Level 7.5 mg/dl Phosphorus Level 3.3 mg/dl Magnesium Level 2.1 mg/dl Total Bilirubin 13.0 mg/dl Aspartate Amino Transf (AST/SGOT) 28 U/L Alanine Aminotransferase (ALT/SGPT) 11 U/L Alkaline Phosphatase 54 U/L Total Protein 5.8 gm/dl Albumin 2.5 gm/dl Globulin 3.3 gm/dl Albumin/Globulin Ratio 0.8 Random Vancomycin Level 21.1 mcg/ml Assessment and Plan Patient is a 66 year old male with ETOH cirrhosis who presents with ascites, abdominal pain, CANDELARIA and sepsis. He is noncompliant with his medications as an outpatient. Blood culture without any growth. Urine culture with e.coli. SBP - sensitivity pending. Suspect HRS with Urine NA 5 Plan Stool culture, Stool for c.diff, Stool for Giardia Repeat lactic acid Hold all diuretics Urine NA 5 IVF PMN 1865 Continue broad spectrum ABX coverage until sensitivity is available 2 g NA diet Follow up cultures Albumin 25g TID Midodrine 10 mg TID ATTESTATION: I have performed a history and physical examination of this patient and reviewed the electronic record. Specifically, on physical examination there is no asterixis and his abdomen is soft. I have discussed the case with HARLAN Bejarano. The above note reflects my findings, conclusions, and recommendations. Richar Trevino MD MELD 33
[2016-08-20] MEDS ORDERED: POTASSIUM CHLORIDE 20 MEQ/15 ML UDC PO ONE (08:30)
[2016-08-20] MEDS ORDERED: POTASSIUM CHLORIDE 10 MEQ TABCR PO ONE (09:00)
[2016-08-20] MEDS: THIAMINE HCL 100 MG TAB PO SCH (09:18)
[2016-08-20] MEDS: PANTOprazole INJ 40 MG in SYRINGE 0 ML IV SCH (11:50)
[2016-08-20] MEDS ORDERED: POLYETHYLENE (MIRALAX) 17 GM PACK PO PRN (12:00)
--- NOTE | 2016-08-20 12:01 | Critical Care Progress Note ---
Critical Care Progress Note Date of Service August 20, 2016. Attending DR. ADEBAYO Brown 66-year-old male with past medical history of alcoholic cirrhosis, esophageal varices, thrombocytopenia, history of GI bleed presented to the ER with complaints of abdominal distention with pain, diarrhea , and low-grade temperatures with chills. His most recent paracentesis was about 2 weeks ago and about 5 L of fluid was tapped. He was admitted to ICU as he was tachycardic, hypotensive with a white count of 18 K , elevated lactic acid on presentation. had a diagnostic and therapeutic paracentesis yesterday and 3 L were tapped from the abdomen. Tolerated it well. no acute events overnight. denies fevers/chills but continues to have sharp "twinges" of pain . Objective GENERAL: Patient is in no acute distress. HEENT: scleral icterus NECK: No stridor, no adenopathy, no meningismus, trachea is midline. LUNGS: Clear to auscultation bilaterally, no wheeze, no rhonchi, breath sounds equal. HEART: Without murmurs gallops or rubs, regular rate and rhythm. ABDOMEN: distended, diffusely tender, BS heard, healing wounds on upper abdominal area EXTREMITIES: No cyanosis or edema, full range of motion of all the joints without pain or difficulty, intact blister on right LE sec to burn NEUROLOGIC: Oriented x 3, no acute motor or sensory deficits, no focal weakness. SKIN: yellowish discoloration of skin and sclerae Assessment & Plan 66-year-old male with past medical history of alcoholic cirrhosis, esophageal varices, thrombocytopenia, history of GI bleed presented to the ER with complaints of abdominal distention with pain, diarrhea , and low-grade temperatures with chills. His most recent paracentesis was about 2 weeks ago and about 5 L of fluid was tapped. He was admitted to ICU as he was tachycardic, hypotensive with a white count of 18 K , elevated lactic acid on presentation. diagnostic and therapeutic paracentesis done yesteady , s/p 3 L tap Neuro: RASS 0 - No sedation - Pain control with fentanyl 25 mcg q3h as needed CVS: Hypotension: - continues to be on levophed - Receiving albumin TID and midodrine 10 mg TID - Hold nadolol Tachycardia: likely compensatory to low BP vs infection GI/FEN: Ascites with h/o alcoholic cirrhosis: - concern of SBP considering low grade temp, chills, abdominal pain , leucocytosis, elevated lactate - diagnostic and therapeutic paracentesis for 3 L - 2050 WBC , many polys with rare mononucleated cells on G stain. - Gastroenterology consult - Protonix drip switched to once daily Watery Diarrhea - now resolved No recent abx use C.diff vs viral GE - C. diff ag ordered - Stool culture, Giardia ordered - Constipation: NO BM since 1 day CUTTER HOT KNIFE - bowel regimen initiated ID: ?SBP: met sepsis criteria with tachycardia, elevated WBC, elevated lactate - lactate at 2.7 on admission, repeat at 2.2-->1.6-->1.7 - currently on zosyn to empirically cover SBP, vanc dc, Levaquin Dc due to resistance - improved leucocyte count - ascitic fluid studies- G stain positive for many polys, rare mononucleated cells Skin: wound on skin on abdomen and blister sec to burn on RLE - wound consult Renal: CANDELARIA: - Creatinine on admission at 2, today at 1.7 - Baseline creatinine 0.8 - Likely secondary to sepsis, dehydration Hyponatremia: Chronic Sodium at 125 Hypokalemia: K at 3.2- repleted Heme: Anemia: - Hgb at 7.8 , h/o Cirrhosis with decreased platelets: - 1 unit PRBC transfusion ordered Elevated INR: - Likely secondary to liver disease - Vitamin K 10 mg by mouth for 3 days thrombocytopenia: platelets at 78, sec to liver dysfunction DVT prophylaxis: SCDs chemical anticoagulation avoided due to liver failure PT/OT Full code Disposition: In ICU Resident Physician Supervision Note/Italian Teacher Attending I interviewed and examined the patient. Discussed with Dr. Boudreaux and agree with findings and plan as documented in the note. Any exceptions or clarifications can be found in my dictated note from today. Documented By: Alba Shi Consults & Procedures Consultants: gastroenterology Procedures: US guided paracentesis Data Medications: Current Inpatient Medications Medications (Trade) Dose Ordered Sig/Alexandra Route Start Time Stop Time Status Last Admin Dose Admin Norepinephrine Bitartrate 8 mg/ Dextrose 508 ml @ 0 mls/hr Q0M PRN IV 08/18/16 08:28 09/17/16 08:27 08/19/16 12:57 15.7 MLS/HR Piperacillin Sod/ Tazobactam Sod/ Dextrose (Zosyn Iv/D5 100ml) 120 ml @ 30 mls/hr Q8H IV 08/18/16 12:00 08/28/16 11:59 08/20/16 04:29 30 MLS/HR Piperacillin Sod/ Tazobactam Sod (Consult) 1 ea UD PRN N/A 08/18/16 09:00 09/17/16 08:59 Ferrous Sulfate (Feosol Tab) 325 mg QPM PO 08/18/16 21:00 09/17/16 20:59 08/19/16 20:08 325 MG Folic Acid (Folvite Tab) 1 mg DAILY PO 08/19/16 09:00 09/18/16 08:59 08/20/16 09:18 1 MG Thiamine HCl (Vitamin B-1 Tab) 100 mg DAILY PO 08/19/16 09:00 09/18/16 08:59 08/20/16 09:18 100 MG Heparin Sodium (Porcine) (Heparin 10 Unit/ ml 5 ml Flush) 5 ml PRN PRN FLUSH 08/19/16 01:45 09/18/16 01:44 Albumin Human 25 gm 25 gm Q8H IV 08/19/16 10:00 08/22/16 09:59 08/20/16 09:23 25 GM Pantoprazole Sodium/Syringe (Protonix Inj/ Syringe) 10 ml @ 5 mls/min DAILY@11 IV 08/20/16 11:00 09/19/16 10:59 Fentanyl Citrate (Fentanyl Inj) 25 mcg Q3H PRN IV 08/20/16 12:30 09/03/16 12:29 Midodrine (Proamatine Tab) 10 mg TID@08,12,17 PO 08/20/16 12:00 09/19/16 11:59 UNV I & O: 24-Hour Column 08/20/16 07:59 Intake Total 3305 ml Output Total 1100 ml Balance 2205 ml Vital Signs: Date Time Temp Pulse Resp B/P Pulse Ox O2 Delivery O2 Flow Rate FiO2 08/20/16 11:30 36.9 104 13 98/59 97 2.0 08/20/16 10:45 105 13 96/64 97 08/20/16 10:30 104 14 91/60 96 08/20/16 10:30 36.6 104 14 91/60 96 2.0 08/20/16 10:15 104 14 92/59 97 08/20/16 10:02 36.6 102 20 82/52 96 08/20/16 10:00 105 15 82/52 94 08/20/16 08:00 97 Nasal Cannula 2.0 08/20/16 08:00 36.6 108 14 96/61 97 Nasal Cannula 2.0 08/20/16 06:00 36.3 106 13 90/55 95 Nasal Cannula 2.0 08/20/16 04:00 94 Nasal Cannula 2.0 08/20/16 04:00 36.3 106 13 90/55 95 Nasal Cannula 2.0 08/20/16 02:00 106 16 87/54 95 Nasal Cannula 2.0 08/20/16 00:00 36.4 107 15 92/59 95 Nasal Cannula 2.0 08/19/16 23:59 92 Nasal Cannula 2.0 08/19/16 22:10 105 18 95 08/19/16 22:00 106 17 82/51 95 08/19/16 21:40 106 18 95 08/19/16 21:30 106 16 88/55 95 08/19/16 21:10 104 14 96 08/19/16 21:00 106 13 86/54 95 08/19/16 20:39 107 14 93/55 94 08/19/16 20:30 104 13 93/55 94 08/19/16 20:00 109 16 96/59 95 08/19/16 20:00 36.6 110 19 95/59 95 Nasal Cannula 2.0 08/19/16 19:30 36.8 108 20 95/59 95 Nasal Cannula 2.0 08/19/16 19:30 106 17 90/54 94 08/19/16 19:30 Nasal Cannula 2.0 08/19/16 19:00 106 16 92/52 94 08/19/16 18:30 110 20 88/53 94 08/19/16 18:20 109 23 82/51 94 08/19/16 18:00 107 17 78/47 94 08/19/16 17:30 36.6 108 17 93/52 95 Nasal Cannula 2.0 08/19/16 17:30 109 19 94/57 94 08/19/16 17:00 109 22 86/49 95 08/19/16 16:30 109 16 94 5/16/17 16:00 110 26 93/54 95 08/19/16 15:30 36.6 108 17 95/54 95 Nasal Cannula 2.0 08/19/16 15:30 Nasal Cannula 2.0 08/19/16 14:00 108 17 86/50 08/19/16 12:30 111 19 95/58 95 08/19/16 12:01 109 20 77/52 93 08/19/16 12:00 94 Nasal Cannula 2.0 Laboratory Results: Last 24 Hours Test 08/19/16 16:27 08/19/16 17:39 08/19/16 19:41 08/19/16 20:30 Bedside Glucose 119 mg/dl 119 mg/dl Vancomycin Level Trough 28.1 mcg/ml Urine Collection Time 24 HOURS Urine Total Volume 900 mL Urine Sodium mEQ/L < 5 meq/L Urine Sodium 24 Hour 5 mmol/24 Test 08/20/16 03:18 08/20/16 05:14 08/20/16 06:16 Bedside Glucose 121 mg/dl 119 mg/dl White Blood Count 9.36 K/uL Red Blood Count 2.07 M/uL Hemoglobin 7.8 g/dL Hematocrit 21.7 % Mean Corpuscular Volume 104.8 fL Mean Corpuscular Hemoglobin 37.7 pg Mean Corpuscular Hemoglobin Concent 35.9 g/dl RDW Standard Deviation 62.7 fL RDW Coefficient of Variation 16.3 % Platelet Count 78 K/uL Mean Platelet Volume 8.8 fL Sodium Level 127 mmol/L Potassium Level 3.2 mmol/L Chloride Level 94 mmol/L Carbon Dioxide Level 25 mmol/L Anion Gap 8.0 mmol/L Blood Urea Nitrogen 46 mg/dl Creatinine 1.70 mg/dl Est Creatinine Clear Calc Drug Dose 46.9 ml/min Estimated GFR () 48.3 Estimated GFR (Non- 41.7 BUN/Creatinine Ratio 27.0 Random Glucose 110 mg/dl Lactic Acid Level 1.7 mmol/L Calcium Level 7.5 mg/dl Phosphorus Level 3.3 mg/dl Magnesium Level 2.1 mg/dl Total Bilirubin 13.0 mg/dl Aspartate Amino Transf (AST/SGOT) 28 U/L Alanine Aminotransferase (ALT/SGPT) 11 U/L Alkaline Phosphatase 54 U/L Total Protein 5.8 gm/dl Albumin 2.5 gm/dl Globulin 3.3 gm/dl Albumin/Globulin Ratio 0.8 Random Vancomycin Level 21.1 mcg/ml Resident Tracking Resident Involvement: Resident Care Provided Care Provided: Adult Hospital Medicine
[2016-08-20] MEDS: MIDODRINE 10 MG TAB PO SCH ×2 (12:44→16:52)
--- NOTE | 2016-08-20 14:02 | Progress Note ---
Internal Med Progress Note Date of Service: August 20, 2016. Provider Documentation: SUBJECTIVE: The patient was seen and examined Complains of abdominal pain and nausea Has had profuse Diarrhea before admission Denies any fever or chills BP remains very low On Pressor agent OBJECTIVE: Vital Signs-as noted below Exam: General-Minimal distress at rest [place]-wkzulngua-cihynfm worse ENT-normal Neck-supple Lungs-Clear to auscultate bilaterally Heart-Regular,no murmur appreciated Abdomen-Distended,Tense,tender ,bowel sound present but diminished Extremities-Trace edema on Left Neuro-AAOx3 Has bilateral hand tremors but no confusion Lab data as noted below. ASSESSMENT & PLAN: SEPSIS Presented with hypotensive, tachycardia, elevated lactate and WBC S/P Paracentesis about 17 days before admission Suspected SBP and started on IV antibiotics with Vanco,Zosyn and levaquin Started on pressor in the ER, will continue levophed Blood cx-negative and urine cx E Coli Appreciate GI and Merchandiser Seasonal input Diagnostic Paracentesis today-likely transudate Growing E Coli from peritoneal fluid Tense Ascites with abdominal pain Secondary to alcohol Cirrhosis Last paracentesis was on 08/01 where 5L ascites fluid removed CT Abdomen/pelvis showed abdominal and pelvic ascites Will give Albumin before and after paracentesis On protonix drip, will change to IV since pt does not have any active GI bleed GI consulted-appreciate input Therapeutic Paracentesis when BP is better Acute kidney injury Creatine 2 on admission Possible related to sepsis, dehydration Fluid challenge, Continue IVF Avoid nephrotoxic agents Monitor BMP-Renal function is improving Left Lung Infiltrate CXR showed small parenchymal infiltrate medial left base No respiratory symptoms Already on broad coverage abx Repeat CXR on 08/19/16-Left basilar atelectasis Anemia Secondary to Cirrhosis ,Chronic disease and Blood loss Will transfuse 1 unit of PRBC May increase Blood pressure Hyponatremia Chronic continue NS IVF Sodium 127 on 08/20/16-not any better Thrombocytopenia Platelet stable Decreased could on Admission is likely due to sepsis continue monitor CBC Hx Duodenal Ulcer with Hemorrhage Esophageal varices Hold nadolol due to hypotension Hemoglobin stable Will avoid anticoagulant agents 1 unit of PRBC today DVT Px on SCDs CODE STATUS FULL CODE as per patient no prolong mech ventilation Vital Signs: Date Time Temp Pulse Resp B/P Pulse Ox O2 Delivery O2 Flow Rate FiO2 08/20/16 11:30 36.9 104 13 98/59 97 2.0 08/20/16 10:45 105 13 96/64 97 08/20/16 10:30 104 14 91/60 96 08/20/16 10:30 36.6 104 14 91/60 96 2.0 08/20/16 10:15 104 14 92/59 97 08/20/16 10:02 36.6 102 20 82/52 96 08/20/16 10:00 105 15 82/52 94 08/20/16 08:00 97 Nasal Cannula 2.0 08/20/16 08:00 36.6 108 14 96/61 97 Nasal Cannula 2.0 08/20/16 06:00 36.3 106 13 90/55 95 Nasal Cannula 2.0 08/20/16 04:00 94 Nasal Cannula 2.0 08/20/16 04:00 36.3 106 13 90/55 95 Nasal Cannula 2.0 08/20/16 02:00 106 16 87/54 95 Nasal Cannula 2.0 08/20/16 00:00 36.4 107 15 92/59 95 Nasal Cannula 2.0 08/19/16 23:59 92 Nasal Cannula 2.0 08/19/16 22:10 105 18 95 08/19/16 22:00 106 17 82/51 95 08/19/16 21:40 106 18 95 08/19/16 21:30 106 16 88/55 95 08/19/16 21:10 104 14 96 08/19/16 21:00 106 13 86/54 95 08/19/16 20:39 107 14 93/55 94 08/19/16 20:30 104 13 93/55 94 08/19/16 20:00 109 16 96/59 95 08/19/16 20:00 36.6 110 19 95/59 95 Nasal Cannula 2.0 08/19/16 19:30 36.8 108 20 95/59 95 Nasal Cannula 2.0 08/19/16 19:30 106 17 90/54 94 08/19/16 19:30 Nasal Cannula 2.0 08/19/16 19:00 106 16 92/52 94 08/19/16 18:30 110 20 88/53 94 08/19/16 18:20 109 23 82/51 94 08/19/16 18:00 107 17 78/47 94 08/19/16 17:30 36.6 108 17 93/52 95 Nasal Cannula 2.0 08/19/16 17:30 109 19 94/57 94 08/19/16 17:00 109 22 86/49 95 08/19/16 16:30 109 16 94 08/19/16 16:00 110 26 93/54 95 08/19/16 15:30 36.6 108 17 95/54 95 Nasal Cannula 2.0 08/19/16 15:30 Nasal Cannula 2.0 08/19/16 14:00 108 17 86/50 Lab Results: Results Past 24 Hours Test 08/19/16 16:27 08/19/16 17:39 08/19/16 19:41 08/19/16 20:30 Range/Units Bedside Glucose 119 119 70-99 mg/dl Vancomycin Level Trough 28.1 SEE COMMENT mcg/ml Urine Collection Time 24 HOURS Urine Total Volume 900 mL Urine Sodium mEQ/L < 5 meq/L Urine Sodium 24 Hour 5 40-220 mmol/24 Test 08/20/16 03:18 08/20/16 05:14 08/20/16 06:16 Range/Units Bedside Glucose 121 119 70-99 mg/dl White Blood Count 9.36 4.8-10.8 K/uL Red Blood Count 2.07 4.7-6.1 M/uL Hemoglobin 7.8 14.0-18.0 g/dL Hematocrit 21.7 42-52 % Mean Corpuscular Volume 104.8 80-100 fL Mean Corpuscular Hemoglobin 37.7 25-34 pg Mean Corpuscular Hemoglobin Concent 35.9 32-36 g/dl RDW Standard Deviation 62.7 36.4-46.3 fL RDW Coefficient of Variation 16.3 11.5-14.5 % Platelet Count 78 130-400 K/uL Mean Platelet Volume 8.8 7.4-10.4 fL Sodium Level 127 136-145 mmol/L Potassium Level 3.2 3.5-5.1 mmol/L Chloride Level 94 98-107 mmol/L Carbon Dioxide Level 25 21-32 mmol/L Anion Gap 8.0 3-11 mmol/L Blood Urea Nitrogen 46 7-18 mg/dl Creatinine 1.70 0.60-1.40 mg/dl Est Creatinine Clear Calc Drug Dose 46.9 ml/min Estimated GFR () 48.3 Estimated GFR (Non- 41.7 BUN/Creatinine Ratio 27.0 10-20 Random Glucose 110 70-99 mg/dl Lactic Acid Level 1.7 0.4-2.0 mmol/L Calcium Level 7.5 8.5-10.1 mg/dl Phosphorus Level 3.3 2.5-4.9 mg/dl Magnesium Level 2.1 1.8-2.4 mg/dl Total Bilirubin 13.0 0.2-1 mg/dl Aspartate Amino Transf (AST/SGOT) 28 15-37 U/L Alanine Aminotransferase (ALT/SGPT) 11 12-78 U/L Alkaline Phosphatase 54 45-117 U/L Total Protein 5.8 6.4-8.2 gm/dl Albumin 2.5 3.4-5.0 gm/dl Globulin 3.3 2.5-4.0 gm/dl Albumin/Globulin Ratio 0.8 0.9-2 Random Vancomycin Level 21.1 mcg/ml
--- NOTE | 2016-08-20 15:59 | CRITICAL CARE PROGRESS NOTE ---
DATE: 08/20/2016 DATE: 08/20/2016. SUBJECTIVE: There were no acute events overnight. The patient's care was discussed in detail on multidisciplinary rounds today. He still has not had a bowel movement and complains of abdominal pain; however, he feels it is managed relatively well with the p.r.n. fentanyl. He had an abdominal paracentesis yesterday. The fluid from which is growing E. coli. He remains on Levophed at 0.05 mcg per kilogram per minute this morning. Since that time, midodrine has been added by the GI service. Overall, he feels better but his appetite is very poor. PHYSICAL EXAMINATION: VITAL SIGNS: Maximum temperature 36.8, heart rate 103-110, respiratory rate 13-16, blood pressure 82-95/50s, oxygen saturation 95% on 2 liters nasal cannula. 24-hour fluid balance positive 2.9 liters; however, that does not take into account the 3 liters removed from his abdomen yesterday. GENERAL: He is awake and alert and talkative. He is tremulous. LUNGS: Very decreased breath sounds in the bases. No rales, rhonchi or wheezes. HEART: Tachycardic, regular, no murmurs. ABDOMEN: Distended, firm, very mildly tender. Bowel sounds active. EXTREMITIES: Warm. Upper extremities are wasted. Lower extremities show trace edema. There are waffle boots on both legs. NEUROLOGIC: He is diffusely weak. LABORATORY DATA: White blood cell count 9.36, hemoglobin 7.8, hematocrit 21.7, platelets 78. Sodium 127, potassium 3.2, chloride 94, CO2 25, BUN 46, creatinine 1.7, blood sugar 110, calcium 7.5, total bilirubin 13, AST 28, ALT 11, albumin 2.5. MICROBIOLOGY: Ascites fluid preliminary culture E. coli. Urine culture 08/18/2016 shows E. coli resistant to Levaquin, gentamicin, ciprofloxacin, ampicillin, sulbactam and ampicillin. MEDICATIONS AND INFUSIONS: Albumin, fentanyl, ferrous sulfate, folic acid, midodrine, norepinephrine, Protonix, Zosyn day 2, MiraLax, thiamin. IMPRESSIONS: 1. Spontaneous bacterial peritonitis with Escherichia coli. 2. Escherichia coli urinary tract infection. 3. Septic shock. 4. Acute kidney injury secondary to the above. I do not think he has hepatorenal syndrome. He is improving. 5. History of duodenal ulcer and gastrointestinal bleed. 6. Anemia, no signs of acute blood loss. This may be dilutional. 7. Alcoholic cirrhosis. 8. Abdominal pain likely secondary to ascites. 9. Diarrhea prior to admission, resolved. Stool studies still pending as he has not had a bowel movement since admission. 10. Hyperbilirubinemia and thrombocytopenia secondary to cirrhosis. 11. History of esophageal varices. PLAN: NEUROLOGIC: Decrease fentanyl to 25 mcg IV q. 3 hours. CARDIOVASCULAR: Continue to wean Levophed. Continue midodrine and albumin t.i.d. Treat sepsis. PULMONARY: Encouraged deep breathing, add incentive spirometry. GASTROINTESTINAL: Discontinue Protonix infusion and provide Protonix once daily. Continue to follow blood counts and watch for any signs of GI bleeding. Low sodium diet and hold nadolol secondary to hypotension. He will eventually require a large volume paracentesis. INFECTIOUS DISEASE: Continue Zosyn and vancomycin. Follow cultures. RENAL: Replete electrolytes and continue to hold diuretics. HEMATOLOGY: Status post 1 unit packed red blood cells today. Follow platelets and CBC. I discussed the patient's care in detail with his brother who was at the bedside. Questions were answered. Critical care time 40 minutes.
[2016-08-20] MEDS: FERROUS SULFATE 325 MG TAB PO SCH (20:53)
[2016-08-21] VITALS (42 sets, daily range): BP systolic 84–116; BP diastolic 46–75; PULSE 100–108; TEMP 36.3–36.5; O2SAT 94–98
[2016-08-21] MEDS: ALBUMIN HUMAN 25% 12.5 GM/50 ML VIAL IV SCH ×3 (02:26→17:37)
[2016-08-21] MEDS: FENTANYL CITRATE INJ 50 MCG/1 ML 2 ML VIAL IV PRN ×5 (02:37→21:17)
[2016-08-21] MEDS: PIPERACILL/TAZOBAC IV 4.5 GM in DEXTROSE 5% 100ML 100 ML IV SCH ×3 (04:15→20:01)
[2016-08-21] MEDS: NOREPINEPHRINE BIT INJ 8 MG in DEXTROSE 5% 500ML 500 ML IV PRN (05:51)
[2016-08-21 06:30] LABS: MEAN CELL VOLUME 101.9 fL (80-100); MEAN CORPUSCULAR HGB CONC 36.3 g/dl (32-36); RED BLOOD COUNT 2.65 M/uL (4.7-6.1); WHITE BLOOD COUNT 13.55 K/uL (4.8-10.8)
[2016-08-21 06:31] LABS: MEAN PLATELET VOLUME 9.2 fL (7.4-10.4); PLATELET COUNT 84 K/uL (130-400)
--- NOTE | 2016-08-21 07:09 | Gastroenterology Progress Note ---
Progress Note Medications Current Inpatient Medications Medications (Trade) Dose Ordered Sig/Alexandra Route Start Time Stop Time Status Last Admin Dose Admin Norepinephrine Bitartrate 8 mg/ Dextrose 508 ml @ 0 mls/hr Q0M PRN IV 08/18/16 08:28 09/17/16 08:27 08/21/16 05:51 12 MLS/HR Piperacillin Sod/ Tazobactam Sod/ Dextrose (Zosyn Iv/D5 100ml) 120 ml @ 30 mls/hr Q8H IV 08/18/16 12:00 08/28/16 11:59 08/21/16 04:15 30 MLS/HR Piperacillin Sod/ Tazobactam Sod (Consult) 1 ea UD PRN N/A 08/18/16 09:00 09/17/16 08:59 Ferrous Sulfate (Feosol Tab) 325 mg QPM PO 08/18/16 21:00 09/17/16 20:59 08/20/16 20:53 325 MG Folic Acid (Folvite Tab) 1 mg DAILY PO 08/19/16 09:00 09/18/16 08:59 08/20/16 09:18 1 MG Thiamine HCl (Vitamin B-1 Tab) 100 mg DAILY PO 08/19/16 09:00 09/18/16 08:59 08/20/16 09:18 100 MG Heparin Sodium (Porcine) (Heparin 10 Unit/ ml 5 ml Flush) 5 ml PRN PRN FLUSH 08/19/16 01:45 09/18/16 01:44 Albumin Human 25 gm 25 gm Q8H IV 08/19/16 10:00 08/22/16 09:59 08/21/16 02:26 25 GM Pantoprazole Sodium/Syringe (Protonix Inj/ Syringe) 10 ml @ 5 mls/min DAILY@11 IV 08/20/16 11:00 09/19/16 10:59 08/20/16 11:50 5 MLS/MIN Fentanyl Citrate (Fentanyl Inj) 25 mcg Q3H PRN IV 08/20/16 12:30 09/03/16 12:29 08/21/16 05:58 25 MCG Midodrine (Proamatine Tab) 10 mg TID@08,12,17 PO 08/20/16 13:00 09/19/16 12:59 08/20/16 16:52 10 MG Polyethylene (Miralax Powder Packet) 17 gm DAILY PRN PO 08/20/16 12:00 09/19/16 11:59 Objective Vital Signs Date Time Temp Pulse Resp B/P Pulse Ox O2 Delivery O2 Flow Rate FiO2 08/21/16 04:00 95 Nasal Cannula 2.0 08/21/16 04:00 36.4 101 14 85/56 96 Nasal Cannula 2.0 08/21/16 02:00 101 14 84/58 97 Nasal Cannula 2.0 08/21/16 00:00 36.4 100 17 92/57 95 Nasal Cannula 2.0 08/20/16 23:59 92 Nasal Cannula 2.0 08/20/16 22:00 102 15 90/60 95 Nasal Cannula 2.0 08/20/16 20:01 36.4 103 15 92/58 95 Nasal Cannula 2.0 08/20/16 20:00 95 Nasal Cannula 2.0 08/20/16 18:00 36.8 102 22 96/65 95 Nasal Cannula 2.0 08/20/16 18:00 104 15 96/65 95 08/20/16 17:45 103 15 96/63 95 08/20/16 17:30 103 15 96/60 95 08/20/16 17:15 105 15 92/60 95 08/20/16 17:00 106 13 99/64 95 08/20/16 16:54 103 24 91/60 93 08/20/16 16:45 110 17 89/59 94 08/20/16 16:30 107 15 95/60 94 08/20/16 16:15 105 16 93/59 93 08/20/16 16:00 105 14 98/62 95 08/20/16 15:45 106 15 96/59 95 08/20/16 15:30 95 Nasal Cannula 2.0 08/20/16 15:30 106 15 94/60 96 08/20/16 15:30 36.8 105 22 96/59 95 Nasal Cannula 2.0 08/20/16 14:16 110 31 98/59 95 08/20/16 14:13 108 23 88/54 92 08/20/16 14:00 104 16 94/61 95 08/20/16 12:30 36.9 102 12 107/66 97 08/20/16 12:01 36.9 107 15 91/61 95 Nasal Cannula 2.0 08/20/16 12:00 96 Nasal Cannula 2.0 08/20/16 11:30 36.9 104 13 98/59 97 2.0 08/20/16 10:45 105 13 96/64 97 08/20/16 10:30 104 14 91/60 96 08/20/16 10:30 36.6 104 14 91/60 96 2.0 08/20/16 10:15 104 14 92/59 97 08/20/16 10:02 36.6 102 20 82/52 96 08/20/16 10:00 105 15 82/52 94 08/20/16 08:00 97 Nasal Cannula 2.0 08/20/16 08:00 36.6 108 14 96/61 97 Nasal Cannula 2.0 Laboratory Results Last 24 Hours Test 08/21/16 06:05 White Blood Count 13.55 K/uL Red Blood Count 2.65 M/uL Hemoglobin 9.8 g/dL Hematocrit 27.0 % Mean Corpuscular Volume 101.9 fL Mean Corpuscular Hemoglobin 37.0 pg Mean Corpuscular Hemoglobin Concent 36.3 g/dl RDW Standard Deviation 64.4 fL RDW Coefficient of Variation 17.6 % Platelet Count 84 K/uL Mean Platelet Volume 9.2 fL Assessment and Plan Patient is a 66 year old male with ETOH cirrhosis who presents with ascites, abdominal pain, CANDELARIA and sepsis. He is noncompliant with his medications as an outpatient. Blood culture without any growth. Urine culture with e.coli. SBP - sensitivity pending. Suspect HRS with Urine NA 5 Plan Stool culture, Stool for c.diff, Stool for Giardia Repeat lactic acid Hold all diuretics IVF PMN 1865 E.coli -Continue broad spectrum ABX follow up sensitivity 2 g NA diet Urine NA 5 - ?HRS Albumin 25g TID Midodrine 10 mg TID MELD 33
[2016-08-21 07:26] LABS: BUN/CREATININE RATIO 30.8 (10-20); CREATININE 1.7 mg/dl (0.60-1.40); MAGNESIUM 2.2 mg/dl (1.8-2.4); PHOSPHORUS 4.1 mg/dl (2.5-4.9); POTASSIUM 3.4 mmol/L (3.5-5.1)
[2016-08-21] MEDS: MIDODRINE 10 MG TAB PO SCH ×3 (07:42→16:42)
[2016-08-21] MEDS: THIAMINE HCL 100 MG TAB PO SCH (07:43)
--- NOTE | 2016-08-21 09:13 | Gastroenterology Progress Note ---
Progress Note Date of Service: August 21, 2016 Subjective Pt evaluation today including: conversation w/ patient, physical exam, chart review, lab review Pt was seen and evaluated this AM. No acte events overnight. Overall feeling better. + weakness + decreased appetite + accumulation of abdominal ascites. Abdominal pain is slightly improved, still present. He has no other complaints this AM. No fever, chills, chest pain, SOB, black/bloody stools. BP this AM is stable, still on albumin, midodrine and decreasing norepinephrine dose. BP this AM 93/60 pulse 101. Review of Systems Constitutional: No chills, No fever Respiratory: No cough, No shortness of breath Cardiac: No chest pain, No edema Abdomen: + pain, No GI bleeding, No constipation, No diarrhea, No nausea, No vomiting Medications Current Inpatient Medications Medications (Trade) Dose Ordered Sig/Alexandra Route Start Time Stop Time Status Last Admin Dose Admin Norepinephrine Bitartrate 8 mg/ Dextrose 508 ml @ 0 mls/hr Q0M PRN IV 08/18/16 08:28 09/17/16 08:27 08/21/16 05:51 12 MLS/HR Piperacillin Sod/ Tazobactam Sod/ Dextrose (Zosyn Iv/D5 100ml) 120 ml @ 30 mls/hr Q8H IV 08/18/16 12:00 08/28/16 11:59 08/21/16 04:15 30 MLS/HR Piperacillin Sod/ Tazobactam Sod (Consult) 1 ea UD PRN N/A 08/18/16 09:00 09/17/16 08:59 Ferrous Sulfate (Feosol Tab) 325 mg QPM PO 08/18/16 21:00 09/17/16 20:59 08/20/16 20:53 325 MG Folic Acid (Folvite Tab) 1 mg DAILY PO 08/19/16 09:00 09/18/16 08:59 08/21/16 07:42 1 MG Thiamine HCl (Vitamin B-1 Tab) 100 mg DAILY PO 08/19/16 09:00 09/18/16 08:59 08/21/16 07:43 100 MG Heparin Sodium (Porcine) (Heparin 10 Unit/ ml 5 ml Flush) 5 ml PRN PRN FLUSH 08/19/16 01:45 09/18/16 01:44 Albumin Human 25 gm 25 gm Q8H IV 08/19/16 10:00 08/22/16 09:59 08/21/16 02:26 25 GM Pantoprazole Sodium/Syringe (Protonix Inj/ Syringe) 10 ml @ 5 mls/min DAILY@11 IV 08/20/16 11:00 09/19/16 10:59 08/20/16 11:50 5 MLS/MIN Fentanyl Citrate (Fentanyl Inj) 25 mcg Q3H PRN IV 08/20/16 12:30 09/03/16 12:29 08/21/16 05:58 25 MCG Midodrine (Proamatine Tab) 10 mg TID@08,12,17 PO 08/20/16 13:00 09/19/16 12:59 08/21/16 07:42 10 MG Polyethylene (Miralax Powder Packet) 17 gm DAILY PRN PO 08/20/16 12:00 09/19/16 11:59 Objective Vital Signs Date Time Temp Pulse Resp B/P Pulse Ox O2 Delivery O2 Flow Rate FiO2 08/21/16 08:00 36.3 104 16 93/60 97 Nasal Cannula 2.0 08/21/16 08:00 97 Nasal Cannula 2.0 08/21/16 06:00 104 15 96/64 98 Nasal Cannula 2.0 08/21/16 04:00 95 Nasal Cannula 2.0 08/21/16 04:00 36.4 101 14 85/56 96 Nasal Cannula 2.0 08/21/16 02:00 101 14 84/58 97 Nasal Cannula 2.0 08/21/16 00:00 36.4 100 17 92/57 95 Nasal Cannula 2.0 08/20/16 23:59 92 Nasal Cannula 2.0 08/20/16 22:00 102 15 90/60 95 Nasal Cannula 2.0 08/20/16 20:01 36.4 103 15 92/58 95 Nasal Cannula 2.0 08/20/16 20:00 95 Nasal Cannula 2.0 08/20/16 18:00 36.8 102 22 96/65 95 Nasal Cannula 2.0 08/20/16 18:00 104 15 96/65 95 08/20/16 17:45 103 15 96/63 95 08/20/16 17:30 103 15 96/60 95 08/20/16 17:15 105 15 92/60 95 08/20/16 17:00 106 13 99/64 95 08/20/16 16:54 103 24 91/60 93 08/20/16 16:45 110 17 89/59 94 08/20/16 16:30 107 15 95/60 94 08/20/16 16:15 105 16 93/59 93 08/20/16 16:00 105 14 98/62 95 08/20/16 15:45 106 15 96/59 95 08/20/16 15:30 95 Nasal Cannula 2.0 08/20/16 15:30 106 15 94/60 96 08/20/16 15:30 36.8 105 22 96/59 95 Nasal Cannula 2.0 08/20/16 14:16 110 31 98/59 95 08/20/16 14:13 108 23 88/54 92 08/20/16 14:00 104 16 94/61 95 08/20/16 12:30 36.9 102 12 107/66 97 08/20/16 12:01 36.9 107 15 91/61 95 Nasal Cannula 2.0 08/20/16 12:00 96 Nasal Cannula 2.0 08/20/16 11:30 36.9 104 13 98/59 97 2.0 08/20/16 10:45 105 13 96/64 97 08/20/16 10:30 104 14 91/60 96 08/20/16 10:30 36.6 104 14 91/60 96 2.0 08/20/16 10:15 104 14 92/59 97 08/20/16 10:02 36.6 102 20 82/52 96 08/20/16 10:00 105 15 82/52 94 Physical Exam General Appearance: no apparent distress (pt is resting in bed) Eyes: PERRL ENT: hearing grossly normal Neck: supple Respiratory/Chest: no respiratory distress, + decreased breath sounds, + pertinent finding (wearing O2) Cardiovascular: regular rate, rhythm Abdomen: normal bowel sounds (distant), no organomegaly, no pulsatile mass, + distended, + tenderness (generalized pressure) Neurologic/Psych: alert, normal mood/affect, oriented x 3 Skin: + jaundice Laboratory Results Last 24 Hours Test 08/21/16 06:05 White Blood Count 13.55 K/uL Red Blood Count 2.65 M/uL Hemoglobin 9.8 g/dL Hematocrit 27.0 % Mean Corpuscular Volume 101.9 fL Mean Corpuscular Hemoglobin 37.0 pg Mean Corpuscular Hemoglobin Concent 36.3 g/dl RDW Standard Deviation 64.4 fL RDW Coefficient of Variation 17.6 % Platelet Count 84 K/uL Mean Platelet Volume 9.2 fL Sodium Level 126 mmol/L Potassium Level 3.4 mmol/L Chloride Level 93 mmol/L Carbon Dioxide Level 21 mmol/L Anion Gap 12.0 mmol/L Blood Urea Nitrogen 52 mg/dl Creatinine 1.70 mg/dl Est Creatinine Clear Calc Drug Dose 46.9 ml/min Estimated GFR () 48.3 Estimated GFR (Non- 41.7 BUN/Creatinine Ratio 30.8 Random Glucose 99 mg/dl Calcium Level 8.0 mg/dl Phosphorus Level 4.1 mg/dl Magnesium Level 2.2 mg/dl Total Bilirubin 16.0 mg/dl Aspartate Amino Transf (AST/SGOT) 23 U/L Alanine Aminotransferase (ALT/SGPT) 8 U/L Alkaline Phosphatase 46 U/L Total Protein 5.7 gm/dl Albumin 2.9 gm/dl Globulin 2.8 gm/dl Albumin/Globulin Ratio 1.0 Assessment and Plan Patient is a 66 year old male with ETOH cirrhosis who presents with ascites, abdominal pain, CANDELARIA and sepsis. He is noncompliant with his medications as an outpatient. Blood culture without any growth. Urine culture with e.coli. SBP - sensitivity pending. Suspect HRS with Urine NA 5 Plan Stool culture, Stool for c.diff, Stool for Giardia Repeat lactic acid Hold all diuretics IVF PMN 1865 E.coli -Continue broad spectrum ABX follow up sensitivity Therapeutic paracentesis today PT/INR & PLT Primary team - please reverse INR if >2 2 g NA diet - please continue to encourage less Daily weights Urine NA 5 - ?HRS Albumin 25g TID Midodrine 10 mg TID MELD 33 ATTESTATION: I have performed a history and physical examination of this patient and reviewed the electronic record. Specifically, on physical examination he has tense ascites. I have discussed the case with HARLAN Bejarano. The above note reflects my findings, conclusions, and recommendations. Richar Trevino MD
[2016-08-21 09:55] LABS: PLATELET COUNT 88 K/uL (130-400)
[2016-08-21 09:58] LABS: INR 2.2 (0.9-1.1); PROTHROMBIN TIME (PATIENT) 24.8 SECONDS (9.0-12.0)
[2016-08-21] MEDS: PANTOprazole INJ 40 MG in SYRINGE 0 ML IV SCH (10:21)
--- NOTE | 2016-08-21 10:41 | Critical Care Progress Note ---
Critical Care Progress Note Date of Service August 21, 2016. Attending DR. ADEBAYO Brown 66-year-old male with past medical history of alcoholic cirrhosis, esophageal varices, thrombocytopenia, history of GI bleed presented to the ER with complaints of abdominal distention with pain, diarrhea , and low-grade temperatures with chills. His most recent paracentesis was about 2 weeks ago and about 5 L of fluid was tapped. He was admitted to ICU as he was tachycardic, hypotensive with a white count of 18 K , elevated lactic acid on presentation with concerns of SBP had a diagnostic and therapeutic paracentesis and 3 L were tapped on 08/19. no acute events overnight. Continues to complain of discomfort due to distention. Denies any fevers or chills, nausea vomiting, diarrhea . He has not had a bowel movement since admission. Objective GENERAL: Patient is in no acute distress. HEENT: scleral icterus NECK: No stridor, no adenopathy, no meningismus, trachea is midline. LUNGS: Clear to auscultation bilaterally, no wheeze, no rhonchi, breath sounds equal. HEART: Without murmurs gallops or rubs, regular rate and rhythm. ABDOMEN: distended, diffusely tender, BS heard, healing wounds on upper abdominal area EXTREMITIES: No cyanosis or edema, full range of motion of all the joints without pain or difficulty, intact blister on right LE sec to burn NEUROLOGIC: Oriented x 3, no acute motor or sensory deficits, no focal weakness. SKIN: yellowish discoloration of skin and sclerae Assessment & Plan 66-year-old male with past medical history of alcoholic cirrhosis, esophageal varices, thrombocytopenia, history of GI bleed presented to the ER with complaints of abdominal distention with pain, diarrhea , and low-grade temperatures with chills. His most recent paracentesis was about 2 weeks ago and about 5 L of fluid was tapped. He was admitted to ICU as he was tachycardic, hypotensive with a white count of 18 K , elevated lactic acid on presentation with concerns of SBP. diagnostic and therapeutic paracentesis done which grew Escherichia coli in ascitic fluid Neuro: RASS 0 - No sedation - Pain control with fentanyl 25 mcg q3h as needed CVS: Hypotension: - continues to be on levophed, will turn it off and see if his pressures are maintained - Receiving albumin TID and midodrine 10 mg TID - Hold nadolol . - random cortisol ordered Tachycardia: likely compensatory to low BP vs infection GI/FEN: Ascites with h/o alcoholic cirrhosis: - diagnostic and therapeutic paracentesis for 3 L on 08/19 - 2049 WBC , many polys with rare mononucleated cells on G stain. - Ascitic fluid growing E.coli - Continue Zosyn - Gastroenterology consult- scheduled for paracentesis today - Protonix drip switched to once daily Watery Diarrhea - now resolved No recent abx use C.diff vs viral GE - C. diff ag ordered - Stool culture, Giardia ordered - Constipation: NO BM since 1 day PROCESS OWNER - bowel regimen initiated ID: ?SBP: met sepsis criteria with tachycardia, elevated WBC, elevated lactate - lactate at 2.7 on admission, repeat at 2.2-->1.6-->1.7 - currently on zosyn to empirically cover SBP - ascitic fluid studies- G stain positive for many polys, rare mononucleated cells, culture growing E.coli Skin: wound on skin on abdomen and blister sec to burn on RLE - wound consult Renal: CANDELARIA: - Creatinine on admission at 2, today at 1.7 - Baseline creatinine 0.8 - Likely secondary to sepsis, dehydration and Hyponatremia: Chronic Sodium at 125 Hypokalemia: K at 3.4- repleted Heme: Anemia: s/p 1 unit PRBC transfusion yesterday - Hgb at 7.8 , h/o Cirrhosis with decreased platelets: - 1 unit PRBC transfusion ordered and Elevated INR: - Likely secondary to liver disease - Vitamin K 10 mg by mouth for 3 days thrombocytopenia: platelets at 88, sec to liver dysfunction DVT prophylaxis: SCDs chemical anticoagulation avoided due to liver failure PT/OT Full code Disposition: In ICU Resident Physician Supervision Note/[employer] Attending I interviewed and examined the patient. Discussed with Dr. Boudreaux and agree with findings and plan as documented in the note. Any exceptions or clarifications are listed here: The patient's care was discussed in detail on multidisciplinary rounds today. I have reviewed the VS, I/O, notes, meds, labs, micro, imaging and other reports. He has had 7 liters taken off on paracentesis today and is hypotensive , requiring more levophed. He presently getting albumin 50grams. Cortisol is 37, he is being treated for SBP and echo is pending. He is s/p 1 unit FFP today as well. Cr has plateaued over the last few days and he is on a 1500ml fluid restriction - Na 126 today. His appetite is very poor but abdominal pain is better. Wean levophed, if able for SBP of 88-90 and continue midodrine. Documented By: Alba Shi Consults & Procedures Consultants: gastroenterology Procedures: US guided paracentesis Data Medications: Current Inpatient Medications Medications (Trade) Dose Ordered Sig/Alexandra Route Start Time Stop Time Status Last Admin Dose Admin Norepinephrine Bitartrate 8 mg/ Dextrose 508 ml @ 0 mls/hr Q0M PRN IV 08/18/16 08:28 09/17/16 08:27 08/21/16 05:51 12 MLS/HR Piperacillin Sod/ Tazobactam Sod/ Dextrose (Zosyn Iv/D5 100ml) 120 ml @ 30 mls/hr Q8H IV 08/18/16 12:00 08/28/16 11:59 08/21/16 04:15 30 MLS/HR Piperacillin Sod/ Tazobactam Sod (Consult) 1 ea UD PRN N/A 08/18/16 09:00 09/17/16 08:59 Ferrous Sulfate (Feosol Tab) 325 mg QPM PO 08/18/16 21:00 09/17/16 20:59 08/20/16 20:53 325 MG Folic Acid (Folvite Tab) 1 mg DAILY PO 08/19/16 09:00 09/18/16 08:59 08/21/16 07:42 1 MG Thiamine HCl (Vitamin B-1 Tab) 100 mg DAILY PO 08/19/16 09:00 09/18/16 08:59 08/21/16 07:43 100 MG Heparin Sodium (Porcine) (Heparin 10 Unit/ ml 5 ml Flush) 5 ml PRN PRN FLUSH 08/19/16 01:45 09/18/16 01:44 Albumin Human 25 gm 25 gm Q8H IV 08/19/16 10:00 08/22/16 09:59 08/21/16 09:54 25 GM Pantoprazole Sodium/Syringe (Protonix Inj/ Syringe) 10 ml @ 5 mls/min DAILY@11 IV 08/20/16 11:00 09/19/16 10:59 08/20/16 11:50 5 MLS/MIN Fentanyl Citrate (Fentanyl Inj) 25 mcg Q3H PRN IV 08/20/16 12:30 09/03/16 12:29 08/21/16 09:58 25 MCG Midodrine (Proamatine Tab) 10 mg TID@08,12,17 PO 08/20/16 13:00 09/19/16 12:59 08/21/16 07:42 10 MG Polyethylene (Miralax Powder Packet) 17 gm DAILY PRN PO 08/20/16 12:00 09/19/16 11:59 I & O: 24-Hour Column 08/21/16 07:59 Intake Total 2019 ml Output Total 675 ml Balance 1344 ml Vital Signs: Date Time Temp Pulse Resp B/P Pulse Ox O2 Delivery O2 Flow Rate FiO2 08/21/16 10:00 101 16 96/63 97 Nasal Cannula 2.0 08/21/16 08:00 36.3 104 16 93/60 97 Nasal Cannula 2.0 08/21/16 08:00 97 Nasal Cannula 2.0 08/21/16 06:00 104 15 96/64 98 Nasal Cannula 2.0 08/21/16 04:00 95 Nasal Cannula 2.0 08/21/16 04:00 36.4 101 14 85/56 96 Nasal Cannula 2.0 08/21/16 02:00 101 14 84/58 97 Nasal Cannula 2.0 08/21/16 00:00 36.4 100 17 92/57 95 Nasal Cannula 2.0 08/20/16 23:59 92 Nasal Cannula 2.0 08/20/16 22:00 102 15 90/60 95 Nasal Cannula 2.0 08/20/16 20:01 36.4 103 15 92/58 95 Nasal Cannula 2.0 08/20/16 20:00 95 Nasal Cannula 2.0 08/20/16 18:00 36.8 102 22 96/65 95 Nasal Cannula 2.0 08/20/16 18:00 104 15 96/65 95 08/20/16 17:45 103 15 96/63 95 08/20/16 17:30 103 15 96/60 95 08/20/16 17:15 105 15 92/60 95 08/20/16 17:00 106 13 99/64 95 08/20/16 16:54 103 24 91/60 93 08/20/16 16:45 110 17 89/59 94 08/20/16 16:30 107 15 95/60 94 08/20/16 16:15 105 16 93/59 93 08/20/16 16:00 105 14 98/62 95 08/20/16 15:45 106 15 96/59 95 08/20/16 15:30 95 Nasal Cannula 2.0 08/20/16 15:30 106 15 94/60 96 08/20/16 15:30 36.8 105 22 96/59 95 Nasal Cannula 2.0 08/20/16 14:16 110 31 98/59 95 08/20/16 14:13 108 23 88/54 92 08/20/16 14:00 104 16 94/61 95 08/20/16 12:30 36.9 102 12 107/66 97 08/20/16 12:01 36.9 107 15 91/61 95 Nasal Cannula 2.0 08/20/16 12:00 96 Nasal Cannula 2.0 08/20/16 11:30 36.9 104 13 98/59 97 2.0 08/20/16 10:45 105 13 96/64 97 08/20/16 10:30 104 14 91/60 96 08/20/16 10:30 36.6 104 14 91/60 96 2.0 Laboratory Results: Last 24 Hours Test 08/21/16 06:05 08/21/16 09:26 White Blood Count 13.55 K/uL Red Blood Count 2.65 M/uL Hemoglobin 9.8 g/dL Hematocrit 27.0 % Mean Corpuscular Volume 101.9 fL Mean Corpuscular Hemoglobin 37.0 pg Mean Corpuscular Hemoglobin Concent 36.3 g/dl RDW Standard Deviation 64.4 fL RDW Coefficient of Variation 17.6 % Platelet Count 84 K/uL 88 K/uL Mean Platelet Volume 9.2 fL Sodium Level 126 mmol/L Potassium Level 3.4 mmol/L Chloride Level 93 mmol/L Carbon Dioxide Level 21 mmol/L Anion Gap 12.0 mmol/L Blood Urea Nitrogen 52 mg/dl Creatinine 1.70 mg/dl Est Creatinine Clear Calc Drug Dose 46.9 ml/min Estimated GFR () 48.3 Estimated GFR (Non- 41.7 BUN/Creatinine Ratio 30.8 Random Glucose 99 mg/dl Calcium Level 8.0 mg/dl Phosphorus Level 4.1 mg/dl Magnesium Level 2.2 mg/dl Total Bilirubin 16.0 mg/dl Aspartate Amino Transf (AST/SGOT) 23 U/L Alanine Aminotransferase (ALT/SGPT) 8 U/L Alkaline Phosphatase 46 U/L Total Protein 5.7 gm/dl Albumin 2.9 gm/dl Globulin 2.8 gm/dl Albumin/Globulin Ratio 1.0 Prothrombin Time 24.8 SECONDS Prothromb Time International Ratio 2.2 Resident Tracking Resident Involvement: Resident Care Provided Care Provided: Adult Hospital Medicine
[2016-08-21] MEDS: POTASSIUM CHLR 10 MEQ / WTR 10 MEQ in PREMIXED WATER 100 ML IV SCH ×2 (10:59→12:00)
[2016-08-21] MEDS ORDERED: PHYTONADIONE INJ 2.5 MG in SODIUM CHLORIDE 0.9% 50ML 50 ML IV ONE (11:45)
--- NOTE | 2016-08-21 15:07 | Progress Note ---
Internal Med Progress Note Date of Service: August 21, 2016. Provider Documentation: SUBJECTIVE: The patient was seen and examined Complains of abdominal pain and nausea Has had profuse Diarrhea before admission Denies any fever or chills BP remains very low ,On Pressor agent Likely to have Paracentesis today OBJECTIVE: Vital Signs-as noted below Exam: General-Minimal distress at rest Rxck-hqfzkrfcn-dcimzon worse ENT-normal Neck-supple Lungs-Clear to auscultate bilaterally Heart-Regular,no murmur appreciated Abdomen-Distended,Tense,tender ,bowel sound present but diminished Extremities-Trace edema on Left Neuro-AAOx3 Has bilateral hand tremors but no confusion Lab data as noted below. ASSESSMENT & PLAN: SEPSIS Secondary to SBP Presented with hypotensive, tachycardia, elevated lactate and WBC S/P Paracentesis about 17 days before admission Suspected SBP and started on IV antibiotics with Vanco,Zosyn and levaquin Started on pressor in the ER, will continue levophed Blood cx-negative and urine cx E Coli Appreciate GI and Tree [employer] input Diagnostic Paracentesis today-likely transudate Growing E Coli from peritoneal fluid-sensitive to current antibiotic Tense Ascites with abdominal pain Secondary to alcohol Cirrhosis Last paracentesis was on 08/01 where 5L ascites fluid removed CT Abdomen/pelvis showed abdominal and pelvic ascites Will give Albumin before and after paracentesis On protonix drip, will change to IV since pt does not have any active GI bleed GI consulted-appreciate input Therapeutic Paracentesis today Received Vit K to improve INR Acute kidney injury Creatine 2 on admission Possible related to sepsis, dehydration Fluid challenge, Continue IVF Avoid nephrotoxic agents Monitor BMP-Renal function is improving Left Lung Infiltrate CXR showed small parenchymal infiltrate medial left base No respiratory symptoms Already on broad coverage abx Repeat CXR on 08/19/16-Left basilar atelectasis Anemia Secondary to Cirrhosis ,Chronic disease and Blood loss Will transfuse 1 unit of PRBC May increase Blood pressure Hb 9.8 today Hyponatremia Chronic continue NS IVF Sodium 127 on 08/20/16-not any better Thrombocytopenia Platelet stable Decreased could on Admission is likely due to sepsis continue monitor CBC Hx Duodenal Ulcer with Hemorrhage Esophageal varices Hold nadolol due to hypotension Hemoglobin stable Will avoid anticoagulant agents 1 unit of PRBC today DVT Px on SCDs INR >2 due top Cirrhosis CODE STATUS FULL CODE as per patient no prolong mech ventilation Very slow improvement Poor prognosis Vital Signs: Date Time Temp Pulse Resp B/P Pulse Ox O2 Delivery O2 Flow Rate FiO2 08/21/16 14:00 108 17 107/67 96 08/21/16 13:45 104 15 116/73 97 08/21/16 13:30 107 20 112/73 97 08/21/16 13:15 103 13 107/75 97 08/21/16 13:00 104 15 108/67 97 08/21/16 12:45 105 13 103/66 97 08/21/16 12:40 36.4 103 16 96/63 96 2.0 08/21/16 12:30 105 13 96/63 97 08/21/16 12:15 105 10 97/63 96 08/21/16 12:00 104 14 97/63 97 08/21/16 12:00 96 Nasal Cannula 2.0 08/21/16 12:00 36.4 104 14 97/63 97 08/21/16 11:45 103 13 93/61 97 08/21/16 11:30 104 14 97/62 98 08/21/16 11:15 103 14 92/62 96 08/21/16 11:00 103 20 101/64 97 08/21/16 10:45 102 13 93/61 97 08/21/16 10:30 104 14 98/62 98 08/21/16 10:00 101 16 96/63 97 Nasal Cannula 2.0 08/21/16 08:00 36.3 104 16 93/60 97 Nasal Cannula 2.0 08/21/16 08:00 97 Nasal Cannula 2.0 08/21/16 06:00 104 15 96/64 98 Nasal Cannula 2.0 08/21/16 04:00 95 Nasal Cannula 2.0 08/21/16 04:00 36.4 101 14 85/56 96 Nasal Cannula 2.0 08/21/16 02:00 101 14 84/58 97 Nasal Cannula 2.0 08/21/16 00:00 36.4 100 17 92/57 95 Nasal Cannula 2.0 08/20/16 23:59 92 Nasal Cannula 2.0 08/20/16 22:00 102 15 90/60 95 Nasal Cannula 2.0 08/20/16 20:01 36.4 103 15 92/58 95 Nasal Cannula 2.0 08/20/16 20:00 95 Nasal Cannula 2.0 08/20/16 18:00 36.8 102 22 96/65 95 Nasal Cannula 2.0 08/20/16 18:00 104 15 96/65 95 08/20/16 17:45 103 15 96/63 95 08/20/16 17:30 103 15 96/60 95 08/20/16 17:15 105 15 92/60 95 08/20/16 17:00 106 13 99/64 95 08/20/16 16:54 103 24 91/60 93 08/20/16 16:45 110 17 89/59 94 08/20/16 16:30 107 15 95/60 94 08/20/16 16:15 105 16 93/59 93 08/20/16 16:00 105 14 98/62 95 08/20/16 15:45 106 15 96/59 95 08/20/16 15:30 95 Nasal Cannula 2.0 08/20/16 15:30 106 15 94/60 96 08/20/16 15:30 36.8 105 22 96/59 95 Nasal Cannula 2.0 Lab Results: Results Past 24 Hours Test 08/21/16 06:05 08/21/16 09:26 08/21/16 10:34 Range/Units White Blood Count 13.55 4.8-10.8 K/uL Red Blood Count 2.65 4.7-6.1 M/uL Hemoglobin 9.8 14.0-18.0 g/dL Hematocrit 27.0 42-52 % Mean Corpuscular Volume 101.9 80-100 fL Mean Corpuscular Hemoglobin 37.0 25-34 pg Mean Corpuscular Hemoglobin Concent 36.3 32-36 g/dl RDW Standard Deviation 64.4 36.4-46.3 fL RDW Coefficient of Variation 17.6 11.5-14.5 % Platelet Count 84 88 130-400 K/uL Mean Platelet Volume 9.2 7.4-10.4 fL Sodium Level 126 136-145 mmol/L Potassium Level 3.4 3.5-5.1 mmol/L Chloride Level 93 98-107 mmol/L Carbon Dioxide Level 21 21-32 mmol/L Anion Gap 12.0 3-11 mmol/L Blood Urea Nitrogen 52 7-18 mg/dl Creatinine 1.70 0.60-1.40 mg/dl Est Creatinine Clear Calc Drug Dose 46.9 ml/min Estimated GFR () 48.3 Estimated GFR (Non- 41.7 BUN/Creatinine Ratio 30.8 10-20 Random Glucose 99 70-99 mg/dl Calcium Level 8.0 8.5-10.1 mg/dl Phosphorus Level 4.1 2.5-4.9 mg/dl Magnesium Level 2.2 1.8-2.4 mg/dl Total Bilirubin 16.0 0.2-1 mg/dl Aspartate Amino Transf (AST/SGOT) 23 15-37 U/L Alanine Aminotransferase (ALT/SGPT) 8 12-78 U/L Alkaline Phosphatase 46 45-117 U/L Total Protein 5.7 6.4-8.2 gm/dl Albumin 2.9 3.4-5.0 gm/dl Globulin 2.8 2.5-4.0 gm/dl Albumin/Globulin Ratio 1.0 0.9-2 Prothrombin Time 24.8 9.0-12.0 SECONDS Prothromb Time International Ratio 2.2 0.9-1.1 Random Cortisol 37.63 mcg/dl
[2016-08-21] MEDS ORDERED: ALBUMIN HUMAN 25% 12.5 GM/50 ML VIAL IV ONE (15:30)
--- NOTE | 2016-08-21 15:36 | DIAGNOSTIC IMAGING REPORT ---
ULTRASOUND-GUIDED THERAPEUTIC PARACENTESIS: HISTORY: Ascites Procedure: The procedure and its risks, benefits and alternatives were discussed with the patient and written informed consent was obtained. Preliminary ultrasound of the abdomen was performed to determine a safe needle entry site. The right lower quadrant was prepped and draped in the usual sterile fashion. 1% Lidocaine was used for local anesthesia. A paracentesis needle-sheath was inserted into the peritoneal space using ultrasound guidance. The needle was removed and the sheath was connected to tubing and a vacuum suction device. A total of 7 liters of yellow ascites was aspirated. The sheath was removed and a sterile dressing applied. The patient tolerated the procedure well and there were no immediate complications. IMPRESSION: Ultrasound-guided therapeutic paracentesis with aspiration of 7 liters of ascites. Electronically signed by: Rony Philip M.D. 08/21/2016 3:35 PM Dictated Date/Time: 08/21/2016 3:35 PM
[2016-08-21 15:43] LABS: PERIT FL WBC 591 /uL (0-300)
[2016-08-21 15:44] LABS: PERITONEAL FLUID RBC < 3000 /uL
[2016-08-21] MEDS: FERROUS SULFATE 325 MG TAB PO SCH (20:51)
[2016-08-21] MEDS ORDERED: METOCLOPRAMIDE HCL INJ 5 MG/ML 2 ML VIAL IV STA (22:40)
[2016-08-22] VITALS (23 sets, daily range): BP systolic 76–110; BP diastolic 41–57; PULSE 91–116; TEMP 36.4–36.9; O2SAT 95–99
[2016-08-22] MEDS: FENTANYL CITRATE INJ 50 MCG/1 ML 2 ML VIAL IV PRN ×5 (00:26→20:43)
[2016-08-22] MEDS: ALBUMIN HUMAN 25% 12.5 GM/50 ML VIAL IV SCH (02:06)
[2016-08-22] MEDS: PIPERACILL/TAZOBAC IV 4.5 GM in DEXTROSE 5% 100ML 100 ML IV SCH (04:06)
[2016-08-22 06:28] LABS: HEMATOCRIT 28.4 % (42-52); MEAN CELL VOLUME 101.8 fL (80-100); MEAN CORPUSCULAR HEMOGLOBIN 36.2 pg (25-34); MEAN CORPUSCULAR HGB CONC 35.6 g/dl (32-36); MEAN PLATELET VOLUME 8.7 fL (7.4-10.4); PLATELET COUNT 100 K/uL (130-400); RED BLOOD COUNT 2.79 M/uL (4.7-6.1); WHITE BLOOD COUNT 13.58 K/uL (4.8-10.8)
[2016-08-22 06:44] LABS: INR 2.3 (0.9-1.1); PARTIAL THROMBOPLASTIN RATIO 3.1
[2016-08-22 07:11] LABS: BUN/CREATININE RATIO 30.5 (10-20); CALCIUM 8.2 mg/dl (8.5-10.1); CREATININE 1.9 mg/dl (0.60-1.40); POTASSIUM 3.3 mmol/L (3.5-5.1)
[2016-08-22] MEDS ORDERED: ALBUMIN HUMAN 25% 12.5 GM/50 ML VIAL IV ONE ×2 (07:45→21:51)
--- NOTE | 2016-08-22 07:54 | Gastroenterology Progress Note ---
Progress Note Date of Service: August 22, 2016 Subjective Pt was seen and evaluated this AM. Large volume paracentesis with run of hypotension yesterday, increased Levophed and albumin for management. Pt today feels tired and weak. He tells us he is not having any abdominal pain. No fever , chills, chest pain, SOB, black/bloody stools. On day 4 of Zosyn with + PMN on paracentesis yesterday. Paracentesis 08/21/16: Ultrasound-guided therapeutic and diagnostic paracentesis with aspiration of 7 liters of ascites. Peritoneal WBC 08/21/16: 591 Polynuclear WBC 08/21/16: 77.1% PMN 08/21/16: 459 Urine NA: 5 Paracentesis 08/19/16: Ultrasound-guided therapeutic and diagnostic paracentesis with aspiration of 3 liters of ascites. Peritoneal WBC 08/19/16: 0 Polynuclear WBC 08/19/16: 91% PMN 08/19/16: 1865 Review of Systems Constitutional: + weakness, No chills, No fever Respiratory: No cough, No shortness of breath Cardiac: No chest pain, No edema Abdomen: + constipation, No GI bleeding, No diarrhea, No nausea, No pain, No vomiting Medications Current Inpatient Medications Medications (Trade) Dose Ordered Sig/Alexandra Route Start Time Stop Time Status Last Admin Dose Admin Norepinephrine Bitartrate 8 mg/ Dextrose 508 ml @ 0 mls/hr Q0M PRN IV 08/18/16 08:28 09/17/16 08:27 08/21/16 05:51 12 MLS/HR Piperacillin Sod/ Tazobactam Sod/ Dextrose (Zosyn Iv/D5 100ml) 120 ml @ 30 mls/hr Q8H IV 08/18/16 12:00 08/28/16 11:59 08/22/16 04:06 30 MLS/HR Piperacillin Sod/ Tazobactam Sod (Consult) 1 ea UD PRN N/A 08/18/16 09:00 09/17/16 08:59 Ferrous Sulfate (Feosol Tab) 325 mg QPM PO 08/18/16 21:00 09/17/16 20:59 08/21/16 20:51 325 MG Folic Acid (Folvite Tab) 1 mg DAILY PO 08/19/16 09:00 09/18/16 08:59 08/21/16 07:42 1 MG Thiamine HCl (Vitamin B-1 Tab) 100 mg DAILY PO 08/19/16 09:00 09/18/16 08:59 08/21/16 07:43 100 MG Heparin Sodium (Porcine) (Heparin 10 Unit/ ml 5 ml Flush) 5 ml PRN PRN FLUSH 08/19/16 01:45 09/18/16 01:44 Albumin Human 25 gm 25 gm Q8H IV 08/19/16 10:00 08/22/16 09:59 08/22/16 02:06 25 GM Pantoprazole Sodium/Syringe (Protonix Inj/ Syringe) 10 ml @ 5 mls/min DAILY@11 IV 08/20/16 11:00 09/19/16 10:59 08/21/16 10:21 5 MLS/MIN Fentanyl Citrate (Fentanyl Inj) 25 mcg Q3H PRN IV 08/20/16 12:30 09/03/16 12:29 08/22/16 04:07 25 MCG Midodrine (Proamatine Tab) 10 mg TID@08,12,17 PO 08/20/16 13:00 09/19/16 12:59 08/21/16 16:42 10 MG Polyethylene (Miralax Powder Packet) 17 gm DAILY PRN PO 08/20/16 12:00 09/19/16 11:59 Objective Vital Signs Date Time Temp Pulse Resp B/P Pulse Ox O2 Delivery O2 Flow Rate FiO2 08/22/16 06:00 111 15 91/46 97 08/22/16 05:00 116 15 94/55 98 08/22/16 04:00 Nasal Cannula 2.0 08/22/16 04:00 36.5 114 15 100/53 97 08/22/16 03:00 116 14 101/56 96 08/22/16 02:37 115 18 105/57 96 2.0 08/22/16 01:00 110 15 96/56 95 Nasal Cannula 2.0 08/22/16 00:00 36.4 103 15 87/51 95 Nasal Cannula 2.0 08/21/16 23:59 Nasal Cannula 2.0 08/21/16 23:00 105 14 86/50 96 Nasal Cannula 2.0 08/21/16 22:00 102 14 86/46 94 Nasal Cannula 2.0 18/17 20:00 Nasal Cannula 2.0 18/17 20:00 36.5 101 13 103/59 96 Nasal Cannula 2.0 18/17 18:01 102 13 95/53 98 18/17 18:00 103 13 98 18/17 17:45 102 14 95/53 98 18/17 17:30 101 12 97/52 96 18/17 17:16 102 13 97/53 96 18/17 17:00 104 12 97/55 98 18/17 16:46 107 10 103/58 97 18/17 16:31 104 14 104/56 98 18/17 16:30 105 14 97 18/17 16:16 103 13 98/56 97 18/17 16:00 98 Nasal Cannula 2.0 08/21/17 16:00 36.4 105 12 104/60 98 18/17 16:00 105 12 104/60 98 18/17 15:46 104 14 92/50 98 18/17 15:45 107 12 98 18/17 15:35 105 18 101/52 97 18/17 15:30 104 15 97 18/17 15:15 103 11 97 18/17 15:05 104 18 85/48 96 18/17 14:00 108 17 107/67 96 18/17 14:00 108 17 107/67 96 18/17 13:45 104 15 116/73 97 18/17 13:30 107 20 112/73 97 18/17 13:15 103 13 107/75 97 18/17 13:00 104 15 108/67 97 18/17 12:45 105 13 103/66 97 518/17 12:40 36.4 103 16 96/63 96 2.0 18/17 12:30 105 13 96/63 97 18/17 12:15 105 10 97/63 96 18/17 12:00 104 14 97/63 97 18/17 12:00 96 Nasal Cannula 2.0 18/17 12:00 36.4 104 14 97/63 97 518/17 11:45 103 13 93/61 97 5/18/17 11:30 104 14 97/62 98 08/21/16 11:15 103 14 92/62 96 08/21/16 11:00 103 20 101/64 97 08/21/16 10:45 102 13 93/61 97 08/21/16 10:30 104 14 98/62 98 08/21/16 10:00 101 16 96/63 97 Nasal Cannula 2.0 08/21/16 08:00 36.3 104 16 93/60 97 Nasal Cannula 2.0 08/21/16 08:00 97 Nasal Cannula 2.0 Physical Exam General Appearance: + mild distress Eyes: PERRL ENT: hearing grossly normal Neck: supple Respiratory/Chest: no accessory muscle use, + decreased breath sounds Cardiovascular: regular rate, rhythm, no JVD Abdomen: normal bowel sounds, soft, no organomegaly, no pulsatile mass, + distended (non tense ascites) Neurologic/Psych: alert, normal mood/affect, oriented x 3 Skin: + jaundice Laboratory Results Last 24 Hours Test 08/21/16 09:26 08/21/16 10:34 08/22/16 05:49 Platelet Count 88 K/uL 100 K/uL Prothrombin Time 24.8 SECONDS 26.0 SECONDS Prothromb Time International Ratio 2.2 2.3 Random Cortisol 37.63 mcg/dl White Blood Count 13.58 K/uL Red Blood Count 2.79 M/uL Hemoglobin 10.1 g/dL Hematocrit 28.4 % Mean Corpuscular Volume 101.8 fL Mean Corpuscular Hemoglobin 36.2 pg Mean Corpuscular Hemoglobin Concent 35.6 g/dl RDW Standard Deviation 63.8 fL RDW Coefficient of Variation 17.5 % Mean Platelet Volume 8.7 fL Activated Partial Thromboplast Time 80.9 SECONDS Partial Thromboplastin Ratio 3.1 Sodium Level 127 mmol/L Potassium Level 3.3 mmol/L Chloride Level 93 mmol/L Carbon Dioxide Level 23 mmol/L Anion Gap 11.0 mmol/L Blood Urea Nitrogen 58 mg/dl Creatinine 1.90 mg/dl Est Creatinine Clear Calc Drug Dose 41.0 ml/min Estimated GFR () 42.2 Estimated GFR (Non- 36.4 BUN/Creatinine Ratio 30.5 Random Glucose 94 mg/dl Calcium Level 8.2 mg/dl Total Bilirubin 14.9 mg/dl Direct Bilirubin 4.6 mg/dl Aspartate Amino Transf (AST/SGOT) 18 U/L Alanine Aminotransferase (ALT/SGPT) 9 U/L Alkaline Phosphatase 42 U/L Total Protein 5.4 gm/dl Albumin 3.3 gm/dl Assessment and Plan Patient is a 66 year old male with ETOH cirrhosis who presents with ascites, abdominal pain, CANDELARIA and sepsis. He is noncompliant with his medications as an outpatient. Blood culture without any growth. Urine culture with e.coli. SBP - sensitivite to zosyn. Day four of ABX therapy Suspect HRS with Urine NA 5 Plan Stool culture, Stool for c.diff, Stool for Giardia Repeat lactic acid IVF Repeat PMN 459 E.coli -Continue broad spectrum ABX Day 4 of Zosyn 1 g NA diet - please continue to encourage less Daily weights Urine NA 5 - ?HRS Albumin 25g TID Midodrine 15 mg TID Goal to wean levophed and move out of ICU Reintroduce low dose diuretics while in ICU skilled nursing goals: Tips evaluation in [place], liver transplant consult MELD 35 ATTESTATION: I have performed a history and physical examination of this patient and reviewed the electronic record. Specifically, on physical examination abdomen is moderately distended. I have discussed the case with HARLAN Bejarano. The above note reflects my findings, conclusions, and recommendations. Richar Trevino MD
[2016-08-22] MEDS: THIAMINE HCL 100 MG TAB PO SCH (08:11)
[2016-08-22] MEDS: MIDODRINE 10 MG TAB PO SCH ×3 (08:11→18:28)
[2016-08-22] MEDS ORDERED: CEFTRIAXONE SOD INJ 1 GM in DEXTROSE 5% ADD-VANTAGE 50ML 50 ML IV SCH (09:30)
[2016-08-22] MEDS ORDERED: LACTULOSE SYRUP 30 GM/45 ML UDP PO ONE (09:45)
[2016-08-22] MEDS ORDERED: POTASSIUM CHLORIDE 20 MEQ/15 ML UDC PO ONE (09:45)
[2016-08-22] MEDS: CEFTRIAXONE SOD INJ 2000 MG in DEXTROSE 5% 50ML IV SCH (10:37)
[2016-08-22] MEDS: PANTOprazole INJ 40 MG in SYRINGE 0 ML IV SCH (10:37)
--- NOTE | 2016-08-22 10:44 | Critical Care Progress Note ---
Critical Care Progress Note Date of Service August 22, 2016. Attending Dr. Jose Guadalupe Brown 66-year-old male with past medical history of alcoholic cirrhosis, esophageal varices, thrombocytopenia, history of GI bleed presented to the ER with complaints of abdominal distention with pain, diarrhea , and low-grade temperatures with chills. His most recent paracentesis was about 2 weeks ago and about 5 L of fluid was tapped. He was admitted to ICU as he was tachycardic, hypotensive with a white count of 18 K , elevated lactic acid on presentation with concerns of SBP had a diagnostic and therapeutic paracentesis and 3 L were tapped on 08/19. had another episode of paracentesis yesterday and had 7 L tapped complains of feeling tired and exhausted today. Denies any fevers or chills, nausea ,vomiting, diarrhea . He has not had a bowel movement since admission. Objective GENERAL: Patient is in no acute distress. HEENT: scleral icterus NECK: No stridor, no adenopathy, no meningismus, trachea is midline. LUNGS: Clear to auscultation bilaterally, no wheeze, no rhonchi, breath sounds equal. HEART: Without murmurs gallops or rubs, regular rate and rhythm. ABDOMEN: distended, diffusely tender, BS heard, healing wounds on upper abdominal area EXTREMITIES: No cyanosis or edema, full range of motion of all the joints without pain or difficulty, intact blister on right LE sec to burn covered in dressing, left UE PICC NEUROLOGIC: Oriented x 3, no acute motor or sensory deficits, no focal weakness. SKIN: yellowish discoloration of skin and sclerae Assessment & Plan 66-year-old male with past medical history of alcoholic cirrhosis, esophageal varices, thrombocytopenia, history of GI bleed presented to the ER with complaints of abdominal distention with pain, diarrhea , and low-grade temperatures with chills. His most recent paracentesis was about 2 weeks ago and about 5 L of fluid was tapped. He was admitted to ICU as he was tachycardic, hypotensive with a white count of 18 K , elevated lactic acid on presentation with concerns of SBP. diagnostic and therapeutic paracentesis done which grew Escherichia coli in ascitic fluid. repeat therapeutic paracentesis yesterday with 7 L Neuro: RASS 0 - No sedation - Pain control with fentanyl 25 mcg q3h as needed CVS: Hypotension: - continues to be on Levophed to maintain BP - Receiving albumin TID and midodrine dose increased to 15 mg TID - Hold nadolol . - random cortisol >10 Tachycardia: likely compensatory to low BP vs infection GI/FEN: Ascites with h/o alcoholic cirrhosis: - diagnostic and therapeutic paracentesis for 3 L on 08/19 - 2049 WBC - Ascitic fluid growing E.coli - Zosyn switched to Rocephin - Gastroenterology consult - Protonix drip switched to once daily [place] Diarrhea - now resolved No recent abx use C.diff vs viral GE - C. diff ag ordered - Stool culture, Giardia ordered - Constipation: NO BM since 1 day RELEASE OF INFORMATION SPECIALIST - bowel regimen with miralax and lactulose ID: SBP: met sepsis criteria with tachycardia, elevated WBC, elevated lactate - lactate at 2.7 on admission, repeat at 2.2-->1.6-->1.7 - Zosyn switched to Rocephin - ascitic fluid studies- G stain positive for many polys, rare mononucleated cells, culture growing E.coli Skin: wound on skin on abdomen and blister sec to burn on RLE - wound consult Renal: CANDELARIA: - Creatinine on admission at 2, today at 1.9 - Baseline creatinine 0.8 - Likely secondary to sepsis, dehydration and paracentesis Hyponatremia: Chronic Sodium at 125 Hypokalemia: K at 3.3- 40 meq BID PO elixir ordered- adjust as needed Heme: Anemia: s/p 1 unit PRBC transfusion yesterday - Hgb at 7.8 , h/o Cirrhosis with decreased platelets: Hgb today at 10.1 Elevated INR: today at 2.3 - Likely secondary to liver disease - Vitamin K 10 mg by mouth for 3 days and also received FFP yesterday - PTT also elevated thrombocytopenia: platelets at 100, sec to liver dysfunction DVT prophylaxis: SCDs chemical anticoagulation avoided due to liver failure PT/OT Full code Disposition: In ICU Resident Physician Supervision Note/Director Clinical Data I interviewed and examined the patient. Discussed with Dr. Boudreaux and agree with most findings and plan as documented in the note. His care was discussed in detail on multidisciplinary rounds today. I reviewed the VS, I/O, notes, meds, labs, micro, imaging and other reports. I have also discussed his care with the GI service. He is now off the levophed as of a few hours ago but urine output is decreasing. He continues to receive albumin 25g TID and his midodrine was increased today. His abdomen is still very distended and he has not been receiving diuretics since admission. We are treating SBP and he is s/p therapeutic parcentesis x2, 3L and 7Liters. His PTT is higher but there are no signs of bleeding - will follow and reverse with FFP if needed. Has already received vit K 10mg x 4 doses. His appetite is poor - doesn't really eat anything except jello and he is on a fluid restriction and 2g sodium diet. Overall we are giving supportive care and would like to reintroduce diuretics when hemodynamically feasible. Documented By: Alba Shi Consults & Procedures Consultants: gastroenterology Procedures: US guided paracentesis 08/19, 08/21 Data Medications: Current Inpatient Medications Medications (Trade) Dose Ordered Sig/Alexandra Route Start Time Stop Time Status Last Admin Dose Admin Norepinephrine Bitartrate 8 mg/ Dextrose 508 ml @ 0 mls/hr Q0M PRN IV 08/18/16 08:28 09/17/16 08:27 08/21/16 05:51 12 MLS/HR Piperacillin Sod/ Tazobactam Sod/ Dextrose (Zosyn Iv/D5 100ml) 120 ml @ 30 mls/hr Q8H IV 08/18/16 12:00 08/28/16 11:59 08/22/16 04:06 30 MLS/HR Piperacillin Sod/ Tazobactam Sod (Consult) 1 ea UD PRN N/A 08/18/16 09:00 09/17/16 08:59 Ferrous Sulfate (Feosol Tab) 325 mg QPM PO 08/18/16 21:00 09/17/16 20:59 08/21/16 20:51 325 MG Folic Acid (Folvite Tab) 1 mg DAILY PO 08/19/16 09:00 09/18/16 08:59 08/22/16 08:10 1 MG Thiamine HCl (Vitamin B-1 Tab) 100 mg DAILY PO 08/19/16 09:00 09/18/16 08:59 08/22/16 08:11 100 MG Heparin Sodium (Porcine) (Heparin 10 Unit/ ml 5 ml Flush) 5 ml PRN PRN FLUSH 08/19/16 01:45 09/18/16 01:44 Albumin Human 25 gm 25 gm Q8H IV 08/19/16 10:00 08/22/16 09:59 08/22/16 02:06 25 GM Pantoprazole Sodium/Syringe (Protonix Inj/ Syringe) 10 ml @ 5 mls/min DAILY@11 IV 08/20/16 11:00 09/19/16 10:59 08/21/16 10:21 5 MLS/MIN Fentanyl Citrate (Fentanyl Inj) 25 mcg Q3H PRN IV 08/20/16 12:30 09/03/16 12:29 08/22/16 08:08 25 MCG Midodrine (Proamatine Tab) 10 mg TID@,,17 PO 08/20/16 13:00 09/19/16 12:59 08/22/16 08:11 10 MG Polyethylene (Miralax Powder Packet) 17 gm DAILY PRN PO 08/20/16 12:00 09/19/16 11:59 08/22/16 08:10 17 GM I & O: 24-Hour Column 08/22/16 08:00 Intake Total 1466 ml Output Total 625 ml Balance 841 ml Vital Signs: Date Time Temp Pulse Resp B/P Pulse Ox O2 Delivery O2 Flow Rate FiO2 08/22/16 06:00 111 15 91/46 97 08/22/16 05:00 116 15 94/55 98 08/22/16 04:00 Nasal Cannula 2.0 08/22/16 04:00 36.5 114 15 100/53 97 08/22/16 03:00 116 14 101/56 96 08/22/16 02:37 115 18 105/57 96 2.0 08/22/16 01:00 110 15 96/56 95 Nasal Cannula 2.0 08/22/16 00:00 36.4 103 15 87/51 95 Nasal Cannula 2.0 08/21/16 23:59 Nasal Cannula 2.0 08/21/16 23:00 105 14 86/50 96 Nasal Cannula 2.0 08/21/16 22:00 102 14 86/46 94 Nasal Cannula 2.0 08/21/16 20:00 Nasal Cannula 2.0 08/21/16 20:00 36.5 101 13 103/59 96 Nasal Cannula 2.0 5/18/17 18:01 102 13 95/53 98 5/18/17 18:00 103 13 98 5/18/17 17:45 102 14 95/53 98 5/18/17 17:30 101 12 97/52 96 518/17 17:16 102 13 97/53 96 518/17 17:00 104 12 97/55 98 518/17 16:46 107 10 103/58 97 518/17 16:31 104 14 104/56 98 518/17 16:30 105 14 97 518/17 16:16 103 13 98/56 97 518/17 16:00 98 Nasal Cannula 2.0 18/17 16:00 36.4 105 12 104/60 98 518/17 16:00 105 12 104/60 98 18/17 15:46 104 14 92/50 98 518/17 15:45 107 12 98 518/17 15:35 105 18 101/52 97 518/17 15:30 104 15 97 518/17 15:15 103 11 97 518/17 15:05 104 18 85/48 96 518/17 14:00 108 17 107/67 96 5/18/17 14:00 108 17 107/67 96 5/18/17 13:45 104 15 116/73 97 518/17 13:30 107 20 112/73 97 5/18/17 13:15 103 13 107/75 97 5/18/17 13:00 104 15 108/67 97 518/17 12:45 105 13 103/66 97 518/17 12:40 36.4 103 16 96/63 96 2.0 518/17 12:30 105 13 96/63 97 5/18/17 12:15 105 10 97/63 96 5/18/17 12:00 104 14 97/63 97 5/18/17 12:00 96 Nasal Cannula 2.0 18/17 12:00 36.4 104 14 97/63 97 5/18/17 11:45 103 13 93/61 97 5/18/17 11:30 104 14 97/62 98 5/18/17 11:15 103 14 92/62 96 5/18/17 11:00 103 20 101/64 97 5/18/17 10:45 102 13 93/61 97 Laboratory Results: Last 24 Hours Test 08/22/16 05:49 08/22/16 09:35 White Blood Count 13.58 K/uL Red Blood Count 2.79 M/uL Hemoglobin 10.1 g/dL Hematocrit 28.4 % Mean Corpuscular Volume 101.8 fL Mean Corpuscular Hemoglobin 36.2 pg Mean Corpuscular Hemoglobin Concent 35.6 g/dl RDW Standard Deviation 63.8 fL RDW Coefficient of Variation 17.5 % Platelet Count 100 K/uL Mean Platelet Volume 8.7 fL Prothrombin Time 26.0 SECONDS Prothromb Time International Ratio 2.3 Activated Partial Thromboplast Time 80.9 SECONDS Partial Thromboplastin Ratio 3.1 Sodium Level 127 mmol/L Potassium Level 3.3 mmol/L Chloride Level 93 mmol/L Carbon Dioxide Level 23 mmol/L Anion Gap 11.0 mmol/L Blood Urea Nitrogen 58 mg/dl Creatinine 1.90 mg/dl Est Creatinine Clear Calc Drug Dose 41.0 ml/min Estimated GFR () 42.2 Estimated GFR (Non- 36.4 BUN/Creatinine Ratio 30.5 Random Glucose 94 mg/dl Calcium Level 8.2 mg/dl Total Bilirubin 14.9 mg/dl Direct Bilirubin 4.6 mg/dl Aspartate Amino Transf (AST/SGOT) 18 U/L Alanine Aminotransferase (ALT/SGPT) 9 U/L Alkaline Phosphatase 42 U/L Total Protein 5.4 gm/dl Albumin 3.3 gm/dl Ammonia 39.0 umol/L Resident Tracking Resident Involvement: Resident Care Provided Care Provided: Adult Hospital Medicine
[2016-08-22] MEDS ORDERED: ONDANSETRON INJ 2 MG/ML 2 ML VIAL IV STA (11:11)
[2016-08-22] MEDS ORDERED: NURSING VERBAL MED ORDER ONE (11:15)
--- NOTE | 2016-08-22 14:30 | ECHOCARDIOGRAM REPORT ---
*NOTICE TO RECEIVING REPUBLICAN AGENCY This information is strictly Confidential and protected under [place] law. [place] law prohibits you from making any further disclosure of this information unless further disclosure is expressly permitted by the written consent of the person to whom it pertains or is authorized by law. A general authorization for the release of medical or other information is not sufficient for this purpose. Hospital accepts no responsibility if the information is made available to any other person, INCLUDING THE PATIENT. Interpretation Summary * Name: NAHOMI TURNER Study Date: 08/22/2016 07:00 AM BP: 91/46 mmHg * Patient Location: .MSICU\S\E106\S\1 HR: 111 * : 1950 (M/d/yyyy) Gender: Male Height: 67 in * Age: 66 yrs Ethnicity: CA Weight: 197 lb * Ordering Physician: Alba Shi * Referring Physician: Self, Referred * Performed By: Marisol Mcneal RDCS * * Reason For Study: HYPOTENSION * BSA: 2.0 m2 * PATIENT IN EXTREME PAIN, SEPSIS, VERY DIFFICULT IMAGES * -- Conclusions -- * Severely limited image quality. With definity, the overall LV systolic function appears normal * No pericardial effusion * No aortic stenosis * No other conclusions can be made based on the lack of sufficient image quality. Procedure Details * A contrast injection of Definity was performed to improve assessment of LV function. * Contrast was injected into an intravenous site in the right arm. * One vial of Definity ultrasound contrast was diluted in normal saline to a total volume of 10 ml. A total of '2' ml of solution was administered during imaging. * Lot # [id number] of Definity utilized for procedure. * Expiration date 1 SEP 21. * The attending nurse who injected the contrast agent was WILL PATEL. Doppler Measurements and Calculations Ao V2 max 198.2 cm/sec Ao max PG 15.7 mmHg Ao max PG (full) 8.9 mmHg LV V1 max PG 6.8 mmHg LV V1 max 130.3 cm/sec
--- NOTE | 2016-08-22 18:13 | Progress Note ---
Medicine Progress Note Date & Time of Visit: August 22, 2016 at 17:56. Subjective Pt was seen and examined Lying in bed with no acute respiratory distress He is off levophed Denies any chest pain, palpitation, fever and SOB Objective Last 8 Hrs Date Time Temp Pulse Resp B/P Pulse Ox O2 Delivery O2 Flow Rate FiO2 08/22/16 16:00 Nasal Cannula 2.0 08/22/16 16:00 36.6 92 16 93/53 98 Nasal Cannula 2.0 08/22/16 14:01 94 12 99/51 99 08/22/16 12:00 Nasal Cannula 2.0 08/22/16 12:00 36.9 94 12 85/46 99 Nasal Cannula 2.0 08/22/16 11:31 97 11 89/49 99 Nasal Cannula 08/22/16 11:15 103 15 110/55 95 Nasal Cannula 08/22/16 10:16 103 16 90/56 99 Nasal Cannula 2.0 08/22/16 10:00 104 19 110/53 99 Nasal Cannula 2.0 Physical Exam: General- no acute distress Head- atraumatic Eyes- PERRL, EOMI, sclerae icteric ENT- oropharynx clear Neck- supple, no JVD Lungs- Poor air entry Heart- regular rhythm Abdomen- normal bowel sounds, nontender, distended Extremities-no calf tenderness Neuro- alert, oriented x 3; PERRL, EOMI Skin- Jaundice Laboratory Results: Last 24 Hours Test 08/22/16 05:49 08/22/16 09:35 White Blood Count 13.58 K/uL Red Blood Count 2.79 M/uL Hemoglobin 10.1 g/dL Hematocrit 28.4 % Mean Corpuscular Volume 101.8 fL Mean Corpuscular Hemoglobin 36.2 pg Mean Corpuscular Hemoglobin Concent 35.6 g/dl RDW Standard Deviation 63.8 fL RDW Coefficient of Variation 17.5 % Platelet Count 100 K/uL Mean Platelet Volume 8.7 fL Prothrombin Time 26.0 SECONDS Prothromb Time International Ratio 2.3 Activated Partial Thromboplast Time 80.9 SECONDS Partial Thromboplastin Ratio 3.1 Sodium Level 127 mmol/L Potassium Level 3.3 mmol/L Chloride Level 93 mmol/L Carbon Dioxide Level 23 mmol/L Anion Gap 11.0 mmol/L Blood Urea Nitrogen 58 mg/dl Creatinine 1.90 mg/dl Est Creatinine Clear Calc Drug Dose 41.0 ml/min Estimated GFR () 42.2 Estimated GFR (Non- 36.4 BUN/Creatinine Ratio 30.5 Random Glucose 94 mg/dl Calcium Level 8.2 mg/dl Total Bilirubin 14.9 mg/dl Direct Bilirubin 4.6 mg/dl Aspartate Amino Transf (AST/SGOT) 18 U/L Alanine Aminotransferase (ALT/SGPT) 9 U/L Alkaline Phosphatase 42 U/L Total Protein 5.4 gm/dl Albumin 3.3 gm/dl Ammonia 39.0 umol/L Assessment & Plan SEPSIS 66 yo M with PMH of alcohol cirrhosis with ascites present with hypotensive, tachycardia, elevated lactate and WBC Need to R/O SBP since present with abdominal pain, chills and ascites Received about 3L of IVF WBC 18, POC lactate 3.4 started on pressor in the ER, will continue levophed Keep Map above 65 Received broad coverage with Vanco,Zosyn and levaquin Continue IV fluid CXR showed small parenchymal infiltrate medial left base Will repeat lactic acid check procalcitonin level Blood cx and urine cx collected before IV abx were given Will be admitted to ICU 08/22 Sepsis due to SBP Urine cx + for Ecoli Ascites fluid + Ecoli Blood cx- no growth Abx changed to rocephin 2g Off Levophed today BP has bee stable Continue monitor in the ICU Ascites with abdominal pain due to alcohol Cirrhosis Last paracentesis was on 08/01 where 5L ascites fluid removed Need to R/O SBP since being admitted for sepsis CT Abdomen/pelvis showed abdominal and pelvic ascites lasix on hold On broad coverage abx will give Albumin before and after paracentesis On protonix drip, will change to IV since pt does not have any active GI bleed Will do diagnostic paracentesis only since pt is volume depleted on pressor ascites fluid will be sent for testing- see order will do morphine prn for the pain GI consulted 08/22 Had diagnostic paracentesis done Fluid ascites grew ecoli Had 7 liter ascites fluid removed yesterday Diuretic has been on hold Consider referral to [place] for Tips once the infection is cleared. 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 Platelet 100, No signs of bleeding continue monitor CBC Hx Duodenal Ulcer with Hemorrhage Esophageal varices Continue nadolol due to hypotension Hemoglobin stable Will avoid anticoagulant agents DVT Px on SCDs due to thrombocytopenia CODE STATUS FULL CODE Consultants: [employer] [employer] [facility] Current Inpatient Medications: Current Inpatient Medications Medications (Trade) Dose Ordered Sig/Alexandra Route Start Time Stop Time Status Last Admin Dose Admin Norepinephrine Bitartrate/ Dextrose (Levophed Inj/ D5W 500ml) 508 ml @ 0 mls/hr Q0M PRN IV 08/18/16 08:28 09/17/16 08:27 08/21/16 05:51 12 MLS/HR Ferrous Sulfate (Feosol Tab) 325 mg QPM PO 08/18/16 21:00 09/17/16 20:59 08/21/16 20:51 325 MG Folic Acid (Folvite Tab) 1 mg DAILY PO 08/19/16 09:00 09/18/16 08:59 08/22/16 08:10 1 MG Thiamine HCl (Vitamin B-1 Tab) 100 mg DAILY PO 08/19/16 09:00 09/18/16 08:59 08/22/16 08:11 100 MG Heparin Sodium (Porcine) 5 ml 5 ml PRN PRN FLUSH 08/19/16 01:45 09/18/16 01:44 Pantoprazole Sodium/Syringe (Protonix Inj/ Syringe) 10 ml @ 5 mls/min DAILY@11 IV 08/20/16 11:00 09/19/16 10:59 08/22/16 10:37 5 MLS/MIN Fentanyl Citrate (Fentanyl Inj) 25 mcg Q3H PRN IV 08/20/16 12:30 09/03/16 12:29 08/22/16 14:11 25 MCG Polyethylene 17 gm 17 gm DAILY PRN PO 08/20/16 12:00 09/19/16 11:59 08/22/16 08:10 17 GM Ceftriaxone Sodium/Dextrose (Rocephin Inj/D5 50ml) 70 ml @ 140 mls/hr Q24H IV 08/22/16 10:00 08/28/16 09:59 08/22/16 10:37 140 MLS/HR Potassium Chloride ([place] Elix) 40 meq BID PO 08/22/16 21:00 09/21/16 20:59 Midodrine (Proamatine Tab) 15 mg TID@,, PO 08/22/16 12:00 09/21/16 11:59 08/22/16 11:23 15 MG Ondansetron HCl (Zofran Inj) 4 mg Q6H PRN IV 08/22/16 11:30 09/21/16 11:29
[2016-08-22] MEDS: FERROUS SULFATE 325 MG TAB PO SCH (21:00)
[2016-08-22] MEDS: POTASSIUM CHLORIDE 20 MEQ/15 ML UDC PO SCH (21:31)
[2016-08-23] VITALS (45 sets, daily range): BP systolic 67–112; BP diastolic 40–61; PULSE 93–117; TEMP 36.4–36.5; O2SAT 95–99
[2016-08-23] MEDS: ONDANSETRON INJ 2 MG/ML 2 ML VIAL IV PRN ×3 (00:10→20:10)
[2016-08-23] MEDS: FENTANYL CITRATE INJ 50 MCG/1 ML 2 ML VIAL IV PRN ×6 (01:39→23:57)
[2016-08-23 05:53] LABS: MEAN CELL VOLUME 102.8 fL (80-100); MEAN CORPUSCULAR HEMOGLOBIN 37.5 pg (25-34); MEAN CORPUSCULAR HGB CONC 36.5 g/dl (32-36); RED BLOOD COUNT 2.53 M/uL (4.7-6.1); WHITE BLOOD COUNT 12.13 K/uL (4.8-10.8)
[2016-08-23 06:25] LABS: BASO % 0.1 %; BASO ABS # 0.01 K/uL (0-0.2); COMPLETE YES; ECHINOCYTES 1+; EOS % 0.6 %; IG% 0.5 %; LYMPH % 9.2 %; LYMPH ABS # 1.11 K/uL (1.2-3.4); MEAN PLATELET VOLUME 9.2 fL (7.4-10.4); MONO % 7.1 %; NEUT % 82.5 %; PLATELET COUNT 71 K/uL (130-400); PLT ESTIMATE DECREASED
[2016-08-23 06:29] LABS: INR 2.4 (0.9-1.1); PARTIAL THROMBOPLASTIN RATIO 3.2; PROTHROMBIN TIME (PATIENT) 26.7 SECONDS (9.0-12.0)
[2016-08-23 06:36] LABS: ALB/GLOB RATIO 1.6 (0.9-2); BUN/CREATININE RATIO 23.7 (10-20); CALCIUM 8.5 mg/dl (8.5-10.1); CREATININE 2.8 mg/dl (0.60-1.40); MAGNESIUM 2.3 mg/dl (1.8-2.4); POTASSIUM 3.7 mmol/L (3.5-5.1)
[2016-08-23] MEDS: MIDODRINE 10 MG TAB PO SCH ×4 (08:00→13:57)
[2016-08-23] MEDS ORDERED: BISACODYL 10 MG SUPP PR STA (08:31)
[2016-08-23] MEDS ORDERED: BISACODYL 10 MG SUPP PR PRN (08:45)
[2016-08-23] MEDS ORDERED: PROMETHAZINE HCL INJ 12.5 MG in SODIUM CHLORIDE 0.9% 50ML 50 ML IV ONE (09:00)
[2016-08-23 09:10] LABS: PHOSPHORUS 5.3 mg/dl (2.5-4.9)
[2016-08-23] MEDS ORDERED: FENTANYL CITRATE INJ 50 MCG/1 ML 2 ML VIAL IV ONE (09:15)
[2016-08-23] MEDS: THIAMINE HCL 100 MG TAB PO SCH ×2 (09:47→12:28)
[2016-08-23] MEDS: PANTOprazole INJ 40 MG in SYRINGE 0 ML IV SCH (09:47)
[2016-08-23] MEDS: POTASSIUM CHLORIDE 20 MEQ/15 ML UDC PO SCH (09:47)
[2016-08-23] MEDS: SODIUM CHLORIDE 0.9% 1000ML 1,000 ML IV SCH ×2 (10:00→17:50)
[2016-08-23] MEDS: ALBUMIN HUMAN 25% 12.5 GM/50 ML VIAL IV SCH ×5 (10:03→20:10)
[2016-08-23] MEDS: CEFTRIAXONE SOD INJ 2000 MG in DEXTROSE 5% 50ML IV SCH (10:06)
--- NOTE | 2016-08-23 10:32 | DIAGNOSTIC IMAGING REPORT ---
ABDOMEN 2 VIEWS CLINICAL HISTORY: nausea pain COMPARISON STUDY: 04/16/2016 FINDINGS: Findings suggesting mild gastric distention. Probable distal small bowel obstructive change. Moderate amount of gas persists within the a sending and descending colonic regions. IMPRESSION: Findings consistent with developing gastric distention as well as distal small bowel partial obstructive change. Electronically signed by: Riccardo Anton M.D. 08/23/2016 10:30 AM Dictated Date/Time: 08/23/2016 10:29 AM
--- NOTE | 2016-08-23 11:09 | GASTROINTESTINAL CONSULTATION ---
DATE OF CONSULTATION: 08/23/2016 DATE OF CONSULTATION: 08/23/2016. Cross coverage for [place]. HISTORY OF PRESENT ILLNESS: I had the pleasure of seeing Sudhir Joshi at his bedside this morning. He states that he still is continuing to feel poorly. He denies any improvement in his symptoms. He continues to complain of abdominal pain, generalized rated as 5-6/10 in intensity. He denies any radiation of his pain to his back, shoulders or flank. He denies any hematemesis, melena, hematochezia. He does complain of dry mouth. He denies any other complaints. PHYSICAL EXAMINATION: VITAL SIGNS: Temp of 36.4, pulse 95, respirations 16, blood pressure 68/42, pulse ox 96% on nasal cannula with 2 liters of O2 per minute. GENERAL EXAMINATION: He is chronic ill appearing, jaundiced. CHEST: Decreased breath sounds bilateral bases. CARDIOVASCULAR SYSTEM: Regular rate and rhythm. ABDOMEN: Distended, positive bowel sounds. A positive fluid wave. LABORATORY STUDIES: From today include a sodium 129, potassium 3.7, chloride 95, bicarb 22, BUN 66, creatinine 2.8, total bili 14.3, AST 19, ALT 8, alkaline phosphatase 39, total protein 5.5, albumin 3.4. PT 26.7, INR 2.4. White blood cell count 12.13, hemoglobin 9.5, hematocrit 26.0, platelet count of 71. IMPRESSION: This is a 66-year-old male with [place] cirrhosis and complications including ascites, acute kidney injury, SBP. He is noncompliant with outpatient medications and treatment. PLAN: I would recommend continued broad-spectrum antibiotic coverage as well as albumin therapy today and midodrine 15 mg p.o. t.i.d. I would also recommend continuing 1 gram sodium diet. He will need to be evaluated for liver transplant at [facility] and questionable TIPS procedure at [facility] in the coming weeks, which will be planned by his primary GI team. Once again, thanks for allowing me to participate in the care of this patient. If you have any further questions, please do not hesitate in contacting me.
--- NOTE | 2016-08-23 11:54 | CRITICAL CARE PROGRESS NOTE ---
DATE: 08/23/2016 DATE: 08/23/2016. GENERAL INFORMATION: This is an unfortunate 66-year-old gentleman with a history of alcoholic cirrhosis, admitted to [facility] on August 18 secondary to abdominal pain, hypotension, acute kidney injury and diarrhea. He had reported he was relatively well until the beginning of this year in April when he was admitted to the hospital secondary to GI bleeding. Among other things he had hemorrhagic shock secondary to a duodenal ulcer at that time. He was transferred to [facility] during that admission was subsequently discharged and had at least 1 follow-up EGD. He is known to have grade 1 esophageal varices as well as portal hypertensive gastropathy. On his admission to the hospital 5 days ago he was treated empirically for spontaneous bacterial peritonitis and was volume resuscitated. He refused to have a diagnostic paracentesis done. His abdominal pain was treated with fentanyl and his hypotension was treated with antibiotics, albumin, IV fluids and Levophed. He had a PICC line placed at his request rather than a central line. The watery diarrhea that he had reported on admission had resolved and stool studies still have not been collected as he has not had a bowel movement. He had a paracentesis on August 19 with 3 liters of ascites removal which grew E. coli. He also had a paracentesis on August 21 with removal of 7 liters. His Levophed requirements have gone up and down over the past several days. He was started on midodrine and that dose was increased yesterday. He was initially placed on Zosyn, vancomycin and Levaquin and subsequently has been changed to Rocephin. He grew E. coli from his urine as well as his ascitic fluid. Last night, he became more nauseated and has had hiccups off and on for the past 24-48 hours which have been very bothersome to him. He has a much more flat affect today than I have seen. He still has not had a bowel movement and was given lactulose yesterday. Urine output was decreased overnight and on the evening shift yesterday. His care was discussed in detail with his bedside nurse, Jackeline. PHYSICAL EXAMINATION: VITAL SIGNS: Maximum temperature 36.3, heart rate 95-104, respiratory rate 10-16, blood pressure 68-97/40s-60s. Oxygen saturation 96% on 2 liters nasal cannula. 24-hour fluid balance positive 910 mL. GENERAL: He speaks more softly and slowly and looks uncomfortable. NEUROLOGIC: He is able to follow commands and has a flat affect. LUNGS: Very decreased breath sounds throughout, particularly in the bases. No rales, rhonchi or wheezes. HEART: Regular rate and rhythm. No murmurs. ABDOMEN: Distended, firm, moderately tender, hypoactive bowel sounds. EXTREMITIES: Warm. Waffle boots in place. Wasting of the upper extremities. Capillary refill adequate. LABORATORY DATA: White blood cell count 12.13, hemoglobin 9.5, hematocrit 26, platelets 71. Sodium 129, potassium 3.7, chloride 95, CO2 22, BUN 66, creatinine 2.8, lactate 2.6, phosphorus 5.3, magnesium 2.3, total bilirubin 14.3, AST 19, ALT 8, alkaline phosphatase 39. Ammonia 29, total protein 5.5, albumin 3.4, lipase 527. PT 26.7, INR 2.4, PTT 83.6. MEDICATIONS: Albumin, Dulcolax, ceftriaxone day 2, fentanyl, ferrous sulfate, folic acid, heparin, midodrine, norepinephrine, Zofran, Protonix, MiraLax, potassium, normal saline, thiamine. IMAGING: An abdominal x-ray from this morning showed a distended stomach and probable distal small bowel obstructive change. No new microbiology data. Echocardiogram report from yesterday, images limited by the patient's ability to participate. He was having severe pain. The overall left ventricular systolic function appears normal, no pericardial effusion, no aortic stenosis. No other conclusions can be made based on the lack of sufficient image quality. IMPRESSIONS: 1. Probable partial small-bowel obstruction vs ileus 2. Spontaneous bacterial peritonitis growing E. coli sensitive to Rocephin. Status post paracentesis x2 and increasing abdominal girth daily. He has not yet had diuretics due to ongoing hypotension. 3. Acute kidney injury, which I suspect is secondary to fluid shifts after his paracentesis 2 days ago. He is getting additional albumin along with 25 grams IV t.i.d. and is on IV fluids. 4. Alcoholic cirrhosis, his thrombocytopenia had started to improve until today. His PTT is increasing. He has had vitamin K 10 mg x4 doses as well as 1 unit of fresh frozen plasma prior to his last paracentesis. 5. Watery diarrhea, resolved. 6. Hypotension which initially I feel was secondary to sepsis and continues lsecondary to his severe liver dysfunction. He is presently on Levophed 0.03 mcg/kg per minute. Midodrine was increased to 15 mg t.i.d. yesterday, although he may not be absorbing that. 7. History of GI bleed and duodenal ulcer. 8. Anemia, no signs of acute blood loss. 9. History of grade 1 esophageal varices. PLAN: NEUROLOGIC: Continue to follow ammonia level and treat abdominal pain with fentanyl judiciously. GASTROINTESTINAL: Attempt NG tube placement, although clearly there is a risk of bleeding secondary to his elevated INR. Change to n.p.o. with the exception of medications. Consider repeat CT scan of the abdomen. I have added Phenergan for nausea as well. CARDIOVASCULAR: Wean Levophed as hemodynamics allow. He may require an arterial line. He has been reluctant to have any procedures other than his paracenteses. INFECTIOUS DISEASE: Continue Rocephin but low threshold for panculture and broadening antibiotics again secondary to his ileus. Follow lactate. RENAL: As above, albumin bolus and begin IV fluids. His urine sodium for 24 hours was 5 on admission. HEMATOLOGY: Watch for signs of bleeding, make sure his type and screen is up to date. He has received 1 unit of packed red blood cells 2 days ago. Overall, he has worsened from yesterday to today. He feels miserable and tells me, "I don't know how long I can take this." He had questions about how things would progress with his liver disease if he did not have aggressive treatment. We had a very brief discussion during which I introduced the idea of palliative care. I asked him, more than anything, to think about his goals. Unfortunately, this gentleman does not have local family support and I am sure he is getting depressed. Hopefully we can turn things around a little bit today for him. I will wait for any other suggestions from the GI service. Please call me with any questions or concerns. Critical care time [address] [facility]
--- NOTE | 2016-08-23 12:02 | Progress Note ---
Progress Note Date of Service August 23, 2016. Progress Note Tank Pumper Panelboard: NGT attempted by RN and myself. Patient did not want us to continue to attempt and told us he may want to investigate palliative care. I discussed his care with Dr. Miller and updated his brother, José, who lives in [place]. The patient is going to think about things and I will check back with him later today.
[2016-08-23 14:59] LABS: URINE APPEARANCE TURBID (CLEAR); URINE COLOR DK YELLOW; URINE EPITHELIAL CELL AUTO >30 /lpf (0-5); URINE NITRITE POS (NEG); URINE SPECIFIC GRAVITY 1.034 (1.000-1.030); UROBILINOGEN NEG (NEG)
[2016-08-23 15:11] LABS: MANUAL MICROSCOPIC REQUIRED? NO; REVIEW REQ? YES; URINE BILIRUBIN NEG (NEG)
[2016-08-23] MEDS ORDERED: SODIUM CHLORIDE 0.9% 250ML 250 ML IV SCH (15:30)
[2016-08-23] MEDS ORDERED: ALBUMIN HUMAN 25% 12.5 GM/50 ML VIAL IV SCH (16:00)
--- NOTE | 2016-08-23 16:03 | Progress Note ---
Medicine Progress Note Date & Time of Visit: August 23, 2016 at 15:46. Subjective Pt was seen and examined Pt said that he did not have a good night last night He said that he was having nausea pt said that he is not feeling good today due to malaise He was starting back on pressor Denies any chest pain, palpitation and SOB Objective Last 8 Hrs Date Time Temp Pulse Resp B/P Pulse Ox O2 Delivery O2 Flow Rate FiO2 08/23/16 12:01 36.5 113 18 93/53 97 Room Air 08/23/16 12:00 Room Air 08/23/16 11:19 117 18 97/55 95 Room Air 08/23/16 11:00 108 16 93/55 97 Room Air 08/23/16 10:16 108 18 112/51 95 Room Air 08/23/16 10:01 105 15 99/51 97 Room Air 08/23/16 09:31 102 13 83/49 97 Room Air 08/23/16 09:16 100 22 78/47 99 Room Air 08/23/16 08:46 103 19 91/49 96 Room Air 08/23/16 08:31 102 18 92/46 95 Room Air 08/23/16 08:01 36.4 100 16 82/43 97 Room Air 08/23/16 08:00 Room Air Physical Exam: General- no acute distress Head- atraumatic Eyes- PERRL, EOMI, sclerae icteric ENT- oropharynx clear Neck- supple, no JVD Lungs- Poor air entry Heart- regular rhythm Abdomen- normal bowel sounds, nontender, distended Extremities-no calf tenderness Neuro- alert, oriented x 3; PERRL, EOMI Skin- Jaundice Laboratory Results: Last 24 Hours Test 08/23/16 05:20 08/23/16 05:54 08/23/16 10:20 08/23/16 12:20 White Blood Count 12.13 K/uL Red Blood Count 2.53 M/uL Hemoglobin 9.5 g/dL Hematocrit 26.0 % Mean Corpuscular Volume 102.8 fL Mean Corpuscular Hemoglobin 37.5 pg Mean Corpuscular Hemoglobin Concent 36.5 g/dl Platelet Count 71 K/uL Mean Platelet Volume 9.2 fL Neutrophils (%) (Auto) 82.5 % Lymphocytes (%) (Auto) 9.2 % Monocytes (%) (Auto) 7.1 % Eosinophils (%) (Auto) 0.6 % Basophils (%) (Auto) 0.1 % Neutrophils # (Auto) 10.02 K/uL Lymphocytes # (Auto) 1.11 K/uL Monocytes # (Auto) 0.86 K/uL Eosinophils # (Auto) 0.07 K/uL Basophils # (Auto) 0.01 K/uL RDW Standard Deviation 65.3 fL RDW Coefficient of Variation 17.5 % Immature Granulocyte % (Auto) 0.5 % Immature Granulocyte # (Auto) 0.06 K/uL Platelet Estimate DECREASED Pappenheimer Bodies 1+ Echinocytes 1+ Prothrombin Time 26.7 SECONDS Prothromb Time International Ratio 2.4 Activated Partial Thromboplast Time 83.6 SECONDS Partial Thromboplastin Ratio 3.2 Sodium Level 129 mmol/L Potassium Level 3.7 mmol/L Chloride Level 95 mmol/L Carbon Dioxide Level 22 mmol/L Anion Gap 12.0 mmol/L Blood Urea Nitrogen 66 mg/dl Creatinine 2.80 mg/dl Est Creatinine Clear Calc Drug Dose 27.7 ml/min Estimated GFR () 26.4 Estimated GFR (Non- 22.8 BUN/Creatinine Ratio 23.7 Random Glucose 78 mg/dl Calcium Level 8.5 mg/dl Phosphorus Level 5.3 mg/dl Magnesium Level 2.3 mg/dl Total Bilirubin 14.3 mg/dl Aspartate Amino Transf (AST/SGOT) 19 U/L Alanine Aminotransferase (ALT/SGPT) 8 U/L Alkaline Phosphatase 39 U/L Total Protein 5.5 gm/dl Albumin 3.4 gm/dl Globulin 2.1 gm/dl Albumin/Globulin Ratio 1.6 Lipase 527 U/L Lactic Acid Level 2.6 mmol/L 2.8 mmol/L Ammonia 29.0 umol/L Test 08/23/16 14:00 08/23/16 15:28 Urine Color DK YELLOW Urine Appearance TURBID Urine pH 5.0 Urine Specific [place] 1.034 Urine Protein 1+ Urine Glucose (UA) NEG Urine Ketones TRACE Urine Occult Blood 3+ Urine Nitrite POS Urine Bilirubin NEG Urine Urobilinogen NEG Urine Leukocyte Esterase SMALL Urine WBC (Auto) 10-30 /hpf Urine RBC (Auto) 10-30 /hpf Urine Hyaline Casts (Auto) 10-30 /lpf Urine Epithelial Cells (Auto) >30 /lpf Urine Bacteria (Auto) NEG Urine Renal Epithelial Cells /lpf Urine Crystals URIC ACID Urine Pathogenic Casts /lpf Urine Yeast (Auto) Assessment & Plan SEPSIS 66 yo M with PMH of alcohol cirrhosis with ascites present with hypotensive, tachycardia, elevated lactate and WBC Need to R/O SBP since present with abdominal pain, chills and ascites Received about 3L of IVF WBC 18, POC lactate 3.4 started on pressor in the ER, will continue levophed Keep Map above 65 Received broad coverage with Vanco,Zosyn and levaquin Continue IV fluid CXR showed small parenchymal infiltrate medial left base Will repeat lactic acid check procalcitonin level Blood cx and urine cx collected before IV abx were given Will be admitted to ICU 08/23 Sepsis due to SBP Urine cx + for Ecoli Ascites fluid + Ecoli Blood cx- no growth Continue Rocephin 2 gram Starting back on Levophed due to hypotension Lactic acid trending up Continue midodrine Continue monitor in the ICU Ascites with abdominal pain due to alcohol Cirrhosis Last paracentesis was on 08/01 where 5L ascites fluid removed Need to R/O SBP since being admitted for sepsis CT Abdomen/pelvis showed abdominal and pelvic ascites lasix on hold On broad coverage abx will give Albumin before and after paracentesis On protonix drip, will change to IV since pt does not have any active GI bleed Will do diagnostic paracentesis only since pt is volume depleted on pressor ascites fluid will be sent for testing- see order will do morphine prn for the pain GI consulted 08/23 Fluid ascites grew ecoli Had 7 liter ascites fluid removed on 08/21 Diuretic has been on hold due to hypotension Consider referral to [facility] for Tips once the infection is cleared. 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 Platelet 71 No signs of bleeding continue monitor CBC Hx Duodenal Ulcer with Hemorrhage Esophageal varices Continue nadolol due to hypotension Hemoglobin stable Will avoid anticoagulant agents DVT Px on SCDs due to thrombocytopenia CODE STATUS FULL CODE Consultants: [facility] Current Inpatient Medications: Current Inpatient Medications Medications (Trade) Dose Ordered Sig/Alexandra Route Start Time Stop Time Status Last Admin Dose Admin Norepinephrine Bitartrate/ Dextrose (Levophed Inj/ D5W 500ml) 508 ml @ 0 mls/hr Q0M PRN IV 08/18/16 08:28 09/17/16 08:27 08/21/16 05:51 12 MLS/HR Ferrous Sulfate (Feosol Tab) 325 mg QPM PO 08/18/16 21:00 09/17/16 20:59 08/21/16 20:51 325 MG Folic Acid (Folvite Tab) 1 mg DAILY PO 08/19/16 09:00 09/18/16 08:59 08/22/16 08:10 1 MG Thiamine HCl (Vitamin B-1 Tab) 100 mg DAILY PO 08/19/16 09:00 09/18/16 08:59 08/22/16 08:11 100 MG Heparin Sodium (Porcine) 5 ml 5 ml PRN PRN FLUSH 08/19/16 01:45 09/18/16 01:44 Pantoprazole Sodium/Syringe (Protonix Inj/ Syringe) 10 ml @ 5 mls/min DAILY@11 IV 08/20/16 11:00 09/19/16 10:59 08/23/16 09:47 5 MLS/MIN Fentanyl Citrate (Fentanyl Inj) 25 mcg Q3H PRN IV 08/20/16 12:30 09/03/16 12:29 08/23/16 13:56 25 MCG Polyethylene 17 gm 17 gm DAILY PRN PO 08/20/16 12:00 09/19/16 11:59 08/22/16 08:10 17 GM Ceftriaxone Sodium/Dextrose (Rocephin Inj/D5 50ml) 70 ml @ 140 mls/hr Q24H IV 08/22/16 10:00 08/28/16 09:59 08/23/16 10:06 140 MLS/HR Potassium Chloride ([place] Elix) 40 meq BID PO 08/22/16 21:00 09/21/16 20:59 08/23/16 09:47 40 MEQ Midodrine (Proamatine Tab) 15 mg TID@08,12,17 PO 08/22/16 12:00 09/21/16 11:59 08/22/16 18:28 15 MG Ondansetron HCl (Zofran Inj) 4 mg Q6H PRN IV 08/22/16 11:30 09/21/16 11:29 08/23/16 05:27 4 MG Albumin Human 25 gm 25 gm TID IV 08/23/16 09:00 08/26/16 08:59 08/23/16 14:01 25 GM Sodium Chloride (Nss 1000ml) 1,000 ml @ 100 mls/hr Q10H IV 08/23/16 08:30 09/22/16 08:29 08/23/16 10:00 100 MLS/HR Bisacodyl 10 mg 10 mg DAILY PRN CA 08/23/16 08:45 09/22/16 08:44 Sodium Chloride (Nss 250ml) 250 ml @ 500 mls/hr Q30M IV 08/23/16 15:30 08/23/16 15:59 Albumin Human (Albumin 25%) 12.5 gm TODAY@1600 IV 08/23/16 16:00 08/23/16 18:00
[2016-08-23 16:36] LABS: BUN/CREATININE RATIO 22.7 (10-20); CALCIUM 8.5 mg/dl (8.5-10.1); CREATININE 3.1 mg/dl (0.60-1.40); POTASSIUM 3.6 mmol/L (3.5-5.1)
--- NOTE | 2016-08-23 17:29 | Progress Note ---
Progress Note Date of Service August 23, 2016. Progress Note Client Account Representative: Oliguria continues despite 75 grams albumin, maintenance fluids and NS bolus 250ml. Cr rising and he is becoming more acidic. He is asking for pain meds and does not want NG tube. Hiccups continue. I tried to have a discussion with him about the goals of care and he says he is too weak to talk about it today and maybe we can talk about it tomorrow. I tried to give him some options and express my concern that he may worsen, particularly from renal and GI standpoints without aggressive treatments. He was not able or willing to discuss code status and remains full code. I spoke to his sister in law as well as brother, Fercho, who are not POA but are understandably concerned and had called in for an update. They are going to call his brother, José, with whom I' ve spoken several times today. Will continue to bolus fluids and may consider lasix.
[2016-08-23] MEDS: SODIUM CHLORIDE 0.9% 500ML 500 ML IV SCH ×2 (17:50→17:51)
--- NOTE | 2016-08-23 18:25 | Progress Note ---
Progress Note Date of Service August 23, 2016. Progress Note The patient told his RN, Jackeline, he does not want aggressive measures. I spoke to him briefly and he confirmed that with me. I will call his brother, José to update him and I have notified the primary service. Will wean off levophed and liberalize his pain meds. Continue IVF and abx for now. May need to keep in ICU tonight to make sure he is comfortable off levophed before transfer to the floor.
[2016-08-24] VITALS (8 sets, daily range): BP systolic 87; BP diastolic 52; PULSE 96–105; TEMP 36.4; O2SAT 95–98
[2016-08-24] MEDS: FENTANYL CITRATE INJ 50 MCG/1 ML 2 ML VIAL IV PRN ×4 (02:07→09:13)
[2016-08-24] MEDS: ONDANSETRON INJ 2 MG/ML 2 ML VIAL IV PRN ×2 (02:07→09:01)
[2016-08-24] MEDS: SODIUM CHLORIDE 0.9% 1000ML 1,000 ML IV SCH ×2 (04:51→14:52)
[2016-08-24] MEDS: MIDODRINE 10 MG TAB PO SCH ×3 (08:00→16:38)
[2016-08-24] MEDS: THIAMINE HCL 100 MG TAB PO SCH (08:02)
[2016-08-24] MEDS: ALBUMIN HUMAN 25% 12.5 GM/50 ML VIAL IV SCH ×3 (09:00→19:17)
[2016-08-24] MEDS: PANTOprazole INJ 40 MG in SYRINGE 0 ML IV SCH (09:13)
[2016-08-24] MEDS: CEFTRIAXONE SOD INJ 2000 MG in DEXTROSE 5% 50ML IV SCH ×2 (09:13→11:17)
[2016-08-24] MEDS ORDERED: MoRPHine SULFATE 2 MG/ML CARP IV STA (10:48)
--- NOTE | 2016-08-24 12:38 | CRITICAL CARE PROGRESS NOTE ---
DATE: 08/24/2016 SUBJECTIVE: There were no acute events overnight. The Levophed was weaned off, and the patient has no new complaints. He continues to feel nauseated and bloated. He has not had a bowel movement. The only medications he will accept are narcotic pain medications. His labs this morning were canceled and I see that he is not having vital signs charted. OBJECTIVE: GENERAL: He will awaken and speak softly and slowly. LUNGS: Decreased breath sounds throughout. Moderate inspiratory effort. No rales, rhonchi or wheezes. HEART: Mildly tachycardic. No murmurs. ABDOMEN: Distended, firm moderately tender, hypoactive bowel sounds. EXTREMITIES: Trace to 1+ pretibial edema. The upper extremities are wasted. LABORATORY DATA: From this morning were canceled and there is no imaging data. MEDICATIONS: Albumin, Dulcolax, ceftriaxone, fentanyl, folic acid, midodrine, morphine, Zofran, Protonix, MiraLax, normal saline, thiamine. IMPRESSION: 1. Spontaneous bacterial peritonitis growing E. coli. 2. Septic shock. 3. Alcoholic cirrhosis status post paracentesis x2 during this hospital admission. He is clearly uncomfortable from his massive ascites presently. 4. Partial small bowel obstruction versus ileus. 5. Acute kidney injury. 6. History of GI bleed and duodenal ulcer. PLAN: Yesterday the patient opted to pursue palliative care. I continued all of his medications with the exception of the Levophed, which was weaned off. I discussed with his nurse that he is not yet comfort care only, although it seems we are heading in that direction. He would benefit from a large volume paracentesis for comfort and therefore I will order some labs for tomorrow. The palliative care service has been consulted. He is not interested in a Dulcolax suppository, although I think that having a bowel movement would also make him feel better. I discussed his care in detail with Dr. Garcia and the patient is being transferred to the floor presently. I added some morphine for pain management. His family was updated yesterday in detail.
[2016-08-24] MEDS: MoRPHine SULFATE 2 MG/ML CARP IV PRN ×3 (14:05→18:39)
--- NOTE | 2016-08-24 17:48 | Progress Note ---
Medicine Progress Note Date & Time of Visit: August 24, 2016 at 17:30. Subjective Pt was seen and examined lying in bed with distress Pt said that he is not feeling well because of his belly is getting distended again The distention causes him alot of discomfort. He started to have abdominal pain Pt said that he wants only palliative therapy. he said that he has been in//out of the hospital for the liver cirrhosis. He changed his code status to DNR. Denies any chest pain, palpitation and SOB Objective Last 8 Hrs Date Time Temp Pulse Resp B/P Pulse Ox O2 Delivery O2 Flow Rate FiO2 08/24/16 16:00 Room Air 08/24/16 12:15 98 Room Air 08/24/16 11:30 36.4 96 16 98 08/24/16 10:00 96 16 Physical Exam: General- distress Head- atraumatic Eyes- PERRL, EOMI, sclerae icteric ENT- oropharynx clear Neck- supple, no JVD Lungs- Poor air entry Heart- regular rhythm Abdomen- normal bowel sounds, distended Extremities-no calf tenderness Neuro- alert, oriented x 3; PERRL, EOMI Skin- Jaundice Laboratory Results: Last 24 Hours Test 08/24/16 16:57 Bedside Glucose 72 mg/dl Assessment & Plan SEPSIS 66 yo M with PMH of alcohol cirrhosis with ascites present with hypotensive, tachycardia, elevated lactate and WBC Need to R/O SBP since present with abdominal pain, chills and ascites Received about 3L of IVF WBC 18, POC lactate 3.4 started on pressor in the ER, will continue levophed Keep Map above 65 Received broad coverage with Vanco,Zosyn and levaquin Continue IV fluid CXR showed small parenchymal infiltrate medial left base Will repeat lactic acid check procalcitonin level Blood cx and urine cx collected before IV abx were given Will be admitted to ICU 08/24 Sepsis due to SBP Urine cx + for Ecoli Ascites fluid + Ecoli Blood cx- no growth Continue Rocephin 2 gram Off levophed Continue midodrine Pt only wants palliative treatment We will not restart pressor if BP drops will continue abx for now Palliative care consult pending Ascites with abdominal pain due to alcohol Cirrhosis Last paracentesis was on 08/01 where 5L ascites fluid removed Need to R/O SBP since being admitted for sepsis CT Abdomen/pelvis showed abdominal and pelvic ascites lasix on hold On broad coverage abx will give Albumin before and after paracentesis On protonix drip, will change to IV since pt does not have any active GI bleed Will do diagnostic paracentesis only since pt is volume depleted on pressor ascites fluid will be sent for testing- see order will do morphine prn for the pain GI consulted 08/24 Fluid ascites grew ecoli Had 7 liter ascites fluid removed on 08/21 Diuretic has been on hold due to hypotension Consider referral to [facility] for Tips once the infection is cleared. Pt only wants palliative therapy only to keep him comfortable Will do paracentesis tomorrow for symptoms relief abdominal is distended Morphine IV prn for pain Gastro on board Clinically deteriorates Acute kidney injury Creatine 2 on admission Possible related to sepsis, dehydration or hepatorenal syndrome Creatine 3.1 yesterday Avoid nephrotoxic agents Monitor BMP Left Lung Infiltrate CXR showed small parenchymal infiltrate medial left base No respiratory symptoms Was on broad coverage abx On Rocephin Hyponatremia Na 129 yesterday monitor BMP Thrombocytopenia related to alcohol liver disease No signs of bleeding continue monitor CBC Hx Duodenal Ulcer with Hemorrhage Esophageal varices Continue nadolol due to hypotension Hemoglobin stable Will avoid anticoagulant agents DVT Px on SCDs due to thrombocytopenia CODE STATUS DNR Only wants palliative treatment. Consultants: [facility] [employer] [facility] Procedures: Paracentesis Current Inpatient Medications: Current Inpatient Medications Medications (Trade) Dose Ordered Sig/Alexandra Route Start Time Stop Time Status Last Admin Dose Admin Norepinephrine Bitartrate/ Dextrose (Levophed Inj/ D5W 500ml) 508 ml @ 0 mls/hr Q0M PRN IV 08/18/16 08:28 09/17/16 08:27 08/21/16 05:51 12 MLS/HR Folic Acid (Folvite Tab) 1 mg DAILY PO 08/19/16 09:00 09/18/16 08:59 08/22/16 08:10 1 MG Thiamine HCl (Vitamin B-1 Tab) 100 mg DAILY PO 08/19/16 09:00 09/18/16 08:59 08/22/16 08:11 100 MG Heparin Sodium (Porcine) 5 ml 5 ml PRN PRN FLUSH 08/19/16 01:45 09/18/16 01:44 Pantoprazole Sodium/Syringe (Protonix Inj/ Syringe) 10 ml @ 5 mls/min DAILY@11 IV 08/20/16 11:00 09/19/16 10:59 08/24/16 09:13 5 MLS/MIN Polyethylene 17 gm 17 gm DAILY PRN PO 08/20/16 12:00 09/19/16 11:59 08/22/16 08:10 17 GM Ceftriaxone Sodium/Dextrose (Rocephin Inj/D5 50ml) 70 ml @ 140 mls/hr Q24H IV 08/22/16 10:00 08/28/16 09:59 08/24/16 11:17 140 MLS/HR Midodrine (Proamatine Tab) 15 mg TID@08,12,17 PO 08/22/16 12:00 09/21/16 11:59 08/22/16 18:28 15 MG Ondansetron HCl (Zofran Inj) 4 mg Q6H PRN IV 08/22/16 11:30 09/21/16 11:29 08/24/16 09:01 4 MG Albumin Human 25 gm 25 gm TID IV 08/23/16 09:00 08/26/16 08:59 08/23/16 20:10 25 GM Sodium Chloride (Nss 1000ml) 1,000 ml @ 100 mls/hr Q10H IV 08/23/16 08:30 09/22/16 08:29 08/24/16 14:52 100 MLS/HR Bisacodyl (Dulcolax Supp) 10 mg DAILY PRN TN 08/23/16 08:45 09/22/16 08:44 Fentanyl Citrate (Fentanyl Inj) 50 mcg Q2H PRN IV 08/23/16 19:30 09/06/16 19:29 08/24/16 09:13 50 MCG Morphine Sulfate (MoRPHine SULFATE INJ) 2 mg Q2H PRN IV 08/24/16 11:00 09/07/16 10:59 08/24/16 15:51 2 MG
[2016-08-24] MEDS ORDERED: PHYTONADIONE 5 MG TAB PO ONE (19:00)
[2016-08-24] MEDS ORDERED: HYDROmorphone INJ 1 MG/ML SYR IV PRN (19:15)
[2016-08-24] MEDS ORDERED: TRAMADOL HCL 50 MG TAB PO PRN (21:15)
[2016-08-24] MEDS ORDERED: HYDROmorphone INJ 1 MG/ML SYR IV ONE (21:30)
--- NOTE | 2016-08-24 23:09 | Progress Note ---
Progress Note Date of Service August 24, 2016. Progress Note Spoke to pt and his brother at bedside about his abdominal pain. Pt would like to get something stronger than the morphine for the pain. he said the morphine did not help with the pain. Explained to patient that because of the low blood pressure that we have to be cautious with the pain med because it can drop his bp significantly and that can cause him to be unresponsive. Pt said that his pain is 10/10 and he wants to feel comfortable. We will start dilaudid 0.5mg for now and increase to 1 mg if pain is not controlled.
[2016-08-24] MEDS: HYDROmorphone INJ 1 MG/ML SYR IV PRN (23:25)
[2016-08-25] MEDS: SODIUM CHLORIDE 0.9% 1000ML 1,000 ML IV SCH (01:04)
[2016-08-25] MEDS: HYDROmorphone INJ 1 MG/ML SYR IV PRN ×4 (01:28→09:19)
[2016-08-25 06:14] LABS: HEMATOCRIT 22.2 % (42-52); MEAN CELL VOLUME 105.7 fL (80-100); MEAN CORPUSCULAR HEMOGLOBIN 37.1 pg (25-34); MEAN CORPUSCULAR HGB CONC 35.1 g/dl (32-36); WHITE BLOOD COUNT 15.72 K/uL (4.8-10.8)
[2016-08-25 06:15] LABS: PLATELET COUNT 64 K/uL (130-400)
[2016-08-25 06:49] LABS: INR 2.5 (0.9-1.1); PARTIAL THROMBOPLASTIN RATIO 4.6; PROTHROMBIN TIME (PATIENT) 28.2 SECONDS (9.0-12.0)
[2016-08-25 07:03] LABS: BUN/CREATININE RATIO 20.4 (10-20); CALCIUM 7.9 mg/dl (8.5-10.1); CREATININE 4.1 mg/dl (0.60-1.40); POTASSIUM 4.5 mmol/L (3.5-5.1)
[2016-08-25] MEDS: MIDODRINE 10 MG TAB PO SCH (08:00)
[2016-08-25] MEDS: ALBUMIN HUMAN 25% 12.5 GM/50 ML VIAL IV SCH (08:00)
[2016-08-25] MEDS: THIAMINE HCL 100 MG TAB PO SCH (08:00)
--- NOTE | 2016-08-25 09:57 | Gastroenterology Progress Note ---
Progress Note Date of Service: August 25, 2016 Subjective Pt evaluation today including: conversation w/ patient Pt was seen and evaluated this AM. He is not responsive to name. He does not appear to be in any discomfort or pain. His breathing appears agonal. I discussed Mr. Joshi's care with his nurse - per nursing staff he developed agonal breathing overnight and family was updated. He wished to discontinue any care besides comfort measures and was made a DNR. There is no family at bedside during my exam. He is scheduled for a therapeutic paracentesis this AM. I would like to postpone this procedure as he does not appear to be in any distress and until family is at bedside due to worsening of Mr. Joshi's condition overnight. ROS not obtained due to his medication condition. KUB 08/23/16: Findings suggesting mild gastric distention. Probable distal small bowel obstructive change. Moderate amount of gas persists within the a sending and descending colonic regions. Medications Current Inpatient Medications Medications (Trade) Dose Ordered Sig/Alexandra Route Start Time Stop Time Status Last Admin Dose Admin Folic Acid (Folvite Tab) 1 mg DAILY PO 08/19/16 09:00 09/18/16 08:59 08/22/16 08:10 1 MG Thiamine HCl (Vitamin B-1 Tab) 100 mg DAILY PO 08/19/16 09:00 09/18/16 08:59 08/22/16 08:11 100 MG Heparin Sodium (Porcine) 5 ml 5 ml PRN PRN FLUSH 08/19/16 01:45 09/18/16 01:44 08/25/16 05:47 5 ML Pantoprazole Sodium/Syringe (Protonix Inj/ Syringe) 10 ml @ 5 mls/min DAILY@11 IV 08/20/16 11:00 09/19/16 10:59 08/24/16 09:13 5 MLS/MIN Polyethylene 17 gm 17 gm DAILY PRN PO 08/20/16 12:00 09/19/16 11:59 08/22/16 08:10 17 GM Ceftriaxone Sodium/Dextrose (Rocephin Inj/D5 50ml) 70 ml @ 140 mls/hr Q24H IV 08/22/16 10:00 08/28/16 09:59 08/24/16 11:17 140 MLS/HR Midodrine (Proamatine Tab) 15 mg TID@08,12,17 PO 08/22/16 12:00 09/21/16 11:59 08/22/16 18:28 15 MG Ondansetron HCl (Zofran Inj) 4 mg Q6H PRN IV 08/22/16 11:30 09/21/16 11:29 08/24/16 09:01 4 MG Albumin Human 25 gm 25 gm TID IV 08/23/16 09:00 08/26/16 08:59 08/23/16 20:10 25 GM Sodium Chloride (Nss 1000ml) 1,000 ml @ 100 mls/hr Q10H IV 08/23/16 08:30 09/22/16 08:29 08/25/16 01:04 100 MLS/HR Bisacodyl (Dulcolax Supp) 10 mg DAILY PRN GA 08/23/16 08:45 09/22/16 08:44 Fentanyl Citrate (Fentanyl Inj) 50 mcg Q2H PRN IV 08/23/16 19:30 09/06/16 19:29 08/24/16 09:13 50 MCG Hydromorphone HCl (Dilaudid Inj) 1 mg Q2H PRN IV 08/24/16 21:15 09/07/16 21:14 08/25/16 09:19 1 MG Tramadol HCl (Ultram Tab) not relieved by tylenol @ Q6H PRN PO 08/24/16 21:15 09/23/16 21:14 Objective Vital Signs Date Time Temp Pulse Resp B/P Pulse Ox O2 Delivery O2 Flow Rate FiO2 08/25/16 00:00 Room Air 08/24/16 20:00 Room Air 08/24/16 16:00 Room Air 08/24/16 12:15 98 Room Air 08/24/16 11:30 36.4 96 16 98 08/24/16 10:00 96 16 Physical Exam General Appearance: no apparent distress (he is resting in bed) Neck: supple Respiratory/Chest: + respiratory distress, + decreased breath sounds, + pertinent finding (agonal respirations) Abdomen: + abnormal bowel sounds (diminished and hypoactive), + distended ( tense ascites) Neurologic/Psych: + pertinent finding (nonresponsive) Skin: warm/dry, + jaundice Laboratory Results Last 24 Hours Test 08/24/16 16:57 5/22/17 05:45 Bedside Glucose 72 mg/dl White Blood Count 15.72 K/uL Red Blood Count 2.10 M/uL Hemoglobin 7.8 g/dL Hematocrit 22.2 % Mean Corpuscular Volume 105.7 fL Mean Corpuscular Hemoglobin 37.1 pg Mean Corpuscular Hemoglobin Concent 35.1 g/dl RDW Standard Deviation 68.0 fL RDW Coefficient of Variation 17.9 % Platelet Count 64 K/uL Mean Platelet Volume 9.0 fL Prothrombin Time 28.2 SECONDS Prothromb Time International Ratio 2.5 Activated Partial Thromboplast Time 120.7 SECONDS Partial Thromboplastin Ratio 4.6 Sodium Level 131 mmol/L Potassium Level 4.5 mmol/L Chloride Level 100 mmol/L Carbon Dioxide Level 16 mmol/L Anion Gap 15.0 mmol/L Blood Urea Nitrogen 84 mg/dl Creatinine 4.10 mg/dl Est Creatinine Clear Calc Drug Dose 19.3 ml/min Estimated GFR () 16.7 Estimated GFR (Non- 14.4 BUN/Creatinine Ratio 20.4 Random Glucose 56 mg/dl Calcium Level 7.9 mg/dl Total Bilirubin 9.6 mg/dl Direct Bilirubin 4.1 mg/dl Aspartate Amino Transf (AST/SGOT) 30 U/L Alanine Aminotransferase (ALT/SGPT) 9 U/L Alkaline Phosphatase 34 U/L Total Protein 5.2 gm/dl Albumin 3.0 gm/dl Assessment and Plan Patient is a 66 year old male with ETOH cirrhosis who presents with ascites, abdominal pain, CANDELARIA and sepsis. He is noncompliant with his medications as an outpatient. Blood culture without any growth. Urine culture with e.coli. SBP - sensitivite to zosyn. Day four of ABX therapy Suspect HRS with Urine NA 5. He was released from the ICU as pressures were maintained off of pressors. His condition progressively deteriorated over the weekend with worsening kidney function again this morning. Family discussion occurred over the weekend per the primary team at which point it was decided to discontinue medical treatment and pursue comfort measures. He was made a DNR. Today, Mr. Joshi is resting comfortably, does not appear to be in any pain or distress. He is nonresponsive to his name. His breathing is agonal. Plan Comfort measures per primary team and palliative cares recommendations Postpone therapeutic paracentesis until family is at bedside or if Mr. Joshi is in any abdominal distress. MELD 39
--- NOTE | 2016-08-25 12:31 | Palliative Care Progress Note ---
Palliative Care Progress Note Date of Service August 25, 2016. Subjective Patient this morning at 1100 before palliative consult completed.
--- NOTE | 2016-08-25 13:00 | Progress Note ---
Progress Note Date of Service August 25, 2016. Progress Note I was called because patient was . pt was alone in room, unresponsive to physical and verbal stimuli No heart sound no spontaneous respiration, pupils fixed and dilated, no ext movements on physical exam. Patient was at 11:00 am. Brother José was notified and he just left the room few minutes ago. certificate form completed and signed by me.
--- NOTE | 2016-08-27 07:47 | Discharge Summary ---
Discharge Summary Date of Service August 27, 2016. Discharge Summary Admission Date: August 18, 2016 at 08:42 Discharge Disposition: Principal Diagnosis: Sepsis due to SBP Secondary Diagnoses/Problems: Ascites with abdominal pain Acute kidney injury Left Lung Infiltrate Hyponatremia Hx Duodenal Ulcer with Hemorrhage Esophageal varices Thrombocytopenia Procedures: Paracentesis Consultations: Performance Manager Gastro Admission Information HPI (per Admitting provider): 66 year old male with PMH of ascites due to alcoholic cirrhosis, esophageal varices, hyponatremia, thrombocytopenia, was admitted 3 months ago for a doudenal ulcer with hemorrhage presents to the Emergency Room with complaints of weakness, and abdominal pain associated with distention. Pt said that for about a week he has been having tenderness in his abdominal, but over the weekend the pain got worst. He said that he was constant and located across the upper area of the abdomen, grade 8/10. He said that he had a paracentesis done about 17 days ago where they removed about 5 L of ascites fluid. He said that he has been having chills. He had multiple episodes of watery diarrhea over the weekend that seems to resolved now. Pt said that he does not take his medications regularly. He has been sober from alcohol for 6 months. He was admitted 3 months for duodenal bleeding ulcer that was repaired. He was found to be hypotensive, tachycardia, with elevated lactate and given about 3L IVF and he was started on pressor. Currently pt said that he feels much better now. Denies any chest pain, palpitation, dizziness and SOB Physical Exam (per Admitting): General Appearance: WD/WN, + mild distress Head: normocephalic, atraumatic Eyes: EOMI, + pertinent finding (sclerae icterus) ENT: hearing grossly normal, + pertinent finding (dry mucosa) Neck: supple, no JVD Respiratory/Chest: chest non-tender, normal breath sounds, no respiratory distress, no accessory muscle use Cardiovascular: no JVD, no murmur, + tachycardia Abdomen/GI: + tenderness, + distended, + pertinent finding (Mid epigastric abdominal surgical wound scabbedx3, sanguineous drained from one of the scab ( 1st upper)) Back: normal inspection, no CVA tenderness Extremities/Musculoskelatal: no calf tenderness Neurologic/Psych: no motor/sensory deficits, alert, oriented x 3 Skin: warm/dry, no rash, + jaundice Hospital Course SEPSIS 66 yo M with PMH of alcohol cirrhosis with ascites present with hypotensive, tachycardia, elevated lactate and WBC Need to R/O SBP since present with abdominal pain, chills and ascites Received about 3L of IVF WBC 18, POC lactate 3.4 started on pressor in the ER, will continue levophed Keep Map above 65 Received broad coverage with Vanco,Zosyn and levaquin Continue IV fluid CXR showed small parenchymal infiltrate medial left base Will repeat lactic acid check procalcitonin level Blood cx and urine cx collected before IV abx were given Will be admitted to ICU 08/23 Sepsis due to SBP Urine cx + for Ecoli Ascites fluid + Ecoli Blood cx- no growth Continue Rocephin 2 gram Starting back on Levophed due to hypotension Lactic acid trending up Continue midodrine Continue monitor in the ICU Ascites with abdominal pain due to alcohol Cirrhosis Last paracentesis was on 08/01 where 5L ascites fluid removed Need to R/O SBP since being admitted for sepsis CT Abdomen/pelvis showed abdominal and pelvic ascites lasix on hold On broad coverage abx will give Albumin before and after paracentesis On protonix drip, will change to IV since pt does not have any active GI bleed Will do diagnostic paracentesis only since pt is volume depleted on pressor ascites fluid will be sent for testing- see order will do morphine prn for the pain GI consulted 08/23 Fluid ascites grew ecoli Had 7 liter ascites fluid removed on 08/21 Diuretic has been on hold due to hypotension Consider referral to [facility] for Tips once the infection is cleared. 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 Platelet 71 No signs of bleeding continue monitor CBC Hx Duodenal Ulcer with Hemorrhage Esophageal varices Continue nadolol due to hypotension Hemoglobin stable Will avoid anticoagulant agents DVT Px on SCDs due to thrombocytopenia CODE STATUS FULL CODE Total time spent on discharge = 20 minutes This includes examination of the patient, discharge planning, medication reconciliation, and communication with other providers. Discharge Instructions Progress Note Date of Service August 25, 2016. Progress Note I was called because patient was . pt was alone in room, unresponsive to physical and verbal stimuli No heart sound no spontaneous respiration, pupils fixed and dilated, no ext movements on physical exam. Patient was at 11:00 am. Brother José was notified and he just left the room few minutes ago. certificate form completed and signed by me. Additional Copies To Sondra Odell,DO
--- NOTE | 2016-09-13 04:14 | EMERGENCY ROOM VISIT NOTE ---
History First contact with patient: 04:29 Chief Complaint: ABDOMINAL PAIN Stated Complaint: ABDOMINAL PAIN Nursing Triage Summary: Pt arrived via [facility] from home. Per EMS, pt reporting severe abdominal pain due to acsites. Pt gets a pericentesis often. Most recently 2 weeks ago where 5L was removed. Pt states "I should have gone last thursday, but I couldn't". Pt aslo reporting severe diarrhea yesterday with 17 episodes of brown to clear BMs. No nausea or vomiting. Minimal urine production. Small amount produced was bright red. No hx of blood in urine. BP 80s systolic for EMS. Pt CAOx4, noticable jaundiced, with large protuberant abdomen, tender to palpation. Reports he is "noncompliant" with medications. Stating "I take them when I feel like it". Hx of liver cirrhosis, perferated ulcer 3mo ago with repair, anemia. History of Present Illness The patient is a 66 year old male who presents to the Emergency Room with complaints of weakness, fever, chills, fatigue, dizziness, abdominal distention , ascites, diarrhea for the past few days. Patient has alcoholic cirrhosis with stage II varices. He had a upper GI bleed from an ulcer that was repaired a few months ago. He has been sober from alcohol for 6 months. He was as numerous episodes of diarrhea that is nonbloody nonblack and tarry. He's had recent antibiotics. Patient denies chest pain, dyspnea, cough, congestion. He complains of subjective fever and chills. Patient states he feels horrible. He is not on the liver transfer list. Review of Systems See HPI for pertinent positives & negatives. A total of 10 systems reviewed and were otherwise negative. Past Medical/Surgical History Medical Problems: (1) Acute blood loss anemia (2) Alcohol intoxication (3) Elevated bilirubin (4) Elevated BUN (5) Esophageal varices determined by endoscopy (6) Gastrointestinal hemorrhage associated with duodenitis (7) Hepatic failure (8) Multiple abrasions (9) Scalp laceration (10) Thrombocytopenia (11) Weakness Surgical Problems: (1) S/P exploratory laparotomy Family History No pertinent family history Social History Smoking Status: Former Smoker Alcohol Use: other Drug Use: none Marital Status: single Housing Status: lives alone Occupation Status: retired Current/Historical Medications Scheduled Ferrous Sulfate (Ferrous Sulfate), 1 TAB PO QPM Folic Acid (Folvite), 1 MG PO DAILY Furosemide (Lasix), 40 MG PO DAILY AT LUNCH Lactulose (Encephalopathy) (Lactulose), 30 ML PO DAILY AFTERNOON Magnesium Oxide (Mag-Ox), 400 MG PO QAM Multivitamin (Multivitamin), 1 TAB PO QAM Nadolol (Corgard), 20 MG PO QPM Omeprazole (Prilosec), 40 MG PO QAM Potassium Chloride (K-Tabs), 1 TAB PO QAM Spironolactone (Aldactone), 100 MG PO QAM Thiamine Mononitrate (Vitamin B1), 100 MG PO DAILY Allergies Coded Allergies: No Known Allergies (Verified , 08/01/16) Physical Exam Vital Signs Date Time Temp Pulse Resp B/P Pulse Ox O2 Delivery O2 Flow Rate FiO2 08/18/16 06:34 85/51 08/18/16 06:30 87/48 08/18/16 06:24 72/40 08/18/16 06:20 113 21 75/50 94 08/18/16 06:14 86/50 08/18/16 06:00 105/56 08/18/16 05:50 118 32 93 08/18/16 05:45 115 18 96 08/18/16 05:37 97/55 08/18/16 05:15 116 16 96 08/18/16 05:10 92/50 08/18/16 05:01 90/54 08/18/16 04:57 114 28 98 08/18/16 04:34 115 08/18/16 04:31 89/59 08/18/16 04:27 36.7 112 20 89/59 95 Room Air 08/18/16 04:27 95 Room Air Physical Exam VITALS: Vitals are noted on the nurse's note and reviewed by myself. Vital signs hypotensive and tachycardic. GENERAL: Jaundiced ill-appearing frail gentleman appearing older than stated age. SKIN: Right delatorre with healing abrasion The rest of the skin was without rashes, erythema, edema, or bruising. There is no tenting of the skin. Capillary reflex less than 2 seconds. HEAD: Normocephalic atraumatic. EARS: External auditory canals clear, tympanic membranes pearly jauregui without erythema or effusion bilaterally. EYES: Pupils equal round and reactive to light and accommodation. Conjunctivae without injection, sclerae without icterus. Extraocular movements intact. NOSE: Patent, turbinates without inflammation or discharge. No sinus tenderness. MOUTH: Mucous membranes dry. Pharynx without erythema or exudate. Uvula midline. Airway patent. Tongue does not deviate. NECK: Supple without nuchal rigidity. No lymphadenopathy. No thyromegaly. Cervical spine is nontender. No JVD. HEART: Regular rate and rhythm LUNGS: Clear to auscultation bilaterally without wheezes, rales or rhonchi. No dullness to percussion. No retractions or accessory muscle use. ABDOMEN: Positive bowel sounds x 4. Normal tympanic percussion. Soft, distended abdomen, positive fluid wave, Diffusely exquisitely tender to palpation with guarding, no CVA tenderness Rectal exam: Dark stool, guaiac positive certified medical technician present MUSCULOSKELETAL: No muscle atrophy, erythema, or edema noted. NEURO: Patient was alert and oriented to person place and time. Normal sensation to light and sharp touch. No focal neurological deficits. Medical Decision & Procedures Laboratory Results 08/18/16 05:05 Red Blood Count 2.67, Mean Corpuscular Volume 104.9, Mean Corpuscular Hemoglobin 36.3, Mean Corpuscular Hemoglobin Concent 34.6, Mean Platelet Volume 10.0, Neutrophils (%) (Auto) 83.6, Lymphocytes (%) (Auto) 7.0, Monocytes (%) ( Auto) 8.8, Eosinophils (%) (Auto) 0.1, Basophils (%) (Auto) 0.1, Neutrophils # ( Auto) 15.18, Lymphocytes # (Auto) 1.28, Monocytes # (Auto) 1.59, Eosinophils # ( Auto) 0.01, Basophils # (Auto) 0.02 08/18/16 05:05 Test 08/18/16 05:03 08/18/16 05:05 08/18/16 05:08 08/18/16 05:09 Bedside Hemoglobin 10.2 g/dl (14.0-18.0) Bedside Hematocrit 30 % (42-52) Bedside Sodium 124 mEq/L (135-144) Bedside Potassium 6.7 mEq/L (3.3-5.0) Bedside Chloride 89 mEq/L (101-112) Bedside Total CO2 26 mEq/l (24-31) Bedside Blood Urea Nitrogen 75 mg/dl (7-18) Bedside Creatinine 2.1 mg/dl (0.6-1.3) Bedside Glucose (other) 66 mg/dl (70-99) Bedside Ionized Calcium (Abelino) 0.97 mmol/l (1.12-1.32) White Blood Count 18.16 K/uL (4.8-10.8) Red Blood Count 2.67 M/uL (4.7-6.1) Hemoglobin 9.7 g/dL (14.0-18.0) Hematocrit 28.0 % (42-52) Mean Corpuscular Volume 104.9 fL (80-100) Mean Corpuscular Hemoglobin 36.3 pg (25-34) Mean Corpuscular Hemoglobin Concent 34.6 g/dl (32-36) Platelet Count 146 K/uL (130-400) Mean Platelet Volume 10.0 fL (7.4-10.4) Neutrophils (%) (Auto) 83.6 % Lymphocytes (%) (Auto) 7.0 % Monocytes (%) (Auto) 8.8 % Eosinophils (%) (Auto) 0.1 % Basophils (%) (Auto) 0.1 % Neutrophils # (Auto) 15.18 K/uL (1.4-6.5) Lymphocytes # (Auto) 1.28 K/uL (1.2-3.4) Monocytes # (Auto) 1.59 K/uL (0.11-0.59) Eosinophils # (Auto) 0.01 K/uL (0-0.5) Basophils # (Auto) 0.02 K/uL (0-0.2) RDW Standard Deviation 64.2 fL (36.4-46.3) RDW Coefficient of Variation 17.7 % (11.5-14.5) Immature Granulocyte % (Auto) 0.4 % Immature Granulocyte # (Auto) 0.08 K/uL (0.00-0.02) Prothrombin Time 25.6 SECONDS (9.0-12.0) Prothromb Time International Ratio 2.3 (0.9-1.1) Activated Partial Thromboplast Time 41.3 SECONDS (21.0-31.0) Partial Thromboplastin Ratio 1.6 Anion Gap 11.0 mmol/L (3-11) Est Creatinine Clear Calc Drug Dose 38.6 ml/min Estimated GFR () 39.7 Estimated GFR (Non- 34.3 BUN/Creatinine Ratio 25.8 (10-20) Calcium Level 7.6 mg/dl (8.5-10.1) Magnesium Level 2.3 mg/dl (1.8-2.4) Total Bilirubin 11.5 mg/dl (0.2-1) Aspartate Amino Transf (AST/SGOT) 56 U/L (15-37) Alanine Aminotransferase (ALT/SGPT) 19 U/L (12-78) Alkaline Phosphatase 73 U/L (45-117) Ammonia < 10.0 umol/L (11-32) Total Creatine Kinase 40 U/L (39-308) Creatine Kinase MB 0.7 ng/ml (0.5-3.6) Creatine Kinase MB Ratio 1.7 (0-3.0) Troponin I < 0.015 ng/ml (0-0.045) Total Protein 7.2 gm/dl (6.4-8.2) Albumin 1.7 gm/dl (3.4-5.0) Globulin 5.5 gm/dl (2.5-4.0) Albumin/Globulin Ratio 0.3 (0.9-2) Lipase 286 U/L (73-393) Thyroid Stimulating Hormone (TSH) 2.000 uIu/ml (0.300-4.500) Bedside Troponin I 0.020 ng/ml (0-0.045) Bedside Lactic Acid Venous 3.40 mmol/L (0.90-1.70) Test 08/18/16 05:19 Urine Color MARK Urine Appearance SL CLOUDY (CLEAR) Urine pH 5.0 (4.5-7.5) Urine Specific Manning 1.020 (1.000-1.030) Urine Protein NEG (NEG) Urine Glucose (UA) NEG (NEG) Urine Ketones TRACE (NEG) Urine Occult Blood 2+ (NEG) Urine Nitrite NEG (NEG) Urine Bilirubin 2+ (NEG) Urine Urobilinogen NEG (NEG) Urine Leukocyte Esterase NEG (NEG) Urine RBC 5-10 /hpf (0-4) Urine WBC 10-30 /hpf (0-5) Urine Epithelial Cells >30 /lpf (0-5) Urine Other Crystals LEUCINE (NONE PRSENT) Urine Bacteria 2+ (NEG) Urine Hyaline Casts 10-30 /lpf (0-5) Urine Granular Casts 10-20 /lpf (0) Medications Administered Medications (Trade) Dose Ordered Sig/Alexandra Route Start Time Stop Time Status Last Admin Dose Admin Fentanyl Citrate (Fentanyl Inj) 100 mcg NOW STAT IV 08/18/16 04:34 08/18/16 04:38 DC 08/18/16 05:12 100 MCG Ondansetron HCl 4 mg 4 mg NOW STAT IV 08/18/16 04:34 08/18/16 04:38 DC 08/18/16 05:12 4 MG Sodium Chloride 1,000 ml @ 999 mls/hr Q1H1M STAT IV 08/18/16 04:34 08/18/16 05:34 DC 08/18/16 04:27 999 MLS/HR Sodium Chloride 1,000 ml @ 125 mls/hr Q8H STAT IV 08/18/16 04:34 08/18/16 12:33 08/18/16 06:03 125 MLS/HR Sodium Chloride 1,000 ml @ 999 mls/hr Q1H1M STAT IV 08/18/16 04:39 08/18/16 05:39 DC 08/18/16 05:13 999 MLS/HR Pantoprazole Sodium 80 mg/ Dextrose 120 ml @ 480 mls/hr TODAY@0500 IV 08/18/16 05:00 08/18/16 05:14 DC 08/18/16 05:37 480 MLS/HR Pantoprazole Sodium/Dextrose (Protonix Inj/D5 100ml) 100 ml @ 20 mls/hr Q5H IV 08/18/16 05:15 08/18/16 10:14 08/18/16 05:57 20 MLS/HR Piperacillin Sod/ Tazobactam Sod 4.5 gm 4.5 gm NOW STAT IV 08/18/16 04:53 08/18/16 04:56 DC 08/18/16 05:37 4.5 GM Vancomycin HCl 2000 mg/Sodium Chloride 540 ml @ 200 mls/hr ONE STAT IV 08/18/16 04:53 08/18/16 07:34 08/18/16 05:37 200 MLS/HR Norepinephrine Bitartrate/ Dextrose (Levophed Inj/ D5W 500ml) 508 ml @ 0 mls/hr Q0M STAT IV 08/18/16 06:17 08/18/16 06:20 DC 08/18/16 06:35 31.3 MLS/HR ED Course Prior records/ancillary studies reviewed and summarized above. Nursing notes reviewed. Additional history obtained from EMS. The patient's history was concerning for chills, diarrhea, weakness, dizzy. Differential diagnosis: Etiologies such as progression of liver failure, hepatic encephalopathy, metabolic, infection, hypo/hyperglycemia, electrolyte abnormalities, cardiac sources, intracerebral event, toxicologic, neurologic, as well as others were entertained. Physical examination: As above. ER treatment provided: IV Lock Protonix, vancomycin, Zosyn, IV fluids, fentanyl, Zofran I did a femoral sick for the blood as were having difficulties obtaining blood. 2 IV lines and sepsis protocol was initiated. Patient was type and crossmatch for 2 units On reassessment the patient felt better. Diagnostics interpretation by me: ECG: Poor baseline, normal sinus, normal intervals, no acute ST-T wave changes, rate of 113. Impression sinus tachycardia interpreted by myself The labs revealed leukocytosis, anemia, hypoglycemia, hyponatremia, hypocalcemia. Negative troponin, elevated creatinine I-STAT was repeated as it error. Elevated lactic.. Patient was typed and screened Imaging studies: ABDOMEN AND PELVIS CT WITHOUT CONTRAST CT DOSE: 1159.27 mGy.cm HISTORY: Pain abd pain, cirrhosis TECHNIQUE: Multiaxial CT images of the abdomen and pelvis were performed without contrast. COMPARISON STUDY: 04/09/2016 FINDINGS: Bilateral pleural effusions. A similar atelectatic change. Considerable abdominal and pelvic ascites. Hepatic cirrhosis. Gallstone in a contracted gallbladder. Calcification medial aspect right abdomen of uncertain significance, although was present on the prior exam and therefore considered nonacute. Bowel pattern is located centrally and is nonobstructive. Considerable pelvic ascites is present. Kidneys negative for hydronephrosis. IMPRESSION: 1. Considerable abdominal and pelvic ascites. 2. Nonobstructive bowel pattern. 3. Gallstone. 4. Bilateral pleural effusion. CHEST ONE VIEW PORTABLE CLINICAL HISTORY: Sepsis dyspnea COMPARISON STUDY: 04/11/2016 FINDINGS: Small parenchymal infiltrate medial left base. Lungs otherwise appear clear. Diaphragms smooth. IMPRESSION: Small parenchymal infiltrate medial left base. Electronically signed by: Riccardo Anton M.D. Electronically signed by: Riccardo Anton M.D. Chest x-ray with no acute consolidation, pneumothorax or free air per my interpretation CT HEAD: Comparison: CT head 04/08/16. No ICH, mass effect, or edema. Jauregui-white matter differentiation appears preserved. There is intracranial atherosclerosis and mild chronic small vessel ischemic disease in the cerebral white matter, similar to prior exam. There are age-related involutional changes. There is complete opacification of the left sphenoid sinus compatible with left sphenoid sinusitis. The visualized paranasal sinuses and mastoid air cells are otherwise clear. No evidence of skull fracture. Radiologist: [place] M.D. Consultation: A consultation was placed with the hospitalist, Dr Morton. The case was discussed and diagnostics were reviewed. The patient was evaluated in the ER for further treatment. Exam and history seem consistent with progression of liver failure and sepsis with concerns for spontaneous bacterial peritonitis with acute kidney injury. Patient was reassessed multiple times. 2 IV lines were immediately initiated and patient was given broad-spectrum antibiotics, fluids and Protonix drip. He was also given calcium. Blood pressure Declining and Was Started on Levophed. He will be evaluated by medicine for admission. I spoke to the patient's brother per his request as he was quite ill and the brother will come and see the patient from [place]. My attending was made immediately aware this patient after I saw them. By the evaluation outlined above emergent etiologies such as cardiac sources, intracerebral event, toxologic, neurologic, as well as others were deemed relatively unlikely. The pt informed about the findings as listed above. All questions were answered and pleased with the treatment. Case reviewed by attending CODE STATUS: Patient states he would like to have everything done besides being intubated. He states he would like CPR, antibiotics, blood products and anything else besides being intubated. 3 nurses were present during this conversation. Medical Decision as above Impression Primary Impression: Sepsis Additional Impressions: Ascites Liver failure GI bleed Acute kidney injury Hypotension Hypocalcemia Critical Care I have personally spent greater than 60 minutes of critical care time in the direct management of this patient. This includes bedside care, interpretation of diagnostic studies, and testing, discussion with consultants, patient, and family members, and other required patient management activities. This 30 minutes is in excess of all separately billable procedures. Departure Information Dispostion Being Evaluated By Hospitalist Condition POOR Referrals Sondra Odell DO (PCP) Patient Instructions My [facility] Problem Qualifiers Primary Impression: Sepsis Sepsis type: sepsis due to unspecified organism Qualified Codes: A41.9 - Sepsis, unspecified organism Additional Impressions: Ascites Ascites type: due to alcoholic cirrhosis Qualified Codes: K70.31 - Alcoholic cirrhosis of liver with ascites
== END 2016-08-25 13:45 | disposition expired | DRG 871 ==
LOC: ENRESERVDT → ENRESERVTM → EDBD 04:27 → C.EDB 04:29 → UNDOADMIN 08:42 → C.MSICU 08:42 → C.4E 08-24 12:11
PROVIDERS: ADMIT Internal Medicine; ATTEND Internal Medicine
PROC: 0W9G3ZZ Drainage of Peritoneal Cavity, Percutaneous Approach (ICD-10-PCS; principal; 2016-08-21)
DX: R65.21 Severe sepsis with septic shock (principal); K65.2 Spontaneous bacterial peritonitis; N17.9 Acute kidney failure, unspecified; E87.1 Hypo-osmolality and hyponatremia; I85.00 Esophageal varices without bleeding; D62 Acute posthemorrhagic anemia; Z66 Do not resuscitate; K70.31 Alcoholic cirrhosis of liver with ascites; Z87.19 Personal history of other diseases of the digestive system; Z51.5 Encounter for palliative care; D64.9 Anemia, unspecified; Z87.891 Personal history of nicotine dependence; B96.20 Unspecified Escherichia coli [E. coli] as the cause of diseases classified elsewhere